=== PATIENT | male | born 1950 | race Caucasian/White ===

== ENCOUNTER → 2017-08-25 08:53 | Outpatient (CLI) | payer MEDICARE, SELFPAY | PROVIDERS: Visit Provider Internal Medicine Endocrinology, Diabetes & Metabolism | DX: E04.1 Nontoxic single thyroid nodule (principal) | CPT/HCPCS: 36415; 84439; 84443; 84480 ==

== ENCOUNTER 2017-11-20 12:00 | Outpatient (RCR) | payer MEDICARE, SELFPAY ==
--- NOTE | 2017-10-23 11:15 | PT.OIE ---
Current Diagnoses Weakness (10/23/17) Past Medical History (Last Reviewed 10/05/17 @ 16:15 by Sumanth Hernandez MD) Weakness (Chronic) Skin tag (Chronic) Chronic renal insufficiency, stage IV (severe) (Chronic 02/24/15) Abdominal aortic aneurysm (Chronic 2011) Allergic rhinitis (Chronic 1979) Anemia (Chronic 2009) Blindness (Chronic 1970) CKD (chronic kidney disease) (Chronic Unknown) Cataracts, bilateral (Chronic 2011) Colitis (Chronic 1984) Gout (Chronic ~1994) Hyperlipemia (Chronic Unknown) Hypertension (Chronic 1979) Kidney disease (Chronic ~2009) Restless leg syndrome (Chronic 1989) Retinal detachment (Chronic 1970) Sleep apnea (Chronic ~2004) Acne (Resolved ~1961) Actinic keratosis (Resolved ~1994) Chickenpox (Resolved ~1959) Colon polyps (Resolved 2009) History of diverticulitis (Resolved Unknown) History of recurrent ear infection (Resolved 1959) Measles (Resolved ~1959) Mumps (Resolved ~1959) Plantar warts (Resolved ~1994) Recurrent sinusitis (Resolved 1959) Skin cancer (Resolved ~1987) Past Surgical History (Last Reviewed 10/05/17 @ 16:15 by Sumanth Hernandez MD) History of skin surgery (Resolved) Hx of removal of testicle (Resolved 1963) Hx of surgical procedure (Resolved 1951) Provider Visit Care Team Role Provider Type Sumanth Hernandez MD Attending Provider Physician Specialty: Family Practice Address: [address] [place] [address] Email: [email or web address] Physical Therapy Initial Evaluation PT-OP-A Visit Information Start: 10/23/17 16:15 Freq: Status: Active Protocol: Document 10/23/17 11:15 MDD (Rec: 10/23/17 16:30 MDD [email or web address]) Out-Patient Physical Therapy Visit Information Visit Information Visit Type Initial Evaluation Visit Start Time 10:32 Visit Stop Time 11:15 Total Visit Minutes 43 Visit Number 1 Number of SERVICE UNIT OPERATOR OIL WELL Visits 0 Evaluation Information Evaluation Date 10/23/17 PT-OP-B Current Condition Start: 10/23/17 16:15 Freq: Status: Active Protocol: Document 10/23/17 11:15 MDD (Rec: 10/23/17 16:30 MDD [email or web address]) Current Condition History of Current Condition Onset Date incidious over time Current Complaints Pt reports he is very deconditioned and weak. History of Current Condition Pt has stage IV kidney failure and is currently on a waiting list for a transplant surgery at [facility]. His doctor would like him to work on improving his endurance and stamina prior to a surgery. Pt reports walking daily, but short slow walks so as not to fatigue himself (goal of 15, 000 to 20,000 steps daily). He also becomes very fatigued when climbing stairs. Prior Treatments and Tests NA Treatment Goals Patient/Caregiver Goals Improve stamina and lose some weight Prior Functional Status Baseline Function- ADL's Independent Baseline Function- Mobility Independent Baseline Function- Gait Able to walk long distances at a fast speed, no trouble with stairs Current Functional Impairments (Reported) Functional Limitations- Mobility/Gait limited stamina with stairclimbing, fatigues quickly when walking. PT-OP-E Functional Tests Start: 10/23/17 16:15 Freq: Status: Active Protocol: Document 10/23/17 11:15 MDD (Rec: 10/23/17 16:30 MDD [email or web address]) Functional Tests 6 Minute Walk Test Distance 97059 feet Device Used NA Comments after 4 minutes, pt began to limp favoring the L LE ( trendelenburg gait). Five Times Sit to Stand Test Score 21 Comments reports muscle soreness and SOB PT-OP-G Mobility & Gait Start: 10/23/17 16:15 Freq: Status: Active Protocol: Document 10/23/17 11:15 MDD (Rec: 10/23/17 16:30 MDD [email or web address]) OP Mobility Evaluation Bed Mobility Rolling independent Supine to and from Sit independent OP Gait Assessment Gait Gait Assistance Required: Independent Distance (Feet) (feet) 30 Gait Deviations General Gait Pattern Antalgic Lateral Trunk Lean Factors Limiting Gait Function Factors Limiting Gait Function Decreased Strength Pain PT-OP-M Strength Start: 10/23/17 16:15 Freq: Status: Active Protocol: Document 10/23/17 11:15 MDD (Rec: 10/23/17 16:30 MDD [email or web address]) Hip Strength Hip Manual Muscle Testing Right Flexion (L2) 5 Normal Extension (S1) 5 Normal Abduction 4+ Good+ External Rotation 5 Normal Internal Rotation 5 Normal Left Flexion (L2) 5 Normal Extension (S1) 4 Good Abduction 4 Good External Rotation 5 Normal Internal Rotation 5 Normal Knee Strength Knee Manual Muscle Testing Right Flexion (S2) 5 Normal Extension (L3) 5 Normal Left Flexion (S2) 4+ Good+ Extension (L3) 5 Normal PT-OP-Q Treatments Start: 10/23/17 16:15 Freq: Status: Active Protocol: Document 10/23/17 11:15 MDD (Rec: 10/23/17 16:30 MDD [email or web address]) Therapeutic Exercises Supine Exercises 1 Supine Exercise Name Bridges Side bilateral Reps/Minutes 15 with 5 second holds Standing Exercises 2 Standing Exercise Name standing hip abduction with L1 t-band Side bilateral Reps/Minutes 2 x 15 1 Standing Exercise Name sit to stand Side bilateral Reps/Minutes 2 x 20 PT-OP-T Assessment and Plan Start: 10/23/17 16:15 Freq: Status: Active Protocol: Document 10/23/17 11:15 MDD (Rec: 10/23/17 16:30 MDD [email or web address]) Physical Therapy Plan Frequency and Duration Frequency of Treatment 1x/Week Duration of Treatment 6 weeks Plan of Care Start Date 10/23/17 Plan of Care End Date 12/04/17 Therapeutic Interventions Therapeutic Interventions Gait Training Home Exercise Program Neuromuscular Re-education Therapeutic Activities Therapeutic Exercises Next Visit Focus/Plan Next Note Type Treatment Note Next Visit Plan review HEP, discuss gym/ intervals for increasing walking speed
--- NOTE | 2017-10-23 16:31 | PT.OPPOC ---
Current Diagnoses Weakness (10/23/17) Provider Visit Care Team Role Provider Type Sumanth Hernandez MD Attending Provider Physician Specialty: Family Practice Address: [address] [place], [place] [address], [address] Email: [email or web address] Plan Of Care PT-OP-T Assessment and Plan Start: 10/23/17 16:15 Freq: Status: Active Protocol: Document 10/23/17 11:15 MDD (Rec: 10/23/17 16:30 MDD [email or web address]) Physical Therapy Plan Frequency and Duration Frequency of Treatment 1x/Week Duration of Treatment 6 weeks Plan of Care Start Date 10/23/17 Plan of Care End Date 12/04/17 Therapeutic Interventions Therapeutic Interventions Gait Training Home Exercise Program Neuromuscular Re-education Therapeutic Activities Therapeutic Exercises Next Visit Focus/Plan Next Note Type Treatment Note Next Visit Plan review HEP, discuss gym/ intervals for increasing walking speed Plan of Care Dates Plan of Care Start Date 10/23/17 Plan of Care End Date 12/04/17 Please Sign and Return: I have reviewed this Plan of Care and certify that the skilled therapy services above are required to meet the patient?s needs. Physician Signature Date Printed Name and Credentials Clinical Instructor Signature Printed Name and Credentials
--- NOTE | 2017-11-06 12:00 | PT.OTN ---
Current Diagnoses Weakness (11/06/17) Physical Therapy Treatment Note PT-OP-A Visit Information Start: 10/23/17 16:15 Freq: Status: Active Protocol: Document 11/06/17 12:00 MDD (Rec: 11/07/17 08:52 MDD [email or web address]) Out-Patient Physical Therapy Visit Information Visit Information Visit Type Treatment Note Visit Start Time 11:20 Visit Stop Time 12:00 Total Visit Minutes 40 Visit Number 2 Number of ART EDUCATION PROFESSOR Visits 0 Evaluation Information Evaluation Date 10/23/17 PT-OP-B Current Condition Start: 10/23/17 16:15 Freq: Status: Active Protocol: Document 10/23/17 11:15 MDD (Rec: 10/23/17 16:30 MDD [email or web address]) Current Condition History of Current Condition Onset Date incidious over time Current Complaints Pt reports he is very deconditioned and weak. History of Current Condition Pt has stage IV kidney failure and is currently on a waiting list for a transplant surgery at [facility]. His doctor would like him to work on improving his endurance and stamina prior to a surgery. Pt reports walking daily, but short slow walks so as not to fatigue himself (goal of 15, 000 to 20,000 steps daily). He also becomes very fatigued when climbing stairs. Prior Treatments and Tests NA Treatment Goals Patient/Caregiver Goals Improve stamina and lose some weight Prior Functional Status Baseline Function- ADL's Independent Baseline Function- Mobility Independent Baseline Function- Gait Able to walk long distances at a fast speed, no trouble with stairs Current Functional Impairments (Reported) Functional Limitations- Mobility/Gait limited stamina with stairclimbing, fatigues quickly when walking. PT-OP-C Subjective Start: 10/23/17 16:15 Freq: Status: Active Protocol: Document 11/06/17 12:00 MDD (Rec: 11/07/17 08:52 MDD [email or web address]) OP-PT Subjective Patient Comments Patient Comments Pt reports he has been doing his exercises every other day. States that he feels tired afterwards and his muscles have been sore. Continues to walk daily. PT-OP-E Functional Tests Start: 10/23/17 16:15 Freq: Status: Active Protocol: Document 10/23/17 11:15 MDD (Rec: 10/23/17 16:30 MDD [email or web address]) Functional Tests 6 Minute Walk Test Distance 31466 feet Device Used NA Comments after 4 minutes, pt began to limp favoring the L LE ( trendelenburg gait). Five Times Sit to Stand Test Score 21 Comments reports muscle soreness and SOB PT-OP-G Mobility & Gait Start: 10/23/17 16:15 Freq: Status: Active Protocol: Document 10/23/17 11:15 MDD (Rec: 10/23/17 16:30 MDD [email or web address]) OP Mobility Evaluation Bed Mobility Rolling independent Supine to and from Sit independent OP Gait Assessment Gait Gait Assistance Required: Independent Distance (Feet) (feet) 30 Gait Deviations General Gait Pattern Antalgic Lateral Trunk Lean Factors Limiting Gait Function Factors Limiting Gait Function Decreased Strength Pain PT-OP-M Strength Start: 10/23/17 16:15 Freq: Status: Active Protocol: Document 10/23/17 11:15 MDD (Rec: 10/23/17 16:30 MDD [email or web address]) Hip Strength Hip Manual Muscle Testing Right Flexion (L2) 5 Normal Extension (S1) 5 Normal Abduction 4+ Good+ External Rotation 5 Normal Internal Rotation 5 Normal Left Flexion (L2) 5 Normal Extension (S1) 4 Good Abduction 4 Good External Rotation 5 Normal Internal Rotation 5 Normal Knee Strength Knee Manual Muscle Testing Right Flexion (S2) 5 Normal Extension (L3) 5 Normal Left Flexion (S2) 4+ Good+ Extension (L3) 5 Normal PT-OP-Q Treatments Start: 10/23/17 16:15 Freq: Status: Active Protocol: Document 11/06/17 12:00 MDD (Rec: 11/07/17 08:52 MDD [email or web address]) Cardio Equipment Recumbent Bicycle Duration (Minutes) 8 Resistance L4 Therapeutic Exercises Supine Exercises 1 Supine Exercise Name Bridges Side bilateral Reps/Minutes 15 with 5 second holds Standing Exercises 4 Standing Exercise Name standing hamstring curls Side bilateral Resistance L-1 t-band Reps/Minutes 2 x 15 3 Standing Exercise Name heel raises Side bilateral Reps/Minutes 2 x 15 2 Standing Exercise Name standing hip abduction with L1 t-band Side bilateral Reps/Minutes 2 x 15 1 Standing Exercise Name sit to stand Side bilateral Reps/Minutes 2 x 20 Other Exercises 1 Other Exercise Name stair stepping intervals Side bilateral Equipment Used 6 inch step Reps/Minutes 3 x 1 minute intervals, 2 minutes seated rest in between PT-OP-T Assessment and Plan Start: 10/23/17 16:15 Freq: Status: Active Protocol: Document 11/06/17 12:00 MDD (Rec: 11/07/17 08:52 MDD [email or web address]) Physical Therapy Assessment Rehab Potential Rehabilitation Potential Excellent Assessment Summary Assessment Pt demonstrates good participation this day. Has been compliant with HEP. Plans on going to the gym to vary his aerobic exercise with recumbant bike. Physical Therapy Plan Frequency and Duration Frequency of Treatment 1x/Week Duration of Treatment 6 weeks Plan of Care Start Date 10/23/17 Plan of Care End Date 12/04/17 Next Visit Focus/Plan Next Note Type Treatment Note Next Visit Plan Vitals prior to activity. Trial rowing machine intervals as pt reports his daughter has one she wants to give him. Review HEP.
--- NOTE | 2017-11-20 12:46 | PT.OTN ---
Current Diagnoses Weakness (11/20/17) Physical Therapy Treatment Note PT-OP-A Visit Information Start: 10/23/17 16:15 Freq: Status: Active Protocol: Document 11/20/17 12:46 MDD (Rec: 11/20/17 17:13 MDD [id number]) Out-Patient Physical Therapy Visit Information Visit Information Visit Type Treatment Note Visit Start Time 12:01 Visit Stop Time 12:46 Total Visit Minutes 45 Visit Number 3 Number of ASSISTANT SHIFT SUPERVISOR Visits 0 Evaluation Information Evaluation Date 10/23/17 PT-OP-B Current Condition Start: 10/23/17 16:15 Freq: Status: Active Protocol: Document 10/23/17 11:15 MDD (Rec: 10/23/17 16:30 MDD [email or web address]) Current Condition History of Current Condition Onset Date incidious over time Current Complaints Pt reports he is very deconditioned and weak. History of Current Condition Pt has stage IV kidney failure and is currently on a waiting list for a transplant surgery at [facility]. His doctor would like him to work on improving his endurance and stamina prior to a surgery. Pt reports walking daily, but short slow walks so as not to fatigue himself (goal of 15, 000 to 20,000 steps daily). He also becomes very fatigued when climbing stairs. Prior Treatments and Tests NA Treatment Goals Patient/Caregiver Goals Improve stamina and lose some weight Prior Functional Status Baseline Function- ADL's Independent Baseline Function- Mobility Independent Baseline Function- Gait Able to walk long distances at a fast speed, no trouble with stairs Current Functional Impairments (Reported) Functional Limitations- Mobility/Gait limited stamina with stairclimbing, fatigues quickly when walking. PT-OP-C Subjective Start: 10/23/17 16:15 Freq: Status: Active Protocol: Document 11/20/17 12:46 MDD (Rec: 11/20/17 17:13 MDD [id number]) OP-PT Subjective Patient Comments Patient Comments Pt reports he has been consistent with his exercises. Feels they are getting a little easier. He is starting to feel he is developing a routine. PT-OP-Q Treatments Start: 10/23/17 16:15 Freq: Status: Active Protocol: Document 11/20/17 12:46 MDD (Rec: 11/20/17 17:13 MDD [id number]) Cardio Equipment Recumbent Bicycle Duration (Minutes) 8 Resistance L4 Therapeutic Exercises Supine Exercises 1 Supine Exercise Name Bridges - progressed to single leg Side bilateral Reps/Minutes 2 x 15 Standing Exercises 4 Standing Exercise Name standing hamstring curls Side bilateral Resistance L2 t-band Reps/Minutes 2 x 15 3 Standing Exercise Name heel raises - progressed to tandem stance Side bilateral Reps/Minutes 2 x 15 2 Standing Exercise Name standing hip abduction Side bilateral Resistance L2 t- band Reps/Minutes 2 x 15 1 Standing Exercise Name Progressed to wall squats Side bilateral Reps/Minutes 2 x 12 Other Exercises 1 Other Exercise Name stair stepping intervals Side bilateral Equipment Used 6 inch step Reps/Minutes 3 x 1 minute intervals, 2 minutes seated rest in between PT-OP-T Assessment and Plan Start: 10/23/17 16:15 Freq: Status: Active Protocol: Document 11/20/17 12:46 MDD (Rec: 11/20/17 17:13 MDD [id number]) Physical Therapy Assessment Progress Towards Goals Progress Towards Goals Progressing Toward Goals Progress Comments Pt reports feeling a bit stronger and is feeling more comfortable with his routine. Assessment Summary Assessment Pt tolerated progression of HEP today well. Demonstrates good compliance with HEP overall. Physical Therapy Plan Frequency and Duration Frequency of Treatment Every Other Week Plan of Care Start Date 10/23/17 Plan of Care End Date 12/04/17 Therapeutic Interventions Therapeutic Interventions Gait Training Home Exercise Program Neuromuscular Re-education Therapeutic Activities Therapeutic Exercises Next Visit Focus/Plan Next Note Type Treatment Note Next Visit Plan Decrease frequency for additional follow up in 3-4 weeks to allow patient to see how he does independently. May d/c at next visit if he feels comfortable with self progression. Re-test strength and 6 minute walk test.
--- NOTE | 2018-01-01 15:00 | PT.OPDS ---
Current Diagnoses Weakness (11/20/17) Provider Visit Care Team Role Provider Type Sumanth Hernandez MD Attending Provider Physician Specialty: [facility] Address: [address] [place] [address], [address] Email: [email or web address] Visit Number Visit Number 3 Discharge Summary Document 01/01/18 14:54 IJS (Rec: 01/01/18 14:58 IJS [email or web address]) Physical Therapy Assessment Rehab Potential Rehabilitation Potential Excellent Progress Towards Goals Progress Towards Goals Goals Met Assessment Summary Assessment Patient phoned in to cancel all further appointments as he is feeling much better. Total visits = 3. Physical Therapy Plan Frequency and Duration Frequency of Treatment 0 Discharge Physical Therapy Discharge Reasons Patient Request Discharge Comments Patient independent with his HEP. Next Visit Focus/Plan Next Note Type Discharge Summary
--- NOTE | 2018-01-01 15:07 | PT.OPDS ---
Current Diagnoses Weakness (11/20/17) Provider Visit Care Team Role Provider Type Sumanth Hernandez MD Attending Provider Physician Specialty: [facility] Address: [address] [place] [address], [facility] Email: [email or web address] Visit Number Visit Number 3 Discharge Summary PT-OP-B Current Condition Start: 10/23/17 16:15 Freq: Status: Active Protocol: Document 10/23/17 11:15 MDD (Rec: 10/23/17 16:30 MDD [email or web address]) Current Condition History of Current Condition Onset Date incidious over time Current Complaints Pt reports he is very deconditioned and weak. History of Current Condition Pt has stage IV kidney failure and is currently on a waiting list for a transplant surgery at [facility]. His doctor would like him to work on improving his endurance and stamina prior to a surgery. Pt reports walking daily, but short slow walks so as not to fatigue himself (goal of 15, 000 to 20,000 steps daily). He also becomes very fatigued when climbing stairs. Prior Treatments and Tests NA Treatment Goals Patient/Caregiver Goals Improve stamina and lose some weight Prior Functional Status Baseline Function- ADL's Independent Baseline Function- Mobility Independent Baseline Function- Gait Able to walk long distances at a fast speed, no trouble with stairs Current Functional Impairments (Reported) Functional Limitations- Mobility/Gait limited stamina with stairclimbing, fatigues quickly when walking. PT-OP-C Subjective Start: 10/23/17 16:15 Freq: Status: Active Protocol: Document 11/20/17 12:46 MDD (Rec: 11/20/17 17:13 MDD [id number]) OP-PT Subjective Patient Comments Patient Comments Pt reports he has been consistent with his exercises. Feels they are getting a little easier. He is starting to feel he is developing a routine. PT-OP-E Functional Tests Start: 10/23/17 16:15 Freq: Status: Active Protocol: Document 10/23/17 11:15 MDD (Rec: 10/23/17 16:30 MDD [email or web address]) Functional Tests 6 Minute Walk Test Distance 63090 feet Device Used NA Comments after 4 minutes, pt began to limp favoring the L LE ( trendelenburg gait). Five Times Sit to Stand Test Score 21 Comments reports muscle soreness and SOB PT-OP-G Mobility & Gait Start: 10/23/17 16:15 Freq: Status: Active Protocol: Document 10/23/17 11:15 MDD (Rec: 10/23/17 16:30 MDD [email or web address]) OP Mobility Evaluation Bed Mobility Rolling independent Supine to and from Sit independent OP Gait Assessment Gait Gait Assistance Required: Independent Distance (Feet) 30 Gait Deviations General Gait Pattern Antalgic Lateral Trunk Lean Factors Limiting Gait Function Factors Limiting Gait Function Decreased Strength Pain PT-OP-M Strength Start: 10/23/17 16:15 Freq: Status: Active Protocol: Document 10/23/17 11:15 MDD (Rec: 10/23/17 16:30 MDD [email or web address]) Hip Strength Hip Manual Muscle Testing Right Flexion (L2) 5 Normal Extension (S1) 5 Normal Abduction 4+ Good+ External Rotation 5 Normal Internal Rotation 5 Normal Left Flexion (L2) 5 Normal Extension (S1) 4 Good Abduction 4 Good External Rotation 5 Normal Internal Rotation 5 Normal Knee Strength Knee Manual Muscle Testing Right Flexion (S2) 5 Normal Extension (L3) 5 Normal Left Flexion (S2) 4+ Good+ Extension (L3) 5 Normal PT-OP-T Assessment and Plan Start: 10/23/17 16:15 Freq: Status: Active Protocol: Document 01/01/18 14:54 IJS (Rec: 01/01/18 14:58 IJS [email or web address]) Physical Therapy Assessment Rehab Potential Rehabilitation Potential Excellent Progress Towards Goals Progress Towards Goals Goals Met Assessment Summary Assessment Patient phoned in to cancel all further appointments as he is feeling much better. Total visits = 3. Physical Therapy Plan Frequency and Duration Frequency of Treatment 0 Discharge Physical Therapy Discharge Reasons Patient Request Discharge Comments Patient independent with his HEP. Next Visit Focus/Plan Next Note Type Discharge Summary
== END 2018-03-19 15:03 ==
LOC: PHYS 12:00
PROVIDERS: Visit Provider Family Medicine
DX: R53.1 Weakness (principal)
CPT/HCPCS: 97110; 97161

== ENCOUNTER → 2019-06-19 13:05 | Outpatient (CLI) | payer MEDICARE, SELFPAY ==
[2019-06-19 13:36] LABS: Specimen Label IMMUNOGENTICS
[2019-06-19 13:42] LABS: Add Manual Diff / Slide Review NO; Basophils Absolute Auto 100 /uL (0-100); Basophils Percent Auto 0.8 % (0-2); Eosinophils Absolute Auto 300 /uL (0-450); Eosinophils Percent Auto 3.8 % (2-4); Hematocrit 34.6 % (41-53); Hemoglobin 11.6 g/dL (13.5-17.5); Lymphocytes Absolute Auto 1900 /uL (1100-4500); Lymphocytes Percent Auto 24.8 % (25-40); Mean Corpuscular HGB Conc 33.4 % (30-36); Mean Corpuscular Hemoglobin 32.3 PG (26-34); Mean Corpuscular Volume 96.7 fL (80-100); Monocytes Absolute Auto 700 /uL (0-900); Monocytes Percent Auto 9.7 % (3-14); Neutrophils Absolute Auto 4700 /uL (1500-7000); Neutrophils Percent Auto 60.9 % (50-75); Platelet Count 242 X10^3/uL (150-400); Red Blood Cell Count 3.57 X10^6/uL (4.5-5.9); Red Cell Distribution Width 15.3 % (11.6-14.8); White Blood Cell Count 7.7 X10^3/uL (4.5-11.0)
[2019-06-19 14:27] LABS: Alanine Aminotransferase 67 IU/L (<50); Albumin 4.1 g/dL (3.5-5.0); Albumin Globulin Ratio 1.2 (1.0-2.8); Alkaline Phosphatase 261 U/L (38-126); Aspartate Aminotransferase 63 IU/L (17-59); BUN Creatinine Ratio 10.5 (6-22); Bilirubin Total 0.5 mg/dL (0.2-1.3); Blood Urea Nitrogen 59 mg/dL (9-20); Calcium 8.7 mg/dL (8.4-10.2); Carbon Dioxide 23 mmol/L (22-32); Chloride 99 mmol/L (98-107); Estimated Glomerular Filt Rate 10.1 mL/min (>60); Globulin 3.4 g/dL (1.7-4.1); Glucose 85 mg/dL (80-110); HEMOLYSIS < 15 (0-50); Phosphorous 5.3 mg/dL (2.3-3.7); Potassium 3.9 mmol/L (3.4-5.1); Sodium 135 mmol/L (137-145); Total Protein 7.5 g/dL (6.3-8.2)
== END ==
PROVIDERS: PCP Internal Medicine Nephrology; Referring Provider Internal Medicine Nephrology; Visit Provider Internal Medicine Nephrology
DX: N18.6 End stage renal disease (principal)
CPT/HCPCS: 36415; 80053; 84100; 85025

== ENCOUNTER → 2019-07-10 11:34 | Outpatient (CLI) | payer MEDICARE, SELFPAY ==
[2019-07-10 12:43] LABS: Add Manual Diff / Slide Review NO; Basophils Absolute Auto 100 /uL (0-100); Basophils Percent Auto 0.7 % (0-2); Eosinophils Absolute Auto 300 /uL (0-450); Eosinophils Percent Auto 3.2 % (2-4); Hematocrit 32.5 % (41-53); Hemoglobin 11.2 g/dL (13.5-17.5); Lymphocytes Absolute Auto 1800 /uL (1100-4500); Lymphocytes Percent Auto 19.6 % (25-40); Mean Corpuscular HGB Conc 34.5 % (30-36); Mean Corpuscular Hemoglobin 32.9 PG (26-34); Mean Corpuscular Volume 95.4 fL (80-100); Monocytes Absolute Auto 800 /uL (0-900); Monocytes Percent Auto 8.5 % (3-14); Neutrophils Absolute Auto 6200 /uL (1500-7000); Platelet Count 230 X10^3/uL (150-400); Red Cell Distribution Width 14.8 % (11.6-14.8); White Blood Cell Count 9.2 X10^3/uL (4.5-11.0)
[2019-07-10 12:48] LABS: HEMOLYSIS < 15 (0-50); Iron 66 ug/dL (49-181)
[2019-07-10 12:49] LABS: Alanine Aminotransferase 43 IU/L (<50); Albumin 4.2 g/dL (3.5-5.0); Albumin Globulin Ratio 1.2 (1.0-2.8); Alkaline Phosphatase 230 U/L (38-126); Aspartate Aminotransferase 51 IU/L (17-59); BUN Creatinine Ratio 10.8 (6-22); Bilirubin Total 0.5 mg/dL (0.2-1.3); Blood Urea Nitrogen 75 mg/dL (9-20); Calcium 9.3 mg/dL (8.4-10.2); Carbon Dioxide 25 mmol/L (22-32); Chloride 97 mmol/L (98-107); Estimated Glomerular Filt Rate 7.9 mL/min (>60); Globulin 3.5 g/dL (1.7-4.1); Glucose 147 mg/dL (80-110); HEMOLYSIS < 15 (0-50); Phosphorous 5.6 mg/dL (2.3-3.7); Potassium 3.7 mmol/L (3.4-5.1); Sodium 137 mmol/L (137-145); Total Protein 7.7 g/dL (6.3-8.2)
[2019-07-10 12:58] LABS: Percent Iron Saturation 27 % (20-50); Total Iron Binding Capacity 243 ug/dL (261-462); Transferrin 196 mg/dL (206-381)
[2019-07-10 13:23] LABS: Ferritin 391 ng/mL (18-464)
[2019-07-11 07:17] LABS: Parathyroid Hormone Int 187 pg/mL (15-65)
== END ==
PROVIDERS: Referring Provider Internal Medicine Nephrology; Visit Provider Internal Medicine Nephrology
DX: N18.6 End stage renal disease (principal); E83.00 Disorder of copper metabolism, unspecified; N25.81 Secondary hyperparathyroidism of renal origin
CPT/HCPCS: 36415; 80053; 82728; 83540; 83550; 83970; 84100; 85025

== ENCOUNTER → 2019-10-10 11:11 | Outpatient (CLI) | payer MEDICARE, SELFPAY ==
[2019-10-10 12:00] LABS: Add Manual Diff / Slide Review NO; Basophils Absolute Auto 0 /uL (0-100); Basophils Percent Auto 0.6 % (0-2); Eosinophils Absolute Auto 200 /uL (0-450); Eosinophils Percent Auto 2.8 % (2-4); Hematocrit 30.2 % (41-53); Hemoglobin 10.2 g/dL (13.5-17.5); Lymphocytes Absolute Auto 2400 /uL (1100-4500); Lymphocytes Percent Auto 28.4 % (25-40); Mean Corpuscular HGB Conc 33.8 % (30-36); Mean Corpuscular Volume 94.8 fL (80-100); Monocytes Absolute Auto 700 /uL (0-900); Neutrophils Absolute Auto 4900 /uL (1500-7000); Neutrophils Percent Auto 59.2 % (50-75); Platelet Count 219 X10^3/uL (150-400); Red Blood Cell Count 3.18 X10^6/uL (4.5-5.9); Red Cell Distribution Width 13.7 % (11.6-14.8); White Blood Cell Count 8.3 X10^3/uL (4.5-11.0)
[2019-10-10 12:36] LABS: HEMOLYSIS < 15 (0-50); Iron 94 ug/dL (49-181)
[2019-10-10 12:39] LABS: Alanine Aminotransferase 49 IU/L (<50); Albumin 3.9 g/dL (3.5-5.0); Albumin Globulin Ratio 1.3 (1.0-2.8); Alkaline Phosphatase 222 U/L (38-126); Aspartate Aminotransferase 44 IU/L (17-59); BUN Creatinine Ratio 13.4 (6-22); Bilirubin Total 0.5 mg/dL (0.2-1.3); Blood Urea Nitrogen 77 mg/dL (9-20); Calcium 9.8 mg/dL (8.4-10.2); Carbon Dioxide 26 mmol/L (22-32); Chloride 98 mmol/L (98-107); Estimated Glomerular Filt Rate 9.9 mL/min (>60); Glucose 123 mg/dL (80-110); HEMOLYSIS < 15 (0-50); Phosphorous 5.9 mg/dL (2.3-3.7); Potassium 3.4 mmol/L (3.4-5.1); Sodium 137 mmol/L (137-145); Total Protein 6.9 g/dL (6.3-8.2)
[2019-10-10 12:47] LABS: Percent Iron Saturation 39 % (20-50); Total Iron Binding Capacity 240 ug/dL (261-462); Transferrin 181 mg/dL (206-381)
[2019-10-10 13:12] LABS: Ferritin 368 ng/mL (18-464)
[2019-10-11 09:10] LABS: Parathyroid Hormone Int 381 pg/mL (15-65)
== END ==
PROVIDERS: PCP Student in an Organized Health Care Education/Training Program; Referring Provider Internal Medicine Nephrology; Visit Provider Internal Medicine Nephrology
DX: N18.6 End stage renal disease (principal); E83.00 Disorder of copper metabolism, unspecified; N25.81 Secondary hyperparathyroidism of renal origin
CPT/HCPCS: 36415; 80053; 82728; 83540; 83550; 83970; 84100; 85025

== ENCOUNTER → 2019-12-25 10:38 | Outpatient (CLI) | payer MEDICARE, SELFPAY ==
[2019-12-25 11:36] LABS: Add Manual Diff / Slide Review NO; Basophils Absolute Auto 100 /uL (0-100); Basophils Percent Auto 0.7 % (0-2); Eosinophils Absolute Auto 300 /uL (0-450); Eosinophils Percent Auto 3.9 % (2-4); Hematocrit 30.2 % (41-53); Hemoglobin 10.4 g/dL (13.5-17.5); Lymphocytes Absolute Auto 1800 /uL (1100-4500); Lymphocytes Percent Auto 20.8 % (25-40); Mean Corpuscular HGB Conc 34.3 % (30-36); Mean Corpuscular Hemoglobin 32.5 PG (26-34); Mean Corpuscular Volume 94.5 fL (80-100); Monocytes Absolute Auto 1100 /uL (0-900); Monocytes Percent Auto 12.9 % (3-14); Neutrophils Absolute Auto 5400 /uL (1500-7000); Neutrophils Percent Auto 61.7 % (50-75); Platelet Count 242 X10^3/uL (150-400); Red Cell Distribution Width 14.1 % (11.6-14.8); White Blood Cell Count 8.8 X10^3/uL (4.5-11.0)
[2019-12-25 11:56] LABS: Albumin 3.8 g/dL (3.5-5.0); BUN Creatinine Ratio 13.6 (6-22); Blood Urea Nitrogen 92 mg/dL (9-20); Calcium 9.5 mg/dL (8.4-10.2); Carbon Dioxide 30 mmol/L (22-32); Chloride 93 mmol/L (98-107); Estimated Glomerular Filt Rate 8.2 mL/min (>60); Glucose 91 mg/dL (80-110); HEMOLYSIS < 15 (0-50); Potassium 3.6 mmol/L (3.4-5.1); Sodium 135 mmol/L (137-145)
== END ==
PROVIDERS: PCP Student in an Organized Health Care Education/Training Program; Referring Provider Internal Medicine Nephrology; Visit Provider Internal Medicine Nephrology
DX: Z90.09 Acquired absence of other part of head and neck (principal)
CPT/HCPCS: 36415; 80069; 85025

== ENCOUNTER → 2020-01-07 09:07 | Outpatient (CLI) | payer MEDICARE, SELFPAY ==
[2020-01-07 09:47] LABS: Calcium 9.3 mg/dL (8.4-10.2); Phosphorous 4.3 mg/dL (2.3-3.7)
[2020-01-08 06:36] LABS: Parathyroid Hormone Int 43 pg/mL (15-65)
== END ==
PROVIDERS: PCP Student in an Organized Health Care Education/Training Program; Referring Provider Internal Medicine Nephrology; Visit Provider Internal Medicine Nephrology
DX: N18.6 End stage renal disease (principal)
CPT/HCPCS: 36415; 82310; 83970; 84100

== ENCOUNTER → 2020-01-16 09:46 | Outpatient (CLI) | payer MEDICARE, SELFPAY ==
[2020-01-16 10:28] LABS: Calcium 9.1 mg/dL (8.4-10.2); Phosphorous 5.2 mg/dL (2.3-3.7)
== END ==
PROVIDERS: PCP Student in an Organized Health Care Education/Training Program; Referring Provider Internal Medicine Nephrology; Visit Provider Internal Medicine Nephrology
DX: N18.6 End stage renal disease (principal)
CPT/HCPCS: 36415; 82310; 84100

== ENCOUNTER 2020-02-07 15:13 | Emergency (ER) | payer MEDICARE, SELFPAY ==
[2020-02-07] VITALS (11 sets, daily range): BP systolic 140–170; BP diastolic 63–75; PULSE 80–89; RESP 16–29; TEMP 36.9; O2SAT 97–99
--- NOTE | 2020-02-07 16:10 | DI.RAD.S_ITS ---
PROCEDURE: XR CHEST 1V INDICATIONS: suspected sepsis TECHNIQUE: One view of the chest was acquired. COMPARISON: [facility], , CHEST 1 VIEW, 06/12/2009, 17:36. FINDINGS: Surgical changes and devices: None. Lungs and pleura: Lungs are clear. No pleural effusions or pneumothorax. Mediastinum: Mediastinal contours appear normal. Heart size is normal. Bones and chest wall: No suspicious bony lesions. Overlying soft tissues appear unremarkable. IMPRESSION: No acute process. Dictated by: Ted Mccullough M.D. on 02/07/2020 at 17:06 Approved by: Ted Mccullough M.D. on 02/07/2020 at 17:06
--- NOTE | 2020-02-07 17:07 | ED_ITS ---
HPI - Recheck/Abnormal Lab/Rx <Arin Simon, DO - Last Filed: 02/12/20 07:18> General Chief Complaint: Recheck/Abnormal Lab/Rx Stated Complaint: BLOOD CULTURE SHOWED POSITIVE WEAKNESS OF LEGS Time Seen by Provider: 02/07/20 17:03 Source: patient and family () Mode of arrival: Ambulatory Limitations: no limitations History of Present Illness HPI narrative: This is a pleasant 69-year-old male comes to the emergency department with complaint of positive blood culture. Patient was at [facility] for his monthly follow-up he follows with their Nephrology group for peritoneal dialysis. He had a drop in his potassium and was hypertensive and ended up going to the emergency department. He was noted have a temperature of a 100.1? F, his hypertension improved during his stay and he had blood cultures drawn. He elected to return home in orders do his peritoneal dialysis and was contacted today as 1 of his for blood cultures was positive. Patient has not had fevers, he has had a little bit of a headache yesterday but not today. Patient states his blood pressures been much better. He denies any chest pain, no shortness of breath, no cough cold or congestion although he has had some recent sinus issues. He was vomiting in the morning after his dialysis but they altered his medications and this seemed to have resolved. Chronically has constipation and has to take a laxative in order to have bowel movements. He was having some abdominal pain about a month ago but is resolved currently. In December he had parathyroid surgery and had issues reestablishing his urine output, he does normally urinating daily. He does daily peritoneal his hemodialysis and is believed to have gone into renal failure secondary to hypertension, he does not have any diabetes, no prior [place] or CVAs. He also had a cholecystectomy in April. No tobacco, no alcohol or illicit. He lives locally with his . Related Data Home Medications Medication Instructions Recorded Confirmed ASPIRIN (Aspir-Low) 81 mg PO QDAY #0 04/05/11 02/13/19 hydralazine 25 mg PO TID #0 03/15/16 02/13/19 darbepoetin bob in polysorbat #0 07/14/16 02/13/19 [Aranesp (in polysorbate)] sodium bicarbonate #0 06/01/17 02/13/19 torsemide BID #0 06/01/17 02/13/19 allopurinol 100 mg tablet 100 mg PO DAILY 09/14/17 02/13/19 chlorthalidone 25 mg tablet 12.5 mg PO DAILY tab 09/14/17 02/13/19 eplerenone 50 mg tablet 100 mg PO DAILY tab 09/14/17 02/13/19 lisinopril 40 mg tablet 40 mg PO DAILY 09/14/17 02/13/19 simvastatin 20 mg tablet 20 mg PO QPM 09/14/17 02/13/19 carvedilol 12.5 mg tablet 12.5 mg PO BID 07/12/18 02/13/19 Resmed AirCurve 10 BIPAP #1 ea 08/16/18 02/13/19 Previous Rx's Medication Instructions Recorded amlodipine [Norvasc] 10 mg PO QDAY #45 tabs 07/14/16 Allergies Allergy/AdvReac Type Severity Reaction Status Date / Time Sulfa (Sulfonamide Allergy Mild TURNS RED Verified 02/13/19 16:00 Antibiotics) [SULFA (SULFONAMIDE ANTIBIOTICS)] spironolactone AdvReac Intermediate REDUCES Verified 02/13/19 16:00 [SPIRONOLACTONE] KIDNEY FUNCTION Review of Systems <Arin Simon DO - Last Filed: 02/12/20 07:18> Review of Systems ROS Unobtainable: All systems reviewed & are unremarkable except as noted in HPI and below Patient History <Arin Simon DO - Last Filed: 02/12/20 07:18> Medical History Abdominal aortic aneurysm (Chronic 2011) Acne (Resolved ~1961) Actinic keratosis (Resolved ~1994) Allergic rhinitis (Chronic 1979) Anemia (Chronic 2009) Blindness (Chronic 1970) Cataracts, bilateral (Chronic 2011) Chickenpox (Resolved ~1959) Chronic renal insufficiency, stage IV (severe) (Chronic 02/24/15) CKD (chronic kidney disease) (Chronic Unknown) Colitis (Chronic 1984) Colon polyps (Resolved 2009) Gout (Chronic ~1994) History of diverticulitis (Resolved Unknown) History of recurrent ear infection (Resolved 1959) Hyperlipemia (Chronic Unknown) Hypertension (Chronic 1979) Kidney disease (Chronic ~2009) Measles (Resolved ~1959) Mumps (Resolved ~1960) Plantar warts (Resolved ~1994) Recurrent sinusitis (Resolved 1959) Restless leg syndrome (Chronic 1989) Retinal detachment (Chronic 1970) Skin cancer (Resolved ~1987) Skin tag (Chronic) Sleep apnea (Chronic ~2004) Weakness (Chronic) Surgical History History of skin surgery (Resolved) Hx of removal of testicle (Resolved 1963) Hx of surgical procedure (Resolved 1951) Family History Brother Age: 69 Skin cancer Hypertension Kidney disease Brother Age: 59 Hypertension Mother Hypertension Father No problems noted. Social History marital status: details: latia Morgan, lives in [place] household members: spouse lives independently: Yes caregiver/support person: No housing: house Smoking Status: Never smoker Smoking Status: Never smoker Exam <Arin Simon DO - Last Filed: 02/12/20 07:18> Narrative Exam Narrative: GENERAL: Alert and oriented x three, obese, well-appearing male in mild distress. HEENT: Head normocephalic, atraumatic, EOMI, pupils reactive, face symmetric, moist mucous membranes NECK: Supple, full range of motion CARDIOVASCULAR: Regular rate and rhythm without murmurs, rubs or gallops. RESPIRATORY: Breath sounds equal bilaterally, no wheezes rales or rhonchi. ABDOMEN: Soft, nontender. Normoactive bowel sounds all 4 quadrants. No guarding or rebound, rigidity, no mass : No CVA tenderness EXTREMITIES: Normal range of motion, no clubbing or edema appreciated. Neurovascularly intact NEUROLOGICAL: Cranial nerves II through XII grossly intact. Moving all extr emities SKIN: Warm, dry, no petechiae, no rashes or lesions. Initial Vital Signs Initial Vital Signs: Vital Signs Temperature 98.4 F 02/07/20 15:20 Pulse Rate 80 02/07/20 15:20 Respiratory Rate 18 02/07/20 15:20 Blood Pressure 150/67 H 02/07/20 15:20 Pulse Oximetry 99 02/07/20 15:20 <Jonathon Cr DO - Last Filed: 02/07/20 22:55> Initial Vital Signs Initial Vital Signs: Vital Signs Temperature 98.4 F 02/07/20 15:20 Pulse Rate 80 02/07/20 15:20 Respiratory Rate 18 02/07/20 15:20 Blood Pressure 150/67 H 02/07/20 15:20 Pulse Oximetry 99 02/07/20 15:20 Scores <Arin Parish Simon DO - Last Filed: 02/12/20 07:18> GCS [place] coma scale eye opening: Spontaneous [place] coma scale verbal response: Orientated [place] coma scale motor response: Obey commands Blair coma scale total score: 15 Course <Arin Parish Simon DO - Last Filed: 02/12/20 07:18> Orders Ordered: Discontinued Medications Cefepime HCl 1 gm/ Sodium (Chloride) 100 mls @ 200 mls/hr IV NOW ONE Stop: 02/07/20 19:02 Last Infusion: 02/07/20 21:10 Dose: 200 mls/hr Documented by: Admin: 02/07/20 20:04 Dose: 200 mls/hr Documented by: LARS Meropenem 500 mg/ Sodium (Chloride) 100 mls @ 200 mls/hr IV NOW ONE Stop: 02/07/20 19:02 Last Infusion: 02/07/20 20:34 Dose: 200 mls/hr Documented by: Admin: 02/07/20 19:24 Dose: 200 mls/hr Documented by: BATSHEVA Vital Signs Vital signs: Vital Signs - 8 hr 02/07/20 15:20 02/07/20 16:07 02/07/20 16:30 Temperature 98.4 F Pulse Rate 80 80 80 Respiratory Rate 18 24 24 Blood Pressure 150/67 H 170/75 H Pulse Oximetry 99 97 98 02/07/20 17:00 02/07/20 17:26 02/07/20 17:30 Temperature Pulse Rate 83 82 81 Respiratory Rate 27 H 26 H 22 Blood Pressure 151/67 H 149/67 H Pulse Oximetry 99 98 97 02/07/20 18:00 02/07/20 18:30 02/07/20 19:00 Temperature Pulse Rate 83 83 89 Respiratory Rate 22 16 29 H Blood Pressure 143/66 H 140/63 Pulse Oximetry 97 98 98 02/07/20 19:30 02/07/20 20:00 Temperature Pulse Rate 81 86 Respiratory Rate 20 20 Blood Pressure Pulse Oximetry 98 99 <Jonathon Cr DO - Last Filed: 02/07/20 22:55> Course Course Narrative: Patient received in sign-out from Dr. Simon. I have performed an independent history and physical. No significant additions. I have spoken with Dr. Justin Contreras at [facility] who is happy to accept on his service. Patient is aware of and in complete agreement with the plan. Orders Ordered: Discontinued Medications Cefepime HCl 1 gm/ Sodium (Chloride) 100 mls @ 200 mls/hr IV NOW ONE Stop: 02/07/20 19:02 Last Infusion: 02/07/20 21:10 Dose: 200 mls/hr Documented by: Admin: 02/07/20 20:04 Dose: 200 mls/hr Documented by: LARS Meropenem 500 mg/ Sodium (Chloride) 100 mls @ 200 mls/hr IV NOW ONE Stop: 02/07/20 19:02 Last Infusion: 02/07/20 20:34 Dose: 200 mls/hr Documented by: Admin: 02/07/20 19:24 Dose: 200 mls/hr Documented by: BATSHEVA Vital Signs Vital signs: Vital Signs - 8 hr 02/07/20 15:20 02/07/20 16:07 02/07/20 16:30 Temperature 98.4 F Pulse Rate 80 80 80 Respiratory Rate 18 24 24 Blood Pressure 150/67 H 170/75 H Pulse Oximetry 99 97 98 02/07/20 17:00 02/07/20 17:26 02/07/20 17:30 Temperature Pulse Rate 83 82 81 Respiratory Rate 27 H 26 H 22 Blood Pressure 151/67 H 149/67 H Pulse Oximetry 99 98 97 02/07/20 18:00 02/07/20 18:30 02/07/20 19:00 Temperature Pulse Rate 83 83 89 Respiratory Rate 22 16 29 H Blood Pressure 143/66 H 140/63 Pulse Oximetry 97 98 98 02/07/20 19:30 02/07/20 20:00 Temperature Pulse Rate 81 86 Respiratory Rate 20 20 Blood Pressure Pulse Oximetry 98 99 MDM - Recheck/Abnormal Lab/Rx <Arin Simon, - Last Filed: 02/12/20 07:18> Lab Data Attestation: I reviewed the patient's lab results. Result diagrams: 02/07/20 17:17 02/07/20 17:16 Labs: Lab Results 02/07/20 02/07/20 02/07/20 Range/Units 17:16 17:16 17:16 WBC (4.5-11.0) X10^3/uL RBC (4.5-5.9) X10^6/uL Hgb (13.5-17.5) g/dL Hct (41-53) % MCV (80-100) fL MCH (26-34) PG MCHC (30-36) % RDW (11.6-14.8) % Plt Count (150-400) X10^3/uL Neut % (Auto) (50-75) % Lymph % (Auto) (25-40) % [place] % (Auto) (3-14) % Eos % (Auto) (2-4) % Baso % (Auto) (0-2) % Neut # (Auto) (3970-5725) /uL Lymph # (Auto) (0329-3036) /uL [place] # (Auto) (0-900) /uL Eos # (Auto) (0-450) /uL Baso # (Auto) (0-100) /uL PT 12.4 (10.1-12.7) SECONDS INR 1.1 (0.9-1.3) APTT 18 L (26.4-36.2) SECONDS Sodium 127 L (137-145) mmol/L Potassium 4.1 (3.4-5.1) mmol/L Chloride 89 L (98-107) mmol/L Carbon Dioxide 32 (22-32) mmol/L BUN 85 H (9-20) mg/dL Creatinine 8.66 H* (0.66-1.25) mg/dL Estimated GFR 6.2 L (>60) mL/min BUN/Creatinine Ratio 9.8 (6-22) Glucose 98 (80-110) mg/dL Lactate (0.7-2.1) mmol/L Calcium 10.5 H (8.4-10.2) mg/dL Total Bilirubin 0.7 (0.2-1.3) mg/dL AST 44 (17-59) IU/L ALT 46 (<50) IU/L Alkaline Phosphatase 130 H (38-126) U/L Total Protein 7.1 (6.3-8.2) g/dL Albumin 3.8 (3.5-5.0) g/dL Globulin 3.3 (1.7-4.1) g/dL Albumin/Globulin Ratio 1.2 (1.0-2.8) Lipase 90 (23-300) U/L Procalcitonin 270.63 H (<0.5) ng/mL Urine Color Urine Appearance Urine pH (4.5-8.0) Ur Specific [place] (1.000-1.035) Urine Protein (Negative) Urine Glucose (UA) (Negative) g/dL Urine Ketones (NEGATIVE) Urine Occult Blood (Negative) Urine Nitrate (Negative) Urine Bilirubin (NEGATIVE) Urine Urobilinogen (0.2) E.U./dL Ur Leukocyte Esterase (NEGATIVE) Urine RBC (0-5/HPF) Urine WBC (0-5/HPF) Ur Squamous Epith Cells (0-5/HPF) Urine Bacteria (None) Ur Culture Indicated? COVID-19 PCR (Negative) 02/07/20 02/07/20 02/07/20 Range/Units 17:16 17:17 17:20 WBC 20.7 H (4.5-11.0) X10^3/uL RBC 3.51 L (4.5-5.9) X10^6/uL Hgb 11.1 L (13.5-17.5) g/dL Hct 33.4 L (41-53) % MCV 94.9 (80-100) fL MCH 31.6 (26-34) PG MCHC 33.3 (30-36) % RDW 14.8 (11.6-14.8) % Plt Count 218 (150-400) X10^3/uL Neut % (Auto) 88.4 H (50-75) % Lymph % (Auto) 5.2 L (25-40) % [place] % (Auto) 5.7 (3-14) % Eos % (Auto) 0.3 L (2-4) % Baso % (Auto) 0.4 (0-2) % Neut # (Auto) 28956 H (7034-4048) /uL Lymph # (Auto) 1100 (0653[address]2300) /uL [place] # (Auto) 1200 H (0-900) /uL Eos # (Auto) 100 (0-450) /uL Baso # (Auto) 100 (0-100) /uL PT (10.1-12.7) SECONDS INR (0.9-1.3) APTT (26.4-36.2) SECONDS Sodium (137-145) mmol/L Potassium (3.4-5.1) mmol/L Chloride (98-107) mmol/L Carbon Dioxide (22-32) mmol/L BUN (9-20) mg/dL Creatinine (0.66-1.25) mg/dL Estimated GFR (>60) mL/min BUN/Creatinine Ratio (6-22) Glucose (80-110) mg/dL Lactate 0.8 (0.7-2.1) mmol/L Calcium (8.4-10.2) mg/dL Total Bilirubin (0.2-1.3) mg/dL AST (17-59) IU/L ALT (<50) IU/L Alkaline Phosphatase (38-126) U/L Total Protein (6.3-8.2) g/dL Albumin (3.5-5.0) g/dL Globulin (1.7-4.1) g/dL Albumin/Globulin Ratio (1.0-2.8) Lipase (23-300) U/L Procalcitonin (<0.5) ng/mL Urine Color Yellow Urine Appearance Clear Urine pH 7.0 (4.5-8.0) Ur Specific [place] <=1.005 (1.000-1.035) Urine Protein Trace H (Negative) Urine Glucose (UA) Negative (Negative) g/dL Urine Ketones Negative (NEGATIVE) Urine Occult Blood 1+ H (Negative) Urine Nitrate Negative (Negative) Urine Bilirubin Negative (NEGATIVE) Urine Urobilinogen 0.2 (0.2) E.U./dL Ur Leukocyte Esterase Negative (NEGATIVE) Urine RBC 0-1/hpf (0-5/HPF) Urine WBC 0-1/hpf (0-5/HPF) Ur Squamous Epith Cells 0-1 /hpf (0-5/HPF) Urine Bacteria Occasional (0-1) (None) Ur Culture Indicated? Culture not indicate COVID-19 PCR (Negative) 02/07/20 Range/Units 19:10 WBC (4.5-11.0) X10^3/uL RBC (4.5-5.9) X10^6/uL Hgb (13.5-17.5) g/dL Hct (41-53) % MCV (80-100) fL MCH (26-34) PG MCHC (30-36) % RDW (11.6-14.8) % Plt Count (150-400) X10^3/uL Neut % (Auto) (50-75) % Lymph % (Auto) (25-40) % [place] % (Auto) (3-14) % Eos % (Auto) (2-4) % Baso % (Auto) (0-2) % Neut # (Auto) (5621-4147) /uL Lymph # (Auto) (3138-7112) /uL [place] # (Auto) (0-900) /uL Eos # (Auto) (0-450) /uL Baso # (Auto) (0-100) /uL PT (10.1-12.7) SECONDS INR (0.9-1.3) APTT (26.4-36.2) SECONDS Sodium (137-145) mmol/L Potassium (3.4-5.1) mmol/L Chloride (98-107) mmol/L Carbon Dioxide (22-32) mmol/L BUN (9-20) mg/dL Creatinine (0.66-1.25) mg/dL Estimated GFR (>60) mL/min BUN/Creatinine Ratio (6-22) Glucose (80-110) mg/dL Lactate (0.7-2.1) mmol/L Calcium (8.4-10.2) mg/dL Total Bilirubin (0.2-1.3) mg/dL AST (17-59) IU/L ALT (<50) IU/L Alkaline Phosphatase (38-126) U/L Total Protein (6.3-8.2) g/dL Albumin (3.5-5.0) g/dL Globulin (1.7-4.1) g/dL Albumin/Globulin Ratio (1.0-2.8) Lipase (23-300) U/L Procalcitonin (<0.5) ng/mL Urine Color Urine Appearance Urine pH (4.5-8.0) Ur Specific [place] (1.000-1.035) Urine Protein (Negative) Urine Glucose (UA) (Negative) g/dL Urine Ketones (NEGATIVE) Urine Occult Blood (Negative) Urine Nitrate (Negative) Urine Bilirubin (NEGATIVE) Urine Urobilinogen (0.2) E.U./dL Ur Leukocyte Esterase (NEGATIVE) Urine RBC (0-5/HPF) Urine WBC (0-5/HPF) Ur Squamous Epith Cells (0-5/HPF) Urine Bacteria (None) Ur Culture Indicated? COVID-19 PCR Negative (Negative) Imaging Data Chest x-ray: Radiologist's Impression: [address] [address] XRay Report Signed Patient: Judd Garcia JMR#: [id number] : 2Acct:[id number] Age/Sex: 69 / MDate of Service: 02/07/20 Loc: ED Accession Number: [id number] Procedure: XR chest 1V Ordering Provider: Arin Simon D.O. PROCEDURE: XR CHEST 1V INDICATIONS: suspected sepsis TECHNIQUE: One view of the chest was acquired. COMPARISON: [facility], , CHEST 1 VIEW, 06/12/2009, 17:36. FINDINGS: Surgical changes and devices: None. Lungs and pleura: Lungs are clear. No pleural effusions or pneumothorax. Mediastinum: Mediastinal contours appear normal. Heart size is normal. Bones and chest wall: No suspicious bony lesions. Overlying soft tissues appear unremarkable. IMPRESSION: No acute process. Dictated by: Ted Mccullough M.D. on 02/07/2020 at 17:06 Approved by: Ted Mccullough M.D. on 02/07/2020 at 17:06 ECG Data Attestation: I personally reviewed and interpreted this ECG as follows: Interpretation: Sinus rhythm, rate 85, [place] 172, QRS of 112 and QTC of 454. No ST changes appreciated. MDM Narrative Medical decision making narrative: Patient comes in sent for positive blood cultur from the emergency department [facility] last night. Yesterday he had monthly nephrology visit and then had issues with his potassium and was seen there. There was concern about infection the patient elected to return home. He was contacted today asked to come to our local ER because of his positive blood culture. Patient's labs show a leukocytosis of 20 with an elevated pr ocalcitonin of 270. He does have a creatinine of 8 although patient indicates this is not excessive for him. He does have a sodium 127, potassium is 4.1 with a chloride of 89 and a CO2 of 32. Appears stable and a leftward shift on his CBC. Blood cultures were repeated. Chest x-ray does not show any acute findings. Urinalysis shows trace protein with 1+ blood, no leukocyte esterase or nitrates. Urine culture was ordered. I did speak with Dr. Dumont the patient's personal melangeur operator, he does recommend double coverage for Pseudomonas, nystatin swish and swallow t.i.d.. We discussed that we do not have dialysis capabilities here so he does feel patient needs to be transferred. He is not currently on-call and we are waiting call back from the transfer center. If there is any issues he did ask that we give him a call and he will help facilitate transfer. Patient signed out to Dr. Cr while awaiting transfer center. Patient started on psuedomonal coverage, unknown exact source. <Jonathon Cr, - Last Filed: 02/07/20 22:55> Lab Data Labs: Lab Results 02/07/20 02/07/20 02/07/20 Range/Units 17:16 17:16 17:16 WBC (4.5-11.0) X10^3/uL RBC (4.5-5.9) X10^6/uL Hgb (13.5-17.5) g/dL Hct (41-53) % MCV (80-100) fL MCH (26-34) PG MCHC (30-36) % RDW (11.6-14.8) % Plt Count (150-400) X10^3/uL Neut % (Auto) (50-75) % Lymph % (Auto) (25-40) % [place] % (Auto) (3-14) % Eos % (Auto) (2-4) % Baso % (Auto) (0-2) % Neut # (Auto) (9350-9396) /uL Lymph # (Auto) (9871-7310) /uL [place] # (Auto) (0-900) /uL Eos # (Auto) (0-450) /uL Baso # (Auto) (0-100) /uL PT 12.4 (10.1-12.7) SECONDS INR 1.1 (0.9-1.3) APTT 18 L (26.4-36.2) SECONDS Sodium 127 L (137-145) mmol/L Potassium 4.1 (3.4-5.1) mmol/L Chloride 89 L (98-107) mmol/L Carbon Dioxide 32 (22-32) mmol/L BUN 85 H (9-20) mg/dL Creatinine 8.66 H* (0.66-1.25) mg/dL Estimated GFR 6.2 L (>60) mL/min BUN/Creatinine Ratio 9.8 (6-22) Glucose 98 (80-110) mg/dL Lactate (0.7-2.1) mmol/L Calcium 10.5 H (8.4-10.2) mg/dL Total Bilirubin 0.7 (0.2-1.3) mg/dL AST 44 (17-59) IU/L ALT 46 (<50) IU/L Alkaline Phosphatase 130 H (38-126) U/L Total Protein 7.1 (6.3-8.2) g/dL Albumin 3.8 (3.5-5.0) g/dL Globulin 3.3 (1.7-4.1) g/dL Albumin/Globulin Ratio 1.2 (1.0-2.8) Lipase 90 (23-300) U/L Procalcitonin 270.63 H (<0.5) ng/mL Urine Color Urine Appearance Urine pH (4.5-8.0) Ur Specific [place] (1.000-1.035) Urine Protein (Negative) Urine Glucose (UA) (Negative) g/dL Urine Ketones (NEGATIVE) Urine Occult Blood (Negative) Urine Nitrate (Negative) Urine Bilirubin (NEGATIVE) Urine Urobilinogen (0.2) E.U./dL Ur Leukocyte Esterase (NEGATIVE) Urine RBC (0-5/HPF) Urine WBC (0-5/HPF) Ur Squamous Epith Cells (0-5/HPF) Urine Bacteria (None) Ur Culture Indicated? COVID-19 PCR (Negative) 02/07/20 02/07/20 02/07/20 Range/Units 17:16 17:17 17:20 WBC 20.7 H (4.5-11.0) X10^3/uL RBC 3.51 L (4.5-5.9) X10^6/uL Hgb 11.1 L (13.5-17.5) g/dL Hct 33.4 L (41-53) % MCV 94.9 (80-100) fL MCH 31.6 (26-34) PG MCHC 33.3 (30-36) % RDW 14.8 (11.6-14.8) % Plt Count 218 (150-400) X10^3/uL Neut % (Auto) 88.4 H (50-75) % Lymph % (Auto) 5.2 L (25-40) % [place] % (Auto) 5.7 (3-14) % Eos % (Auto) 0.3 L (2-4) % Baso % (Auto) 0.4 (0-2) % Neut # (Auto) 21839 H (4009-1663) /uL Lymph # (Auto) 1100 (7664-8023) /uL [place] # (Auto) 1200 H (0-900) /uL Eos # (Auto) 100 (0-450) /uL Baso # (Auto) 100 (0-100) /uL PT (10.1-12.7) SECONDS INR (0.9-1.3) APTT (26.4-36.2) SECONDS Sodium (137-145) mmol/L Potassium (3.4-5.1) mmol/L Chloride (98-107) mmol/L Carbon Dioxide (22-32) mmol/L BUN (9-20) mg/dL Creatinine (0.66-1.25) mg/dL Estimated GFR (>60) mL/min BUN/Creatinine Ratio (6-22) Glucose (80-110) mg/dL Lactate 0.8 (0.7-2.1) mmol/L Calcium (8.4-10.2) mg/dL Total Bilirubin (0.2-1.3) mg/dL AST (17-59) IU/L ALT (<50) IU/L Alkaline Phosphatase (38-126) U/L Total Protein (6.3-8.2) g/dL Albumin (3.5-5.0) g/dL Globulin (1.7-4.1) g/dL Albumin/Globulin Ratio (1.0-2.8) Lipase (23-300) U/L Procalcitonin (<0.5) ng/mL Urine Color Yellow Urine Appearance Clear Urine pH 7.0 (4.5-8.0) Ur Specific [place] <=1.005 (1.000-1.035) Urine Protein Trace H (Negative) Urine Glucose (UA) Negative (Negative) g/dL Urine Ketones Negative (NEGATIVE) Urine Occult Blood 1+ H (Negative) Urine Nitrate Negative (Negative) Urine Bilirubin Negative (NEGATIVE) Urine Urobilinogen 0.2 (0.2) E.U./dL Ur Leukocyte Esterase Negative (NEGATIVE) Urine RBC 0-1/hpf (0-5/HPF) Urine WBC 0-1/hpf (0-5/HPF) Ur Squamous Epith Cells 0-1 /hpf (0-5/HPF) Urine Bacteria Occasional (0-1) (None) Ur Culture Indicated? Culture not indicate COVID-19 PCR (Negative) 02/07/20 Range/Units 19:10 WBC (4.5-11.0) X10^3/uL RBC (4.5-5.9) X10^6/uL Hgb (13.5-17.5) g/dL Hct (41-53) % MCV (80-100) fL MCH (26-34) PG MCHC (30-36) % RDW (11.6-14.8) % Plt Count (150-400) X10^3/uL Neut % (Auto) (50-75) % Lymph % (Auto) (25-40) % [place] % (Auto) (3-14) % Eos % (Auto) (2-4) % Baso % (Auto) (0-2) % Neut # (Auto) (8106-8848) /uL Lymph # (Auto) (5907-3878) /uL [place] # (Auto) (0-900) /uL Eos # (Auto) (0-450) /uL Baso # (Auto) (0-100) /uL PT (10.1-12.7) SECONDS INR (0.9-1.3) APTT (26.4-36.2) SECONDS Sodium (137-145) mmol/L Potassium (3.4-5.1) mmol/L Chloride (98-107) mmol/L Carbon Dioxide (22-32) mmol/L BUN (9-20) mg/dL Creatinine (0.66-1.25) mg/dL Estimated GFR (>60) mL/min BUN/Creatinine Ratio (6-22) Glucose (80-110) mg/dL Lactate (0.7-2.1) mmol/L Calcium (8.4-10.2) mg/dL Total Bilirubin (0.2-1.3) mg/dL AST (17-59) IU/L ALT (<50) IU/L Alkaline Phosphatase (38-126) U/L Total Protein (6.3-8.2) g/dL Albumin (3.5-5.0) g/dL Globulin (1.7-4.1) g/dL Albumin/Globulin Ratio (1.0-2.8) Lipase (23-300) U/L Procalcitonin (<0.5) ng/mL Urine Color Urine Appearance Urine pH (4.5-8.0) Ur Specific [place] (1.000-1.035) Urine Protein (Negative) Urine Glucose (UA) (Negative) g/dL Urine Ketones (NEGATIVE) Urine Occult Blood (Negative) Urine Nitrate (Negative) Urine Bilirubin (NEGATIVE) Urine Urobilinogen (0.2) E.U./dL Ur Leukocyte Esterase (NEGATIVE) Urine RBC (0-5/HPF) Urine WBC (0-5/HPF) Ur Squamous Epith Cells (0-5/HPF) Urine Bacteria (None) Ur Culture Indicated? COVID-19 PCR Negative (Negative) <Jonathon Cr, DO - Last Filed: 02/07/20 22:55> Critical Care Time Critical Care Time: Yes Total Critical Care Time: 30 Attestation: The high probability of a clinically significant, sudden or life threatening deterioration of the [CV/Renal] system(s) required my full and direct attention, intervention and personal management. The aggregate critical care time was [30] minutes. This time is in addition to time spent performing reported procedures but includes the following: [x] Data Review and interpretation [x] Patient assessment and monitoring of vital signs [x] Documentation [x] Medication orders and management Discharge Plan Departure Patient Disposition: [facility] Clinical Impression: Leukocytosis, Elevated procalcitonin, Positive blood culture Prescriptions: No Action carvedilol 12.5 mg tablet 12.5 mg PO BID RF: 0 allopurinol 100 mg tablet 100 mg PO DAILY RF: 0 simvastatin 20 mg tablet 20 mg PO QPM RF: 0 lisinopril 40 mg tablet 40 mg PO DAILY RF: 0 eplerenone 50 mg tablet 100 mg PO DAILY RF: 0 chlorthalidone 25 mg tablet 12.5 mg PO DAILY RF: 0 ASPIRIN (Aspir-Low) 81 mg PO QDAY Qty: 0 RF: 0 hydralazine 25 MG tablet 25 mg PO TID Qty: 0 RF: 0 amlodipine [Norvasc] 10 MG tablet 10 mg PO QDAY Qty: 45 RF: 0 darbepoetin bob in polysorbat [Aranesp (in polysorbate)] 10 mcg/0.4 mL Syringe Qty: 0 RF: 0 torsemide 20 MG tablet BID Qty: 0 RF: 0 sodium bicarbonate 650 MG tablet Qty: 0 RF: 0 (DME) Resmed AirCurve 10 BIPAP Qty: 1 RF: 0 Referrals: Crow Nunn MD [Primary Care Provider] -
[2020-02-07 17:16] LABS: Add Manual Diff / Slide Review NO; Basophils Absolute Auto 100 /uL (0-100); Basophils Percent Auto 0.4 % (0-2); Eosinophils Absolute Auto 100 /uL (0-450); Eosinophils Percent Auto 0.3 % (2-4); Hematocrit 33.4 % (41-53); Hemoglobin 11.1 g/dL (13.5-17.5); Lymphocytes Absolute Auto 1100 /uL (1100-4500); Lymphocytes Percent Auto 5.2 % (25-40); Mean Corpuscular HGB Conc 33.3 % (30-36); Mean Corpuscular Hemoglobin 31.6 PG (26-34); Mean Corpuscular Volume 94.9 fL (80-100); Monocytes Absolute Auto 1200 /uL (0-900); Monocytes Percent Auto 5.7 % (3-14); Neutrophils Absolute Auto 18300 /uL (1500-7000); Neutrophils Percent Auto 88.4 % (50-75); Platelet Count 218 X10^3/uL (150-400); Red Blood Cell Count 3.51 X10^6/uL (4.5-5.9); Red Cell Distribution Width 14.8 % (11.6-14.8); White Blood Cell Count 20.7 X10^3/uL (4.5-11.0)
[2020-02-07 17:23] LABS: INR 1.1 (0.9-1.3); Prothrombin Time 12.4 SECONDS (10.1-12.7)
[2020-02-07 17:25] LABS: PTT Partial Thromboplastin Tim 18 SECONDS (26.4-36.2)
[2020-02-07 17:27] LABS: Lactate (Lactic Acid) 0.8 mmol/L (0.7-2.1)
[2020-02-07 17:28] LABS: Alanine Aminotransferase 46 IU/L (<50); Albumin 3.8 g/dL (3.5-5.0); Albumin Globulin Ratio 1.2 (1.0-2.8); Alkaline Phosphatase 130 U/L (38-126); Aspartate Aminotransferase 44 IU/L (17-59); BUN Creatinine Ratio 9.8 (6-22); Bilirubin Total 0.7 mg/dL (0.2-1.3); Blood Urea Nitrogen 85 mg/dL (9-20); Calcium 10.5 mg/dL (8.4-10.2); Carbon Dioxide 32 mmol/L (22-32); Chloride 89 mmol/L (98-107); Estimated Glomerular Filt Rate 6.2 mL/min (>60); Globulin 3.3 g/dL (1.7-4.1); Glucose 98 mg/dL (80-110); HEMOLYSIS < 15 (0-50); Lipase 90 U/L (23-300); Potassium 4.1 mmol/L (3.4-5.1); Sodium 127 mmol/L (137-145); Total Protein 7.1 g/dL (6.3-8.2)
[2020-02-07 17:44] LABS: Appearance Urine UA CLEAR; Bilirubin Urine UA NEGATIVE (NEGATIVE); Color Urine UA YELLOW; Glucose Urine UA NEGATIVE (Negative); Ketones Urine UA NEGATIVE (NEGATIVE); Leukocyte Esterase Urine UA NEGATIVE (NEGATIVE); Nitrite Urine UA NEGATIVE (Negative); Occult Blood Urine UA 1+ (Negative); Protein Urine UA TRACE (Negative); Specific Gravity Urine UA <=1.005 (1.000-1.035); Urobilinogen Urine UA 0.2 E.U./dL (0.2)
[2020-02-07 18:01] LABS: Bacteria Urine Occasional (0-1); RBC Urine 0-1/HPF (0-5/HPF); Squamous Epithelial Cell Urine 0-1 /HPF (0-5/HPF); WBC Urine 0-1/HPF (0-5/HPF)
[2020-02-07 18:13] LABS: Procalcitonin 270.63 ng/mL (<0.5)
[2020-02-07] MEDS: MEROPENEM 500 MG in SODIUM CHLORIDE 0.9% 100 ML 200 ML IV (19:24)
[2020-02-07 19:43] LABS: COVID19 -Nasal RAPID Negative (Negative)
--- NOTE | 2020-02-07 20:03 | PC.NURSE ---
contact/ [phone]
[2020-02-07] MEDS: CEFEPIME 1 GM in SODIUM CHLORIDE 0.9% 100 ML 200 ML IV (20:04)
== END 2020-02-08 00:01 | disposition short-term general hospital (02) ==
PROVIDERS: Emergency Medicine; Emergency Provider Emergency Medicine; PCP Family Medicine
DX: D72.829 Elevated white blood cell count, unspecified (principal); R79.89 Other specified abnormal findings of blood chemistry; R78.81 Bacteremia; I10 Essential (primary) hypertension; R50.9 Fever, unspecified; E66.9 Obesity, unspecified
CPT/HCPCS: 36415; 71045; 80053; 81001; 83605; 83690; 84145; 85025; 85610; 85730; 87040; 87086; 87635; 93005; 96365; 96367; 99284; 99291; J0692; J2185

== ENCOUNTER 2020-02-19 16:19 | Emergency (ER) | payer MEDICARE, SELFPAY ==
[2020-02-19] VITALS (10 sets, daily range): BP systolic 140–167; BP diastolic 65–77; PULSE 74–81; RESP 14–20; TEMP 36.5; O2SAT 97–100; BMI 16.9
[2020-02-19 16:54] LABS: Add Manual Diff / Slide Review NO; Basophils Absolute Auto 100 /uL (0-100); Basophils Percent Auto 1.1 % (0-2); Eosinophils Absolute Auto 200 /uL (0-450); Eosinophils Percent Auto 2.4 % (2-4); Hematocrit 31.7 % (41-53); Hemoglobin 10.6 g/dL (13.5-17.5); Lymphocytes Absolute Auto 2000 /uL (1100-4500); Lymphocytes Percent Auto 20.9 % (25-40); Mean Corpuscular HGB Conc 33.3 % (30-36); Mean Corpuscular Hemoglobin 31.3 PG (26-34); Mean Corpuscular Volume 93.9 fL (80-100); Monocytes Absolute Auto 1000 /uL (0-900); Monocytes Percent Auto 10.2 % (3-14); Neutrophils Absolute Auto 6200 /uL (1500-7000); Neutrophils Percent Auto 65.4 % (50-75); Platelet Count 240 X10^3/uL (150-400); Red Blood Cell Count 3.38 X10^6/uL (4.5-5.9); Red Cell Distribution Width 15.3 % (11.6-14.8); White Blood Cell Count 9.5 X10^3/uL (4.5-11.0)
[2020-02-19 17:10] LABS: Alanine Aminotransferase 39 IU/L (<50); Albumin 3.8 g/dL (3.5-5.0); Albumin Globulin Ratio 1.2 (1.0-2.8); Alkaline Phosphatase 126 U/L (38-126); Aspartate Aminotransferase 47 IU/L (17-59); BUN Creatinine Ratio 11.2 (6-22); Bilirubin Total 0.5 mg/dL (0.2-1.3); Blood Urea Nitrogen 105 mg/dL (9-20); Carbon Dioxide 27 mmol/L (22-32); Chloride 91 mmol/L (98-107); Estimated Glomerular Filt Rate 5.6 mL/min (>60); Globulin 3.3 g/dL (1.7-4.1); Glucose 98 mg/dL (80-110); HEMOLYSIS < 15 (0-50); Lactate (Lactic Acid) 0.7 mmol/L (0.7-2.1); Magnesium 2.3 mg/dL (1.6-2.3); Phosphorous 8.1 mg/dL (2.3-3.7); Sodium 128 mmol/L (137-145); Total Protein 7.1 g/dL (6.3-8.2)
--- NOTE | 2020-02-19 17:15 | ED_ITS ---
HPI - Recheck/Abnormal Lab/Rx <Rebecca Sherif, DO - Last Filed: 02/20/20 07:28> General Chief Complaint: Recheck/Abnormal Lab/Rx Stated Complaint: BLOOD INFECTION Time Seen by Provider: 02/19/20 16:25 Source: patient Mode of arrival: Ambulatory Limitations: no limitations History of Present Illness HPI narrative: Patient is a 69-year-old male with history of peritoneal dialysis currently on transplant list and a recent bacteremia presenting today with confusion. He was actually seen evaluated here on February 06 found to have leukocytosis of 20,000 sent to [facility] the use placed on antibiotics. He has 1 more day of Cipro which will be a full 2 week course. states that dialysis did not go well last night over the last few days he has been on add different fluid regimen due to stalking issues and she said last night there were issues with the fluid and they had to switch over to a manual mode. This morning he woke up and was confused. With his previous infections he has had confusion. He has not had any fever or chills. He denies any abdominal pain chest pain cough or fever Related Data Home Medications Medication Instructions Recorded Confirmed ASPIRIN (Aspir-Low) 81 mg PO QDAY #0 04/05/11 02/13/19 hydralazine 25 mg PO TID #0 03/15/16 02/13/19 darbepoetin bob in polysorbat #0 07/14/16 02/13/19 [Aranesp (in polysorbate)] sodium bicarbonate #0 06/01/17 02/13/19 torsemide BID #0 06/01/17 02/13/19 allopurinol 100 mg tablet 100 mg PO DAILY 09/14/17 02/13/19 chlorthalidone 25 mg tablet 12.5 mg PO DAILY tab 09/14/17 02/13/19 eplerenone 50 mg tablet 100 mg PO DAILY tab 09/14/17 02/13/19 lisinopril 40 mg tablet 40 mg PO DAILY 09/14/17 02/13/19 simvastatin 20 mg tablet 20 mg PO QPM 09/14/17 02/13/19 carvedilol 12.5 mg tablet 12.5 mg PO BID 07/12/18 02/13/19 Resmed AirCurve 10 BIPAP #1 ea 08/16/18 02/13/19 Previous Rx's Medication Instructions Recorded amlodipine [Norvasc] 10 mg PO QDAY #45 tabs 07/14/16 Allergies Allergy/AdvReac Type Severity Reaction Status Date / Time Sulfa (Sulfonamide Allergy Mild TURNS RED Verified 02/19/20 16:33 Antibiotics) [SULFA (SULFONAMIDE ANTIBIOTICS)] spironolactone AdvReac Intermediate REDUCES Verified 02/19/20 16:33 [SPIRONOLACTONE] KIDNEY FUNCTION Review of Systems <Rebecca Gorman DO - Last Filed: 02/20/20 07:28> Review of Systems ROS Unobtainable: All systems reviewed & are unremarkable except as noted in HPI and below Constitutional Constitutional: Denies chills, Denies fever(s), Denies lethargy and Denies weakness Eyes Eyes: Denies change in vision, Denies eye discharge, Denies irritation and Denies loss of vision ENT Ears, Nose, Mouth, and Throat: Denies vertigo and Denies dizziness Cardiovascular Cardiovascular: Denies chest pain, Denies syncope, Denies irregular heart rhyt hm, Denies lightheadedness, Denies palpitations, Denies dyspnea, Denies dyspnea on exertion and Denies orthopnea Respiratory Respiratory: Denies cough, Denies dyspnea, Denies dyspnea on exertion and Denies wheezing Gastrointestinal Gastrointestinal: Denies abdominal pain, Denies change in bowel habits, Denies diarrhea, Denies nausea and Denies vomiting Genitourinary Genitourinary: Denies dysuria Genitourinary: Denies dysuria Musculoskeletal Musculoskeletal: Denies back pain and Denies myalgias Integumentary/Breasts Skin/Breast: Denies pruritus, Denies erythema, Denies rash and Denies wounds Neurologic Neurologic: Reports as per HPI, Reports confusion, Denies vertigo, Denies dizziness, Denies syncope, Denies loss of vision and Denies weakness Psychiatric Psychiatric: Reports confusion Endocrine Endocrine: Denies palpitations Allergic/Immunologic Allergic/Immunologic: Denies wheezing Patient History <Rebecca Gorman DO - Last Filed: 02/20/20 07:28> Medical History (Updated 02/19/20 @ 18:49 by Jonathon Cr DO) Abdominal aortic aneurysm (2011) Acne (~196) Actinic keratosis (~1994) Allergic rhinitis (1979) Anemia (2009) Blindness (1970) Cataracts, bilateral (2011) Chickenpox (~1959) Chronic renal insufficiency, stage IV (severe) (02/24/15) CKD (chronic kidney disease) (Unknown) Colitis (1984) Colon polyps (2009) Gout (~1994) History of diverticulitis (Unknown) History of recurrent ear infection (1959) Hyperlipemia (Unknown) Hypertension (1979) Kidney disease (~2009) Measles (~1959) Mumps (~1959) Plantar warts (~1994) Recurrent sinusitis (1959) Restless leg syndrome (1989) Retinal detachment (1970) Skin cancer (~1987) Skin tag Sleep apnea (~2004) Weakness Surgical History History of skin surgery Hx of removal of testicle (1963) Hx of surgical procedure (1951) Family History Brother Age: 70 Skin cancer Hypertension Kidney disease Brother Age: 60 Hypertension Mother Hypertension Father No problems noted. Social History marital status: details: latia Morgan, lives in [place] household members: spouse lives independently: Yes caregiver/support person: No housing: house Smoking Status: Never smoker Smoking Status: Never smoker alcohol intake frequency: holidays/special occasions only Substance Use Type: does not use Exam <Rebecca Gorman DO - Last Filed: 02/20/20 07:28> Initial Vital Signs Initial Vital Signs: Vital Signs Temperature 97.7 F 02/19/20 16:28 Pulse Rate 75 02/19/20 16:28 Respiratory Rate 15 02/19/20 16:28 Blood Pressure 162/74 H 02/19/20 16:28 Pulse Oximetry 100 02/19/20 16:28 GENERAL: Alert will and in no acute distress. HEENT: Head atraumatic,EOMI, pupils reactive, face symmetric, moist mucous membranes CARDIOVASCULAR: Regular rate and rhythm without murmurs, rubs or gallops. RESPIRATORY: Breath sounds equal bilaterally, no wheezes rales or rhonchi. ABDOMEN: Soft, nontender. Normoactive bowel sounds all 4 quadrants. No guarding or rebound. Peritoneal dialysis catheter seen no surrounding erythema or sign of infection EXTREMITIES: Normal range of motion, no clubbing or edema. Neurovascularly intact NEUROLOGICAL: Alert and oriented x4.Normal gait and speech. Moving all extremities no cranial nerve deficit SKIN: Contusions on abdomen noted from heparin Warm, dry, no laceration, no petechiae, no rashes or lesions. <Jonathon Cr, DO - Last Filed: 02/19/20 21:15> Initial Vital Signs Initial Vital Signs: Vital Signs Temperature 97.7 F 02/19/20 16:28 Pulse Rate 75 02/19/20 16:28 Respiratory Rate 15 02/19/20 16:28 Blood Pressure 162/74 H 02/19/20 16:28 Pulse Oximetry 100 02/19/20 16:28 Course <Rebecca Gorman, DO - Last Filed: 02/20/20 07:28> Orders Ordered: ED Orders 02/19/20 16:50 Complete Blood Count AUTO DIFF Stat Comprehensive Metabolic Panel Stat Lactate (Lactic Acid) Stat Magnesium Stat Phosphorous Stat Procalcitonin Stat 02/19/20 16:58 EKG-12 Lead Stat 02/19/20 17:10 Urinalysis and Microscopic Stat 02/19/20 17:24 Blood Culture Stat Vital Signs Vital signs: Vital Signs - 8 hr 02/19/20 16:28 02/19/20 16:30 02/19/20 17:01 Temperature 97.7 F Pulse Rate 74 75 77 Respiratory Rate 15 Blood Pressure 162/74 H 140/65 Pulse Oximetry 99 100 98 02/19/20 17:04 02/19/20 17:30 02/19/20 17:32 Temperature Pulse Rate 76 81 76 Respiratory Rate 15 17 Blood Pressure 148/75 H 165/75 H Pulse Oximetry 99 97 99 02/19/20 18:00 02/19/20 18:06 02/19/20 18:30 Temperature Pulse Rate 76 77 74 Respiratory Rate 20 16 Blood Pressure 160/76 H 142/65 H Pulse Oximetry 99 100 99 02/19/20 18:56 Temperature Pulse Rate 75 Respiratory Rate 14 Blood Pressure 167/77 H Pulse Oximetry 99 <Jonathon Cr DO - Last Filed: 02/19/20 21:15> Course Course Narrative: patient received in signout from Dr. Gorman. I have performed an independent history and physical and am awaiting call back from Dr. Rainey Orders Ordered: ED Orders 02/19/20 16:50 Complete Blood Count AUTO DIFF Stat Comprehensive Metabolic Panel Stat Lactate (Lactic Acid) Stat Magnesium Stat Phosphorous Stat Procalcitonin Stat 02/19/20 16:58 EKG-12 Lead Stat 02/19/20 17:10 Urinalysis and Microscopic Stat 02/19/20 17:24 Blood Culture Stat Consultations Consultation #1: Dr. Rainey (Nephrology at ) has spoken with patient own underground drill operator (Tim) and he recommends patient use his one remaining dialys ate with increased calcium concentration as well as return to prior dosing of Calcitriol 0.5mcg daily and Calcium [place] 1g TID. The currently has no beds and the nephrology team is working on arranging a call back in the morning to the patient and has plan to arrange for direct admission tomorrow. Patient and understand the diagnosis and plan and verbalized their agreement. Vital Signs Vital signs: Vital Signs - 8 hr 02/19/20 16:28 02/19/20 16:30 02/19/20 17:01 Temperature 97.7 F Pulse Rate 74 75 77 Respiratory Rate 15 Blood Pressure 162/74 H 140/65 Pulse Oximetry 99 100 98 02/19/20 17:04 02/19/20 17:30 02/19/20 17:32 Temperature Pulse Rate 76 81 76 Respiratory Rate 15 17 Blood Pressure 148/75 H 165/75 H Pulse Oximetry 99 97 99 02/19/20 18:00 02/19/20 18:06 02/19/20 18:30 Temperature Pulse Rate 76 77 74 Respiratory Rate 20 16 Blood Pressure 160/76 H 142/65 H Pulse Oximetry 99 100 99 02/19/20 18:56 Temperature Pulse Rate 75 Respiratory Rate 14 Blood Pressure 167/77 H Pulse Oximetry [address] [facility] - Recheck/Abnormal Lab/Rx <Rebecca Gorman, - Last Filed: 02/20/20 07:28> Lab Data Attestation: I reviewed the patient's lab results. Result diagrams: 02/19/20 16:50 02/19/20 16:50 Labs: Lab Results 02/19/20 02/19/20 02/19/20 Range/Units 16:50 16:50 16:50 WBC 9.5 (4.5-11.0) X10^3/uL RBC 3.38 L (4.5-5.9) X10^6/uL Hgb 10.6 L (13.5-17.5) g/dL Hct 31.7 L (41-53) % MCV 93.9 (80-100) fL MCH 31.3 (26-34) PG MCHC 33.3 (30-36) % RDW 15.3 H (11.6-14.8) % Plt Count 240 (150-400) X10^3/uL Neut % (Auto) 65.4 (50-75) % Lymph % (Auto) 20.9 L (25-40) % [place] % (Auto) 10.2 (3-14) % Eos % (Auto) 2.4 (2-4) % Baso % (Auto) 1.1 (0-2) % Neut # (Auto) 6200 (2146-2883) /uL Lymph # (Auto) 2000 (2478-4188) /uL [place] # (Auto) 1000 H (0-900) /uL Eos # (Auto) 200 (0-450) /uL Baso # (Auto) 100 (0-100) /uL Sodium 128 L (137-145) mmol/L Potassium 5.0 (3.4-5.1) mmol/L Chloride 91 L (98-107) mmol/L Carbon Dioxide 27 (22-32) mmol/L BUN 105 H (9-20) mg/dL Creatinine 9.34 H* (0.66-1.25) mg/dL Estimated GFR 5.6 L (>60) mL/min BUN/Creatinine Ratio 11.2 (6-22) Glucose 98 (80-110) mg/dL Lactate (0.7-2.1) mmol/L Calcium 6.2 L* (8.4-10.2) mg/dL Phosphorus 8.1 H (2.3-3.7) mg/dL Magnesium 2.3 (1.6-2.3) mg/dL Total Bilirubin 0.5 (0.2-1.3) mg/dL AST 47 (17-59) IU/L ALT 39 (<50) IU/L Alkaline Phosphatase 126 (38-126) U/L Total Protein 7.1 (6.3-8.2) g/dL Albumin 3.8 (3.5-5.0) g/dL Globulin 3.3 (1.7-4.1) g/dL Albumin/Globulin Ratio 1.2 (1.0-2.8) Procalcitonin 0.60 H (<0.5) ng/mL Urine Color Urine Appearance Urine pH (4.5-8.0) Ur Specific [place] (1.000-1.035) Urine Protein (Negative) Urine Glucose (UA) (Negative) g/dL Urine Ketones (NEGATIVE) Urine Occult Blood (Negative) Urine Nitrate (Negative) Urine Bilirubin (NEGATIVE) Urine Urobilinogen (0.2) E.U./dL Ur Leukocyte Esterase (NEGATIVE) Urine RBC (0-5/HPF) Urine WBC (0-5/HPF) Urine Bacteria (None) Ur Culture Indicated? 02/19/20 02/19/20 Range/Units 16:50 17:10 WBC (4.5-11.0) X10^3/uL RBC (4.5-5.9) X10^6/uL Hgb (13.5-17.5) g/dL Hct (41-53) % MCV (80-100) fL MCH (26-34) PG MCHC (30-36) % RDW (11.6-14.8) % Plt Count (150-400) X10^3/uL Neut % (Auto) (50-75) % Lymph % (Auto) (25-40) % [place] % (Auto) (3-14) % Eos % (Auto) (2-4) % Baso % (Auto) (0-2) % Neut # (Auto) (4452-3117) /uL Lymph # (Auto) (3040-8601) /uL [place] # (Auto) (0-900) /uL Eos # (Auto) (0-450) /uL Baso # (Auto) (0-100) /uL Sodium (137-145) mmol/L Potassium (3.4-5.1) mmol/L Chloride (98-107) mmol/L Carbon Dioxide (22-32) mmol/L BUN (9-20) mg/dL Creatinine (0.66-1.25) mg/dL Estimated GFR (>60) mL/min BUN/Creatinine Ratio (6-22) Glucose (80-110) mg/dL Lactate 0.7 (0.7-2.1) mmol/L Calcium (8.4-10.2) mg/dL Phosphorus (2.3-3.7) mg/dL Magnesium (1.6-2.3) mg/dL Total Bilirubin (0.2-1.3) mg/dL AST (17-59) IU/L ALT (<50) IU/L Alkaline Phosphatase (38-126) U/L Total Protein (6.3-8.2) g/dL Albumin (3.5-5.0) g/dL Globulin (1.7-4.1) g/dL Albumin/Globulin Ratio (1.0-2.8) Procalcitonin (<0.5) ng/mL Urine Color Yellow Urine Appearance Clear Urine pH 6.5 (4.5-8.0) Ur Specific [place] <=1.005 (1.000-1.035) Urine Protein Trace H (Negative) Urine Glucose (UA) Negative (Negative) g/dL Urine Ketones Negative (NEGATIVE) Urine Occult Blood 1+ H (Negative) Urine Nitrate Negative (Negative) Urine Bilirubin Negative (NEGATIVE) Urine Urobilinogen 0.2 (0.2) E.U./dL Ur Leukocyte Esterase Negative (NEGATIVE) Urine RBC 1-5/hpf (0-5/HPF) Urine WBC None seen (0-5/HPF) Urine Bacteria None seen (None) Ur Culture Indicated? Cult not indicated Urine Dip Bedside Urine Glucose Negative Bedside Urine Bilirubin - Negative Bedside Urine Ketone - Negative Urine Specific [place] 1.010 Bedside Urine Occult Blood +/- Bedside Urine pH 6.5 Bedside Urine Protein +/- 15 Bedside Urine Urobilinogen - Negative Bedside Urine Nitrite - Negative Bedside Urine Leukocytes - Negative Esterase MDM Narrative Medical decision making narrative: Patient at this time does not appear septic afebrile, no leukocytosis. Procalcitonin is still mildly elevated but significantly improved from previous. He has no focal deficits to suggest stroke. Electrolytes show some hypocalcemia, and chronic ongoing hyponatremia. 1815 Dr[address] Rainey, underground drill operator [facility] has been updated patient's symptoms and test results, he will talk with the patient's own underground drill operator and call back. Patient signed out to Dr. Cr for further evaluation and management <Jonathon Cr, DO - Last Filed: 02/19/20 21:15> Lab Data Labs: Lab Results 02/19/20 02/19/20 02/19/20 Range/Units 16:50 16:50 16:50 WBC 9.5 (4.5-11.0) X10^3/uL RBC 3.38 L (4.5-5.9) X10^6/uL Hgb 10.6 L (13.5-17.5) g/dL Hct 31.7 L (41-53) % MCV 93.9 (80-100) fL MCH 31.3 (26-34) PG MCHC 33.3 (30-36) % RDW 15.3 H (11.6-14.8) % Plt Count 240 (150-400) X10^3/uL Neut % (Auto) 65.4 (50-75) % Lymph % (Auto) 20.9 L (25-40) % [place] % (Auto) 10.2 (3-14) % Eos % (Auto) 2.4 (2-4) % Baso % (Auto) 1.1 (0-2) % Neut # (Auto) 6200 (2876-5360) /uL Lymph # (Auto) 2000 (3100-0034) /uL [place] # (Auto) 1000 H (0-900) /uL Eos # (Auto) 200 (0-450) /uL Baso # (Auto) 100 (0-100) /uL Sodium 128 L (137-145) mmol/L Potassium 5.0 (3.4-5.1) mmol/L Chloride 91 L (98-107) mmol/L Carbon Dioxide 27 (22-32) mmol/L BUN 105 H (9-20) mg/dL Creatinine 9.34 H* (0.66-1.25) mg/dL Estimated GFR 5.6 L (>60) mL/min BUN/Creatinine Ratio 11.2 (6-22) Glucose 98 (80-110) mg/dL Lactate (0.7-2.1) mmol/L Calcium 6.2 L* (8.4-10.2) mg/dL Phosphorus 8.1 H (2.3-3.7) mg/dL Magnesium 2.3 (1.6-2.3) mg/dL Total Bilirubin 0.5 (0.2-1.3) mg/dL AST 47 (17-59) IU/L ALT 39 (<50) IU/L Alkaline Phosphatase 126 (38-126) U/L Total Protein 7.1 (6.3-8.2) g/dL Albumin 3.8 (3.5-5.0) g/dL Globulin 3.3 (1.7-4.1) g/dL Albumin/Globulin Ratio 1.2 (1.0-2.8) Procalcitonin 0.60 H (<0.5) ng/mL Urine Color Urine Appearance Urine pH (4.5-8.0) Ur Specific [place] (1.000-1.035) Urine Protein (Negative) Urine Glucose (UA) (Negative) g/dL Urine Ketones (NEGATIVE) Urine Occult Blood (Negative) Urine Nitrate (Negative) Urine Bilirubin (NEGATIVE) Urine Urobilinogen (0.2) E.U./dL Ur Leukocyte Esterase (NEGATIVE) Urine RBC (0-5/HPF) Urine WBC (0-5/HPF) Urine Bacteria (None) Ur Culture Indicated? 02/19/20 02/19/20 Range/Units 16:50 17:10 WBC (4.5-11.0) X10^3/uL RBC (4.5-5.9) X10^6/uL Hgb (13.5-17.5) g/dL Hct (41-53) % MCV (80-100) fL MCH (26-34) PG MCHC (30-36) % RDW (11.6-14.8) % Plt Count (150-400) X10^3/uL Neut % (Auto) (50-75) % Lymph % (Auto) (25-40) % [place] % (Auto) (3-14) % Eos % (Auto) (2-4) % Baso % (Auto) (0-2) % Neut # (Auto) (7848-4294) /uL Lymph # (Auto) (8108-3137) /uL [place] # (Auto) (0-900) /uL Eos # (Auto) (0-450) /uL Baso # (Auto) (0-100) /uL Sodium (137-145) mmol/L Potassium (3.4-5.1) mmol/L Chloride (98-107) mmol/L Carbon Dioxide (22-32) mmol/L BUN (9-20) mg/dL Creatinine (0.66-1.25) mg/dL Estimated GFR (>60) mL/min BUN/Creatinine Ratio (6-22) Glucose (80-110) mg/dL Lactate 0.7 (0.7-2.1) mmol/L Calcium (8.4-10.2) mg/dL Phosphorus (2.3-3.7) mg/dL Magnesium (1.6-2.3) mg/dL Total Bilirubin (0.2-1.3) mg/dL AST (17-59) IU/L ALT (<50) IU/L Alkaline Phosphatase (38-126) U/L Total Protein (6.3-8.2) g/dL Albumin (3.5-5.0) g/dL Globulin (1.7-4.1) g/dL Albumin/Globulin Ratio (1.0-2.8) Procalcitonin (<0.5) ng/mL Urine Color Yellow Urine Appearance Clear Urine pH 6.5 (4.5-8.0) Ur Specific [place] <=1.005 (1.000-1.035) Urine Protein Trace H (Negative) Urine Glucose (UA) Negative (Negative) g/dL Urine Ketones Negative (NEGATIVE) Urine Occult Blood 1+ H (Negative) Urine Nitrate Negative (Negative) Urine Bilirubin Negative (NEGATIVE) Urine Urobilinogen 0.2 (0.2) E.U./dL Ur Leukocyte Esterase Negative (NEGATIVE) Urine RBC 1-5/hpf (0-5/HPF) Urine WBC None seen (0-5/HPF) Urine Bacteria None seen (None) Ur Culture Indicated? Cult not indicated Urine Dip Bedside Urine Glucose Negative Bedside Urine Bilirubin - Negative Bedside Urine Ketone - Negative Urine Specific [place] 1.010 Bedside Urine Occult Blood +/- Bedside Urine pH 6.5 Bedside Urine Protein +/- 15 Bedside Urine Urobilinogen - Negative Bedside Urine Nitrite - Negative Bedside Urine Leukocytes - Negative Esterase MDM Narrative Medical decision making narrative: Symptoms likely due to low calcium, this is likely a consequence of recent change in his dialysate to a lower calcium concentration. We have had multiple conversations with the patient as well as the Nephrology team at the [facility]. They do not request transfer this evening, stating that they would prefer to alter some of his medications at home and try to arrange for him to come down tomorrow. The patient and family been given return precautions, understand and are in agreement with the plan Discharge Plan Departure Patient Disposition: Home Clinical Impression: Chronic renal insufficiency, stage IV (severe), Hypocalcemia Instructions: DI for Hypocalcemia Activity Restrictions/Additional Instructions: *You have been diagnosed with [confusion and twitching which is most likely a consequence of your low calcium.] *What to do: *Take medications as directed: After discussing with the on-call underground drill operator whom had spoken with Dr. Dumont... 1. Resume your Calcitriol 0.5mcg once daily 2. Resume your Calcium Carbonate 1g three times daily *Dr. Dumont and the nephrology team will reach out to you tomorrow and are working on securing you a bed for admission at *Return to ER if you should have any new, worsening or concerning symptoms, such as [increasing confusion, weakness, fever >101F, shaking chills or other bothersome symptoms ] Prescriptions: No Action carvedilol 12.5 mg tablet 12.5 mg PO BID RF: 0 allopurinol 100 mg tablet 100 mg PO DAILY RF: 0 simvastatin 20 mg tablet 20 mg PO QPM RF: 0 lisinopril 40 mg tablet 40 mg PO DAILY RF: 0 eplerenone 50 mg tablet 100 mg PO DAILY RF: 0 chlorthalidone 25 mg tablet 12.5 mg PO DAILY RF: 0 ASPIRIN (Aspir-Low) 81 mg PO QDAY Qty: 0 RF: 0 hydralazine 25 MG tablet 25 mg PO TID Qty: 0 RF: 0 amlodipine [Norvasc] 10 MG tablet 10 mg PO QDAY Qty: 45 RF: 0 darbepoetin bob in polysorbat [Aranesp (in polysorbate)] 10 mcg/0.4 mL Syringe Qty: 0 RF: 0 torsemide 20 MG tablet BID Qty: 0 RF: 0 sodium bicarbonate 650 MG tablet Qty: 0 RF: 0 (DME) Resmed AirCurve 10 BIPAP Qty: 1 RF: 0 Referrals: Miscellaneous,Doctor, MD [Primary Care Provider] -
[2020-02-19 17:16] LABS: Calcium 6.2 mg/dL (8.4-10.2)
[2020-02-19 17:46] LABS: Bacteria Urine None Seen; WBC Urine None Seen (0-5/HPF)
[2020-02-19 17:48] LABS: Appearance Urine UA CLEAR; Bilirubin Urine UA NEGATIVE (NEGATIVE); Color Urine UA YELLOW; Glucose Urine UA NEGATIVE (Negative); Ketones Urine UA NEGATIVE (NEGATIVE); Leukocyte Esterase Urine UA NEGATIVE (NEGATIVE); Nitrite Urine UA NEGATIVE (Negative); Occult Blood Urine UA 1+ (Negative); Protein Urine UA TRACE (Negative); Specific Gravity Urine UA <=1.005 (1.000-1.035); Urobilinogen Urine UA 0.2 E.U./dL (0.2); pH Urine UA 6.5 (4.5-8.0)
[2020-02-19 17:51] LABS: Culture Indicated Urine Cult Not Indicated; RBC Urine 1-5/HPF (0-5/HPF)
--- NOTE | 2020-02-19 18:48 | PC.NURSE ---
Pt has history of sepsis, currently on antibiotics day 13 of 14. Woke up at 0330 with confusion, per report. They spoke with kidney docs and were instructed to come to ER for repeat blood cultures and lab work.
== END 2020-02-19 19:00 | disposition home or self-care (01) ==
PROVIDERS: Emergency Medicine; Emergency Provider Emergency Medicine
DX: N18.5 Chronic kidney disease, stage 5 (principal); Z99.2 Dependence on renal dialysis; E83.51 Hypocalcemia; R07.9 Chest pain, unspecified
CPT/HCPCS: 36415; 80053; 81001; 81003; 83605; 83735; 84100; 84145; 85025; 87040; 93005; 99282; 99284

== ENCOUNTER → 2020-02-25 11:01 | Outpatient (CLI) | payer MEDICARE, SELFPAY ==
[2020-02-25 12:03] LABS: HEMOLYSIS < 15 (0-50); Potassium 3.8 mmol/L (3.4-5.1)
== END ==
PROVIDERS: PCP Family Medicine; Referring Provider Internal Medicine Nephrology; Visit Provider Internal Medicine Nephrology
DX: N18.6 End stage renal disease (principal)
CPT/HCPCS: 36415; 82310; 84100; 84132

== ENCOUNTER → 2020-02-28 07:45 | Outpatient (CLI) | payer MEDICARE, SELFPAY ==
[2020-02-28 09:21] LABS: Calcium 9.1 mg/dL (8.4-10.2); HEMOLYSIS < 15 (0-50); Phosphorous 4.4 mg/dL (2.3-3.7); Potassium 3.8 mmol/L (3.4-5.1)
== END ==
PROVIDERS: PCP Family Medicine; Referring Provider Internal Medicine Nephrology; Visit Provider Internal Medicine Nephrology
DX: N18.6 End stage renal disease (principal)
CPT/HCPCS: 36415; 82310; 84100; 84132

== ENCOUNTER → 2020-03-03 10:06 | Outpatient (CLI) | payer MEDICARE, SELFPAY ==
[2020-03-03 11:25] LABS: Calcium 8.5 mg/dL (8.4-10.2); HEMOLYSIS < 15 (0-50); Phosphorous 4.8 mg/dL (2.3-3.7); Potassium 3.5 mmol/L (3.4-5.1)
== END ==
PROVIDERS: PCP Family Medicine; Referring Provider Internal Medicine Nephrology; Visit Provider Internal Medicine Nephrology
DX: N18.6 End stage renal disease (principal)
CPT/HCPCS: 36415; 82310; 84100; 84132

== ENCOUNTER → 2020-03-06 07:40 | Outpatient (CLI) | payer MEDICARE, SELFPAY ==
[2020-03-06 09:00] LABS: Calcium 9.5 mg/dL (8.4-10.2); HEMOLYSIS < 15 (0-50); Phosphorous 4.8 mg/dL (2.3-3.7); Potassium 3.9 mmol/L (3.4-5.1)
== END ==
PROVIDERS: PCP Family Medicine; Referring Provider Internal Medicine Nephrology; Visit Provider Internal Medicine Nephrology
DX: N18.6 End stage renal disease (principal)
CPT/HCPCS: 36415; 82310; 84100; 84132

== ENCOUNTER → 2020-03-10 09:08 | Outpatient (CLI) | payer MEDICARE, SELFPAY ==
[2020-03-10 12:46] LABS: Calcium 8.9 mg/dL (8.4-10.2); HEMOLYSIS < 15 (0-50); Phosphorous 4.6 mg/dL (2.3-3.7); Potassium 3.9 mmol/L (3.4-5.1)
== END ==
PROVIDERS: PCP Family Medicine; Referring Provider Internal Medicine Nephrology; Visit Provider Internal Medicine Nephrology
DX: N18.6 End stage renal disease (principal)
CPT/HCPCS: 36415; 82310; 84100; 84132

== ENCOUNTER → 2020-03-13 08:35 | Outpatient (CLI) | payer MEDICARE, SELFPAY ==
[2020-03-13 09:57] LABS: Calcium 9.4 mg/dL (8.4-10.2); HEMOLYSIS 31 (0-50); Phosphorous 6.1 mg/dL (2.3-3.7); Potassium 3.9 mmol/L (3.4-5.1)
== END ==
PROVIDERS: PCP Family Medicine; Referring Provider Internal Medicine Nephrology; Visit Provider Internal Medicine Nephrology
DX: N18.6 End stage renal disease (principal)
CPT/HCPCS: 36415; 82310; 84100; 84132

== ENCOUNTER → 2020-03-17 09:33 | Outpatient (CLI) | payer MEDICARE, SELFPAY ==
[2020-03-17 10:27] LABS: Calcium 9.5 mg/dL (8.4-10.2); HEMOLYSIS < 15 (0-50); Phosphorous 5.9 mg/dL (2.3-3.7); Potassium 3.6 mmol/L (3.4-5.1)
== END ==
PROVIDERS: PCP Family Medicine; Referring Provider Internal Medicine Nephrology; Visit Provider Internal Medicine Nephrology
DX: N18.6 End stage renal disease (principal)
CPT/HCPCS: 36415; 82310; 84100; 84132

== ENCOUNTER → 2020-03-24 08:23 | Outpatient (CLI) | payer MEDICARE, SELFPAY ==
[2020-03-24 10:01] LABS: Add Manual Diff / Slide Review NO; Basophils Absolute Auto 0 /uL (0-100); Basophils Percent Auto 0.6 % (0-2); Eosinophils Absolute Auto 300 /uL (0-450); Eosinophils Percent Auto 4.2 % (2-4); Hematocrit 32.3 % (41-53); Lymphocytes Absolute Auto 2100 /uL (1100-4500); Lymphocytes Percent Auto 26.2 % (25-40); Mean Corpuscular HGB Conc 34.1 % (30-36); Mean Corpuscular Hemoglobin 32.1 PG (26-34); Mean Corpuscular Volume 94.3 fL (80-100); Monocytes Absolute Auto 1000 /uL (0-900); Monocytes Percent Auto 12.1 % (3-14); Neutrophils Absolute Auto 4600 /uL (1500-7000); Neutrophils Percent Auto 56.9 % (50-75); Platelet Count 220 X10^3/uL (150-400); Red Blood Cell Count 3.43 X10^6/uL (4.5-5.9); Red Cell Distribution Width 15.3 % (11.6-14.8); White Blood Cell Count 8.2 X10^3/uL (4.5-11.0)
[2020-03-24 10:27] LABS: Albumin 3.6 g/dL (3.5-5.0); Alkaline Phosphatase 188 U/L (38-126); Calcium 9.3 mg/dL (8.4-10.2); Carbon Dioxide 29 mmol/L (22-32); Chloride 94 mmol/L (98-107); Estimated Glomerular Filt Rate 7.5 mL/min (>60); HEMOLYSIS < 15 (0-50); Phosphorous 5.4 mg/dL (2.3-3.7); Potassium 3.7 mmol/L (3.4-5.1); Sodium 130 mmol/L (137-145)
== END ==
PROVIDERS: PCP Family Medicine; Referring Provider Internal Medicine Nephrology; Visit Provider Internal Medicine Nephrology
DX: N18.6 End stage renal disease (principal)
CPT/HCPCS: 36415; 80051; 82040; 82310; 82565; 84075; 84100; 85025

== ENCOUNTER → 2020-03-31 08:09 | Outpatient (CLI) | payer MEDICARE, SELFPAY ==
[2020-03-31 09:54] LABS: Calcium 9.9 mg/dL (8.4-10.2); HEMOLYSIS < 15 (0-50); Phosphorous 6.5 mg/dL (2.3-3.7); Potassium 3.5 mmol/L (3.4-5.1)
== END ==
PROVIDERS: PCP Family Medicine; Referring Provider Internal Medicine Nephrology; Visit Provider Internal Medicine Nephrology
DX: N18.6 End stage renal disease (principal)
CPT/HCPCS: 36415; 82310; 84100; 84132

== ENCOUNTER → 2020-04-17 09:27 | Outpatient (CLI) | payer MEDICARE, SELFPAY ==
[2020-04-17 10:09] LABS: HEMOLYSIS 39 (0-50); Phosphorous 5.2 mg/dL (2.3-3.7); Potassium 4.6 mmol/L (3.4-5.1)
== END ==
PROVIDERS: PCP Family Medicine; Referring Provider Internal Medicine Nephrology; Visit Provider Internal Medicine Nephrology
DX: N18.6 End stage renal disease (principal)
CPT/HCPCS: 36415; 82310; 84100; 84132

== ENCOUNTER → 2020-04-24 07:14 | Outpatient (CLI) | payer MEDICARE, SELFPAY ==
[2020-04-24 08:35] LABS: Calcium 9.1 mg/dL (8.4-10.2); HEMOLYSIS < 15 (0-50); Potassium 3.8 mmol/L (3.4-5.1)
== END ==
PROVIDERS: PCP Family Medicine; Referring Provider Internal Medicine Nephrology; Visit Provider Internal Medicine Nephrology
DX: N18.6 End stage renal disease (principal)
CPT/HCPCS: 36415; 82310; 84100; 84132

== ENCOUNTER → 2020-05-01 07:32 | Outpatient (CLI) | payer MEDICARE, SELFPAY ==
[2020-05-01] MEDS: COVID-19 VACC #1, MRNA(MOD) 100 MCG/0.5 ML VIAL IM (07:38)
== END ==
PROVIDERS: PCP Family Medicine; Visit Provider Internal Medicine
DX: Z23 Encounter for immunization (principal)
CPT/HCPCS: 0011A; 91301

== ENCOUNTER 2020-05-11 19:19 | Emergency (ER) | payer MEDICARE, SELFPAY ==
[2020-05-11 19:37] VITALS: BP 207/91; PULSE 88; RESP 18; TEMP 37; O2SAT 99
[2020-05-11 21:25] VITALS: BP 189/91; PULSE 78; RESP 20; O2SAT 96
--- NOTE | 2020-05-11 21:36 | DI.RAD.S_ITS ---
PROCEDURE: XR HIP W PEL IF DONE LT 2V INDICATIONS: Recent fall; sharp hip pain, is ambulating TECHNIQUE: AP pelvis with lateral view(s) of the left hip(s). COMPARISON: None. FINDINGS: Bones: No fractures or dislocations. Pelvic ring appears intact. No suspicious bony lesions. Both hips have moderate degenerative changes. Soft tissues: The visualized bowel gas pattern is normal. No suspicious soft tissue calcifications. IMPRESSION: No acute abnormality of the left hip. Both hips have moderate degenerative changes. Dictated by: Monico Bliss M.D. on 05/11/2020 at 22:30 Approved by: Monico Bliss M.D. on 05/11/2020 at 22:31
--- NOTE | 2020-05-11 23:23 | ED_ITS ---
HPI - Extremity Problem General Chief complaint: Extremity Problem,Nontraumatic Stated complaint: LEFT HIP WEAKNESS MUSCLE SPASMS Time Seen by Provider: 05/11/20 23:16 Source: patient and family Mode of arrival: Ambulatory History of Present Illness HPI Narrative: 69-year-old gentleman currently on hemodialysis, had a renal cancer removed on April 08 and is currently on the renal transplant list presents complaining of left the weakness due to severe hip pain. He has been able to sleep for an extended period of time because of increasing twitching and cramping in his legs that require him to stand up almost constantly. He is becoming significantly more sleep deprived and having more and more difficulties in being able to deal with his increasing pain. He reports no fevers, cough, chills, chest pain, dyspnea, abdominal pain, dysuria or specific back pain. Related Data Home Medications Medication Instructions Recorded Confirmed ASPIRIN (Aspir-Low) 81 mg PO QDAY #0 04/05/11 02/13/19 hydralazine 25 mg PO TID #0 03/15/16 02/13/19 darbepoetin bob in polysorbat #0 07/14/16 02/13/19 [Aranesp (in polysorbate)] sodium bicarbonate #0 06/01/17 02/13/19 torsemide BID #0 06/01/17 02/13/19 allopurinol 100 mg tablet 100 mg PO DAILY 09/14/17 02/13/19 chlorthalidone 25 mg tablet 12.5 mg PO DAILY tab 09/14/17 02/13/19 eplerenone 50 mg tablet 100 mg PO DAILY tab 09/14/17 02/13/19 lisinopril 40 mg tablet 40 mg PO DAILY 09/14/17 02/13/19 simvastatin 20 mg tablet 20 mg PO QPM 09/14/17 02/13/19 carvedilol 12.5 mg tablet 12.5 mg PO BID 07/12/18 02/13/19 Resmed AirCurve 10 BIPAP #1 ea 08/16/18 02/13/19 Previous Rx's Medication Instructions Recorded amlodipine [Norvasc] 10 mg PO QDAY #45 tabs 07/14/16 gabapentin 100 mg PO BEDTIME #30 cap 05/11/20 gabapentin 100 mg PO BEDTIME #30 cap 05/11/20 oxycodone-acetaminophen 1 tab PO Q6H PRN #14 tab 05/11/20 Allergies Allergy/AdvReac Type Severity Reaction Status Date / Time Sulfa (Sulfonamide Allergy Mild TURNS RED Verified 02/19/20 16:33 Antibiotics) [SULFA (SULFONAMIDE ANTIBIOTICS)] spironolactone AdvReac Intermediate REDUCES Verified 02/19/20 16:33 [SPIRONOLACTONE] KIDNEY FUNCTION Review of Systems Review of Systems Narrative: Remainder of review of systems including constitutional, ENT, cardiovascular, respiratory, GI, , musculoskeletal, skin, neurologic and psychiatric systems reviewed and are unremarkable except as noted in HPI. Patient History Medical History Abdominal aortic aneurysm (2011) Acne (~1961) Actinic keratosis (~1994) Allergic rhinitis (1979) Anemia (2009) Blindness (1970) Cataracts, bilateral (2011) Chickenpox (~1959) Chronic renal insufficiency, stage IV (severe) (02/24/15) CKD (chronic kidney disease) (Unknown) Colitis (1984) Colon polyps (2009) Gout (~1994) History of diverticulitis (Unknown) History of recurrent ear infection (1959) Hyperlipemia (Unknown) Hypertension (1979) Kidney disease (~2009) Measles (~1959) Mumps (~1959) Plantar warts (~1994) Recurrent sinusitis (1959) Restless leg syndrome (1989) Retinal detachment (1970) Skin cancer (~1987) Skin tag Sleep apnea (~2004) Weakness Surgical History History of skin surgery Hx of removal of testicle (1963) Hx of surgical procedure (1951) Family History Brother Age: 70 Skin cancer Hypertension Kidney disease Brother Age: 60 Hypertension Mother Hypertension Father No problems noted. Social History marital status: details: latia Morgan, lives in [place] household members: spouse lives independently: Yes caregiver/support person: No housing: house Smoking Status: Never smoker Smoking Status: Never smoker alcohol intake frequency: holidays/special occasions only Substance Use Type: does not use Exam Narrative Exam Narrative: General: Alert appropriate, pacing and transferring weight from foot to foot in the room due to overall discomfort Respiratory: Able to speak in full sentences, no obvious respiratory distress Skin: No obvious rashes, warm and dry Neurologic: Grossly intact no obvious asymmetries or abnormalities Psych, appropriate insight and affect, cooperative Initial Vital Signs Initial Vital Signs: Vital Signs Temperature 98.6 F 05/11/20 19:37 Pulse Rate 88 05/11/20 19:37 Respiratory Rate 18 05/11/20 19:37 Blood Pressure 207/91 H 05/11/20 19:37 Pulse Oximetry 99 05/11/20 19:37 Course Orders Ordered: Discontinued Medications Gabapentin (Gabapentin 100 Mg Capsule) 100 mg PO NOW ONE Stop: 05/11/20 23:34 Last Admin: 05/11/20 23:45 Dose: 100 mg Documented by: ANYI Vital Signs Vital signs: Vital Signs - 8 hr 05/11/20 19:37 05/11/20 21:25 Temperature 98.6 F Pulse Rate 88 78 Respiratory Rate 18 20 Blood Pressure 207/91 H 189/91 H Pulse Oximetry 99 96 MDM - Extremity (Nontraumatic) Imaging Data XR hip: Radiologist's Impression: FINDINGS: Bones: No fractures or dislocations. Pelvic ring appears intact. No suspicious bony lesions. Both hips have moderate degenerative changes. Soft tissues: The visualized bowel gas pattern is normal. No suspicious soft tissue calcifications. IMPRESSION: No acute abnormality of the left hip. Both hips have moderate degenerative changes. Dictated by: Monico Bliss M.D. on 05/11/2020 at 22:30 MDM Narrative Medical decision making narrative: 69-year-old gentleman with severe restless leg syndrome causing significant sleep disturbance and increasing difficulties in being able to function due to his severe sleep deprivation. He notes that in the hospital a single dose of Neurontin was incredibly helpful in allowing him to sleep all night long due to the relief from the restless leg muscle spasm. His police chief deputy does not want him to be on gabapentin long-term because of the possibility of nephrotoxicity. We went over pros and cons of additional medications and side effects. At this point the severity of the restless leg syndrome and the severe sleep deprivation is causing more symptoms than the possibility of renal injury years down the road. We shared decision-making, we opted to place him on 100 mg of Neurontin to alleviate his restless leg symptoms and help him get some sleep over the next few nights. He will be following up with his police chief deputy in the near future. He is safe for home discharge Discharge Plan Departure Patient Disposition: Home Clinical Impression: Restless leg syndrome, Sleep deprivation, Gait instability, H/O renal cell cancer, Dialysis patient Instructions: DI for Restless Legs Syndrome Activity Restrictions/Additional Instructions: Thank you for coming in this evening What you are describing is restless leg syndrome and severe sleep deprivation. The x-ray of your hip did not show any acute or pathologic findings You noted that Neurontin in the hospital was very helpful in controlling your restless legs symptoms and in helping you get some sleep. We discussed options for treating restless leg syndrome and all certainly have side effects and consequences. At this point I believe Neurontin, particularly because we know it works well for you, is going to be the best option. Because of your reduced kidney function and dialysis, I am going to recommend the smallest dose at night. I would recommend using it at night to help you sleep for at least 3-5 days to make sure that you are catching up on some of your severe sleep deprivation. After that you will need to decide how frequently you need it. Please review this new medication addition with your police chief deputy the next time you have an appointment. If you continue to have weakness and difficulties in lifting the left leg, it could be very appropriate to talk to your primary care doctor and consider an abnormality with your lower back or the nerves coming from your lumbar spine causing this problem. I hope this helps and you are able to sleep. Prescriptions: New gabapentin 100 mg capsule 100 mg PO BEDTIME Qty: 30 RF: 0 oxycodone-acetaminophen 5-325 mg tablet 1 tab PO Q6H PRN (Reason: pain) Qty: 14 RF: 0 gabapentin 100 mg capsule 100 mg PO BEDTIME Qty: 30 RF: 0 No Action carvedilol 12.5 mg tablet 12.5 mg PO BID RF: 0 allopurinol 100 mg tablet 100 mg PO DAILY RF: 0 simvastatin 20 mg tablet 20 mg PO QPM RF: 0 lisinopril 40 mg tablet 40 mg PO DAILY RF: 0 eplerenone 50 mg tablet 100 mg PO DAILY RF: 0 chlorthalidone 25 mg tablet 12.5 mg PO DAILY RF: 0 ASPIRIN (Aspir-Low) 81 mg PO QDAY Qty: 0 RF: 0 hydralazine 25 MG tablet 25 mg PO TID Qty: 0 RF: 0 amlodipine [Norvasc] 10 MG tablet 10 mg PO QDAY Qty: 45 RF: 0 darbepoetin bob in polysorbat [Aranesp (in polysorbate)] 10 mcg/0.4 mL Syringe Qty: 0 RF: 0 torsemide 20 MG tablet BID Qty: 0 RF: 0 sodium bicarbonate 650 MG tablet Qty: 0 RF: 0 (DME) Resmed AirCurve 10 BIPAP Qty: 1 RF: 0 Referrals: Sumanth Hernandez MD [Primary Care Provider] -
[2020-05-11] MEDS: GABAPENTIN 100 MG CAPSULE PO (23:45)
== END 2020-05-12 | disposition home or self-care (01) ==
PROVIDERS: Emergency Provider Emergency Medicine; PCP Family Medicine
DX: G25.81 Restless legs syndrome (principal); Z72.820 Sleep deprivation; R26.89 Other abnormalities of gait and mobility; Z85.528 Personal history of other malignant neoplasm of kidney; Z99.2 Dependence on renal dialysis; R53.1 Weakness; E78.5 Hyperlipidemia, unspecified; I10 Essential (primary) hypertension
CPT/HCPCS: 73502; 99283

== ENCOUNTER → 2020-05-19 09:07 | Outpatient (CLI) | payer MEDICARE, SELFPAY ==
--- NOTE | 2020-05-19 09:15 | DI.CT.S_ITS ---
PROCEDURE: CT KIDNEY URETER BLADDER (KUB) INDICATIONS: Breakdown (mechanical) of intraperitoneal dialysis TECHNIQUE: Noncontrast 5 mm thick sections acquired from the diaphragms to the symphysis. 5 mm thick coronal and sagittal reformats were then performed. For radiation dose reduction, the following was used: automated exposure control, adjustment of mA and/or kV according to patient size. COMPARISON: None. FINDINGS: Image quality: Excellent. Lung bases: Lung bases are clear. Heart size is normal. Moderate coronary artery calcification. Urinary system: The left kidney is surgically absent. The unenhanced appearance of the right kidney demonstrates a partially exophytic 10 mm hyperdense mass arising from the midportion. No hydronephrosis or intrarenal calculi. No stones in the right ureter. The urinary bladder is partially decompressed and the wall is of appropriate thickness. The prostate gland is mildly enlarged. There is a peritoneal dialysis catheter curled in the anterior right lower quadrant with a small amount of adjacent fluid.. Other solid organs: Liver is normal in size. Gallbladder is absent . Pancreas is normal in contours. Spleen is normal in size. No adrenal nodules. Peritoneum and bowel: Unenhanced bowel loops demonstrate normal wall thickness and caliber. Moderately increased quantity of solid stool throughout the colon. Occasional diffuse diverticulosis there are mild pericolonic inflammatory changes including the slight left pericolic gutter fascial thickening. Nodes and vessels: No retroperitoneal or mesenteric adenopathy by size criteria. Aorta and inferior vena cava are normal in caliber. Moderate abdominal aortic atherosclerotic calcification. Abdominal wall: There is a fluid containing umbilical hernia and fluid and bowel containing supraumbilical hernia with minor adjacent subcutaneous inflammatory change. Oblique longitudinal band of subcutaneous edema is present over the lateral left abdominal wall, probably healing surgical change. No subcutaneous abscess. Centrally within the left psoas muscle, there is a longitudinal ovoid focus of increased density within an area of vague intramuscular low-density. Overall the left psoas muscle appears mildly thickened and enlarged compared to the contralateral side. Pelvis: No free pelvic fluid. No inguinal hernias or adenopathy. Bones: No suspicious bony lesions. No vertebral body compression fractures. IMPRESSION: 1. Slightly heterogeneous intramuscular signal within the slightly enlarged left psoas muscle. In this may indicate a spontaneous intramuscular hematoma, injury, or an iatrogenic event. Correlate with history. 2. Umbilical and supraumbilical ventral hernias containing fluid, nonobstructing bowel, and demonstrating surrounding inflammation. Correlate clinically and consider surgical consult. 3. Colonic diverticulosis with subtle, long segment fascial thickening of the left pericolic gutter. While these are likely surgical changes, mild colitis or diverticulitis is not excluded. Correlate with symptoms. 4. Intact peritoneal dialysis catheter with small amount of adjacent fluid in the right lower quadrant. 5. Post left nephrectomy with appropriate healing changes of subcutaneous tissue. Dictated by: Griselda Lorenzo M.D. on 05/19/2020 at 8:58 Approved by: Griselda Lorenzo M.D. on 05/19/2020 at 9:15
== END ==
PROVIDERS: PCP Family Medicine; Referring Provider Family Medicine; Visit Provider Family Medicine
DX: T85.611D Breakdown (mechanical) of intraperitoneal dialysis catheter, subsequent encounter (principal); R10.32 Left lower quadrant pain; R10.9 Unspecified abdominal pain; K43.9 Ventral hernia without obstruction or gangrene; K57.90 Diverticulosis of intestine, part unspecified, without perforation or abscess without bleeding; Z90.5 Acquired absence of kidney
CPT/HCPCS: 74176

== ENCOUNTER → 2020-05-29 09:35 | Outpatient (CLI) | payer MEDICARE, SELFPAY ==
[2020-05-29] MEDS: COVID-19 VACC #2, MRNA(MOD) 100 MCG/0.5 ML VIAL IM (09:38)
== END ==
PROVIDERS: PCP Family Medicine; Visit Provider Internal Medicine
DX: Z23 Encounter for immunization (principal)
CPT/HCPCS: 0012A; 91301

== ENCOUNTER 2021-03-07 20:56 | Emergency (ER) | payer MEDICARE, SELFPAY ==
[2021-03-07] VITALS (8 sets, daily range): BP systolic 176–192; BP diastolic 77–88; PULSE 79–93; RESP 15–20; TEMP 37; O2SAT 93–98; BMI 35.8
--- NOTE | 2021-03-07 21:08 | ED.ABDPAIN ---
HPI - Abdominal Pain General Chief Complaint: Abdominal Pain Stated Complaint: Belly button hernia/vomiting x3 days Time Seen by Provider: 03/07/21 21:02 History of Present Illness HPI narrative: 70-year-old male nonsmoker with history of renal cell carcinoma, nephrectomy, end-stage renal disease on hemodialysis Tuesdays, , Saturdays, gout, AAA, hypertension, hyperlipidemia presents with his in the chief complaint of increasing abdominal pain over the past day or 2. He has had a known umbilical hernia for quite some time and can usually push it back in without difficulty. He has been having issues for the past few days but certainly over the last 24 hours his pain is significantly worsened, he has not been able to keep down any food or water. He is becoming fatigued and weak and has increasing pain. His last bowel movement was yesterday and was very narrow in caliber. He is having trouble passing gas. Though he does get dialysis (usually locally, his loan documents closer is Dr. Frank) he does still make some urine. He denies fever or chills. His pain is constant and gradually worsening, it is made worse by moving and improves slightly with rest Patient had worsening CKD and was on peritoneal dialysis for 3 years early 2020, but when he was diagnosed with renal cell carcinoma and had a nephrectomy at the he was unable to continue with peritoneal and has required hemodialysis since June. Related Data Home Medications Medication Instructions Recorded Confirmed ASPIRIN (Aspir-Low) 81 mg PO QDAY #0 04/05/11 11/05/20 darbepoetin bob in polysorbat 10 #0 07/14/16 11/05/20 mcg/0.4 mL in polysorbate injection syringe (Aranesp) torsemide 20 mg tablet BID #0 06/01/17 11/05/20 allopurinol 100 mg tablet 100 mg PO DAILY 09/14/17 11/05/20 lisinopril 40 mg tablet 40 mg PO DAILY 09/14/17 11/05/20 simvastatin 20 mg tablet 20 mg PO QPM 09/14/17 11/05/20 carvedilol 12.5 mg tablet 12.5 mg PO BID 07/12/18 11/05/20 Resmed AirCurve 10 BIPAP #1 ea 08/16/18 11/05/20 hydralazine 25 mg tablet 25 mg PO TID PRN #0 11/05/20 11/05/20 Previous Rx's Medication Instructions Recorded amlodipine 10 mg tablet (Norvasc) 10 mg PO QDAY #45 tabs 07/14/16 gabapentin 100 mg capsule 100 mg PO BEDTIME #30 cap 05/11/20 Allergies Allergy/AdvReac Type Severity Reaction Status Date / Time Sulfa (Sulfonamide Allergy Mild TURNS RED Verified 11/05/20 13:31 Antibiotics) [SULFA (SULFONAMIDE ANTIBIOTICS)] spironolactone AdvReac Intermediate REDUCES Verified 11/05/20 13:31 [SPIRONOLACTONE] KIDNEY FUNCTION Review of Systems Review of Systems Narrative: GENERAL: See HPI HEENT: Denies sinus pain, ear pain, sore throat, difficulty swallowing, dizziness. RESPIRATORY: Denies dyspnea, cough, wheezing, hemoptysis, sputum. CARDIOVASCULAR: Denies chest pain, palpitations, orthopnea, edema, GASTROINTESTINAL: See HPI : Denies dysuria, frequency, incontinence, hematuria, urinary retention. MUSCULOSKELETAL: denies weakness, joint pain, or bony pain SKIN: Denies rash, skin lesions, or other NEUROLOGIC: Denies weakness, headache, numbness, change in speech, confusion, seizures, incoordination. PSYCHIATRIC: No concerning psychosocial issues. 12 point review of systems is negative except for those stated above Patient History Medical History Abdominal aortic aneurysm (2011) Acne (~1961) Actinic keratosis (~1994) Allergic rhinitis (1979) Anemia (2009) Anemia of chronic illness Blindness (1970) Cataracts, bilateral (2011) Chickenpox (~1959) Chronic renal insufficiency, stage IV (severe) (02/24/15) CKD (chronic kidney disease) (Unknown) Colitis (1984) Colon polyps (2009) End-stage renal disease (ESRD) (~02/24/15) Gout (~1994) History of diverticulitis (Unknown) History of recurrent ear infection (1959) Hyperlipemia (Unknown) Hypersomnia Hypertension (1979) Kidney disease (~2009) Measles (~1959) Mumps (~1959) Obstructive sleep apnea syndrome (2004) Peritoneal dialysis catheter in place Plantar warts (~1994) Recurrent sinusitis (1959) Restless leg syndrome (1989) Retinal detachment (1970) Skin cancer (~1987) Skin tag Weakness Surgical History History of nephrectomy, left (~04/2020) History of skin surgery Hx of removal of testicle (1963) Hx of surgical procedure (1951) Family History Brother Age: 71 Skin cancer Hypertension Kidney disease Brother Age: 61 Hypertension Mother Hypertension Father No problems noted. Social History marital status: details: latia Morgan, lives in [place] household members: spouse lives independently: Yes caregiver/support person: No housing: house Smoking Status: Never smoker Smoking Status: Never smoker alcohol intake frequency: holidays/special occasions only Substance Use Type: does not use Exam Narrative Exam Narrative: GENERAL: [70 year old patient appears stated age. Well-developed patient, in mild distress. HEAD: Atraumatic. Normocephalic. EYES: Pupils equal round and reactive. Extraocular motions intact. No scleral icterus. No injection or drainage. ENT: Dry mucous membranes Nose without bleeding, purulent drainage. Throat without erythema, tonsillar hypertrophy or exudate. Airway patent. NECK: Trachea midline. Non tender CARDIOVASCULAR: Regular rate and rhythm without murmurs, gallops, or rubs. RESPIRATORY: Clear to auscultation. Breath sounds equal bilaterally. No wheezes, rales, or rhonchi. GASTROINTESTINAL: Abdomen soft, slightly distended, decreased bowel sounds but present throughout. Umbilical hernia with subtle darkening of the skin unable to be reduced, after extensive palpation and placement in Trendelenburg. EXTREMITIES: No edema or joint tenderness. BACK: Nontender without deformity or crepitance. No flank tenderness. NEURO: AOx3. SKIN: No rash or erythema of visible areas Initial Vital Signs Initial Vital Signs: Vital Signs Temperature 98.6 F 03/07/21 21:00 Pulse Rate 85 03/07/21 21:00 Respiratory Rate 17 03/07/21 21:00 Blood Pressure 176/86 H 03/07/21 21:00 Pulse Oximetry 96 03/07/21 21:00 Course Orders Ordered: ED Orders 03/07/21 21:19 EKG-12 Lead Stat 03/07/21 21:29 XR abdomen min 2V Stat 03/07/21 21:33 US abdomen limited Stat 03/07/21 21:45 Complete Blood Count AUTO DIFF Stat Comprehensive Metabolic Panel Stat Lactate (Lactic Acid) Stat Lipase Stat Magnesium Stat 03/07/21 22:33 COVID19 -Nasal swab/Pre-Proc Stat 03/07/21 23:54 EKG-12 Lead Stat 03/08/21 00:30 BMP [Basic Metabolic Panel] Stat 03/08/21 00:53 Chest [XR chest 1V] Stat 03/08/21 04:05 CBC Auto Diff [Complete Blood Count AUTO DIFF] Stat CMP [Comprehensive Metabolic Panel] Stat Lactate (Lactic Acid) Stat Discontinued Medications Albuterol (Albuterol 2.5 Mg/3 Ml Neb (Adult)) 20 mg INH NOW ONE Stop: 03/07/21 22:19 Last Admin: 03/07/21 22:58 Dose: 20 mg Documented by: GABRIEL Dextrose (Dextrose 50 % In Water 25 Gm/50 Ml Syringe) 25 gm IV NOW ONE Stop: 03/07/21 22:19 Last Admin: 03/07/21 22:39 Dose: 25 gm Documented by: IMTIAZ Furosemide (Furosemide 100 Mg/10 Ml Vial) 80 mg IV NOW ONE Stop: 03/07/21 22:19 Last Admin: 03/07/21 22:58 Dose: Not Given Documented by: IMTIAZ Calcium Gluconate 9.3 meq/ (Sodium Chloride) 70 mls @ 140 mls/hr IV NOW ONE Stop: 03/07/21 22:47 Last Infusion: 03/07/21 23:14 Dose: 0 mls/hr Documented by: Admin: 03/07/21 22:40 Dose: 140 mls/hr Documented by: IMTIAZ Furosemide 200 mg/ Sodium (Chloride) 70 mls @ 140 mls/hr IV NOW ONE Stop: 03/07/21 22:42 Last Infusion: 03/07/21 23:26 Dose: 0 mls/hr Documented by: Admin: 03/07/21 22:48 Dose: 140 mls/hr Documented by: IMTIAZ Sodium Chloride (Normal Saline 0.9%) 500 mls @ 1,000 mls/hr IV BOLUS ONE Stop: 03/07/21 23:32 Last Infusion: 03/08/21 00:19 Dose: 0 mls/hr Documented by: Admin: 03/07/21 23:14 Dose: 1,000 mls/hr Documented by: IMTIAZ Insulin Human Regular (Insulin Regular 100 Unit/Ml 3 Ml Vial) 5 unit IV NOW ONE Stop: 03/07/21 22:19 Last Admin: 03/07/21 22:39 Dose: 5 unit Documented by: IMTIAZ Cosigned by: PENELOPE Lidocaine HCl (Lidocaine 2% (Glydo) 6 Ml Gel) 6 ml TOP NOW ONE Stop: 03/08/21 00:34 Last Admin: 03/08/21 01:14 Dose: 6 ml Documented by: IMTIAZ Midazolam HCl (Midazolam 2 Mg/2 Ml Vial) 2 mg IV NOW ONE Stop: 03/08/21 02:58 Last Admin: 03/08/21 03:08 Dose: 2 mg Documented by: ANYI Consultations Consultation #1: early call to wire preparation machine tender surgeon (Dr. Mireles) regarding incarcerated hernia. She requests ultrasound to confirm bowel within the hernia. upon receipt of EKG call to [facility]. No beds call to [facility]. Some beds, but no available emergent HD call to Dr. Love (Nephro). Agrees with aggressive treatment of hyperkalemia and with the therapies provided already which include calcium, insulin, dextrose, Lasix and albuterol, he does recommend increasing the Lasix dose to 200 mg. He states that if aggressive treatment results in a reduction of potassium, and more importantly improvement in EKG that he would not need emergent dialysis tonight. call to [facility] in [place]. No beds until at least tomorrow call to . On wait list call to [facility]. On wait list. call to [facility]. No return call to /[facility]. Awaiting call back from surgery. Consultation #2: call back to Dr. Love ([facility] Nephro). He is pleased with improved K to 5.5, no longer in need of emergent HD. OK to come over to [facility] with his blessing. Animal Maintenance Supervisor currently searching for beds. Time: 01:00 Consultation #3: [phone] - call to [facility]. Discussion with Dr. Sam (hospitalist) and patient will need a level of care not currently available [phone] - call to [facility]. Will page surgery first. Dr. Ag and I have discussed the case, he is comfortable with the surgical aspect, but wishes for me to speak with hospitalist as well 0515 - Dr. Flores (hospitalist at [facility]) happy to accept Vital Signs Vital signs: Vital Signs - 8 hr 03/07/21 21:30 03/07/21 22:00 03/07/21 22:01 Pulse Rate 83 83 Respiratory Rate Blood Pressure 192/88 H 187/83 H Pulse Oximetry 98 93 97 03/07/21 22:30 03/07/21 23:00 03/07/21 23:30 Pulse Rate 79 88 93 H Respiratory Rate 18 15 Blood Pressure 186/86 H 183/79 H 178/77 H Pulse Oximetry 97 98 96 03/08/21 00:00 03/08/21 00:30 03/08/21 01:00 Pulse Rate 93 H 99 H 102 H Respiratory Rate 24 19 18 Blood Pressure 162/70 H 145/70 H 146/67 H Pulse Oximetry 97 97 95 03/08/21 01:30 03/08/21 02:00 03/08/21 02:30 Pulse Rate 106 H 105 H 105 H Respiratory Rate 22 15 13 Blood Pressure 150/71 H 141/64 H 145/67 H Pulse Oximetry 97 96 93 03/08/21 03:00 03/08/21 03:10 03/08/21 03:15 Pulse Rate 104 H 103 H 108 H Respiratory Rate 20 16 22 Blood Pressure 160/74 H 157/74 H 152/76 H Pulse Oximetry 95 96 94 03/08/21 03:20 03/08/21 03:30 Pulse Rate 108 H 105 H Respiratory Rate 26 H 23 Blood Pressure 152/74 H 151/72 H Pulse Oximetry 94 95 MDM - Abdominal Pain Lab Data Result diagrams: 03/08/21 04:05 03/08/21 04:30 Labs: Lab Results 03/07/21 03/07/21 03/07/21 Range/Units 21:45 21:45 21:45 WBC 10.8 (4.5-11.0) X10^3/uL RBC 4.22 L (4.5-5.9) X10^6/uL Hgb 14.3 (13.5-17.5) g/dL Hct 42.1 (41-53) % MCV 99.7 (80-100) fL MCH 33.8 (26-34) PG MCHC 33.9 (30-36) % RDW 16.5 H (11.6-14.8) % Plt Count 209 (150-400) X10^3/uL Neut % (Auto) 72.8 (50-75) % Lymph % (Auto) 14.7 L (25-40) % [place] % (Auto) 11.6 (3-14) % Eos % (Auto) 0.6 L (2-4) % Baso % (Auto) 0.3 (0-2) % Neut # (Auto) 7800 H (7337-9670) /uL Lymph # (Auto) 1600 (9475-9674) /uL [place] # (Auto) 1300 H (0-900) /uL Eos # (Auto) 100 (0-450) /uL Baso # (Auto) 0 (0-100) /uL Sodium 129 L (137-145) mmol/L Potassium 6.6 H* (3.4-5.1) mmol/L Chloride 84 L (98-107) mmol/L Carbon Dioxide 31 (22-32) mmol/L BUN 58 H (9-20) mg/dL Creatinine 12.0 H* (0.66-1.25) mg/dL Estimated GFR 4.2 L (>60) mL/min BUN/Creatinine Ratio 4.8 L (6-22) Glucose 129 H (80-110) mg/dL Lactate 1.6 (0.7-2.1) mmol/L Calcium 10.8 H (8.4-10.2) mg/dL Magnesium 2.3 (1.6-2.3) mg/dL Total Bilirubin 1.1 (0.2-1.3) mg/dL AST 32 (17-59) IU/L ALT 37 (<50) IU/L Alkaline Phosphatase 109 (38-126) U/L Total Protein 9.0 H (6.3-8.2) g/dL Albumin 5.0 (3.5-5.0) g/dL Globulin 4.0 (1.7-4.1) g/dL Albumin/Globulin Ratio 1.3 (1.0-2.8) Lipase 79 (23-300) U/L SARS-CoV-2 (PCR) (Negative) 03/07/21 03/08/21 03/08/21 Range/Units 22:33 00:30 04:05 WBC 10.5 (4.5-11.0) X10^3/uL RBC 4.09 L (4.5-5.9) X10^6/uL Hgb 13.8 (13.5-17.5) g/dL Hct 40.6 L (41-53) % MCV 99.2 (80-100) fL MCH 33.7 (26-34) PG MCHC 33.9 (30-36) % RDW 16.4 H (11.6-14.8) % Plt Count 193 (150-400) X10^3/uL Neut % (Auto) 70.0 (50-75) % Lymph % (Auto) 18.0 L (25-40) % [place] % (Auto) 11.3 (3-14) % Eos % (Auto) 0.3 L (2-4) % Baso % (Auto) 0.4 (0-2) % Neut # (Auto) 7400 H (3004-2723) /uL Lymph # (Auto) 1900 (0537-8784) /uL [place] # (Auto) 1200 H (0-900) /uL Eos # (Auto) 0 (0-450) /uL Baso # (Auto) 0 (0-100) /uL Sodium 131 L (137-145) mmol/L Potassium 5.5 H (3.4-5.1) mmol/L Chloride 85 L (98-107) mmol/L Carbon Dioxide 32 (22-32) mmol/L BUN 59 H (9-20) mg/dL Creatinine 11.8 H* (0.66-1.25) mg/dL Estimated GFR 4.3 L (>60) mL/min BUN/Creatinine Ratio 5.0 L (6-22) Glucose 101 (80-110) mg/dL Lactate (0.7-2.1) mmol/L Calcium 11.0 H (8.4-10.2) mg/dL Magnesium (1.6-2.3) mg/dL Total Bilirubin (0.2-1.3) mg/dL AST (17-59) IU/L ALT (<50) IU/L Alkaline Phosphatase (38-126) U/L Total Protein (6.3-8.2) g/dL Albumin (3.5-5.0) g/dL Globulin (1.7-4.1) g/dL Albumin/Globulin Ratio (1.0-2.8) Lipase (23-300) U/L SARS-CoV-2 (PCR) Negative (Negative) 03/08/21 03/08/21 Range/Units 04:05 04:30 WBC (4.5-11.0) X10^3/uL RBC (4.5-5.9) X10^6/uL Hgb (13.5-17.5) g/dL Hct (41-53) % MCV (80-100) fL MCH (26-34) PG MCHC (30-36) % RDW (11.6-14.8) % Plt Count (150-400) X10^3/uL Neut % (Auto) (50-75) % Lymph % (Auto) (25-40) % [place] % (Auto) (3-14) % Eos % (Auto) (2-4) % Baso % (Auto) (0-2) % Neut # (Auto) (7868-4726) /uL Lymph # (Auto) (1813-8895) /uL [place] # (Auto) (0-900) /uL Eos # (Auto) (0-450) /uL Baso # (Auto) (0-100) /uL Sodium 131 L (137-145) mmol/L Potassium 5.3 H (3.4-5.1) mmol/L Chloride 86 L (98-107) mmol/L Carbon Dioxide 28 (22-32) mmol/L BUN 62 H (9-20) mg/dL Creatinine 12.5 H* (0.66-1.25) mg/dL Estimated GFR 4.0 L (>60) mL/min BUN/Creatinine Ratio 5.0 L (6-22) Glucose 106 (80-110) mg/dL Lactate 1.2 (0.7-2.1) mmol/L Calcium 10.8 H (8.4-10.2) mg/dL Magnesium (1.6-2.3) mg/dL Total Bilirubin 1.1 (0.2-1.3) mg/dL AST 29 (17-59) IU/L ALT 33 (<50) IU/L Alkaline Phosphatase 99 (38-126) U/L Total Protein 8.2 (6.3-8.2) g/dL Albumin 4.6 (3.5-5.0) g/dL Globulin 3.6 (1.7-4.1) g/dL Albumin/Globulin Ratio 1.3 (1.0-2.8) Lipase (23-300) U/L SARS-CoV-2 (PCR) (Negative) Imaging Data Abdominal x-ray: Radiologist's Impression: Chart Viewer Diagnostics Subcategory All Activity ??:?? All Time ??:?? All Subcategories Filter Laboratory Imaging Microbiology Pathology Blood Bank Tests Cardiovascular Other Specialty DATE TYPE STATUS REF RANGE/AUTHOR Hx Today 21:33 Abdomen Ultrasound Signed Edgardo Black Today 21:29 Abdomen X-Ray Signed Edgardo Black 05/19/20 09:15 Abdomen/Pelvis CT Signed Griselda Lorenzo 05/11/20 21:36 Hip X-Ray Signed Monico Bliss 02/07/20 16:10 Chest X-Ray Signed Ted Mccullough David J ED 70, M?1950 MRN#? [id number] REG ER,?Main ED??R02?? 177.8cm 113.3kg BMI: 35.8kg/m? Abdominal Pain Acc#? [id number] Resus Status Not Ordered No Hx Avail Special Indicators No Data to Display Home Meds Not Confirmed Prescription Monitoring Program MEDICATIONS (INSTRUCTIONS) LAST TAKEN Active ??allopurinol 100 mg tablet ??100 mgPODAILY ??amlodipine [Norvasc] ??10 mgPOQDAY#45 tabs ??ASPIRIN (Aspir-Low) ??81 mgPOQDAY#0 ??carvedilol 12.5 mg tablet ??12.5 mgPOBID ??darbepoetin bob in polysorbat [Aranesp (in polysorbate)] ??#0 ??gabapentin ??100 mgPOBEDTIME#30 cap ??hydralazine 25 mg tablet ??25 mgPOTIDPRN#0 ??lisinopril 40 mg tablet ??40 mgPODAILY ??simvastatin 20 mg tablet ??20 mgPOQPM ??torsemide ??BID#0 DME/Medical Supplies ??Resmed AirCurve 10 BIPAP ?Not Included in Conflicts Allergies Sulfa (Sulfonamide Antibiotics) (SULFA (SULFONAMIDE ANTIBIOTICS)) TURNS RED spironolactone (SPIRONOLACTONE) REDUCES KIDNEY FUNCTION Problems ? ONSET Obstructive sleep apnea syndrome 2004 End-stage renal disease (ESRD) ~02/24/15 Anemia of chronic illness Peritoneal dialysis catheter in place Restless leg syndrome 1989 Weakness Skin tag Medicare annual wellness visit, subsequent Chronic renal insufficiency, stage IV (severe) 02/24/15 Gout due to renal impairment 02/24/15 Hypertension secondary to other renal disorders 02/24/15 Mixed hyperlipidemia 02/24/15 Abdominal aortic aneurysm (AAA) without rupture 02/24/15 Vital Signs Today 23:00 BP 183/79?H Pulse 88? Resp 18? O2 Sat 98? Delivery Room Air? Diagnostics Reports RadhaJudd Chance??70??M??1950 ? Allergy/Adv: Sulfa (Sulfonamide Antibiotics), spironolactone (More??) Close Abdomen Ultrasound (Signed) Call,Edgardo - 03/07/21 Abdomen X-Ray (Signed) Call,Edgardo - 03/07/21 Abdomen/Pelvis CT (Signed) Griselda Lorenzo - 05/19/20 Hip X-Ray (Signed) Monico Bliss - 05/11/20 Chest X-Ray (Signed) Ted Mccullough - 02/07/20 Launch?[place] [address] XRay Report Signed Patient: Judd Garcia MR#: [id number] : 1950 Acct:[id number] Age/Sex: 70 / M Date of Service: 03/07/21 Loc: ED Accession Number: [id number] ?? Procedure: XR abdomen min 2V Ordering Provider: Jonathon Cr D.O. PROCEDURE:? XR ABDOMEN MIN 2V ? INDICATIONS:? abdomen pain, incarcerated hernia, obstructed? ? TECHNIQUE:? 2 views of the abdomen were acquired.? ? COMPARISON:? [facility], US, US ABDOMEN LIMITED, 03/07/2021, 22:09.? [facility], CT, CT KIDNEY URETER BLADDER (KUB), 05/19/2020, 9:18. ? FINDINGS:? Surgical changes and devices:? Cholecystectomy clips.? ? Bowel:? No pneumoperitoneum.? Dilated loops of small bowel and air-fluid levels. ? Soft tissues:? No masses; visualized solid organ contours appear normal in size.? No suspicious abdominal calcifications.? ? Bones:? No suspicious bony abnormalities.? ? IMPRESSION:? Findings consistent with small bowel obstruction. ? Comment: Findings were discussed with Jonathon Cr at the time of dictation. ? ? Dictated by: Edgardo Black M.D. on 03/07/2021 at 23:12 ? ? Approved by: Edgardo Black M.D. on 03/07/2021 at 23:14 ? US - abdomen: Radiologist's Impression: [address] [address] Ultrasound Report Signed Patient: Judd Garica MR#: [id number] : 1950 Acct:[id number] Age/Sex: 70 / M Date of Service: 03/07/21 Loc: ED Accession Number: [id number] ?? Procedure: US abdomen limited Ordering Provider: Jonathon Cr D.O. PROCEDURE: US ABDOMEN LIMITED ? INDICATIONS:? UMBILICAL HERNIA; ? INCARCERATED BOWEL ? TECHNIQUE:? Real-time focused scanning was performed of the abdominal wall, with image documentation. ? ? COMPARISON:? None. ? FINDINGS:? Umbilical hernia containing bowel.? No changes seen with Valsalva.? The bowel is non reducible.? The hernia neck measures 3.3 cm.? The loop of bowel is dilated and thickened. ? ? IMPRESSION:? Findings in keeping with incarcerated umbilical hernia. ? ? Dictated by: Edgardo Black M.D. on 03/07/2021 at 23:19 ? ? MDM Narrative Medical decision making narrative: End-stage renal failure patient requiring hemodialysis presents with increasing pain and trouble reducing his known umbilical hernia over the past 2 days or so. Initial potassium was critically elevated at associated with peak T-waves on EKG. Aggressive therapy and consultation with nephrology resulted in significant improvement in potassium and normalization of EKG. Patient has been hemodynamically stable over the course of the visit. Pain and nausea significantly improved after placement of NG tube which has drained approximately 300 cc of gastric contents. Multiple attempts at reduction of hernia have been unsuccessful, most recently with sedation with midazolam, placement in Trendelenburg with use of ice pack for 20-30 minutes. Consideration of air medical transport, however all services have ground their crews due to inclement weather. Patient has been successfully resuscitated and stabilized is appropriate for ground transfer. Patient is aware of and agreement with the plan. A 3rd set of labs just prior to transport are very reassuring and demonstrate potassium down to 5.3. Repeat lactate remains stable, no white count, stable H&H. Patient being transported by [facility] ground crew to [facility] to be accepted by hospitalist, surgery has been consulted and expecting the patient. Critical Care Time Critical Care Time Critical Care Time: Yes Total Critical Care Time: 120 Attestation: The high probability of a clinically significant, sudden or life threatening deterioration of the [CV/GI/Nephrology] system(s) required my full and direct attention, intervention and personal management. The aggregate critical care time was [120] minutes. This time is in addition to time spent performing reported procedures but includes the following: [x] Data Review and interpretation [x] Patient assessment and monitoring of vital signs [x] Documentation [x] Medication orders and management Discharge Plan Departure Patient Disposition: [facility] Clinical Impression: Umbilical hernia, incarcerated, Partial small bowel obstruction, Acute hyperkalemia Prescriptions: No Action carvedilol 12.5 mg tablet 12.5 mg PO BID 0RF allopurinol 100 mg tablet 100 mg PO DAILY 0RF simvastatin 20 mg tablet 20 mg PO QPM 0RF lisinopril 40 mg tablet 40 mg PO DAILY 0RF ASPIRIN (Aspir-Low) 81 mg PO QDAY Qty: 0 0RF amlodipine [Norvasc] 10 MG tablet 10 mg PO QDAY Qty: 45 0RF darbepoetin bob in polysorbat [Aranesp (in polysorbate)] 10 mcg/0.4 mL Syringe Qty: 0 0RF torsemide 20 MG tablet BID Qty: 0 0RF hydralazine 25 mg tablet 25 mg PO TID PRNQty: 0 0RF gabapentin 100 mg capsule 100 mg PO BEDTIME Qty: 30 0RF (DME) Resmed AirCurve 10 BIPAP Qty: 1 0RF Dose Instruction: As directed Label Comments: Pressure: IPAP 20 EPAP 12 DME: [facility] Rx Instructions: As directed Referrals: Sumanth Hernandez MD [Primary Care Provider] -
--- NOTE | 2021-03-07 21:29 | DI.RAD.S_ITS ---
PROCEDURE: XR ABDOMEN MIN 2V INDICATIONS: abdomen pain, incarcerated hernia, obstructed? TECHNIQUE: 2 views of the abdomen were acquired. COMPARISON: [facility], US, US ABDOMEN LIMITED, 03/07/2021, 22:09. [facility], CT, CT KIDNEY URETER BLADDER (KUB), 05/19/2020, 9:18. FINDINGS: Surgical changes and devices: Cholecystectomy clips. Bowel: No pneumoperitoneum. Dilated loops of small bowel and air-fluid levels. Soft tissues: No masses; visualized solid organ contours appear normal in size. No suspicious abdominal calcifications. Bones: No suspicious bony abnormalities. IMPRESSION: Findings consistent with small bowel obstruction. Comment: Findings were discussed with Jonathon Cr at the time of dictation. Dictated by: Edgardo Black M.D. on 03/07/2021 at 23:12 Approved by: Edgardo Black M.D. on 03/07/2021 at 23:14
--- NOTE | 2021-03-07 21:33 | DI.US.S_ITS ---
PROCEDURE: US ABDOMEN LIMITED INDICATIONS: UMBILICAL HERNIA; ? INCARCERATED BOWEL TECHNIQUE: Real-time focused scanning was performed of the abdominal wall, with image documentation. COMPARISON: None. FINDINGS: Umbilical hernia containing bowel. No changes seen with Valsalva. The bowel is non reducible. The hernia neck measures 3.3 cm. The loop of bowel is dilated and thickened. IMPRESSION: Findings in keeping with incarcerated umbilical hernia. Dictated by: Edgardo Black M.D. on 03/07/2021 at 23:19 Approved by: Edgardo Black M.D. on 03/07/2021 at 23:20
[2021-03-07 21:58] LABS: Add Manual Diff / Slide Review NO; Basophils Absolute Auto 0 /uL (0-100); Basophils Percent Auto 0.3 % (0-2); Eosinophils Absolute Auto 100 /uL (0-450); Eosinophils Percent Auto 0.6 % (2-4); Hematocrit 42.1 % (41-53); Hemoglobin 14.3 g/dL (13.5-17.5); Lymphocytes Absolute Auto 1600 /uL (1100-4500); Lymphocytes Percent Auto 14.7 % (25-40); Mean Corpuscular HGB Conc 33.9 % (30-36); Mean Corpuscular Hemoglobin 33.8 PG (26-34); Mean Corpuscular Volume 99.7 fL (80-100); Monocytes Absolute Auto 1300 /uL (0-900); Monocytes Percent Auto 11.6 % (3-14); Neutrophils Absolute Auto 7800 /uL (1500-7000); Neutrophils Percent Auto 72.8 % (50-75); Platelet Count 209 X10^3/uL (150-400); Red Blood Cell Count 4.22 X10^6/uL (4.5-5.9); Red Cell Distribution Width 16.5 % (11.6-14.8); White Blood Cell Count 10.8 X10^3/uL (4.5-11.0)
[2021-03-07 22:05] LABS: Lactate (Lactic Acid) 1.6 mmol/L (0.7-2.1)
[2021-03-07 22:06] LABS: Alanine Aminotransferase 37 IU/L (<50); Albumin Globulin Ratio 1.3 (1.0-2.8); Alkaline Phosphatase 109 U/L (38-126); Aspartate Aminotransferase 32 IU/L (17-59); BUN Creatinine Ratio 4.8 (6-22); Bilirubin Total 1.1 mg/dL (0.2-1.3); Blood Urea Nitrogen 58 mg/dL (9-20); Calcium 10.8 mg/dL (8.4-10.2); Carbon Dioxide 31 mmol/L (22-32); Chloride 84 mmol/L (98-107); Estimated Glomerular Filt Rate 4.2 mL/min (>60); Glucose 129 mg/dL (80-110); HEMOLYSIS 20 (0-50); Lipase 79 U/L (23-300); Magnesium 2.3 mg/dL (1.6-2.3); Sodium 129 mmol/L (137-145)
[2021-03-07 22:09] LABS: Potassium 6.6 mmol/L (3.4-5.1)
[2021-03-07] MEDS: DEXTROSE 50 % IN WATER 25 GM/50 ML SYRINGE IV (22:39)
[2021-03-07] MEDS: INSULIN REGULAR 100 UNIT/ML 3 ML VIAL IV (22:39)
[2021-03-07] MEDS: CALCIUM GLUCONATE 9.3 MEQ in SODIUM CHLORIDE 0.9% 50 ML 140 ML IV (22:40)
[2021-03-07] MEDS: FUROSEMIDE 200 MG in SODIUM CHLORIDE 0.9% 50 ML 140 ML IV (22:48)
[2021-03-07 22:53] LABS: COVID19 -Nasal RAPID Negative (Negative)
[2021-03-07] MEDS: ALBUTEROL 2.5 MG/3 ML NEB (ADULT) 20 MG INH (22:58)
[2021-03-07] MEDS: SODIUM CHLORIDE 0.9% 500 ML 1000 ML IV (23:14)
[2021-03-08] VITALS (16 sets, daily range): BP systolic 130–162; BP diastolic 64–76; PULSE 93–108; RESP 13–26; O2SAT 93–97
[2021-03-08 00:46] LABS: Blood Urea Nitrogen 59 mg/dL (9-20); Carbon Dioxide 32 mmol/L (22-32); Chloride 85 mmol/L (98-107); Estimated Glomerular Filt Rate 4.3 mL/min (>60); Glucose 101 mg/dL (80-110); HEMOLYSIS 39 (0-50); Sodium 131 mmol/L (137-145)
[2021-03-08 00:48] LABS: Potassium 5.5 mmol/L (3.4-5.1)
--- NOTE | 2021-03-08 00:53 | DI.RAD.S_ITS ---
PROCEDURE: XR CHEST 1V INDICATIONS: check tube placement TECHNIQUE: One view of the chest was acquired. COMPARISON: [facility], CR, XR ABDOMEN MIN 2V, 03/07/2021, 21:48. [facility], CR, XR CHEST 1V, 02/07/2020, 16:25. [facility], CR, CHEST 1 VIEW, 06/12/2009, 17:36. FINDINGS: Surgical changes and devices: Dual lumen central venous catheter on the left with the tip the lower 3rd of the SVC. Enteric tube coursing down the esophagus. The distal aspect projecting in the upper abdomen towards the right. Cholecystectomy clips. Lungs and pleura: Lungs appear clear. Low lung volumes. No pleural effusions or pneumothorax. Mediastinum: Mediastinal contours appear unchanged. Heart size is normal. Bones and chest wall: No suspicious bony lesions. Multiple dilated loops of small bowel. IMPRESSION: Enteric tube in the upper abdomen. Left-sided central venous line with the catheter tip projecting at the lower 3rd of the SVC. Dilated loops of small bowel consistent with small bowel obstruction. Dictated by: Edgardo Black M.D. on 03/08/2021 at 1:20 Approved by: Edgardo Black M.D. on 03/08/2021 at 1:23
[2021-03-08] MEDS: LIDOCAINE 2% (GLYDO) 6 ML GEL TOP (01:14)
[2021-03-08] MEDS: MIDAZOLAM 2 MG/2 ML VIAL IV (03:08)
[2021-03-08 04:13] LABS: Add Manual Diff / Slide Review NO; Basophils Absolute Auto 0 /uL (0-100); Basophils Percent Auto 0.4 % (0-2); Eosinophils Absolute Auto 0 /uL (0-450); Eosinophils Percent Auto 0.3 % (2-4); Hematocrit 40.6 % (41-53); Hemoglobin 13.8 g/dL (13.5-17.5); Lymphocytes Absolute Auto 1900 /uL (1100-4500); Mean Corpuscular HGB Conc 33.9 % (30-36); Mean Corpuscular Hemoglobin 33.7 PG (26-34); Mean Corpuscular Volume 99.2 fL (80-100); Monocytes Absolute Auto 1200 /uL (0-900); Monocytes Percent Auto 11.3 % (3-14); Neutrophils Absolute Auto 7400 /uL (1500-7000); Platelet Count 193 X10^3/uL (150-400); Red Blood Cell Count 4.09 X10^6/uL (4.5-5.9); Red Cell Distribution Width 16.4 % (11.6-14.8); White Blood Cell Count 10.5 X10^3/uL (4.5-11.0)
[2021-03-08 04:24] LABS: Lactate (Lactic Acid) 1.2 mmol/L (0.7-2.1)
[2021-03-08 04:49] LABS: Alanine Aminotransferase 33 IU/L (<50); Albumin 4.6 g/dL (3.5-5.0); Albumin Globulin Ratio 1.3 (1.0-2.8); Alkaline Phosphatase 99 U/L (38-126); Aspartate Aminotransferase 29 IU/L (17-59); Bilirubin Total 1.1 mg/dL (0.2-1.3); Blood Urea Nitrogen 62 mg/dL (9-20); Calcium 10.8 mg/dL (8.4-10.2); Carbon Dioxide 28 mmol/L (22-32); Chloride 86 mmol/L (98-107); Globulin 3.6 g/dL (1.7-4.1); Glucose 106 mg/dL (80-110); HEMOLYSIS 22 (0-50); Potassium 5.3 mmol/L (3.4-5.1); Sodium 131 mmol/L (137-145); Total Protein 8.2 g/dL (6.3-8.2)
== END 2021-03-08 05:40 | disposition short-term general hospital (02) ==
PROVIDERS: Emergency Provider Emergency Medicine; PCP Family Medicine
DX: K42.0 Umbilical hernia with obstruction, without gangrene (principal); K56.600 Partial intestinal obstruction, unspecified as to cause; E87.5 Hyperkalemia; I10 Essential (primary) hypertension; Z20.822 Contact with and (suspected) exposure to COVID-19
CPT/HCPCS: 36415; 71045; 74019; 76705; 80048; 80053; 83605; 83690; 83735; 85025; 87635; 93005; 93010; 96361; 96365; 96368; 96375; 99285; 99291; 99292; C9803; J0610; J1940; J2250; J7613

== ENCOUNTER 2021-06-12 10:26 | Emergency (ER) | payer MEDICARE, SELFPAY ==
[2021-06-12] VITALS (17 sets, daily range): BP systolic 146–179; BP diastolic 67–93; PULSE 81–95; RESP 13–21; TEMP 36.6; O2SAT 98–100
--- NOTE | 2021-06-12 10:31 | DI.RAD.S_ITS ---
PROCEDURE: XR CHEST 1V INDICATIONS: chest pain TECHNIQUE: One view of the chest was acquired. COMPARISON: [facility], CR, XR CHEST 1V, 03/08/2021, 0:54. [facility], CR, XR CHEST 1V, 02/07/2020, 16:25. FINDINGS: Surgical changes and devices: None. Lungs and pleura: Lungs are clear. No pleural effusions or pneumothorax. Mediastinum: Mediastinal contours appear normal. Aortic arch atherosclerotic calcifications. Heart size is normal. Bones and chest wall: No suspicious bony lesions. Overlying soft tissues appear unremarkable. IMPRESSION: No acute cardiopulmonary abnormality. Dictated by: Edgardo Black M.D. on 06/12/2021 at 10:05 Approved by: Edgardo Black M.D. on 06/12/2021 at 10:06
--- NOTE | 2021-06-12 11:44 | ED_ITS ---
HPI - Dizziness General Chief Complaint: Dizziness Stated Complaint: Afib Time Seen by Provider: 06/12/21 11:33 Source: patient and EMS Mode of arrival: EMS Limitations: no limitations History of Present Illness HPI Narrative: The patient has renal failure, he undergoes hemodialysis to see, and Saturdays. At the end of dialysis this morning, he developed dizziness as he stood. He was likely hypotensive. His heart rate was apparently 160s, he was not being monitored. He was feeling cramping. He has a history of hyperkalemia. He has associated history of AFib. He does not have chronic AFib. He is not anticoagulated. He is not diabetic. He is on multiple medications for hypertension and diabetes. He feels well now. He denies recent illness. He has no headache, visual changes or confusion. He has no weakness or numbness. He did not develop chest pain with the initial symptoms. He has no abdominal pain, no nausea vomiting. His appetite is normal. He is currently asking for something to drink. Related Data Home Medications Medication Instructions Recorded Confirmed ASPIRIN (Aspir-Low) 81 mg PO QDAY #0 04/05/11 11/05/20 darbepoetin bob in polysorbat 10 #0 07/14/16 11/05/20 mcg/0.4 mL in polysorbate injection syringe (Aranesp) torsemide 20 mg tablet BID #0 06/01/17 11/05/20 allopurinol 100 mg tablet 100 mg PO DAILY 09/14/17 11/05/20 lisinopril 40 mg tablet 40 mg PO DAILY 09/14/17 11/05/20 simvastatin 20 mg tablet 20 mg PO QPM 09/14/17 11/05/20 carvedilol 12.5 mg tablet 12.5 mg PO BID 07/12/18 11/05/20 Resmed AirCurve 10 BIPAP #1 ea 08/16/18 11/05/20 hydralazine 25 mg tablet 25 mg PO TID PRN #0 11/05/20 11/05/20 Previous Rx's Medication Instructions Recorded amlodipine 10 mg tablet (Norvasc) 10 mg PO QDAY #45 tabs 07/14/16 gabapentin 100 mg capsule 100 mg PO BEDTIME #30 cap 05/11/20 Allergies Allergy/AdvReac Type Severity Reaction Status Date / Time Sulfa (Sulfonamide Allergy Mild TURNS RED Verified 06/12/21 10:31 Antibiotics) [SULFA (SULFONAMIDE ANTIBIOTICS)] spironolactone AdvReac Intermediate REDUCES Verified 06/12/21 10:31 [SPIRONOLACTONE] KIDNEY FUNCTION Review of Systems Review of Systems ROS Unobtainable: All systems reviewed & are unremarkable except as noted in HPI and below Constitutional Constitutional: Denies body ache(s), Denies chills, Denies fatigue and Denies fever(s) Eyes Eyes: Denies change in vision ENT Ears, Nose, Mouth, and Throat: Reports dizziness, Denies otalgia and Denies sore throat Cardiovascular Cardiovascular: Denies chest pain, Reports rapid heart rate, Denies pedal edema, Denies edema and Denies dyspnea Respiratory Respiratory: Denies cough and Denies dyspnea Gastrointestinal Gastrointestinal: Denies abdominal pain, Denies bloating and Denies nausea Genitourinary Comments: Renal failure. No urinary symptoms. Musculoskeletal Musculoskeletal: Denies back pain Comments: No lower extremity edema. Integumentary/Breasts Skin/Breast: Denies furuncle, Denies lesions and Denies rash Neurologic Neurologic: Reports system reviewed and no additional complaints, except as documented and Reports dizziness Psychiatric Psychiatric: Denies anxiety Endocrine Endocrine: Denies fatigue and Denies flushing Hematologic/Lymphatic On Anticoagulants: No Patient History Medical History Abdominal aortic aneurysm (2011) Acne (~1961) Actinic keratosis (~1994) Allergic rhinitis (1979) Anemia (2009) Anemia of chronic illness Blindness (1970) Cataracts, bilateral (2011) Chickenpox (~1959) Chronic renal insufficiency, stage IV (severe) (02/24/15) CKD (chronic kidney disease) (Unknown) Colitis (1984) Colon polyps (2009) End-stage renal disease (ESRD) (~02/24/15) Gout (~1994) History of diverticulitis (Unknown) History of recurrent ear infection (1959) Hyperlipemia (Unknown) Hypersomnia Hypertension (1979) Kidney disease (~2009) Measles (~1959) Mumps (~1959) Obstructive sleep apnea syndrome (2004) Peritoneal dialysis catheter in place Plantar warts (~1994) Recurrent sinusitis (1959) Restless leg syndrome (1989) Retinal detachment (1970) Skin cancer (~1987) Skin tag Weakness Surgical History History of nephrectomy, left (~04/2020) History of skin surgery Hx of removal of testicle (1963) Hx of surgical procedure (1951) Family History Brother Age: 71 Skin cancer Hypertension Kidney disease Brother Age: 61 Hypertension Mother Hypertension Father No problems noted. Social History marital status: details: latia Morgan, lives in [place] household members: spouse lives independently: Yes caregiver/support person: No housing: house Smoking Status: Never smoker Smoking Status: Never smoker alcohol intake frequency: holidays/special occasions only Substance Use Type: does not use Exam Initial Vital Signs Initial Vital Signs: Vital Signs Pulse Rate 92 H 06/12/21 10:25 Pulse Oximetry 100 06/12/21 10:25 Const General: cooperative, healthy appearing and comfortable [facility] Head: normocephalic and atraumatic Eyes General: appearance normal, both eyes and all related structures Neck Neck: No JVD Resp Auscultation: clear to auscultation bilaterally Cardio Rate: regular rate Rhythm: regular rhythm Heart Sounds: S1 normal, S2 normal, no click, no murmurs and no rubs GI Inspection: normal to inspection Palpation: soft Auscultation: normal bowel sounds Back/Spine/Pelvis Back: normal to inspection and No back tenderness Skin General: no rashes or lesions noted Neuro General: patient alert, patient awake, patient oriented x3 and no focal motor deficits Extrem General: normal to inspection, full ROM, no pedal edema and no calf tenderness Psych Mental Status: mental status grossly normal Course Course Course Narrative: The patient dizziness weakness following dialysis. Has no chest pain or palpitations this time. He is normotensive. His evaluation is benign. It is assumed you may been over dialyzed, with a bit of dehydration. He has no cardiopulmonary issues. He has no electrolyte issues. He has been well since arrival. He is advised to resume his normal dialysis, return here if necessary Orders Ordered: ED Orders 06/12/21 10:31 XR chest 1V Stat EKG-12 Lead Stat 06/12/21 12:20 Complete Blood Count AUTO DIFF Stat Comprehensive Metabolic Panel Stat Lipase Stat Magnesium Stat Partial Thromboplastin Time Stat Phosphorous Stat Prothrombin Time INR Stat Troponin & CK Cardiac Panel Stat Vital Signs Vital signs: Vital Signs - 8 hr 06/12/21 10:25 06/12/21 10:27 06/12/21 10:30 Temperature 97.8 F Pulse Rate 92 H 91 H 90 Respiratory Rate 19 15 Blood Pressure 158/71 H 157/74 H Pulse Oximetry 100 100 100 06/12/21 10:45 06/12/21 11:00 06/12/21 11:15 Temperature Pulse Rate 95 H 92 H 91 H Respiratory Rate 19 17 Blood Pressure 174/80 H 168/80 H 163/84 H Pulse Oximetry 100 99 98 06/12/21 11:30 06/12/21 11:45 06/12/21 12:00 Temperature Pulse Rate 91 H 89 90 Respiratory Rate 18 16 13 Blood Pressure 150/70 H 152/72 H Pulse Oximetry 100 100 100 06/12/21 12:30 06/12/21 12:36 06/12/21 12:46 Temperature Pulse Rate 87 88 85 Respiratory Rate 16 19 21 Blood Pressure 152/67 H 179/75 H Pulse Oximetry 99 06/12/21 13:00 06/12/21 13:15 06/12/21 13:30 Temperature Pulse Rate 84 85 82 Respiratory Rate 18 16 17 Blood Pressure 166/73 H 146/86 H 169/93 H Pulse Oximetry 100 MDM - Dizziness Lab Data Result diagrams: 06/12/21 12:20 06/12/21 12:20 Labs: Lab Results 06/12/21 06/12/21 06/12/21 Range/Units 12:20 12:20 12:20 WBC 5.9 (4.5-11.0) X10^3/uL RBC 3.57 L (4.5-5.9) X10^6/uL Hgb 12.3 L (13.5-17.5) g/dL Hct 36.3 L (41-53) % MCV 101.6 H (80-100) fL MCH 34.3 H (26-34) PG MCHC 33.8 (30-36) % RDW 16.3 H (11.6-14.8) % Plt Count 200 (150-400) X10^3/uL Neut % (Auto) 56.4 (50-75) % Lymph % (Auto) 28.4 (25-40) % [place] % (Auto) 12.1 (3-14) % Eos % (Auto) 2.4 (2-4) % Baso % (Auto) 0.7 (0-2) % Neut # (Auto) 3300 (2328-1229) /uL Lymph # (Auto) 1700 (9460-3551) /uL [place] # (Auto) 700 (0-900) /uL Eos # (Auto) 100 (0-450) /uL Baso # (Auto) 0 (0-100) /uL PT 10.9 (10.1-12.7) SECONDS INR 1.0 (0.9-1.3) APTT 30 D (26.4-36.2) SECONDS Sodium 133 L (137-145) mmol/L Potassium 4.6 (3.4-5.1) mmol/L Chloride 93 L (98-107) mmol/L Carbon Dioxide 32 (22-32) mmol/L BUN 30 H (9-20) mg/dL Creatinine 5.89 H (0.66-1.25) mg/dL Estimated GFR 9.5 L (>60) mL/min BUN/Creatinine Ratio 5.1 L (6-22) Glucose 81 (80-110) mg/dL Calcium 9.5 (8.4-10.2) mg/dL Phosphorus (2.3-3.7) mg/dL Magnesium 1.9 (1.6-2.3) mg/dL Total Bilirubin 0.6 (0.2-1.3) mg/dL AST 27 (17-59) IU/L ALT 35 (<50) IU/L Alkaline Phosphatase 127 H (38-126) U/L Total Creatine Kinase 113 (55-170) U/L Troponin I 0.023 (0.01-0.034) ng/mL Total Protein 8.0 (6.3-8.2) g/dL Albumin 4.5 (3.5-5.0) g/dL Globulin 3.5 (1.7-4.1) g/dL Albumin/Globulin Ratio 1.3 (1.0-2.8) Lipase 133 (23-300) U/L 03/12/22 Range/Units 12:20 WBC (4.5-11.0) X10^3/uL RBC (4.5-5.9) X10^6/uL Hgb (13.5-17.5) g/dL Hct (41-53) % MCV (80-100) fL MCH (26-34) PG MCHC (30-36) % RDW (11.6-14.8) % Plt Count (150-400) X10^3/uL Neut % (Auto) (50-75) % Lymph % (Auto) (25-40) % [place] % (Auto) (3-14) % Eos % (Auto) (2-4) % Baso % (Auto) (0-2) % Neut # (Auto) (6748-2843) /uL Lymph # (Auto) (3006-6090) /uL [place] # (Auto) (0-900) /uL Eos # (Auto) (0-450) /uL Baso # (Auto) (0-100) /uL PT (10.1-12.7) SECONDS INR (0.9-1.3) APTT (26.4-36.2) SECONDS Sodium (137-145) mmol/L Potassium (3.4-5.1) mmol/L Chloride (98-107) mmol/L Carbon Dioxide (22-32) mmol/L BUN (9-20) mg/dL Creatinine (0.66-1.25) mg/dL Estimated GFR (>60) mL/min BUN/Creatinine Ratio (6-22) Glucose (80-110) mg/dL Calcium (8.4-10.2) mg/dL Phosphorus 4.6 H (2.3-3.7) mg/dL Magnesium (1.6-2.3) mg/dL Total Bilirubin (0.2-1.3) mg/dL AST (17-59) IU/L ALT (<50) IU/L Alkaline Phosphatase (38-126) U/L Total Creatine Kinase (55-170) U/L Troponin I (0.01-0.034) ng/mL Total Protein (6.3-8.2) g/dL Albumin (3.5-5.0) g/dL Globulin (1.7-4.1) g/dL Albumin/Globulin Ratio (1.0-2.8) Lipase (23-300) U/L Imaging Data Chest x-ray: Radiologist's Impression: No acute cardiopulmonary process. ECG Data Attestation: I personally reviewed and interpreted this ECG as follows: (Normal sinus rhythm rate 90 beats per minute. Normal intervals. Occasional PVC. No acute ST T wave changes. No acute findings.) Discharge Plan Departure Patient Disposition: Home Clinical Impression: Near syncope Instructions: DI for Syncope in Adults (Fainting) Activity Restrictions/Additional Instructions: Your episode of dizziness may be related to the fluid taken off during dialysis. There is no evidence of infection, cardiac event, or significant electrolyte imbalance. Your vitals are normal. There is no arrhythmia detected here in the ER. I suggest you resume your normal dialysis schedule. If you have future, similar events, you should discuss this with your revenue accountant. Return to the ER as necessary. Prescriptions: No Action carvedilol 12.5 mg tablet 12.5 mg PO BID 0RF allopurinol 100 mg tablet 100 mg PO DAILY 0RF simvastatin 20 mg tablet 20 mg PO QPM 0RF lisinopril 40 mg tablet 40 mg PO DAILY 0RF ASPIRIN (Aspir-Low) 81 mg PO QDAY Qty: 0 0RF amlodipine [Norvasc] 10 MG tablet 10 mg PO QDAY Qty: 45 0RF darbepoetin bob in polysorbat [Aranesp (in polysorbate)] 10 mcg/0.4 mL Syringe Qty: 0 0RF torsemide 20 MG tablet BID Qty: 0 0RF hydralazine 25 mg tablet 25 mg PO TID PRNQty: 0 0RF gabapentin 100 mg capsule 100 mg PO BEDTIME Qty: 30 0RF (DME) Resmed AirCurve 10 BIPAP Qty: 1 0RF Dose Instruction: As directed Label Comments: Pressure: IPAP 20 EPAP 12 DME: [facility] Rx Instructions: As directed Referrals: Sumanth Hernandez MD [Primary Care Provider] -
[2021-06-12 12:33] LABS: Add Manual Diff / Slide Review NO; Basophils Absolute Auto 0 /uL (0-100); Basophils Percent Auto 0.7 % (0-2); Eosinophils Absolute Auto 100 /uL (0-450); Eosinophils Percent Auto 2.4 % (2-4); Hematocrit 36.3 % (41-53); Hemoglobin 12.3 g/dL (13.5-17.5); Lymphocytes Absolute Auto 1700 /uL (1100-4500); Lymphocytes Percent Auto 28.4 % (25-40); Mean Corpuscular HGB Conc 33.8 % (30-36); Mean Corpuscular Hemoglobin 34.3 PG (26-34); Mean Corpuscular Volume 101.6 fL (80-100); Monocytes Absolute Auto 700 /uL (0-900); Monocytes Percent Auto 12.1 % (3-14); Neutrophils Absolute Auto 3300 /uL (1500-7000); Neutrophils Percent Auto 56.4 % (50-75); Platelet Count 200 X10^3/uL (150-400); Red Blood Cell Count 3.57 X10^6/uL (4.5-5.9); Red Cell Distribution Width 16.3 % (11.6-14.8); White Blood Cell Count 5.9 X10^3/uL (4.5-11.0)
[2021-06-12 12:41] LABS: Prothrombin Time 10.9 SECONDS (10.1-12.7)
[2021-06-12 12:44] LABS: PTT Partial Thromboplastin Tim 30 SECONDS (26.4-36.2)
[2021-06-12 12:48] LABS: Phosphorous 4.6 mg/dL (2.3-3.7)
[2021-06-12 13:30] LABS: Alanine Aminotransferase 35 IU/L (<50); Albumin 4.5 g/dL (3.5-5.0); Albumin Globulin Ratio 1.3 (1.0-2.8); Alkaline Phosphatase 127 U/L (38-126); Aspartate Aminotransferase 27 IU/L (17-59); BUN Creatinine Ratio 5.1 (6-22); Bilirubin Total 0.6 mg/dL (0.2-1.3); Blood Urea Nitrogen 30 mg/dL (9-20); Calcium 9.5 mg/dL (8.4-10.2); Carbon Dioxide 32 mmol/L (22-32); Chloride 93 mmol/L (98-107); Creatine Kinase 113 U/L (55-170); Estimated Glomerular Filt Rate 9.5 mL/min (>60); Globulin 3.5 g/dL (1.7-4.1); Glucose 81 mg/dL (80-110); HEMOLYSIS < 15 (0-50); Lipase 133 U/L (23-300); Magnesium 1.9 mg/dL (1.6-2.3); Potassium 4.6 mmol/L (3.4-5.1); Sodium 133 mmol/L (137-145)
[2021-06-12 13:41] LABS: Troponin I 0.023 ng/mL (0.01-0.034)
[2021-06-12 15:20] LABS: CKMB % Relative Index 6.1 % (1.5-5.0); Creatine Kinase MB 6.89 ng/mL (<2.37)
== END 2021-06-12 14:16 | disposition home or self-care (01) ==
PROVIDERS: Emergency Provider Emergency Medicine; PCP Family Medicine
DX: R55 Syncope and collapse (principal); Z79.899 Other long term (current) drug therapy
CPT/HCPCS: 36415; 71045; 80053; 82550; 82553; 83690; 83735; 84100; 84484; 85025; 85610; 85730; 93005; 93010; 99283; 99284

== ENCOUNTER → 2021-09-20 07:16 | Outpatient (CLI) | payer MEDICARE, SELFPAY ==
[2021-09-20 08:03] LABS: Add Manual Diff / Slide Review NO; Basophils Absolute Auto 0 /uL (0-100); Basophils Percent Auto 0.6 % (0-2); Eosinophils Absolute Auto 100 /uL (0-450); Eosinophils Percent Auto 1.6 % (2-4); Hemoglobin 8.8 g/dL (13.5-17.5); Lymphocytes Absolute Auto 500 /uL (1100-4500); Lymphocytes Percent Auto 8.6 % (25-40); Mean Corpuscular HGB Conc 33.9 % (30-36); Mean Corpuscular Hemoglobin 33.9 PG (26-34); Mean Corpuscular Volume 99.8 fL (80-100); Monocytes Absolute Auto 700 /uL (0-900); Monocytes Percent Auto 10.5 % (3-14); Neutrophils Absolute Auto 5000 /uL (1500-7000); Neutrophils Percent Auto 78.7 % (50-75); Platelet Count 242 X10^3/uL (150-400); White Blood Cell Count 6.4 X10^3/uL (4.5-11.0)
[2021-09-20 08:23] LABS: Alanine Aminotransferase 45 IU/L (<50); Albumin Globulin Ratio 1.3 (1.0-2.8); Alkaline Phosphatase 183 U/L (38-126); Aspartate Aminotransferase 28 IU/L (17-59); BUN Creatinine Ratio 15.6 (6-22); Bilirubin Total 0.4 mg/dL (0.2-1.3); Blood Urea Nitrogen 28 mg/dL (9-20); Calcium 10.2 mg/dL (8.4-10.2); Carbon Dioxide 20 mmol/L (22-32); Chloride 109 mmol/L (98-107); Estimated Glomerular Filt Rate 40 mL/min (>60); Glucose 88 mg/dL (80-110); HEMOLYSIS < 15 (0-50); Magnesium 1.5 mg/dL (1.6-2.3); Phosphorous 2.4 mg/dL (2.3-3.7); Sodium 135 mmol/L (137-145)
[2021-09-20 08:28] LABS: Potassium 5.5 mmol/L (3.4-5.1)
[2021-09-20 08:56] LABS: Creatinine Urine Random 101.2 mg/dL; Protein (Total) Urine Random 19 mg/dL (0-12); Protein Creatinine Ratio Urine 0.18 GRAM/24H
[2021-09-20 10:44] LABS: Appearance Urine UA CLEAR; Bilirubin Urine UA NEGATIVE (NEGATIVE); Color Urine UA YELLOW; Glucose Urine UA NEGATIVE (Negative); Ketones Urine UA NEGATIVE (NEGATIVE); Leukocyte Esterase Urine UA NEGATIVE (NEGATIVE); Nitrite Urine UA NEGATIVE (Negative); Occult Blood Urine UA TRACE-INTACT (Negative); Protein Urine UA TRACE (Negative); Specific Gravity Urine UA 1.015 (1.000-1.035); Urobilinogen Urine UA 0.2 E.U./dL (0.2)
[2021-09-20 10:59] LABS: Bacteria Urine None Seen; Culture Indicated Urine Cult Not Indicated; RBC Urine 0-1/HPF (0-5/HPF); Squamous Epithelial Cell Urine 0-1 /HPF (0-5/HPF); WBC Urine 0-1/HPF (0-5/HPF)
[2021-09-21 09:39] LABS: Tacrolimus 9.2 ng/mL (2.0-20.0)
== END ==
PROVIDERS: PCP Family Medicine; Referring Provider Internal Medicine Nephrology; Visit Provider Internal Medicine Nephrology
DX: Z94.0 Kidney transplant status (principal); Z48.298 Encounter for aftercare following other organ transplant; T86.90 Unspecified complication of unspecified transplanted organ and tissue; E83.40 Disorders of magnesium metabolism, unspecified
CPT/HCPCS: 36415; 80053; 80197; 81001; 82570; 83735; 84100; 84156; 85025

== ENCOUNTER → 2021-09-27 06:46 | Outpatient (CLI) | payer MEDICARE, SELFPAY ==
[2021-09-27 08:10] LABS: Add Manual Diff / Slide Review NO; Basophils Absolute Auto 0 /uL (0-100); Basophils Percent Auto 0.4 % (0-2); Eosinophils Absolute Auto 100 /uL (0-450); Eosinophils Percent Auto 1.4 % (2-4); Hematocrit 26.5 % (41-53); Lymphocytes Absolute Auto 600 /uL (1100-4500); Lymphocytes Percent Auto 9.4 % (25-40); Mean Corpuscular HGB Conc 33.8 % (30-36); Mean Corpuscular Hemoglobin 33.7 PG (26-34); Mean Corpuscular Volume 99.8 fL (80-100); Monocytes Absolute Auto 600 /uL (0-900); Monocytes Percent Auto 10.3 % (3-14); Neutrophils Absolute Auto 4800 /uL (1500-7000); Neutrophils Percent Auto 78.5 % (50-75); Platelet Count 183 X10^3/uL (150-400); Red Blood Cell Count 2.66 X10^6/uL (4.5-5.9); Red Cell Distribution Width 15.6 % (11.6-14.8); White Blood Cell Count 6.2 X10^3/uL (4.5-11.0)
[2021-09-27 08:20] LABS: Alanine Aminotransferase 53 IU/L (<50); Albumin 4.1 g/dL (3.5-5.0); Albumin Globulin Ratio 1.3 (1.0-2.8); Alkaline Phosphatase 199 U/L (38-126); Aspartate Aminotransferase 30 IU/L (17-59); BUN Creatinine Ratio 20.1 (6-22); Bilirubin Total 0.4 mg/dL (0.2-1.3); Blood Urea Nitrogen 37 mg/dL (9-20); Calcium 10.2 mg/dL (8.4-10.2); Carbon Dioxide 21 mmol/L (22-32); Chloride 108 mmol/L (98-107); Estimated Glomerular Filt Rate 39 mL/min (>60); Globulin 3.1 g/dL (1.7-4.1); Glucose 92 mg/dL (80-110); HEMOLYSIS < 15 (0-50); Magnesium 1.8 mg/dL (1.6-2.3); Phosphorous 2.7 mg/dL (2.3-3.7); Potassium 5.3 mmol/L (3.4-5.1); Sodium 135 mmol/L (137-145); Total Protein 7.2 g/dL (6.3-8.2)
[2021-09-27 08:28] LABS: Appearance Urine UA CLEAR; Bilirubin Urine UA NEGATIVE (NEGATIVE); Color Urine UA YELLOW; Glucose Urine UA NEGATIVE (Negative); Ketones Urine UA NEGATIVE (NEGATIVE); Leukocyte Esterase Urine UA NEGATIVE (NEGATIVE); Nitrite Urine UA NEGATIVE (Negative); Occult Blood Urine UA TRACE-INTACT (Negative); Protein Urine UA NEGATIVE (Negative); Urobilinogen Urine UA 0.2 E.U./dL (0.2); pH Urine UA 6.5 (4.5-8.0)
[2021-09-27 08:35] LABS: Creatinine Urine Random 65.9 mg/dL; Protein (Total) Urine Random 15 mg/dL (0-12); Protein Creatinine Ratio Urine 0.22 GRAM/24H
[2021-09-27 08:38] LABS: Bacteria Urine None Seen; Culture Indicated Urine Cult Not Indicated; RBC Urine None Seen (0-5/HPF); Urine Comments Microscopic Normal; WBC Urine None Seen (0-5/HPF)
[2021-09-28 09:05] LABS: Tacrolimus 10.6 ng/mL (2.0-20.0)
== END ==
PROVIDERS: PCP Family Medicine; Referring Provider Internal Medicine Nephrology; Visit Provider Internal Medicine Nephrology
DX: Z94.0 Kidney transplant status (principal); Z48.298 Encounter for aftercare following other organ transplant; T86.90 Unspecified complication of unspecified transplanted organ and tissue; E83.40 Disorders of magnesium metabolism, unspecified; M83.8 Other adult osteomalacia
CPT/HCPCS: 36415; 80053; 80197; 81001; 82570; 83735; 84100; 84156; 85025

== ENCOUNTER → 2021-10-05 06:44 | Outpatient (CLI) | payer MEDICARE, SELFPAY ==
[2021-10-05 08:25] LABS: Appearance Urine UA CLEAR; Bilirubin Urine UA NEGATIVE (NEGATIVE); Color Urine UA YELLOW; Glucose Urine UA NEGATIVE (Negative); Ketones Urine UA NEGATIVE (NEGATIVE); Leukocyte Esterase Urine UA NEGATIVE (NEGATIVE); Nitrite Urine UA NEGATIVE (Negative); Occult Blood Urine UA TRACE-INTACT (Negative); Protein Urine UA TRACE (Negative); Urobilinogen Urine UA 0.2 E.U./dL (0.2)
[2021-10-05 08:33] LABS: Add Manual Diff / Slide Review NO; Basophils Absolute Auto 0 /uL (0-100); Basophils Percent Auto 0.5 % (0-2); Eosinophils Absolute Auto 100 /uL (0-450); Eosinophils Percent Auto 1.3 % (2-4); Hematocrit 27.4 % (41-53); Hemoglobin 9.4 g/dL (13.5-17.5); Lymphocytes Absolute Auto 700 /uL (1100-4500); Lymphocytes Percent Auto 10.4 % (25-40); Mean Corpuscular HGB Conc 34.4 % (30-36); Mean Corpuscular Hemoglobin 34.2 PG (26-34); Mean Corpuscular Volume 99.4 fL (80-100); Monocytes Absolute Auto 600 /uL (0-900); Monocytes Percent Auto 8.5 % (3-14); Neutrophils Absolute Auto 5600 /uL (1500-7000); Neutrophils Percent Auto 79.3 % (50-75); Platelet Count 204 X10^3/uL (150-400); Red Blood Cell Count 2.76 X10^6/uL (4.5-5.9); Red Cell Distribution Width 15.4 % (11.6-14.8)
[2021-10-05 08:34] LABS: Bacteria Urine None Seen; Culture Indicated Urine Cult Not Indicated; RBC Urine None Seen (0-5/HPF); Squamous Epithelial Cell Urine None Seen (0-5/HPF); WBC Urine None Seen (0-5/HPF)
[2021-10-05 08:52] LABS: Creatinine Urine Random 78.5 mg/dL; Protein (Total) Urine Random 22 mg/dL (0-12); Protein Creatinine Ratio Urine 0.28 GRAM/24H
[2021-10-05 09:09] LABS: Alanine Aminotransferase 31 IU/L (<50); Albumin 3.9 g/dL (3.5-5.0); Albumin Globulin Ratio 1.5 (1.0-2.8); Alkaline Phosphatase 186 U/L (38-126); Aspartate Aminotransferase 24 IU/L (17-59); BUN Creatinine Ratio 17.3 (6-22); Bilirubin Total 0.4 mg/dL (0.2-1.3); Blood Urea Nitrogen 29 mg/dL (9-20); Calcium 10.4 mg/dL (8.4-10.2); Carbon Dioxide 22 mmol/L (22-32); Chloride 106 mmol/L (98-107); Estimated Glomerular Filt Rate 43 mL/min (>60); Globulin 2.6 g/dL (1.7-4.1); Glucose 83 mg/dL (80-110); HEMOLYSIS < 15 (0-50); Magnesium 1.8 mg/dL (1.6-2.3); Phosphorous 2.5 mg/dL (2.3-3.7); Potassium 5.2 mmol/L (3.4-5.1); Sodium 135 mmol/L (137-145); Total Protein 6.5 g/dL (6.3-8.2)
[2021-10-06 09:19] LABS: Tacrolimus 11.7 ng/mL (2.0-20.0)
== END ==
PROVIDERS: PCP Family Medicine; Referring Provider Internal Medicine Nephrology; Visit Provider Internal Medicine Nephrology
DX: Z48.298 Encounter for aftercare following other organ transplant (principal); Z94.0 Kidney transplant status; T86.90 Unspecified complication of unspecified transplanted organ and tissue; E83.40 Disorders of magnesium metabolism, unspecified; N39.0 Urinary tract infection, site not specified
CPT/HCPCS: 36415; 80053; 80197; 81001; 82570; 83735; 84100; 84156; 85025

== ENCOUNTER → 2021-10-18 06:45 | Outpatient (CLI) | payer MEDICARE, SELFPAY ==
[2021-10-18 08:01] LABS: Appearance Urine UA CLEAR; Bilirubin Urine UA NEGATIVE (NEGATIVE); Color Urine UA YELLOW; Glucose Urine UA NEGATIVE (Negative); Ketones Urine UA NEGATIVE (NEGATIVE); Leukocyte Esterase Urine UA NEGATIVE (NEGATIVE); Nitrite Urine UA NEGATIVE (Negative); Occult Blood Urine UA 2+ (Negative); Protein Urine UA TRACE (Negative); Urobilinogen Urine UA 0.2 E.U./dL (0.2); pH Urine UA 6.5 (4.5-8.0)
[2021-10-18 08:08] LABS: RBC Urine 1-5/HPF (0-5/HPF); WBC Urine 0-1/HPF (0-5/HPF)
[2021-10-18 08:09] LABS: Bacteria Urine None Seen; Culture Indicated Urine Cult Not Indicated; Squamous Epithelial Cell Urine None Seen (0-5/HPF)
[2021-10-18 08:20] LABS: Creatinine Urine Random 101.3 mg/dL; Protein (Total) Urine Random 18 mg/dL (0-12); Protein Creatinine Ratio Urine 0.17 GRAM/24H
[2021-10-18 08:29] LABS: Hematocrit 29.8 % (41-53); Hemoglobin 10.1 g/dL (13.5-17.5); Mean Corpuscular HGB Conc 33.9 % (30-36); Mean Corpuscular Hemoglobin 34.2 PG (26-34); Mean Corpuscular Volume 100.9 fL (80-100); Platelet Count 212 X10^3/uL (150-400); Red Blood Cell Count 2.96 X10^6/uL (4.5-5.9); Red Cell Distribution Width 15.5 % (11.6-14.8); White Blood Cell Count 8.9 X10^3/uL (4.5-11.0)
[2021-10-18 08:33] LABS: Add Manual Diff / Slide Review YES
[2021-10-18 08:55] LABS: Neutrophils Absolute Manual 7120 /uL (3000-5900); Total Cells Counted 100
[2021-10-18 08:56] LABS: Anisocytosis 1+; Macrocytosis 1+
[2021-10-18 10:11] LABS: Alanine Aminotransferase 28 IU/L (<50); Albumin Globulin Ratio 1.6 (1.0-2.8); Alkaline Phosphatase 163 U/L (38-126); Aspartate Aminotransferase 27 IU/L (17-59); BUN Creatinine Ratio 17.7 (6-22); Bilirubin Total 0.6 mg/dL (0.2-1.3); Blood Urea Nitrogen 28 mg/dL (9-20); Calcium 9.8 mg/dL (8.4-10.2); Carbon Dioxide 20 mmol/L (22-32); Chloride 106 mmol/L (98-107); Estimated Glomerular Filt Rate 47 mL/min (>60); Globulin 2.5 g/dL (1.7-4.1); Glucose 87 mg/dL (80-110); HEMOLYSIS < 15 (0-50); Magnesium 1.6 mg/dL (1.6-2.3); Phosphorous 2.6 mg/dL (2.3-3.7); Potassium 4.8 mmol/L (3.4-5.1); Sodium 137 mmol/L (137-145); Total Protein 6.5 g/dL (6.3-8.2)
[2021-10-19 08:09] LABS: Tacrolimus 7.4 ng/mL (2.0-20.0)
== END ==
PROVIDERS: PCP Family Medicine; Referring Provider Internal Medicine Nephrology; Visit Provider Internal Medicine Nephrology
DX: Z94.0 Kidney transplant status (principal); Z48.298 Encounter for aftercare following other organ transplant; T86.90 Unspecified complication of unspecified transplanted organ and tissue; E83.40 Disorders of magnesium metabolism, unspecified
CPT/HCPCS: 36415; 80053; 80197; 81001; 82570; 83735; 84100; 84156; 85007; 85025

== ENCOUNTER → 2021-10-25 07:02 | Outpatient (CLI) | payer MEDICARE, SELFPAY ==
[2021-10-25 07:51] LABS: Appearance Urine UA CLEAR; Bilirubin Urine UA NEGATIVE (NEGATIVE); Color Urine UA YELLOW; Glucose Urine UA NEGATIVE (Negative); Ketones Urine UA NEGATIVE (NEGATIVE); Leukocyte Esterase Urine UA NEGATIVE (NEGATIVE); Nitrite Urine UA NEGATIVE (Negative); Occult Blood Urine UA 3+ (Negative); Protein Urine UA TRACE (Negative); Specific Gravity Urine UA 1.015 (1.000-1.035); Urobilinogen Urine UA 0.2 E.U./dL (0.2)
[2021-10-25 07:59] LABS: Add Manual Diff / Slide Review YES; Hematocrit 29.9 % (41-53); Hemoglobin 10.4 g/dL (13.5-17.5); Mean Corpuscular HGB Conc 34.9 % (30-36); Mean Corpuscular Hemoglobin 34.1 PG (26-34); Mean Corpuscular Volume 97.7 fL (80-100); Platelet Count 218 X10^3/uL (150-400); Red Blood Cell Count 3.06 X10^6/uL (4.5-5.9); Red Cell Distribution Width 15.1 % (11.6-14.8); White Blood Cell Count 10.6 X10^3/uL (4.5-11.0)
[2021-10-25 08:06] LABS: Hemoglobin A1C% w Est Avg Glu 5.3 % (4.0-6.0)
[2021-10-25 08:10] LABS: Creatinine Urine Random 117.4 mg/dL; Protein (Total) Urine Random 18 mg/dL (0-12); Protein Creatinine Ratio Urine 0.15 GRAM/24H
[2021-10-25 08:14] LABS: Bacteria Urine Few (2-10); Culture Indicated Urine Cult Not Indicated; RBC Urine 30-100/HPF (0-5/HPF); Squamous Epithelial Cell Urine None Seen (0-5/HPF); WBC Urine 0-1/HPF (0-5/HPF)
[2021-10-25 08:19] LABS: Alanine Aminotransferase 29 IU/L (<50); Albumin 4.3 g/dL (3.5-5.0); Albumin Globulin Ratio 1.5 (1.0-2.8); Alkaline Phosphatase 159 U/L (38-126); Aspartate Aminotransferase 29 IU/L (17-59); BUN Creatinine Ratio 22.9 (6-22); Bilirubin Total 0.6 mg/dL (0.2-1.3); Blood Urea Nitrogen 40 mg/dL (9-20); Calcium 10.1 mg/dL (8.4-10.2); Carbon Dioxide 23 mmol/L (22-32); Chloride 102 mmol/L (98-107); Estimated Glomerular Filt Rate 41 mL/min (>60); Globulin 2.9 g/dL (1.7-4.1); Glucose 104 mg/dL (80-110); HEMOLYSIS < 15 (0-50); Magnesium 1.6 mg/dL (1.6-2.3); Neutrophils Absolute Manual 9434 /uL (3000-5900); Phosphorous 2.4 mg/dL (2.3-3.7); Potassium 4.2 mmol/L (3.4-5.1); Sodium 135 mmol/L (137-145); Total Cells Counted 100; Total Protein 7.2 g/dL (6.3-8.2)
[2021-10-25 08:20] LABS: RBC Morphology Normal Morphology
[2021-10-26 08:02] LABS: Tacrolimus 7.1 ng/mL (2.0-20.0)
[2021-10-27 14:47] LABS: Mycophenolic Acid 1.9 ug/mL (1.0-3.5); Mycophenolic Acid Glucuronide 16 ug/mL (15-125)
== END ==
PROVIDERS: PCP Family Medicine; Referring Provider Internal Medicine Nephrology; Visit Provider Internal Medicine Nephrology
DX: Z94.0 Kidney transplant status (principal); E83.40 Disorders of magnesium metabolism, unspecified; Z48.298 Encounter for aftercare following other organ transplant; T86.90 Unspecified complication of unspecified transplanted organ and tissue; N39.0 Urinary tract infection, site not specified
CPT/HCPCS: 36415; 80053; 80180; 80197; 81001; 82570; 83036; 83735; 84100; 84156; 85007; 85025

== ENCOUNTER → 2021-11-02 06:54 | Outpatient (CLI) | payer MEDICARE, SELFPAY ==
[2021-11-02 09:03] LABS: Appearance Urine UA CLEAR; Bilirubin Urine UA NEGATIVE (NEGATIVE); Color Urine UA YELLOW; Glucose Urine UA NEGATIVE (Negative); Ketones Urine UA NEGATIVE (NEGATIVE); Leukocyte Esterase Urine UA NEGATIVE (NEGATIVE); Nitrite Urine UA NEGATIVE (Negative); Occult Blood Urine UA NEGATIVE (Negative); Protein Urine UA NEGATIVE (Negative); Specific Gravity Urine UA 1.015 (1.000-1.035); Urobilinogen Urine UA 0.2 E.U./dL (0.2); pH Urine UA 6.5 (4.5-8.0)
[2021-11-02 09:14] LABS: Hemoglobin 10.1 g/dL (13.5-17.5); Mean Corpuscular Hemoglobin 34.7 PG (26-34); Mean Corpuscular Volume 99.1 fL (80-100); Platelet Count 211 X10^3/uL (150-400); Red Blood Cell Count 2.92 X10^6/uL (4.5-5.9); White Blood Cell Count 9.1 X10^3/uL (4.5-11.0)
[2021-11-02 09:17] LABS: Add Manual Diff / Slide Review YES
[2021-11-02 09:31] LABS: Alanine Aminotransferase 30 IU/L (<50); Albumin 3.9 g/dL (3.5-5.0); Albumin Globulin Ratio 1.6 (1.0-2.8); Alkaline Phosphatase 153 U/L (38-126); Aspartate Aminotransferase 30 IU/L (17-59); BUN Creatinine Ratio 19.3 (6-22); Bacteria Urine None Seen; Bilirubin Total 0.5 mg/dL (0.2-1.3); Blood Urea Nitrogen 26 mg/dL (9-20); Carbon Dioxide 21 mmol/L (22-32); Chloride 107 mmol/L (98-107); Culture Indicated Urine Cult Not Indicated; Estimated Glomerular Filt Rate 56 mL/min (>60); Globulin 2.5 g/dL (1.7-4.1); Glucose 93 mg/dL (80-110); HEMOLYSIS < 15 (0-50); Magnesium 1.7 mg/dL (1.6-2.3); Phosphorous 2.4 mg/dL (2.3-3.7); Potassium 4.6 mmol/L (3.4-5.1); RBC Urine 0-1/HPF (0-5/HPF); Sodium 136 mmol/L (137-145); Squamous Epithelial Cell Urine 0-1 /HPF (0-5/HPF); Total Protein 6.4 g/dL (6.3-8.2); WBC Urine 0-1/HPF (0-5/HPF)
[2021-11-02 09:33] LABS: Protein (Total) Urine Random 15 mg/dL (0-12); Protein Creatinine Ratio Urine 0.14 GRAM/24H
[2021-11-02 10:21] LABS: Neutrophils Absolute Manual 7917 /uL (3000-5900); Total Cells Counted 100
[2021-11-02 10:22] LABS: RBC Morphology Normal Morphology
[2021-11-03 09:08] LABS: Tacrolimus 6.9 ng/mL (2.0-20.0)
== END ==
PROVIDERS: PCP Family Medicine; Referring Provider Internal Medicine Nephrology; Visit Provider Internal Medicine Nephrology
DX: Z94.0 Kidney transplant status (principal); Z48.298 Encounter for aftercare following other organ transplant; T86.90 Unspecified complication of unspecified transplanted organ and tissue; E83.40 Disorders of magnesium metabolism, unspecified; N39.0 Urinary tract infection, site not specified
CPT/HCPCS: 36415; 80053; 80197; 81001; 82570; 83735; 84100; 84156; 85007; 85025

== ENCOUNTER → 2021-11-09 06:38 | Outpatient (CLI) | payer MEDICARE, SELFPAY ==
[2021-11-09 08:22] LABS: Add Manual Diff / Slide Review NO; Basophils Absolute Auto 0 /uL (0-100); Basophils Percent Auto 0.4 % (0-2); Eosinophils Absolute Auto 100 /uL (0-450); Eosinophils Percent Auto 0.7 % (2-4); Hematocrit 30.3 % (41-53); Hemoglobin 10.5 g/dL (13.5-17.5); Lymphocytes Absolute Auto 400 /uL (1100-4500); Lymphocytes Percent Auto 3.9 % (25-40); Mean Corpuscular HGB Conc 34.6 % (30-36); Mean Corpuscular Hemoglobin 34.3 PG (26-34); Mean Corpuscular Volume 99.4 fL (80-100); Monocytes Absolute Auto 800 /uL (0-900); Neutrophils Absolute Auto 8400 /uL (1500-7000); Platelet Count 204 X10^3/uL (150-400); Red Blood Cell Count 3.05 X10^6/uL (4.5-5.9); Red Cell Distribution Width 15.2 % (11.6-14.8); White Blood Cell Count 9.7 X10^3/uL (4.5-11.0)
[2021-11-09 09:01] LABS: Alanine Aminotransferase 31 IU/L (<50); Albumin 3.9 g/dL (3.5-5.0); Albumin Globulin Ratio 1.5 (1.0-2.8); Alkaline Phosphatase 164 U/L (38-126); Aspartate Aminotransferase 29 IU/L (17-59); BUN Creatinine Ratio 22.4 (6-22); Bilirubin Total 0.6 mg/dL (0.2-1.3); Blood Urea Nitrogen 32 mg/dL (9-20); Calcium 9.8 mg/dL (8.4-10.2); Carbon Dioxide 21 mmol/L (22-32); Chloride 105 mmol/L (98-107); Estimated Glomerular Filt Rate 53 mL/min (>60); Globulin 2.6 g/dL (1.7-4.1); Glucose 97 mg/dL (80-110); HEMOLYSIS < 15 (0-50); Magnesium 1.5 mg/dL (1.6-2.3); Phosphorous 2.4 mg/dL (2.3-3.7); Potassium 4.4 mmol/L (3.4-5.1); Sodium 134 mmol/L (137-145); Total Protein 6.5 g/dL (6.3-8.2)
[2021-11-09 09:04] LABS: Appearance Urine UA CLEAR; Bilirubin Urine UA NEGATIVE (NEGATIVE); Color Urine UA YELLOW; Glucose Urine UA NEGATIVE (Negative); Ketones Urine UA NEGATIVE (NEGATIVE); Leukocyte Esterase Urine UA TRACE (NEGATIVE); Nitrite Urine UA NEGATIVE (Negative); Occult Blood Urine UA TRACE-INTACT (Negative); Protein Urine UA NEGATIVE (Negative); Specific Gravity Urine UA 1.015 (1.000-1.035); Urobilinogen Urine UA 0.2 E.U./dL (0.2); pH Urine UA 5.5 (4.5-8.0)
[2021-11-09 09:13] LABS: Bacteria Urine None Seen; Culture Indicated Urine Specimen Cultured; RBC Urine None Seen (0-5/HPF); Squamous Epithelial Cell Urine 1-5 /HPF (0-5/HPF); WBC Urine 5-10/HPF (0-5/HPF)
[2021-11-09 09:33] LABS: Creatinine Urine Random 110.1 mg/dL; Protein (Total) Urine Random 14 mg/dL (0-12); Protein Creatinine Ratio Urine 0.12 GRAM/24H
[2021-11-10 10:04] LABS: Tacrolimus 8.4 ng/mL (2.0-20.0)
== END ==
PROVIDERS: PCP Family Medicine; Referring Provider Internal Medicine Nephrology; Visit Provider Internal Medicine Nephrology
DX: Z94.0 Kidney transplant status (principal); Z48.298 Encounter for aftercare following other organ transplant; T86.90 Unspecified complication of unspecified transplanted organ and tissue; E83.40 Disorders of magnesium metabolism, unspecified; N39.0 Urinary tract infection, site not specified
CPT/HCPCS: 36415; 80053; 80197; 81001; 82570; 83735; 84100; 84156; 85025; 87077; 87086; 87147; 87186

== ENCOUNTER 2021-11-11 10:35 | Emergency (ER) | payer MEDICARE, SELFPAY ==
[2021-11-11 10:40] VITALS: BP 153/68; PULSE 85; RESP 15; TEMP 37.4; O2SAT 100; BMI 34.4
--- NOTE | 2021-11-11 12:08 | ED_ITS ---
HPI - Extremity Problem <Maury Fernandez PA-C - Last Filed: 11/11/21 13:29> General Chief complaint: Extremity Problem,Nontraumatic Stated complaint: States bad circulation in arm under fisstula Time Seen by Provider: 11/11/21 11:54 Source: patient Mode of arrival: Ambulatory History of Present Illness HPI Narrative: This is a 71-year-old male presents to the emergency department due to right upper extremity ?weakness? with some and ?shakiness for the last couple of days. Patient states that he got the fistula approximately a year ago due to ?kidney issues?. Kidney transplant recipient 2 months ago. States he called his transplant doctors and you double who advised him to go to the ER for ultrasound to evaluate blood flow. Denies any numbness, tingling, chest pain, shortness of breath, headaches, slurred speech, or any other neuro deficits. Related Data Home Medications Medication Instructions Recorded Confirmed ASPIRIN (Aspir-Low) 81 mg PO QDAY ##0 04/05/11 11/05/20 darbepoetin bob in polysorbat 10 ##0 07/14/16 11/05/20 mcg/0.4 mL in polysorbate injection syringe (Aranesp) torsemide 20 mg tablet BID ##0 06/01/17 11/05/20 allopurinol 100 mg tablet 100 mg PO DAILY 09/14/17 11/05/20 lisinopril 40 mg tablet 40 mg PO DAILY 09/14/17 11/05/20 simvastatin 20 mg tablet 20 mg PO QPM 09/14/17 11/05/20 carvedilol 12.5 mg tablet 12.5 mg PO BID 07/12/18 11/05/20 Resmed AirCurve 10 BIPAP #1 ea 08/16/18 11/05/20 hydralazine 25 mg tablet 25 mg PO TID PRN ##0 11/05/20 11/05/20 Previous Rx's Medication Instructions Recorded amlodipine 10 mg tablet (Norvasc) 10 mg PO QDAY ##45 07/14/16 gabapentin 100 mg capsule 100 mg PO BEDTIME #30 caps 05/11/20 Allergies Allergy/AdvReac Type Severity Reaction Status Date / Time Sulfa (Sulfonamide Allergy Mild TURNS RED Verified 11/11/21 10:40 Antibiotics) [SULFA (SULFONAMIDE ANTIBIOTICS)] spironolactone AdvReac Intermediate REDUCES Verified 11/11/21 10:40 [SPIRONOLACTONE] KIDNEY FUNCTION Review of Systems <Maury Fernandez PA-C - Last Filed: 11/11/21 13:29> Review of Systems Narrative: GENERAL: Denies chills, fatigue, malaise, fever, sweats. HEENT: Denies sinus pain, ear pain, sore throat, difficulty swallowing, dizziness. RESPIRATORY: Denies dyspnea, cough, wheezing, hemoptysis, sputum. CARDIOVASCULAR: Denies chest pain, palpitations, orthopnea, edema, GASTROINTESTINAL: Denies nausea, vomiting, abdominal pain, diarrhea, constipation, melena. : Denies dysuria, frequency, incontinence, hematuria, urinary retention. MUSCULOSKELETAL: Reports right upper extremity weakness denies joint pain, or bony pain SKIN: Denies rash, skin lesions, or other NEUROLOGIC: Denies headache, numbness, change in speech, confusion, seizures, incoordination. PSYCHIATRIC: No concerning psychosocial issues. 12 point review of systems is negative except for those stated above Patient History <Maury Fernandez PA-C - Last Filed: 11/11/21 13:29> Medical History Abdominal aortic aneurysm (2011) Acne (~1961) Actinic keratosis (~1994) Allergic rhinitis (1979) Anemia (2009) Anemia of chronic illness Blindness (1970) Cataracts, bilateral (2011) Chickenpox (~1959) Chronic renal insufficiency, stage IV (severe) (02/24/15) CKD (chronic kidney disease) (Unknown) Colitis (1984) Colon polyps (2009) End-stage renal disease (ESRD) (~02/24/15) Gout (~1994) History of diverticulitis (Unknown) History of recurrent ear infection (1959) Hyperlipemia (Unknown) Hypersomnia Hypertension (1979) Kidney disease (~2009) Measles (~1959) Mumps (~1959) Obstructive sleep apnea syndrome (2004) Peritoneal dialysis catheter in place Plantar warts (~1994) Recurrent sinusitis (1959) Restless leg syndrome (1989) Retinal detachment (1970) Skin cancer (~1987) Skin tag Weakness Surgical History History of nephrectomy, left (~04/2020) History of skin surgery Hx of removal of testicle (1963) Hx of surgical procedure (1951) Family History Brother Age: 71 Skin cancer Hypertension Kidney disease Brother Age: 61 Hypertension Mother Hypertension Father No problems noted. Social History marital status: details: latia Morgan, lives in [place] household members: spouse lives independently: Yes caregiver/support person: No housing: house Smoking Status: Never smoker Smoking Status: Never smoker alcohol intake frequency: holidays/special occasions only Substance Use Type: does not use Exam <Maury Fernandez PA-C - Last Filed: 11/11/21 13:29> Narrative Exam Narrative: GENERAL: Well-developed patient, in mild distress. HEAD: Atraumatic. Normocephalic. EYES: Pupils equal round and reactive. Extraocular motions intact. No scleral icterus. No injection or drainage. ENT: Nose without bleeding, purulent drainage. Throat without erythema, tonsillar hypertrophy or exudate. Airway patent. NECK: Trachea midline. Non tender CARDIOVASCULAR: Regular rate and rhythm without murmurs, gallops, or rubs. 3+ left radial pulse, 2+ right radial pulse. Neurovascularly intact bilaterally. RESPIRATORY: Clear to auscultation. Breath sounds equal bilaterally. No wheezes, rales, or rhonchi. GASTROINTESTINAL: Abdomen soft, non-tender, nondistended. EXTREMITIES: No edema or joint tenderness. No weakness noted in sales ambassador strength bilaterally. BACK: Nontender without deformity or crepitance. No flank tenderness. NEURO: AOx3. Cranial nerves 2-12 intact, no focal neuro deficits SKIN: No rash or erythema of visible areas Initial Vital Signs Initial Vital Signs: Vital Signs Temperature 99.3 F 11/11/21 10:40 Pulse Rate 85 11/11/21 10:40 Respiratory Rate 15 11/11/21 10:40 Blood Pressure 153/68 H 11/11/21 10:40 Pulse Oximetry 100 11/11/21 10:40 Oxygen Delivery Method 11/11/21 10:40 <Arin Simon DO - Last Filed: 11/15/21 03:14> Initial Vital Signs Initial Vital Signs: Vital Signs Temperature 99.3 F 11/11/21 10:40 Pulse Rate 85 11/11/21 10:40 Respiratory Rate 15 11/11/21 10:40 Blood Pressure 153/68 H 11/11/21 10:40 Pulse Oximetry 100 11/11/21 10:40 Oxygen Delivery Method 11/11/21 10:40 Course <Maury Fernandez PA-C - Last Filed: 11/11/21 13:29> Orders Ordered: ED Orders 11/11/21 12:15 US periph venous up extrem rt Stat Vital Signs Vital signs: Vital Signs - 8 hr 11/11/21 10:40 Temperature 99.3 F Pulse Rate 85 Respiratory Rate 15 Blood Pressure 153/68 H Pulse Oximetry 100 Oxygen Delivery Method Room Air <Arin Simon DO - Last Filed: 11/15/21 03:14> Orders Ordered: ED Orders 11/11/21 12:15 US periph venous up extrem rt Stat Vital Signs Vital signs: Vital Signs - 8 hr 11/11/21 10:40 Temperature 99.3 F Pulse Rate 85 Respiratory Rate 15 Blood Pressure 153/68 H Pulse Oximetry 100 Oxygen Delivery Method Room Air MDM - Extremity (Nontraumatic) <Maury Fernandez PA-C - Last Filed: 11/11/21 13:29> Imaging Data US - DVT: Radiologist's Impression: [place] [address] Ultrasound Report Signed Patient: Judd Garcia MR#: [id number] : 1950 Acct:[id number] Age/Sex: 71 / M Date of Service: 11/11/21 Loc: ED Accession Number: [id number] ?? Procedure: US periph venous up extrem rt Ordering Provider: Maury Fernandez P.A-C PROCEDURE:? US PERIPH VENOUS UP EXTREM RT ? INDICATIONS:? r/o DVT, evaluate blood flow ? TECHNIQUE:? Real-time imaging, as well as color and pulse Doppler interrogation, was performed of the right upper extremity deep veins from the inferior neck to the antecubital fossa.? ? COMPARISON:? None. ? FINDINGS:? The internal jugular vein, visualized portions of the subclavian vein, axillary, and brachial veins are free of intraluminal thrombus.? Where physically possible, the veins are normally compressible.? Color and pulse Doppler demonstrate normal intraluminal flow, with expected phasicity and pulsatility.? Additional scanning of the cephalic and basilic veins of the superficial system demonstrate normal compressibility, without thrombus.? ? Right brachial artery to cephalic vein fistula is noted and appears to be patent. ? IMPRESSION:? No evidence of DVT in visualized right upper extremity veins. ? ? Dictated by: James Saucedo M.D. on 11/11/2021 at 13:02 ? ? Approved by: James Saucedo M.D. on 11/11/2021 at 13:02 ? MDM Narrative Medical decision making narrative: This is a 71-year-old male presents emergency department due to right and ?shakiness and reported mild weakness. Patient had a and normal neuro exam and no weakness was noted in the right upper extremity sales ambassador strength. Low concern for CVA at this time. Vascular electrician technician was called in to help evaluate the fistula although they stated that they would be unable to perform a formal exam of the arterial blood flow. Stated they were able to evaluate for DVT which was negative. No obvious abnormalities of the fistula. Patient was neurovascularly intact throughout ends low concern for decreased arterial blood flow based on physical exam. This shakiness that the patient has may be due to a side effect of Tacrolimus the pt due to his kidney transplant. Recommended he follow-up with his transplant physicians as well as physician who he saw for the fistula for further evaluation and follow-up. Discharge Plan Departure Patient Disposition: Home Clinical Impression: Shakiness Instructions: DI for Arteriovenous Fistula for Dialysis Activity Restrictions/Additional Instructions: Thank you for coming to the [facility] Emergency Department today. Based on the ultrasound that was performed today you do not have any blood clot called a deep vein thrombosis. the electrician technician also did not find any signs of any obvious fistula abnormalities. I was still able feel a good pulse in the radial artery which is good. The shakiness you are experiencing may be due to the tacrolimus. I suggest you talk to the physician who did the fistula to discuss any troubleshooting of the fistula. I also recommend he talk to your transplant physicians to discuss of possible change away from the tacrolimus as this may be causing the shakiness. Baseline neuro exam I do not suspect any concerns for a stroke at this time but please return directly to the emergency department if you develop any slurred speech, facial drooping, upper extremity drifting of the arms, or any other concerning signs or symptoms. I hope you feel better soon. Prescriptions: No Action carvedilol 12.5 mg tablet 12.5 mg PO BID allopurinol 100 mg tablet 100 mg PO DAILY simvastatin 20 mg tablet 20 mg PO QPM lisinopril 40 mg tablet 40 mg PO DAILY ASPIRIN (Aspir-Low) 81 mg PO QDAY Qty: 0 amlodipine [Norvasc] 10 MG tablet 10 mg PO QDAY Qty: 45 0RF darbepoetin bob in polysorbat [Aranesp (in polysorbate)] 10 mcg/0.4 mL Syringe Qty: 0 torsemide 20 MG tablet BID Qty: 0 hydralazine 25 mg tablet 25 mg PO TID PRNQty: 0 gabapentin 100 mg capsule 100 mg PO BEDTIME Qty: 30 0RF (DME) Resmed AirCurve 10 BIPAP Qty: 1 Dose Instruction: As directed Label Comments: Pressure: IPAP 20 EPAP 12 DME: [facility] Rx Instructions: As directed Referrals: Sumanth Hernandez MD [Primary Care Provider] - Visit Report Forms: Patient Portal/API <Arin Simon DO - Last Filed: 11/15/21 03:14> Cosign ED Attending Jonoature Attestation: I was immediately available in the department for consultation. Documentation has been reviewed. Case was discussed.
--- NOTE | 2021-11-11 12:15 | DI.US.S_ITS ---
PROCEDURE: US PERIPH VENOUS UP EXTREM RT INDICATIONS: r/o DVT, evaluate blood flow TECHNIQUE: Real-time imaging, as well as color and pulse Doppler interrogation, was performed of the right upper extremity deep veins from the inferior neck to the antecubital fossa. COMPARISON: None. FINDINGS: The internal jugular vein, visualized portions of the subclavian vein, axillary, and brachial veins are free of intraluminal thrombus. Where physically possible, the veins are normally compressible. Color and pulse Doppler demonstrate normal intraluminal flow, with expected phasicity and pulsatility. Additional scanning of the cephalic and basilic veins of the superficial system demonstrate normal compressibility, without thrombus. Right brachial artery to cephalic vein fistula is noted and appears to be patent. IMPRESSION: No evidence of DVT in visualized right upper extremity veins. Dictated by: James Saucedo M.D. on 11/11/2021 at 13:02 Approved by: James Saucedo M.D. on 11/11/2021 at 13:02
[2021-11-11 13:38] VITALS: BP 148/65; PULSE 74; RESP 18; O2SAT 99
== END 2021-11-11 13:39 | disposition home or self-care (01) ==
PROVIDERS: Emergency Provider Physician Assistant Medical; PCP Family Medicine
DX: R53.1 Weakness (principal); N18.6 End stage renal disease
CPT/HCPCS: 93971; 99281; 99283

== ENCOUNTER → 2021-11-23 06:45 | Outpatient (CLI) | payer MEDICARE, SELFPAY ==
[2021-11-23 08:29] LABS: Add Manual Diff / Slide Review NO; Basophils Absolute Auto 100 /uL (0-100); Basophils Percent Auto 1.2 % (0-2); Eosinophils Absolute Auto 100 /uL (0-450); Eosinophils Percent Auto 1.6 % (2-4); Hematocrit 30.3 % (41-53); Hemoglobin 10.5 g/dL (13.5-17.5); Lymphocytes Absolute Auto 1000 /uL (1100-4500); Mean Corpuscular HGB Conc 34.6 % (30-36); Mean Corpuscular Hemoglobin 34.2 PG (26-34); Mean Corpuscular Volume 98.7 fL (80-100); Monocytes Absolute Auto 700 /uL (0-900); Monocytes Percent Auto 12.9 % (3-14); Neutrophils Absolute Auto 3700 /uL (1500-7000); Neutrophils Percent Auto 66.3 % (50-75); Platelet Count 291 X10^3/uL (150-400); Red Blood Cell Count 3.07 X10^6/uL (4.5-5.9); White Blood Cell Count 5.5 X10^3/uL (4.5-11.0)
[2021-11-23 08:54] LABS: Appearance Urine UA CLEAR; Bilirubin Urine UA NEGATIVE (NEGATIVE); Color Urine UA YELLOW; Glucose Urine UA NEGATIVE (Negative); Ketones Urine UA NEGATIVE (NEGATIVE); Leukocyte Esterase Urine UA TRACE (NEGATIVE); Nitrite Urine UA NEGATIVE (Negative); Occult Blood Urine UA NEGATIVE (Negative); Protein Urine UA NEGATIVE (Negative); Urobilinogen Urine UA 0.2 E.U./dL (0.2)
[2021-11-23 08:55] LABS: Bacteria Urine None Seen; Culture Indicated Urine Specimen Cultured; RBC Urine None Seen (0-5/HPF); WBC Urine None Seen (0-5/HPF)
[2021-11-23 09:19] LABS: Alanine Aminotransferase 36 IU/L (<50); Albumin 3.9 g/dL (3.5-5.0); Albumin Globulin Ratio 1.4 (1.0-2.8); Alkaline Phosphatase 188 U/L (38-126); Aspartate Aminotransferase 29 IU/L (17-59); Bilirubin Total 0.5 mg/dL (0.2-1.3); Blood Urea Nitrogen 32 mg/dL (9-20); Calcium 9.8 mg/dL (8.4-10.2); Carbon Dioxide 23 mmol/L (22-32); Chloride 101 mmol/L (98-107); Estimated Glomerular Filt Rate 43 mL/min (>60); Globulin 2.7 g/dL (1.7-4.1); Glucose 94 mg/dL (80-110); HEMOLYSIS < 15 (0-50); Magnesium 1.6 mg/dL (1.6-2.3); Phosphorous 2.9 mg/dL (2.3-3.7); Potassium 4.6 mmol/L (3.4-5.1); Sodium 134 mmol/L (137-145); Total Protein 6.6 g/dL (6.3-8.2)
[2021-11-23 09:23] LABS: Creatinine Urine Random 82.1 mg/dL
[2021-11-23 09:27] LABS: Microalbumi Creatinin Ratio Ur 15.8 ug/mg CR (<30); Microalbumin Urine Random 1.3 mg/dL (0-1.6)
[2021-11-24 10:04] LABS: Tacrolimus 7.5 ng/mL (2.0-20.0)
== END ==
PROVIDERS: PCP Family Medicine; Referring Provider Internal Medicine Nephrology; Visit Provider Internal Medicine Nephrology
DX: Z94.0 Kidney transplant status (principal); T86.90 Unspecified complication of unspecified transplanted organ and tissue; Z48.298 Encounter for aftercare following other organ transplant; E83.40 Disorders of magnesium metabolism, unspecified
CPT/HCPCS: 36415; 80053; 80197; 81001; 82043; 82570; 83735; 84100; 85025; 87086

== ENCOUNTER → 2021-12-13 06:45 | Outpatient (CLI) | payer MEDICARE, SELFPAY ==
[2021-12-13 11:11] LABS: Appearance Urine UA CLEAR; Bilirubin Urine UA NEGATIVE (NEGATIVE); Color Urine UA YELLOW; Glucose Urine UA NEGATIVE (Negative); Ketones Urine UA NEGATIVE (NEGATIVE); Leukocyte Esterase Urine UA TRACE (NEGATIVE); Nitrite Urine UA NEGATIVE (Negative); Occult Blood Urine UA TRACE-LYSED (Negative); Protein Urine UA NEGATIVE (Negative); Specific Gravity Urine UA 1.015 (1.000-1.035); Urobilinogen Urine UA 0.2 E.U./dL (0.2)
[2021-12-13 11:19] LABS: Add Manual Diff / Slide Review NO; Basophils Absolute Auto 100 /uL (0-100); Basophils Percent Auto 1.1 % (0-2); Eosinophils Absolute Auto 100 /uL (0-450); Hematocrit 34.2 % (41-53); Hemoglobin 11.8 g/dL (13.5-17.5); Lymphocytes Absolute Auto 800 /uL (1100-4500); Mean Corpuscular HGB Conc 34.6 % (30-36); Mean Corpuscular Hemoglobin 34.4 PG (26-34); Mean Corpuscular Volume 99.6 fL (80-100); Monocytes Absolute Auto 600 /uL (0-900); Neutrophils Absolute Auto 5100 /uL (1500-7000); Neutrophils Percent Auto 75.9 % (50-75); Platelet Count 207 X10^3/uL (150-400); Red Blood Cell Count 3.44 X10^6/uL (4.5-5.9); Red Cell Distribution Width 14.6 % (11.6-14.8); White Blood Cell Count 6.8 X10^3/uL (4.5-11.0)
[2021-12-13 11:40] LABS: Bacteria Urine None Seen; RBC Urine None Seen (0-5/HPF); Squamous Epithelial Cell Urine 1-5 /HPF (0-5/HPF); WBC Urine 1-5/HPF (0-5/HPF)
[2021-12-13 11:41] LABS: Culture Indicated Urine Cult Not Indicated
[2021-12-13 11:42] LABS: Protein (Total) Urine Random 11 mg/dL (0-12); Protein Creatinine Ratio Urine 0.07 GRAM/24H
[2021-12-13 11:57] LABS: Alanine Aminotransferase 33 IU/L (<50); Albumin 4.2 g/dL (3.5-5.0); Albumin Globulin Ratio 1.4 (1.0-2.8); Alkaline Phosphatase 173 U/L (38-126); Aspartate Aminotransferase 27 IU/L (17-59); BUN Creatinine Ratio 18.3 (6-22); Bilirubin Total 0.6 mg/dL (0.2-1.3); Blood Urea Nitrogen 24 mg/dL (9-20); Calcium 10.4 mg/dL (8.4-10.2); Carbon Dioxide 23 mmol/L (22-32); Chloride 103 mmol/L (98-107); Estimated Glomerular Filt Rate 59 mL/min (>60); Glucose 85 mg/dL (80-110); HEMOLYSIS < 15 (0-50); Magnesium 1.7 mg/dL (1.6-2.3); Phosphorous 2.4 mg/dL (2.3-3.7); Potassium 4.7 mmol/L (3.4-5.1); Sodium 137 mmol/L (137-145); Total Protein 7.2 g/dL (6.3-8.2)
[2021-12-14 09:09] LABS: Tacrolimus 7.1 ng/mL (2.0-20.0)
== END ==
PROVIDERS: PCP Family Medicine; Referring Provider Internal Medicine Nephrology; Visit Provider Internal Medicine Nephrology
DX: N39.0 Urinary tract infection, site not specified (principal); Z94.0 Kidney transplant status; Z48.298 Encounter for aftercare following other organ transplant; T86.90 Unspecified complication of unspecified transplanted organ and tissue; E83.40 Disorders of magnesium metabolism, unspecified
CPT/HCPCS: 36415; 80053; 80197; 81001; 82570; 83735; 84100; 84156; 85025

== ENCOUNTER → 2021-12-23 06:48 | Outpatient (CLI) | payer MEDICARE, SELFPAY ==
[2021-12-23 08:35] LABS: Add Manual Diff / Slide Review NO; Basophils Absolute Auto 100 /uL (0-100); Basophils Percent Auto 1.1 % (0-2); Eosinophils Absolute Auto 100 /uL (0-450); Hematocrit 37.5 % (41-53); Hemoglobin 12.5 g/dL (13.5-17.5); Lymphocytes Absolute Auto 1000 /uL (1100-4500); Lymphocytes Percent Auto 14.6 % (25-40); Mean Corpuscular HGB Conc 33.3 % (30-36); Mean Corpuscular Hemoglobin 33.3 PG (26-34); Mean Corpuscular Volume 100.1 fL (80-100); Monocytes Absolute Auto 800 /uL (0-900); Monocytes Percent Auto 10.8 % (3-14); Neutrophils Absolute Auto 5000 /uL (1500-7000); Neutrophils Percent Auto 71.5 % (50-75); Platelet Count 228 X10^3/uL (150-400); Red Blood Cell Count 3.75 X10^6/uL (4.5-5.9); Red Cell Distribution Width 14.1 % (11.6-14.8)
[2021-12-23 08:41] LABS: Appearance Urine UA CLEAR; Bilirubin Urine UA NEGATIVE (NEGATIVE); Color Urine UA YELLOW; Glucose Urine UA NEGATIVE (Negative); Ketones Urine UA NEGATIVE (NEGATIVE); Leukocyte Esterase Urine UA TRACE (NEGATIVE); Nitrite Urine UA NEGATIVE (Negative); Occult Blood Urine UA NEGATIVE (Negative); Protein Urine UA TRACE (Negative); Specific Gravity Urine UA 1.015 (1.000-1.035); Urobilinogen Urine UA 0.2 E.U./dL (0.2); pH Urine UA 5.5 (4.5-8.0)
[2021-12-23 08:47] LABS: Alanine Aminotransferase 42 IU/L (<50); Albumin Globulin Ratio 1.4 (1.0-2.8); Alkaline Phosphatase 176 U/L (38-126); Aspartate Aminotransferase 33 IU/L (17-59); BUN Creatinine Ratio 21.6 (6-22); Bacteria Urine None Seen; Bilirubin Total 0.6 mg/dL (0.2-1.3); Blood Urea Nitrogen 30 mg/dL (9-20); Calcium 10.1 mg/dL (8.4-10.2); Carbon Dioxide 21 mmol/L (22-32); Chloride 104 mmol/L (98-107); Culture Indicated Urine Specimen Cultured; Estimated Glomerular Filt Rate 55 mL/min (>60); Globulin 2.9 g/dL (1.7-4.1); Glucose 99 mg/dL (80-110); HEMOLYSIS 15 (0-50); Magnesium 1.7 mg/dL (1.6-2.3); Phosphorous 2.5 mg/dL (2.3-3.7); Potassium 4.3 mmol/L (3.4-5.1); RBC Urine None Seen (0-5/HPF); Sodium 135 mmol/L (137-145); Squamous Epithelial Cell Urine 0-1 /HPF (0-5/HPF); Total Protein 6.9 g/dL (6.3-8.2); WBC Urine 5-10/HPF (0-5/HPF)
[2021-12-23 09:03] LABS: Creatinine Urine Random 207.5 mg/dL; Protein (Total) Urine Random 10 mg/dL (0-12); Protein Creatinine Ratio Urine 0.04 GRAM/24H
== END ==
PROVIDERS: PCP Family Medicine; Referring Provider Internal Medicine Nephrology; Visit Provider Internal Medicine Nephrology
DX: T86.90 Unspecified complication of unspecified transplanted organ and tissue (principal); Z94.0 Kidney transplant status; Z48.298 Encounter for aftercare following other organ transplant; E83.40 Disorders of magnesium metabolism, unspecified; N39.0 Urinary tract infection, site not specified
CPT/HCPCS: 36415; 80053; 80197; 81001; 82570; 83735; 84100; 84156; 85025; 87077; 87086; 87186

== ENCOUNTER → 2022-01-04 06:44 | Outpatient (CLI) | payer MEDICARE, SELFPAY ==
[2022-01-04 08:12] LABS: Appearance Urine UA CLEAR; Bilirubin Urine UA NEGATIVE (NEGATIVE); Color Urine UA YELLOW; Glucose Urine UA NEGATIVE (Negative); Ketones Urine UA NEGATIVE (NEGATIVE); Leukocyte Esterase Urine UA TRACE (NEGATIVE); Nitrite Urine UA NEGATIVE (Negative); Occult Blood Urine UA NEGATIVE (Negative); Protein Urine UA NEGATIVE (Negative); Urobilinogen Urine UA 0.2 E.U./dL (0.2); pH Urine UA 5.5 (4.5-8.0)
[2022-01-04 08:18] LABS: Alanine Aminotransferase 30 IU/L (<50); Albumin 4.3 g/dL (3.5-5.0); Albumin Globulin Ratio 1.3 (1.0-2.8); Alkaline Phosphatase 184 U/L (38-126); Aspartate Aminotransferase 25 IU/L (17-59); BUN Creatinine Ratio 20.8 (6-22); Bilirubin Total 0.6 mg/dL (0.2-1.3); Blood Urea Nitrogen 25 mg/dL (9-20); Carbon Dioxide 20 mmol/L (22-32); Chloride 105 mmol/L (98-107); Cholesterol 170 mg/dL (140-199); Estimated Glomerular Filt Rate > 60 mL/min (>60); Globulin 3.3 g/dL (1.7-4.1); Glucose 99 mg/dL (80-110); HDL Cholesterol 42 mg/dL (40-60); HEMOLYSIS < 15 (0-50); LDL Cholesterol Calculated 87 mg/dL (<100); Magnesium 1.7 mg/dL (1.6-2.3); Phosphorous 2.3 mg/dL (2.3-3.7); Potassium 4.1 mmol/L (3.4-5.1); Sodium 137 mmol/L (137-145); Total Protein 7.6 g/dL (6.3-8.2); Triglycerides 205 mg/dL (35-150)
[2022-01-04 08:19] LABS: Add Manual Diff / Slide Review NO; Basophils Absolute Auto 100 /uL (0-100); Basophils Percent Auto 0.8 % (0-2); Eosinophils Absolute Auto 100 /uL (0-450); Eosinophils Percent Auto 1.6 % (2-4); Hematocrit 36.6 % (41-53); Hemoglobin 12.4 g/dL (13.5-17.5); Lymphocytes Absolute Auto 900 /uL (1100-4500); Lymphocytes Percent Auto 13.5 % (25-40); Mean Corpuscular HGB Conc 33.9 % (30-36); Mean Corpuscular Volume 97.4 fL (80-100); Monocytes Absolute Auto 600 /uL (0-900); Monocytes Percent Auto 9.9 % (3-14); Neutrophils Absolute Auto 4800 /uL (1500-7000); Neutrophils Percent Auto 74.2 % (50-75); Platelet Count 212 X10^3/uL (150-400); Red Blood Cell Count 3.75 X10^6/uL (4.5-5.9); Red Cell Distribution Width 13.6 % (11.6-14.8); White Blood Cell Count 6.5 X10^3/uL (4.5-11.0)
[2022-01-04 08:39] LABS: Bacteria Urine Occasional (0-1); Culture Indicated Urine Specimen Cultured; RBC Urine None Seen (0-5/HPF); Squamous Epithelial Cell Urine 0-1 /HPF (0-5/HPF); WBC Urine 1-5/HPF (0-5/HPF)
[2022-01-04 09:10] LABS: Protein (Total) Urine Random 10 mg/dL (0-12); Protein Creatinine Ratio Urine 0.12 GRAM/24H
== END ==
PROVIDERS: PCP Family Medicine; Referring Provider Specialist; Visit Provider Specialist
DX: Z94.0 Kidney transplant status (principal); D84.9 Immunodeficiency, unspecified; E78.00 Pure hypercholesterolemia, unspecified
CPT/HCPCS: 36415; 80053; 80061; 80197; 81001; 82570; 83735; 84100; 84156; 85025; 87086; 87799

== ENCOUNTER → 2022-01-18 06:45 | Outpatient (CLI) | payer MEDICARE, SELFPAY ==
[2022-01-18 08:21] LABS: Add Manual Diff / Slide Review NO; Basophils Absolute Auto 0 /uL (0-100); Basophils Percent Auto 0.4 % (0-2); Eosinophils Absolute Auto 100 /uL (0-450); Eosinophils Percent Auto 1.4 % (2-4); Hemoglobin 11.9 g/dL (13.5-17.5); Lymphocytes Absolute Auto 500 /uL (1100-4500); Lymphocytes Percent Auto 5.3 % (25-40); Mean Corpuscular Hemoglobin 32.9 PG (26-34); Mean Corpuscular Volume 96.7 fL (80-100); Monocytes Absolute Auto 700 /uL (0-900); Monocytes Percent Auto 7.8 % (3-14); Neutrophils Absolute Auto 7300 /uL (1500-7000); Neutrophils Percent Auto 85.1 % (50-75); Platelet Count 197 X10^3/uL (150-400); Red Blood Cell Count 3.62 X10^6/uL (4.5-5.9); Red Cell Distribution Width 13.5 % (11.6-14.8); White Blood Cell Count 8.6 X10^3/uL (4.5-11.0)
[2022-01-18 08:49] LABS: Alanine Aminotransferase 41 IU/L (<50); Albumin 3.9 g/dL (3.5-5.0); Albumin Globulin Ratio 1.4 (1.0-2.8); Alkaline Phosphatase 206 U/L (38-126); Aspartate Aminotransferase 29 IU/L (17-59); BUN Creatinine Ratio 17.1 (6-22); Bilirubin Total 0.6 mg/dL (0.2-1.3); Blood Urea Nitrogen 20 mg/dL (9-20); Carbon Dioxide 21 mmol/L (22-32); Chloride 104 mmol/L (98-107); Estimated Glomerular Filt Rate > 60 mL/min (>60); Globulin 2.7 g/dL (1.7-4.1); Glucose 94 mg/dL (80-110); HEMOLYSIS < 15 (0-50); Magnesium 1.6 mg/dL (1.6-2.3); Phosphorous 2.3 mg/dL (2.3-3.7); Potassium 4.4 mmol/L (3.4-5.1); Sodium 135 mmol/L (137-145); Total Protein 6.6 g/dL (6.3-8.2)
[2022-01-18 09:13] LABS: Appearance Urine UA CLEAR; Bilirubin Urine UA NEGATIVE (NEGATIVE); Color Urine UA YELLOW; Glucose Urine UA NEGATIVE (Negative); Ketones Urine UA NEGATIVE (NEGATIVE); Leukocyte Esterase Urine UA TRACE (NEGATIVE); Nitrite Urine UA NEGATIVE (Negative); Occult Blood Urine UA NEGATIVE (Negative); Protein Urine UA NEGATIVE (Negative); Specific Gravity Urine UA <=1.005 (1.000-1.035); Urobilinogen Urine UA 0.2 E.U./dL (0.2); pH Urine UA 6.5 (4.5-8.0)
[2022-01-18 09:17] LABS: Creatinine Urine Random 56.7 mg/dL; Protein (Total) Urine Random 12 mg/dL (0-12); Protein Creatinine Ratio Urine 0.21 GRAM/24H
[2022-01-18 10:12] LABS: Bacteria Urine None Seen; Culture Indicated Urine Specimen Cultured; RBC Urine None Seen (0-5/HPF); Squamous Epithelial Cell Urine None Seen (0-5/HPF); WBC Urine None Seen (0-5/HPF)
[2022-01-19 07:47] LABS: Tacrolimus 7.3 ng/mL (2.0-20.0)
== END ==
PROVIDERS: PCP Family Medicine; Referring Provider Specialist; Visit Provider Specialist
DX: Z94.0 Kidney transplant status (principal); D84.9 Immunodeficiency, unspecified
CPT/HCPCS: 36415; 80053; 80197; 81001; 82570; 83735; 84100; 84156; 85025; 87086; 87799

== ENCOUNTER → 2022-02-11 06:33 | Outpatient (CLI) | payer MEDICARE, SELFPAY ==
[2022-02-11 09:05] LABS: Add Manual Diff / Slide Review NO; Basophils Absolute Auto 0 /uL (0-100); Basophils Percent Auto 0.6 % (0-2); Eosinophils Absolute Auto 100 /uL (0-450); Eosinophils Percent Auto 1.4 % (2-4); Hematocrit 35.6 % (41-53); Lymphocytes Absolute Auto 900 /uL (1100-4500); Lymphocytes Percent Auto 14.8 % (25-40); Mean Corpuscular HGB Conc 33.8 % (30-36); Mean Corpuscular Hemoglobin 31.8 PG (26-34); Mean Corpuscular Volume 94.1 fL (80-100); Monocytes Absolute Auto 700 /uL (0-900); Monocytes Percent Auto 10.6 % (3-14); Neutrophils Absolute Auto 4600 /uL (1500-7000); Neutrophils Percent Auto 72.6 % (50-75); Platelet Count 190 X10^3/uL (150-400); Red Blood Cell Count 3.78 X10^6/uL (4.5-5.9); Red Cell Distribution Width 13.7 % (11.6-14.8); White Blood Cell Count 6.4 X10^3/uL (4.5-11.0)
[2022-02-11 09:59] LABS: Alanine Aminotransferase 52 IU/L (<50); Albumin Globulin Ratio 1.4 (1.0-2.8); Alkaline Phosphatase 221 U/L (38-126); Aspartate Aminotransferase 43 IU/L (17-59); BUN Creatinine Ratio 23.4 (6-22); Bilirubin Total 0.6 mg/dL (0.2-1.3); Blood Urea Nitrogen 29 mg/dL (9-20); Calcium 9.7 mg/dL (8.4-10.2); Carbon Dioxide 21 mmol/L (22-32); Chloride 103 mmol/L (98-107); Estimated Glomerular Filt Rate > 60 mL/min (>60); Globulin 2.8 g/dL (1.7-4.1); Glucose 98 mg/dL (80-110); HEMOLYSIS < 15 (0-50); Magnesium 1.7 mg/dL (1.6-2.3); Potassium 4.3 mmol/L (3.4-5.1); Sodium 134 mmol/L (137-145); Total Protein 6.8 g/dL (6.3-8.2)
[2022-02-11 10:21] LABS: Appearance Urine UA CLEAR; Bilirubin Urine UA NEGATIVE (NEGATIVE); Color Urine UA YELLOW; Glucose Urine UA NEGATIVE (Negative); Ketones Urine UA NEGATIVE (NEGATIVE); Leukocyte Esterase Urine UA NEGATIVE (NEGATIVE); Nitrite Urine UA NEGATIVE (Negative); Occult Blood Urine UA TRACE-LYSED (Negative); Protein Urine UA NEGATIVE (Negative); Urobilinogen Urine UA 0.2 E.U./dL (0.2)
[2022-02-11 10:49] LABS: Bacteria Urine Occasional (0-1); Culture Indicated Urine Cult Not Indicated; RBC Urine 0-1/HPF (0-5/HPF); WBC Urine 1-5/HPF (0-5/HPF)
[2022-02-11 11:07] LABS: Creatinine Urine Random 89.1 mg/dL; Protein (Total) Urine Random 12 mg/dL (0-12); Protein Creatinine Ratio Urine 0.13 GRAM/24H
[2022-02-12 09:08] LABS: Tacrolimus 6.8 ng/mL (2.0-20.0)
== END ==
PROVIDERS: PCP Family Medicine; Referring Provider Specialist; Visit Provider Specialist
DX: D84.9 Immunodeficiency, unspecified (principal); Z94.0 Kidney transplant status
CPT/HCPCS: 36415; 80053; 80197; 81001; 82570; 83735; 84100; 84156; 85025; 87799

== ENCOUNTER → 2022-03-29 06:32 | Outpatient (CLI) | payer MEDICARE, SELFPAY ==
[2022-03-29 07:33] LABS: Add Manual Diff / Slide Review NO; Basophils Absolute Auto 0 /uL (0-100); Basophils Percent Auto 0.5 % (0-2); Eosinophils Absolute Auto 200 /uL (0-450); Eosinophils Percent Auto 1.9 % (2-4); Hematocrit 35.4 % (41-53); Hemoglobin 12.2 g/dL (13.5-17.5); Lymphocytes Absolute Auto 900 /uL (1100-4500); Lymphocytes Percent Auto 11.4 % (25-40); Mean Corpuscular HGB Conc 34.4 % (30-36); Mean Corpuscular Hemoglobin 31.2 PG (26-34); Mean Corpuscular Volume 90.7 fL (80-100); Monocytes Absolute Auto 700 /uL (0-900); Monocytes Percent Auto 8.1 % (3-14); Neutrophils Absolute Auto 6400 /uL (1500-7000); Neutrophils Percent Auto 78.1 % (50-75); Platelet Count 254 X10^3/uL (150-400); Red Blood Cell Count 3.91 X10^6/uL (4.5-5.9); Red Cell Distribution Width 13.6 % (11.6-14.8); White Blood Cell Count 8.2 X10^3/uL (4.5-11.0)
[2022-03-29 07:57] LABS: Alanine Aminotransferase 37 IU/L (<50); Albumin 3.9 g/dL (3.5-5.0); Albumin Globulin Ratio 1.3 (1.0-2.8); Alkaline Phosphatase 226 U/L (38-126); Aspartate Aminotransferase 22 IU/L (17-59); BUN Creatinine Ratio 18.4 (6-22); Bilirubin Total 0.5 mg/dL (0.2-1.3); Blood Urea Nitrogen 21 mg/dL (9-20); Calcium 10.3 mg/dL (8.4-10.2); Carbon Dioxide 21 mmol/L (22-32); Chloride 103 mmol/L (98-107); Estimated Glomerular Filt Rate > 60 mL/min (>60); Glucose 99 mg/dL (80-110); HEMOLYSIS < 15 (0-50); Magnesium 1.6 mg/dL (1.6-2.3); Phosphorous 2.8 mg/dL (2.3-3.7); Potassium 4.1 mmol/L (3.4-5.1); Sodium 136 mmol/L (137-145); Total Protein 6.9 g/dL (6.3-8.2)
[2022-03-29 07:58] LABS: Appearance Urine UA CLEAR; Bilirubin Urine UA NEGATIVE (NEGATIVE); Color Urine UA YELLOW; Glucose Urine UA NEGATIVE (Negative); Ketones Urine UA NEGATIVE (NEGATIVE); Leukocyte Esterase Urine UA 1+ (NEGATIVE); Nitrite Urine UA NEGATIVE (Negative); Occult Blood Urine UA TRACE-LYSED (Negative); Protein Urine UA NEGATIVE (Negative); Specific Gravity Urine UA <=1.005 (1.000-1.035); Urobilinogen Urine UA 0.2 E.U./dL (0.2)
[2022-03-29 08:02] LABS: Culture Indicated Urine Specimen Cultured
[2022-03-29 08:05] LABS: Bacteria Urine Occasional (0-1); RBC Urine 0-1/HPF (0-5/HPF); Squamous Epithelial Cell Urine 0-1 /HPF (0-5/HPF); WBC Urine 5-10/HPF (0-5/HPF)
[2022-03-29 08:29] LABS: Creatinine Urine Random 37.6 mg/dL; Protein (Total) Urine Random 16 mg/dL (0-12)
== END ==
PROVIDERS: PCP Family Medicine; Referring Provider Specialist; Visit Provider Specialist
DX: Z94.0 Kidney transplant status (principal); D84.9 Immunodeficiency, unspecified
CPT/HCPCS: 36415; 80053; 80197; 81003; 81015; 82570; 83735; 84100; 84156; 85025; 87086; 87799

== ENCOUNTER → 2022-04-25 06:36 | Outpatient (CLI) | payer MEDICARE, SELFPAY ==
[2022-04-25 08:26] LABS: Add Manual Diff / Slide Review NO; Basophils Absolute Auto 0 /uL (0-100); Basophils Percent Auto 0.6 % (0-2); Eosinophils Absolute Auto 200 /uL (0-450); Hematocrit 38.3 % (41-53); Hemoglobin 12.9 g/dL (13.5-17.5); Lymphocytes Absolute Auto 1300 /uL (1100-4500); Lymphocytes Percent Auto 16.5 % (25-40); Mean Corpuscular HGB Conc 33.6 % (30-36); Mean Corpuscular Hemoglobin 30.8 PG (26-34); Mean Corpuscular Volume 91.8 fL (80-100); Monocytes Absolute Auto 800 /uL (0-900); Neutrophils Absolute Auto 5400 /uL (1500-7000); Neutrophils Percent Auto 70.9 % (50-75); Platelet Count 209 X10^3/uL (150-400); Red Blood Cell Count 4.17 X10^6/uL (4.5-5.9); Red Cell Distribution Width 14.1 % (11.6-14.8); White Blood Cell Count 7.6 X10^3/uL (4.5-11.0)
[2022-04-25 08:35] LABS: Appearance Urine UA CLEAR; Bilirubin Urine UA NEGATIVE (NEGATIVE); Color Urine UA LT. YELLOW; Glucose Urine UA NEGATIVE (Negative); Ketones Urine UA NEGATIVE (NEGATIVE); Leukocyte Esterase Urine UA NEGATIVE (NEGATIVE); Nitrite Urine UA NEGATIVE (Negative); Occult Blood Urine UA NEGATIVE (Negative); Protein Urine UA NEGATIVE (Negative); Urobilinogen Urine UA 0.2 E.U./dL (0.2)
[2022-04-25 08:48] LABS: Amorphous Sediment Urine 1+; Bacteria Urine Occasional (0-1); RBC Urine None Seen (0-5/HPF); WBC Urine 5-10/HPF (0-5/HPF)
[2022-04-25 08:49] LABS: Culture Indicated Urine Specimen Cultured
[2022-04-25 09:05] LABS: Alanine Aminotransferase 39 IU/L (<50); Albumin 4.3 g/dL (3.5-5.0); Albumin Globulin Ratio 1.4 (1.0-2.8); Alkaline Phosphatase 214 U/L (38-126); Aspartate Aminotransferase 32 IU/L (17-59); BUN Creatinine Ratio 28.6 (6-22); Bilirubin Total 0.6 mg/dL (0.2-1.3); Blood Urea Nitrogen 36 mg/dL (9-20); Calcium 9.9 mg/dL (8.4-10.2); Carbon Dioxide 25 mmol/L (22-32); Chloride 99 mmol/L (98-107); Estimated Glomerular Filt Rate > 60 mL/min (>60); Glucose 95 mg/dL (80-110); HEMOLYSIS < 15 (0-50); Magnesium 1.7 mg/dL (1.6-2.3); Phosphorous 3.2 mg/dL (2.3-3.7); Potassium 4.3 mmol/L (3.4-5.1); Sodium 136 mmol/L (137-145); Total Protein 7.3 g/dL (6.3-8.2)
[2022-04-25 09:07] LABS: Creatinine Urine Random 78.5 mg/dL; Protein (Total) Urine Random 10 mg/dL (0-12); Protein Creatinine Ratio Urine 0.12 GRAM/24H
[2022-04-26 15:07] LABS: Tacrolimus 6.3 ng/mL (2.0-20.0)
== END ==
PROVIDERS: PCP Family Medicine; Referring Provider Specialist; Visit Provider Specialist
DX: D84.9 Immunodeficiency, unspecified (principal); Z94.0 Kidney transplant status
CPT/HCPCS: 36415; 80053; 80197; 81001; 82570; 83735; 84100; 84156; 85025; 87086; 87799

== ENCOUNTER → 2022-06-17 06:42 | Outpatient (CLI) | payer MEDICARE, SELFPAY ==
[2022-06-17 07:42] LABS: Appearance Urine UA CLEAR; Bilirubin Urine UA NEGATIVE (NEGATIVE); Color Urine UA YELLOW; Glucose Urine UA NEGATIVE (Negative); Ketones Urine UA NEGATIVE (NEGATIVE); Leukocyte Esterase Urine UA NEGATIVE (NEGATIVE); Nitrite Urine UA NEGATIVE (Negative); Occult Blood Urine UA TRACE-INTACT (Negative); Protein Urine UA NEGATIVE (Negative); Urobilinogen Urine UA 0.2 E.U./dL (0.2); pH Urine UA 5.5 (4.5-8.0)
[2022-06-17 07:46] LABS: Add Manual Diff / Slide Review NO; Bacteria Urine None Seen; Basophils Absolute Auto 0 /uL (0-100); Basophils Percent Auto 0.4 % (0-2); Culture Indicated Urine Cult Not Indicated; Eosinophils Absolute Auto 100 /uL (0-450); Eosinophils Percent Auto 1.8 % (2-4); Hematocrit 39.8 % (41-53); Hemoglobin 13.7 g/dL (13.5-17.5); Lymphocytes Absolute Auto 1000 /uL (1100-4500); Lymphocytes Percent Auto 15.9 % (25-40); Mean Corpuscular HGB Conc 34.4 % (30-36); Mean Corpuscular Hemoglobin 31.4 PG (26-34); Mean Corpuscular Volume 91.2 fL (80-100); Monocytes Absolute Auto 600 /uL (0-900); Monocytes Percent Auto 9.8 % (3-14); Neutrophils Absolute Auto 4600 /uL (1500-7000); Neutrophils Percent Auto 72.1 % (50-75); Platelet Count 186 X10^3/uL (150-400); RBC Urine 1-5/HPF (0-5/HPF); Red Blood Cell Count 4.36 X10^6/uL (4.5-5.9); Red Cell Distribution Width 13.9 % (11.6-14.8); WBC Urine None Seen (0-5/HPF); White Blood Cell Count 6.4 X10^3/uL (4.5-11.0)
[2022-06-17 07:59] LABS: Creatinine Urine Random 126.5 mg/dL; Protein (Total) Urine Random 11 mg/dL (0-12); Protein Creatinine Ratio Urine 0.08 GRAM/24H
[2022-06-17 08:58] LABS: Alanine Aminotransferase 49 IU/L (<50); Albumin 4.3 g/dL (3.5-5.0); Albumin Globulin Ratio 1.4 (1.0-2.8); Alkaline Phosphatase 220 U/L (38-126); Aspartate Aminotransferase 41 IU/L (17-59); BUN Creatinine Ratio 27.7 (6-22); Bilirubin Total 1.1 mg/dL (0.2-1.3); Blood Urea Nitrogen 31 mg/dL (9-20); Calcium 10.1 mg/dL (8.4-10.2); Carbon Dioxide 23 mmol/L (22-32); Chloride 105 mmol/L (98-107); Estimated Glomerular Filt Rate > 60 mL/min (>60); Glucose 98 mg/dL (80-110); HEMOLYSIS < 15 (0-50); Magnesium 1.8 mg/dL (1.6-2.3); Potassium 4.4 mmol/L (3.4-5.1); Sodium 135 mmol/L (137-145); Total Protein 7.3 g/dL (6.3-8.2)
[2022-06-18 12:18] LABS: Tacrolimus 6.3 ng/mL (2.0-20.0)
== END ==
PROVIDERS: Family Provider Family Medicine; PCP Family Medicine; Referring Provider Specialist; Visit Provider Specialist
DX: D84.9 Immunodeficiency, unspecified (principal); Z94.0 Kidney transplant status
CPT/HCPCS: 36415; 80053; 80197; 81001; 82570; 83735; 84100; 84156; 85025; 87799

== ENCOUNTER → 2022-07-19 06:44 | Outpatient (CLI) | payer MEDICARE, SELFPAY ==
[2022-07-19 08:07] LABS: Add Manual Diff / Slide Review NO; Basophils Absolute Auto 0 /uL (0-100); Basophils Percent Auto 0.5 % (0-2); Eosinophils Absolute Auto 200 /uL (0-450); Eosinophils Percent Auto 2.3 % (2-4); Hematocrit 37.7 % (41-53); Hemoglobin 12.9 g/dL (13.5-17.5); Lymphocytes Absolute Auto 1100 /uL (1100-4500); Lymphocytes Percent Auto 16.9 % (25-40); Mean Corpuscular HGB Conc 34.3 % (30-36); Mean Corpuscular Hemoglobin 31.7 PG (26-34); Mean Corpuscular Volume 92.6 fL (80-100); Monocytes Absolute Auto 700 /uL (0-900); Monocytes Percent Auto 10.3 % (3-14); Neutrophils Absolute Auto 4700 /uL (1500-7000); Platelet Count 188 X10^3/uL (150-400); Red Blood Cell Count 4.07 X10^6/uL (4.5-5.9); White Blood Cell Count 6.8 X10^3/uL (4.5-11.0)
[2022-07-19 08:40] LABS: Appearance Urine UA CLEAR; Bilirubin Urine UA NEGATIVE (NEGATIVE); Color Urine UA YELLOW; Glucose Urine UA NEGATIVE (Negative); Ketones Urine UA NEGATIVE (NEGATIVE); Leukocyte Esterase Urine UA NEGATIVE (NEGATIVE); Nitrite Urine UA NEGATIVE (Negative); Occult Blood Urine UA NEGATIVE (Negative); Protein Urine UA NEGATIVE (Negative); Urobilinogen Urine UA 0.2 E.U./dL (0.2)
[2022-07-19 08:48] LABS: Alanine Aminotransferase 69 IU/L (<50); Albumin 3.6 g/dL (3.5-5.0); Albumin Globulin Ratio 1.2 (1.0-2.8); Alkaline Phosphatase 227 U/L (38-126); Aspartate Aminotransferase 52 IU/L (17-59); BUN Creatinine Ratio 20.2 (6-22); Bilirubin Total 0.8 mg/dL (0.2-1.3); Blood Urea Nitrogen 22 mg/dL (9-20); Calcium 9.9 mg/dL (8.4-10.2); Carbon Dioxide 22 mmol/L (22-32); Chloride 104 mmol/L (98-107); Estimated Glomerular Filt Rate > 60 mL/min (>60); Globulin 2.9 g/dL (1.7-4.1); Glucose 104 mg/dL (80-110); HEMOLYSIS < 15 (0-50); Magnesium 1.8 mg/dL (1.6-2.3); Phosphorous 2.9 mg/dL (2.3-3.7); Potassium 4.4 mmol/L (3.4-5.1); Sodium 133 mmol/L (137-145); Total Protein 6.5 g/dL (6.3-8.2)
[2022-07-19 09:11] LABS: Bacteria Urine None Seen; Culture Indicated Urine Cult Not Indicated; RBC Urine None Seen (0-5/HPF); Squamous Epithelial Cell Urine None Seen (0-5/HPF); WBC Urine None Seen (0-5/HPF)
[2022-07-19 09:16] LABS: Creatinine Urine Random 65.8 mg/dL; Protein (Total) Urine Random 13 mg/dL (0-12); Protein Creatinine Ratio Urine 0.19 GRAM/24H
[2022-07-22 08:58] LABS: Tacrolimus 6.7
== END ==
PROVIDERS: Family Provider Family Medicine; PCP Family Medicine; Referring Provider Specialist; Visit Provider Specialist
DX: Z94.0 Kidney transplant status (principal); D84.9 Immunodeficiency, unspecified
CPT/HCPCS: 36415; 80053; 80197; 81001; 82570; 83735; 84100; 84156; 85025; 87799

== ENCOUNTER → 2022-08-23 06:34 | Outpatient (CLI) | payer MEDICARE, SELFPAY ==
[2022-08-23 08:21] LABS: Add Manual Diff / Slide Review NO; Basophils Absolute Auto 0 /uL (0-100); Basophils Percent Auto 0.4 % (0-2); Eosinophils Absolute Auto 400 /uL (0-450); Eosinophils Percent Auto 4.7 % (2-4); Hematocrit 37.6 % (41-53); Lymphocytes Absolute Auto 800 /uL (1100-4500); Lymphocytes Percent Auto 8.9 % (25-40); Mean Corpuscular HGB Conc 34.7 % (30-36); Mean Corpuscular Hemoglobin 31.7 PG (26-34); Mean Corpuscular Volume 91.3 fL (80-100); Monocytes Absolute Auto 800 /uL (0-900); Monocytes Percent Auto 9.4 % (3-14); Neutrophils Absolute Auto 6500 /uL (1500-7000); Neutrophils Percent Auto 76.6 % (50-75); Platelet Count 211 X10^3/uL (150-400); Red Blood Cell Count 4.11 X10^6/uL (4.5-5.9); Red Cell Distribution Width 14.1 % (11.6-14.8); White Blood Cell Count 8.5 X10^3/uL (4.5-11.0)
[2022-08-23 08:28] LABS: Appearance Urine UA SL CLOUDY; Bilirubin Urine UA NEGATIVE (NEGATIVE); Color Urine UA YELLOW; Glucose Urine UA NEGATIVE (Negative); Ketones Urine UA NEGATIVE (NEGATIVE); Leukocyte Esterase Urine UA 1+ (NEGATIVE); Nitrite Urine UA NEGATIVE (Negative); Occult Blood Urine UA TRACE-INTACT (Negative); Protein Urine UA TRACE (Negative); Urobilinogen Urine UA 0.2 E.U./dL (0.2); pH Urine UA 5.5 (4.5-8.0)
[2022-08-23 08:33] LABS: HEMOLYSIS < 15 (0-50); Iron 84 ug/dL (49-181)
[2022-08-23 08:44] LABS: Alanine Aminotransferase 29 IU/L (<50); Albumin 4.1 g/dL (3.5-5.0); Albumin Globulin Ratio 1.4 (1.0-2.8); Alkaline Phosphatase 185 U/L (38-126); Aspartate Aminotransferase 24 IU/L (17-59); BUN Creatinine Ratio 22.4 (6-22); Bacteria Urine None Seen; Bilirubin Total 0.8 mg/dL (0.2-1.3); Blood Urea Nitrogen 28 mg/dL (9-20); Calcium 10.2 mg/dL (8.4-10.2); Carbon Dioxide 22 mmol/L (22-32); Chloride 104 mmol/L (98-107); Culture Indicated Urine Specimen Cultured; Estimated Glomerular Filt Rate > 60 mL/min (>60); Glucose 105 mg/dL (80-110); HEMOLYSIS < 15 (0-50); Magnesium 1.8 mg/dL (1.6-2.3); Phosphorous 2.8 mg/dL (2.3-3.7); Potassium 4.3 mmol/L (3.4-5.1); RBC Urine None Seen (0-5/HPF); Sodium 136 mmol/L (137-145); Squamous Epithelial Cell Urine 1-5 /HPF (0-5/HPF); Total Protein 7.1 g/dL (6.3-8.2); Uric Acid 8.3 mg/dL (3.5-8.5); WBC Urine 10-30/HPF (0-5/HPF)
[2022-08-23 08:44] LABS: Percent Iron Saturation 38 % (20-50); Total Iron Binding Capacity 223 ug/dL (261-462); Transferrin 164 mg/dL (206-381)
[2022-08-23 08:51] LABS: Vitamin D 25 Hydroxy (D3) 42.2 ng/mL (30.0-100.0)
[2022-08-23 08:54] LABS: Creatinine Urine Random 143.7 mg/dL; Protein (Total) Urine Random 19 mg/dL (0-12)
[2022-08-23 09:08] LABS: Ferritin 513 ng/mL (18-464)
[2022-08-26 07:42] LABS: Calcium 10.3 mg/dL (8.6-10.2); Parathyroid Hormone, Intact 88 pg/mL (15-65)
[2022-08-29 18:16] LABS: Tacrolimus 6.6
== END ==
PROVIDERS: Family Provider Family Medicine; PCP Family Medicine; Referring Provider Specialist; Visit Provider Specialist
DX: Z94.0 Kidney transplant status (principal); D63.1 Anemia in chronic kidney disease; E21.1 Secondary hyperparathyroidism, not elsewhere classified; D84.9 Immunodeficiency, unspecified; N18.9 Chronic kidney disease, unspecified; E55.9 Vitamin D deficiency, unspecified; M10.9 Gout, unspecified
CPT/HCPCS: 80053; 80197; 81001; 82306; 82310; 82570; 82728; 83540; 83550; 83735; 83970; 84100; 84156; 84550; 85025; 87077; 87086; 87147; 87186; 87799

== ENCOUNTER 2022-09-05 09:30 | Outpatient (RCR) | payer MEDICARE, SELFPAY ==
--- NOTE | 2022-06-16 09:57 | PT.OIE ---
Current Diagnoses Polyneuropathy, unspecified (06/16/22) Abnormal posture (06/16/22) Weakness (06/16/22) Edema, unspecified (06/16/22) Past Medical History (Last Reviewed 07/21/21 @ 11:34 by Armond Marquez MD) Abdominal aortic aneurysm (2011) Acne (~1961) Actinic keratosis (~1994) Allergic rhinitis (1979) Anemia (2009) Anemia of chronic illness Blindness (1970) Cataracts, bilateral (2011) Chickenpox (~1959) Chronic renal insufficiency, stage IV (severe) (02/24/15) CKD (chronic kidney disease) (Unknown) Colitis (1984) Colon polyps (2009) End-stage renal disease (ESRD) (~02/24/15) Gout (~1994) History of diverticulitis (Unknown) History of recurrent ear infection (1959) Hyperlipemia (Unknown) Hypersomnia Hypertension (1979) Kidney disease (~2009) Measles (~1959) Mumps (~1959) Obstructive sleep apnea syndrome (2004) Peritoneal dialysis catheter in place Plantar warts (~1994) Recurrent sinusitis (1959) Restless leg syndrome (1989) Retinal detachment (1970) Skin cancer (~1987) Skin tag Weakness Past Surgical History (Last Reviewed 07/21/21 @ 11:34 by Armond Marquez MD) History of nephrectomy, left (~04/2020) History of skin surgery Hx of removal of testicle (1963) Hx of surgical procedure (1951) Visit Care Team Role Provider Type Sumanth Hernandez MD Family Provider Non-Staff Primary Care Provider Specialty: Family Practice Address: [address] [place] [address], [address], [place], [address] Email: Ministerio Colón MD Attending Provider Non-Staff Referring Provider Specialty: Psychiatry Address: [address] [place] [address], [address], [place], [address] Email: Physical Therapy Initial Evaluation PT-OP-A Visit Information Start: 06/16/22 08:15 Freq: Status: Active Protocol: Document 06/16/22 08:16 GREY (Rec: 06/16/22 09:05 GREY [id number]) Out-Patient Physical Therapy Visit Information Visit Information Visit Type Initial Evaluation Visit Start Time 08:16 Visit Stop Time 09:05 Total Visit Minutes 49 Visit Number 1 Evaluation Information Evaluation Date 06/16/22 Precautions Precautions s/p kidney transplant PT-OP-B Current Condition Start: 06/16/22 08:15 Freq: Status: Active Protocol: Document 06/16/22 08:16 GREY (Rec: 06/16/22 09:05 [facility] [id number]) Current Condition History of Current Condition Onset Date 06/21 History of Current Condition Had fistula put in right upper arm for dialysis 06/21/20, and had kidney transplant 07/23 . Had numbness in hand and wrist immediately after fistula put in, and patient decreased use of right UE due to the fistula so didn't really notice weakening of his right UE. Medications s/p kidney transplant caused shaking of body, worse in right UE so that also contributed to lack of use. Last November really started to notice how weak right arm was, when started trying to use arm more then started to experience pain in top of shoulder. Fistula removed 4 weeks ago, noticing warming of left hand and improved sensation, has been doing squeezing exercises with hand and wall slide ex in shower. When gets to arm into certain positions noting upper arm region arm starts shaking. Can 't use arm for eating, reaching behind back or across her body. Still some tingling in hand. 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 Fistula was removed per recommendation Future Testing and Treatments Planned EMG in 3 months after PT complete Developmental History Developmental History patient left handed Treatment Goals Patient/Caregiver Goals improve right UE funciton Prior Functional Status Baseline Function- ADL's Independent Baseline Function- Mobility Independent Baseline Function- Work/School retired Baseline Function- Recreation/Hobbies wood turning and gardening without difficulty Current Functional Impairments (Reported) Functional Limitations- ADL's minimal ability to use right UE Functional Limitations- Recreation/ unable to use right UE for Hobbies gardening, wood turning due to weakness and paoin PT-OP-C Subjective Start: 06/16/22 08:15 Freq: Status: Active Protocol: Document 06/16/22 09:28 [facility] (Rec: 06/16/22 09:56 [facility] [id number]) Patient Questionnaires Quick Dash- Upper Extremity Quick Dash UE Score 50 OP-PT Pain Assessment Pain Assessment Grid Paper Pain Assessment Grid Completed Yes Location Right Shoulder Intensity 8 Scale Used Numeric (0 - 10) Description Aching,Sharp,Shooting,Spasm, Tender Frequency Frequent Pain Aggravating Factors ADL's,Activity Comments Pain Comments pain 2-8/10, worst reaching overhead, out to side, across his body, behind back PT-OP-H Neuro Start: 06/16/22 08:15 Freq: Status: Active Protocol: Document 06/16/22 09:28 [facility] (Rec: 06/16/22 09:56 [facility] [id number]) Sensation Evaluation Gross Sensation Gross Sensation Right UE Impaired Sensation Description Numbness,Tingling Deep Tendon Reflex & Clonus Assessment Deep Tendon Reflex Right Tricep Deep Tendon Reflex 0 Absent PT-OP-J Posture/Palpation/Skin Start: 06/16/22 08:15 Freq: Status: Active Protocol: Document 06/16/22 09:28 [facility] (Rec: 06/16/22 09:56 [facility] [id number]) Posture Evaluation Position Sitting Head/C-Spine Posture Forward Head T-Spine Posture Increased Kyphosis Shoulder Posture (L) Rounded,(R) Rounded Scapula Posture (L) Protracted,(R) Protracted Arm Posture (L) Internally Rotated,(R) Internally Rotated PT-OP-K Range of Motion Start: 06/16/22 08:15 Freq: Status: Active Protocol: Document 06/16/22 09:28 [facility] (Rec: 06/16/22 09:56 [facility] [id number]) Shoulder Goniometric Range of Motion Shoulder Right Active Shoulder ROM WFL No Testing Position Sitting Flexion 80 Extension 25 Abduction 95 Horizontal Abduction 60 Horizontal Adduction 20 External Rotation at 45 degrees 50 Abduction External Rotation at 0 degrees Abduction 45 Internal Rotation Behind Back (text) lateral hip Left Active Shoulder ROM WFL Yes Shoulder ROM Limitations Shoulder ROM Limitations Soft Tissue Tightness,Muscle Weakness,Pain Elbow/Forearm Range of Motion Elbow/Forearm Right Active Supination (degrees) 65 Left Active Elbow/Forearm ROM WFL Yes Wrist Goniometric Range of Motion Wrist Right Flexion Active (degrees) 20 Flexion Passive (degrees) 60 Extension Active (degrees) 25 Extension Passive (degrees) 40 Ulnar Deviation Active (degrees) 35 Radial Deviation Active (degrees) 5 Left Wrist ROM WFL Yes ROM Limitations Wrist Limitations of Range of Motion Muscle Weakness PT-OP-M Strength Start: 06/16/22 08:15 Freq: Status: Active Protocol: Document 06/16/22 08:16 [facility] (Rec: 06/16/22 09:05 [facility] [id number]) Shoulder Strength Shoulder Manual Muscle Testing Right Flexion 2+ Poor+ Extension 4- Good- Abduction (C5) 2+ Poor+ External Rotation 4 Good Internal Rotation 4- Good- Elbow/Forearm Strength Elbow and Forearm Manual Muscle Testing Right Flexion (C6) 2+ Poor+ Extension (C7) 4 Good Pronation 4 Good Supination 3- Fair- Wrist Strength Wrist Manual Muscle Testing Right Flexion (C7) 3- Fair- Extension (C6) 4- Good- Ulnar Deviation 4 Good Radial Deviation 3- Fair- Left Flexion (C7) 5 Normal Extension (C6) 5 Normal Ulnar Deviation 5 Normal Radial Deviation 5 Normal Finger/Thumb Strength Finger Manual Muscle Testing Right Flexion (fingers C8) 3- Fair- Extension (thumb C8) 4- Good- Adduction 3+ Fair+ Abduction (fingers T1) 4- Good- Left Flexion (fingers C8) 5 Normal Extension (thumb C8) 5 Normal Adduction 5 Normal Abduction (fingers T1) 5 Normal Hand Folder Inspector/Pinch Strength Hand Dominance Hand Dominance Left Hand Strength Left Folder Inspector (lbs) 81 Tip Pinch (lbs) 26 Right Folder Inspector (lbs) 19 Tip Pinch (lbs) 17 PT-OP-Q Treatments Start: 06/16/22 08:15 Freq: Status: Active Protocol: Document 06/16/22 09:28 [facility] (Rec: 06/16/22 09:56 [facility] [id number]) Self-Care/Home Management Treatment Education Patient Education Home Exercise Program,Posture PT-OP-T Assessment and Plan Start: 06/16/22 08:15 Freq: Status: Active Protocol: Document 06/16/22 09:28 [facility] (Rec: 06/16/22 09:56 [facility] [id number]) Physical Therapy Assessment Rehab Potential Rehabilitation Potential Good Evaluation Complexity Number of Personal Factors/Comorbidities 3 or More Number of Body Systems Impaired 3 Clinical Presentation at Evaluation Evolving Impairments Impairments Functional Activities,Pain,ROM ,Strength Goals Four Impairment swelling right UE Short Term Goal (STG) Instruct patient in all aspects of edema management to include self-massage, exercise, use of compression STG Duration 08/01/22 Batch Unloader Goal (LTG) Decrease edema right UE to within 1 cm of left UE measurements for improved function right UE LTG Duration 09/16/22 Three Impairment pain right shoulder Impairment signs and symptoms of impingement with pain as high as 8/10 with elevation of arm Batch Unloader Goal (LTG) Decrease pain and impingment symptoms right shoulder to allow him to return to full active use of right UE with pain no greater than 3/10 LTG Duration 09/16/22 Two Impairment weakness throughout right UE, decreased shoulder flexibility Short Term Goal (STG) instruct in HEP for purposes of right UE strengthening and flexibility STG Duration 08/01/22 Snf Goal (LTG) Patient to be independent and compliant with HEP and demonstrate ROM WFL, and improve strength to within 1/2 grade of left and mechanical systems designer and pinch strength within 10# of left LTG Duration 09/16/22 One Impairment impaired function right UE Impairment Quickdash disability index score 50% Short Term Goal (STG) Improve score to at least 70% STG Duration 08/01/22 Batch Unloader Goal (LTG) Improve score to at least 85% as measure of improved functional use right UE with patient reporting ability to return to reaching all directions with his arm especially overhead and behind his back and return to gardening and wood turning. LTG Duration 09/16/22 Assessment Summary Assessment Patient presents to PT with function-limiting weakness, pain, swelling, dec flexibility, and postural impairment all contributing to impaired functional use right UE. 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 Feel disuse and weakness and swelling right UE contributed to his right shoulder pain with signs and symptoms of impingement. Feel he would benefit from PT to help him addres the above goals and return to full active use of his right UE for all ADL's and usual activities to include gardening and turning wood to make bowls. Physical Therapy Plan Frequency and Duration Frequency of Treatment 2x/Week Duration of treatment (weeks) 12 Plan of Care Start Date 06/16/22 Plan of Care End Date 09/16/22 Therapeutic Interventions Therapeutic Interventions Home Exercise Program,Manual Therapy,Patient/Caregiver Education,Self-Care/Home Management,Soft Tissue Mobilization,Taping, Therapeutic Activities, Therapeutic Exercises Modalities Cold Pack/Ice Massage,Electric Stimulation,Hot Packs, Infrared Therapy,Iontophoresis ,Ultrasound Next Visit Focus/Plan Next Note Type Treatment Note Next Visit Plan Review HEP, progress ther ex for postural correction/scap stab, right UE strengthening utilizing gravity assisted, gravity eliminated, anti- gravity AROM, and resisted ex as indicated. Issue updated HO including adding supine shoulder AROM and flexibility discussed today but not added to HEP. Consider MLD, further discussion of compression, consider use of kinesiotape for edema management and improved biceps and brachioradialis function.
--- NOTE | 2022-06-16 09:58 | PT.OPPOC ---
Physical, Occupational & Speech Therapy At [facility] Current Diagnoses Polyneuropathy, unspecified (06/16/22) Abnormal posture (06/16/22) Weakness (06/16/22) Edema, unspecified (06/16/22) Visit Care Team Role Provider Type Sumanth Hernandez MD Family Provider Non-Staff Primary Care Provider Specialty: Family Practice Address: [address] [place] [address], [address], [place], [address] Email: Ministerio Colón MD Attending Provider Non-Staff Referring Provider Specialty: Psychiatry Address: [address] [place] [address], [address], [place], [address] Email: Plan Of Care PT-OP-T Assessment and Plan Start: 06/16/22 08:15 Freq: Status: Active Protocol: Document 06/16/22 09:28 [facility] (Rec: 06/16/22 09:56 [facility] [id number]) Physical Therapy Assessment Rehab Potential Rehabilitation Potential Good Evaluation Complexity Number of Personal Factors/Comorbidities 3 or More Number of Body Systems Impaired 3 Clinical Presentation at Evaluation Evolving Impairments Impairments Functional Activities,Pain,ROM ,Strength Goals Four Impairment swelling right UE Short Term Goal (STG) Instruct patient in all aspects of edema management to include self-massage, exercise, use of compression STG Duration 08/01/22 Bull Chain Operator Goal (LTG) Decrease edema right UE to within 1 cm of left UE measurements for improved function right UE LTG Duration 09/16/22 Three Impairment pain right shoulder Impairment signs and symptoms of impingement with pain as high as 8/10 with elevation of arm Bull Chain Operator Goal (LTG) Decrease pain and impingment symptoms right shoulder to allow him to return to full active use of right UE with pain no greater than 3/10 LTG Duration 09/16/22 Two Impairment weakness throughout right UE, decreased shoulder flexibility Short Term Goal (STG) instruct in HEP for purposes of right UE strengthening and flexibility STG Duration 08/01/22 Intermediate Goal (LTG) Patient to be independent and compliant with HEP and demonstrate ROM WFL, and improve strength to within 1/2 grade of left and communications officer and pinch strength within 10# of left LTG Duration 09/16/22 One Impairment impaired function right UE Impairment Quickdash disability index score 50% Short Term Goal (STG) Improve score to at least 70% STG Duration 08/01/22 Intermediate Goal (LTG) Improve score to at least 85% as measure of improved functional use right UE with patient reporting ability to return to reaching all directions with his arm especially overhead and behind his back and return to gardening and wood turning. LTG Duration 09/16/22 Assessment Summary Assessment Patient presents to PT with function-limiting weakness, pain, swelling, dec flexibility, and postural impairment all contributing to impaired functional use right UE. 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 Feel disuse and weakness and swelling right UE contributed to his right shoulder pain with signs and symptoms of impingement. Feel he would benefit from PT to help him addres the above goals and return to full active use of his right UE for all ADL's and usual activities to include gardening and turning wood to make bowls. Physical Therapy Plan Frequency and Duration Frequency of Treatment 2x/Week Duration of treatment (weeks) 12 Plan of Care Start Date 06/16/22 Plan of Care End Date 09/16/22 Therapeutic Interventions Therapeutic Interventions Home Exercise Program,Manual Therapy,Patient/Caregiver Education,Self-Care/Home Management,Soft Tissue Mobilization,Taping, Therapeutic Activities, Therapeutic Exercises Modalities Cold Pack/Ice Massage,Electric Stimulation,Hot Packs, Infrared Therapy,Iontophoresis ,Ultrasound Next Visit Focus/Plan Next Note Type Treatment Note Next Visit Plan Review HEP, progress ther ex for postural correction/scap stab, right UE strengthening utilizing gravity assisted, gravity eliminated, anti- gravity AROM, and resisted ex as indicated. Issue updated HO including adding supine shoulder AROM and flexibility discussed today but not added to HEP. Consider MLD, further discussion of compression, consider use of kinesiotape for edema management and improved biceps and brachioradialis function. Plan of Care Dates Plan of Care Start Date 06/16/22 Plan of Care End Date 09/16/22 Electronically Signed by: Meagan Peacock, PT 06/16/22 0958 If you are in agreement with this Plan of Care, please return a signed and dated copy. I have reviewed this Plan of Care and certify that the skilled therapy services above are required to meet the patient?s needs. Physician Signature Date Printed Name and Credentials Clinical Instructor Signature Printed Name and Credentials
--- NOTE | 2022-06-20 10:29 | PT.OTN ---
Current Diagnoses Polyneuropathy, unspecified (06/20/22) Abnormal posture (06/20/22) Weakness (06/20/22) Edema, unspecified (06/20/22) Physical Therapy Treatment Note PT-OP-A Visit Information Start: 06/16/22 08:15 Freq: Status: Active Protocol: Document 06/20/22 09:45 DCW (Rec: 06/20/22 10:29 DCW [id number]) Out-Patient Physical Therapy Visit Information Visit Information Visit Type Treatment Note Visit Start Time 09:45 Visit Stop Time 10:30 Total Visit Minutes 45 Visit Number 2 Number of DEPLOYMENT SPECIALIST Visits 0 Evaluation Information Evaluation Date 06/16/22 Precautions Precautions s/p kidney transplant PT-OP-B Current Condition Start: 06/16/22 08:15 Freq: Status: Active Protocol: Document 06/16/22 08:16 SAK (Rec: 06/16/22 09:05 SAK [id number]) Current Condition History of Current Condition Onset Date 06/21 History of Current Condition Had fistula put in right upper arm for dialysis 06/21/20, and had kidney transplant 07/23 . Had numbness in hand and wrist immediately after fistula put in, and patient decreased use of right UE due to the fistula so didn't really notice weakening of his right UE. Medications s/p kidney transplant caused shaking of body, worse in right UE so that also contributed to lack of use. Last November really started to notice how weak right arm was, when started trying to use arm more then started to experience pain in top of shoulder. Fistula removed 4 weeks ago, noticing warming of left hand and improved sensation, has been doing squeezing exercises with hand and wall slide ex in shower. When gets to arm into certain positions noting upper arm region arm starts shaking. Can 't use arm for eating, reaching behind back or across her body. Still some tingling in hand. 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 Fistula was removed per recommendation Future Testing and Treatments Planned EMG in 3 months after PT complete Developmental History Developmental History patient left handed Treatment Goals Patient/Caregiver Goals improve right UE funciton Prior Functional Status Baseline Function- ADL's Independent Baseline Function- Mobility Independent Baseline Function- Work/School retired Baseline Function- Recreation/Hobbies wood turning and gardening without difficulty Current Functional Impairments (Reported) Functional Limitations- ADL's minimal ability to use right UE Functional Limitations- Recreation/ unable to use right UE for Hobbies gardening, wood turning due to weakness and paoin PT-OP-C Subjective Start: 06/16/22 08:15 Freq: Status: Active Protocol: Document 06/20/22 09:45 DCW (Rec: 06/20/22 10:29 DCW [id number]) OP-PT Subjective Patient Comments Patient Comments Pt comes in wearing a compression sleeve today. PT-OP-H Neuro Start: 06/16/22 08:15 Freq: Status: Active Protocol: Document 06/16/22 09:28 SAK (Rec: 06/16/22 09:56 SAK [id number]) Sensation Evaluation Gross Sensation Gross Sensation Right UE Impaired Sensation Description Numbness,Tingling Deep Tendon Reflex & Clonus Assessment Deep Tendon Reflex Right Tricep Deep Tendon Reflex 0 Absent PT-OP-J Posture/Palpation/Skin Start: 06/16/22 08:15 Freq: Status: Active Protocol: Document 06/16/22 09:28 SAK (Rec: 06/16/22 09:56 SAK [id number]) Posture Evaluation Position Sitting Head/C-Spine Posture Forward Head T-Spine Posture Increased Kyphosis Shoulder Posture (L) Rounded,(R) Rounded Scapula Posture (L) Protracted,(R) Protracted Arm Posture (L) Internally Rotated,(R) Internally Rotated PT-OP-K Range of Motion Start: 06/16/22 08:15 Freq: Status: Active Protocol: Document 06/16/22 09:28 SAK (Rec: 06/16/22 09:56 SAK [id number]) Shoulder Goniometric Range of Motion Shoulder Right Active Shoulder ROM WFL No Testing Position Sitting Flexion 80 Extension 25 Abduction 95 Horizontal Abduction 60 Horizontal Adduction 20 External Rotation at 45 degrees 50 Abduction External Rotation at 0 degrees Abduction 45 Internal Rotation Behind Back (text) lateral hip Left Active Shoulder ROM WFL Yes Shoulder ROM Limitations Shoulder ROM Limitations Soft Tissue Tightness,Muscle Weakness,Pain Elbow/Forearm Range of Motion Elbow/Forearm Right Active Supination (degrees) 65 Left Active Elbow/Forearm ROM WFL Yes Wrist Goniometric Range of Motion Wrist Right Flexion Active (degrees) 20 Flexion Passive (degrees) 60 Extension Active (degrees) 25 Extension Passive (degrees) 40 Ulnar Deviation Active (degrees) 35 Radial Deviation Active (degrees) 5 Left Wrist ROM WFL Yes ROM Limitations Wrist Limitations of Range of Motion Muscle Weakness PT-OP-M Strength Start: 06/16/22 08:15 Freq: Status: Active Protocol: Document 06/16/22 08:16 SAK (Rec: 06/16/22 09:05 SAK [id number]) Shoulder Strength Shoulder Manual Muscle Testing Right Flexion 2+ Poor+ Extension 4- Good- Abduction (C5) 2+ Poor+ External Rotation 4 Good Internal Rotation 4- Good- Elbow/Forearm Strength Elbow and Forearm Manual Muscle Testing Right Flexion (C6) 2+ Poor+ Extension (C7) 4 Good Pronation 4 Good Supination 3- Fair- Wrist Strength Wrist Manual Muscle Testing Right Flexion (C7) 3- Fair- Extension (C6) 4- Good- Ulnar Deviation 4 Good Radial Deviation 3- Fair- Left Flexion (C7) 5 Normal Extension (C6) 5 Normal Ulnar Deviation 5 Normal Radial Deviation 5 Normal Finger/Thumb Strength Finger Manual Muscle Testing Right Flexion (fingers C8) 3- Fair- Extension (thumb C8) 4- Good- Adduction 3+ Fair+ Abduction (fingers T1) 4- Good- Left Flexion (fingers C8) 5 Normal Extension (thumb C8) 5 Normal Adduction 5 Normal Abduction (fingers T1) 5 Normal Hand Underground Bolting Machine Operator/Pinch Strength Hand Dominance Hand Dominance Left Hand Strength Left Underground Bolting Machine Operator (lbs) 81 Tip Pinch (lbs) 26 Right Underground Bolting Machine Operator (lbs) 19 Tip Pinch (lbs) 17 PT-OP-Q Treatments Start: 06/16/22 08:15 Freq: Status: Active Protocol: Document 06/20/22 09:45 DCW (Rec: 06/20/22 10:29 DCW [id number]) Cardio Equipment Upper Body Ergometer (UBE) Duration (Minutes) 5 RPM 60 Seat Position 13 Height 3 Other 2.5' fwd, 2.5' bkwd Therapeutic Exercises Sidelying Exercises External Rotation Sidelying Exercise Name ER Side right Resistance 3# Comments Stopped d/t shoulder pain Sitting Exercises PROM Sitting Exercise Name Pulleys - Flexion, Abduction Standing Exercises Wall Slides Standing Exercise Name Flexion, Circles Side right External Rotation Standing Exercise Name ER Side right Resistance Lv 3 Rows Standing Exercise Name Rows Side bilateral Resistance Lv 3 Adduction Standing Exercise Name Shoulder Adduction Side bilateral Resistance Lv 3 Extension Standing Exercise Name Shoulder Extension Side bilateral Resistance Lv 3 Flexion Standing Exercise Name Shoulder Flexion Side bilateral Resistance 3# Comments Mirror to limit compensation Abduction Standing Exercise Name Shoulder Abduction Side bilateral Resistance 3# Comments Mirror to limit compensation PROM Standing Exercise Name Pulleys - IR Other Exercises Resisted Ambulation Other Exercise Name Resisted UE side-stepping Resistance Yellow PT-OP-T Assessment and Plan Start: 06/16/22 08:15 Freq: Status: Active Protocol: Document 06/20/22 09:45 DCW (Rec: 06/20/22 10:29 DCW [id number]) Physical Therapy Assessment Impairments Impairments Functional Activities,Pain,ROM ,Strength Goals Four Impairment swelling right UE Short Term Goal (STG) Instruct patient in all aspects of edema management to include self-massage, exercise, use of compression STG Duration 08/01/22 Usp Goal (LTG) Decrease edema right UE to within 1 cm of left UE measurements for improved function right UE LTG Duration 09/16/22 Three Impairment pain right shoulder Impairment signs and symptoms of impingement with pain as high as 8/10 with elevation of arm Interventional Radiology Technologist Goal (LTG) Decrease pain and impingment symptoms right shoulder to allow him to return to full active use of right UE with pain no greater than 3/10 LTG Duration 09/16/22 Two Impairment weakness throughout right UE, decreased shoulder flexibility Short Term Goal (STG) instruct in HEP for purposes of right UE strengthening and flexibility STG Duration 08/01/22 Usp Goal (LTG) Patient to be independent and compliant with HEP and demonstrate ROM WFL, and improve strength to within 1/2 grade of left and grinder set up operator universal and pinch strength within 10# of left LTG Duration 09/16/22 One Impairment impaired function right UE Impairment Quickdash disability index score 50% Short Term Goal (STG) Improve score to at least 70% STG Duration 08/01/22 Interventional Radiology Technologist Goal (LTG) Improve score to at least 85% as measure of improved functional use right UE with patient reporting ability to return to reaching all directions with his arm especially overhead and behind his back and return to gardening and wood turning. LTG Duration 09/16/22 Assessment Summary Assessment Pt tolerated treatment very well, but as the session went on, was clearly fatiguing and much more sore with all movements. Instructed in additional HEP, provided handout. Physical Therapy Plan Frequency and Duration Frequency of Treatment 2x/Week Duration of treatment (weeks) 12 Plan of Care Start Date 06/16/22 Plan of Care End Date 09/16/22 Therapeutic Interventions Therapeutic Interventions Home Exercise Program,Manual Therapy,Patient/Caregiver Education,Self-Care/Home Management,Soft Tissue Mobilization,Taping, Therapeutic Activities, Therapeutic Exercises Modalities Cold Pack/Ice Massage,Electric Stimulation,Hot Packs, Infrared Therapy,Iontophoresis ,Ultrasound Next Visit Focus/Plan Next Note Type Treatment Note Next Visit Plan Review HEP, progress ther ex for postural correction/scap stab, right UE strengthening utilizing gravity assisted, gravity eliminated, anti- gravity AROM, and resisted ex as indicated. Issue updated HO including adding supine shoulder AROM and flexibility discussed today but not added to HEP. Consider MLD, further discussion of compression, consider use of kinesiotape for edema management and improved biceps and brachioradialis function.
--- NOTE | 2022-06-23 10:28 | PT.OTN ---
Current Diagnoses Polyneuropathy, unspecified (06/23/22) Abnormal posture (06/23/22) Weakness (06/23/22) Edema, unspecified (06/23/22) Physical Therapy Treatment Note PT-OP-A Visit Information Start: 06/16/22 08:15 Freq: Status: Active Protocol: Document 06/23/22 09:45 DCW (Rec: 06/23/22 10:28 DCW [id number]) Out-Patient Physical Therapy Visit Information Visit Information Visit Type Treatment Note Visit Start Time 09:45 Visit Stop Time 10:30 Total Visit Minutes 45 Visit Number 3 Number of GLOBAL COMMODITY MANAGER Visits 0 Evaluation Information Evaluation Date 06/16/22 Precautions Precautions s/p kidney transplant PT-OP-B Current Condition Start: 06/16/22 08:15 Freq: Status: Active Protocol: Document 06/16/22 08:16 SAK (Rec: 06/16/22 09:05 SAK [id number]) Current Condition History of Current Condition Onset Date 06/21 History of Current Condition Had fistula put in right upper arm for dialysis 06/21/20, and had kidney transplant 07/23 . Had numbness in hand and wrist immediately after fistula put in, and patient decreased use of right UE due to the fistula so didn't really notice weakening of his right UE. Medications s/p kidney transplant caused shaking of body, worse in right UE so that also contributed to lack of use. Last November really started to notice how weak right arm was, when started trying to use arm more then started to experience pain in top of shoulder. Fistula removed 4 weeks ago, noticing warming of left hand and improved sensation, has been doing squeezing exercises with hand and wall slide ex in shower. When gets to arm into certain positions noting upper arm region arm starts shaking. Can 't use arm for eating, reaching behind back or across her body. Still some tingling in hand. 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 Fistula was removed per recommendation Future Testing and Treatments Planned EMG in 3 months after PT complete Developmental History Developmental History patient left handed Treatment Goals Patient/Caregiver Goals improve right UE funciton Prior Functional Status Baseline Function- ADL's Independent Baseline Function- Mobility Independent Baseline Function- Work/School retired Baseline Function- Recreation/Hobbies wood turning and gardening without difficulty Current Functional Impairments (Reported) Functional Limitations- ADL's minimal ability to use right UE Functional Limitations- Recreation/ unable to use right UE for Hobbies gardening, wood turning due to weakness and paoin PT-OP-C Subjective Start: 06/16/22 08:15 Freq: Status: Active Protocol: Document 06/23/22 09:45 DCW (Rec: 06/23/22 10:28 DCW [id number]) OP-PT Subjective Patient Comments Patient Comments Pt admits he was tired following his last visit, but it seems to be helping a little. PT-OP-H Neuro Start: 06/16/22 08:15 Freq: Status: Active Protocol: Document 06/16/22 09:28 SAK (Rec: 06/16/22 09:56 SAK [id number]) Sensation Evaluation Gross Sensation Gross Sensation Right UE Impaired Sensation Description Numbness,Tingling Deep Tendon Reflex & Clonus Assessment Deep Tendon Reflex Right Tricep Deep Tendon Reflex 0 Absent PT-OP-J Posture/Palpation/Skin Start: 06/16/22 08:15 Freq: Status: Active Protocol: Document 06/16/22 09:28 SAK (Rec: 06/16/22 09:56 SAK [id number]) Posture Evaluation Position Sitting Head/C-Spine Posture Forward Head T-Spine Posture Increased Kyphosis Shoulder Posture (L) Rounded,(R) Rounded Scapula Posture (L) Protracted,(R) Protracted Arm Posture (L) Internally Rotated,(R) Internally Rotated PT-OP-K Range of Motion Start: 06/16/22 08:15 Freq: Status: Active Protocol: Document 06/16/22 09:28 SAK (Rec: 06/16/22 09:56 SAK [id number]) Shoulder Goniometric Range of Motion Shoulder Right Active Shoulder ROM WFL No Testing Position Sitting Flexion 80 Extension 25 Abduction 95 Horizontal Abduction 60 Horizontal Adduction 20 External Rotation at 45 degrees 50 Abduction External Rotation at 0 degrees Abduction 45 Internal Rotation Behind Back (text) lateral hip Left Active Shoulder ROM WFL Yes Shoulder ROM Limitations Shoulder ROM Limitations Soft Tissue Tightness,Muscle Weakness,Pain Elbow/Forearm Range of Motion Elbow/Forearm Right Active Supination (degrees) 65 Left Active Elbow/Forearm ROM WFL Yes Wrist Goniometric Range of Motion Wrist Right Flexion Active (degrees) 20 Flexion Passive (degrees) 60 Extension Active (degrees) 25 Extension Passive (degrees) 40 Ulnar Deviation Active (degrees) 35 Radial Deviation Active (degrees) 5 Left Wrist ROM WFL Yes ROM Limitations Wrist Limitations of Range of Motion Muscle Weakness PT-OP-M Strength Start: 06/16/22 08:15 Freq: Status: Active Protocol: Document 06/16/22 08:16 SAK (Rec: 06/16/22 09:05 SAK [id number]) Shoulder Strength Shoulder Manual Muscle Testing Right Flexion 2+ Poor+ Extension 4- Good- Abduction (C5) 2+ Poor+ External Rotation 4 Good Internal Rotation 4- Good- Elbow/Forearm Strength Elbow and Forearm Manual Muscle Testing Right Flexion (C6) 2+ Poor+ Extension (C7) 4 Good Pronation 4 Good Supination 3- Fair- Wrist Strength Wrist Manual Muscle Testing Right Flexion (C7) 3- Fair- Extension (C6) 4- Good- Ulnar Deviation 4 Good Radial Deviation 3- Fair- Left Flexion (C7) 5 Normal Extension (C6) 5 Normal Ulnar Deviation 5 Normal Radial Deviation 5 Normal Finger/Thumb Strength Finger Manual Muscle Testing Right Flexion (fingers C8) 3- Fair- Extension (thumb C8) 4- Good- Adduction 3+ Fair+ Abduction (fingers T1) 4- Good- Left Flexion (fingers C8) 5 Normal Extension (thumb C8) 5 Normal Adduction 5 Normal Abduction (fingers T1) 5 Normal Hand Insurance Follow Up Rep/Pinch Strength Hand Dominance Hand Dominance Left Hand Strength Left Insurance Follow Up Rep (lbs) 81 Tip Pinch (lbs) 26 Right Insurance Follow Up Rep (lbs) 19 Tip Pinch (lbs) 17 PT-OP-Q Treatments Start: 06/16/22 08:15 Freq: Status: Active Protocol: Document 06/23/22 09:45 DCW (Rec: 06/23/22 10:28 DCW [id number]) Cardio Equipment Upper Body Ergometer (UBE) Duration (Minutes) 5 RPM 60 Seat Position 15 Height 4 Other 2.5' fwd, 2.5' bkwd Therapeutic Exercises Supine Exercises Biceps Curl Supine Exercise Name Supine biceps curl Side bilateral Equipment Used PVC /c Lv 1 T-band resistance Serratus Punch Supine Exercise Name Serratus Punch Side bilateral Equipment Used PVC Flexion Supine Exercise Name Shoulder flexion AAROM /c PVC Side bilateral Sidelying Exercises External Rotation Sidelying Exercise Name ER Side right Resistance 3# Sitting Exercises T-Bar Sitting Exercise Name Bending, Twisting, Circles Side bilateral Resistance Red T-bar Supination/Pronation Sitting Exercise Name Sup/Pronation Side right Resistance High-photonics engineer on hammer PROM Sitting Exercise Name Pulleys - Flexion, Abduction Standing Exercises Pec Stretch Standing Exercise Name Corner pec stretch Side bilateral Rows Standing Exercise Name Rows Side bilateral Resistance Lv 3 Adduction Standing Exercise Name Shoulder Adduction Side bilateral Resistance Lv 3 Extension Standing Exercise Name Shoulder Extension Side bilateral Resistance Lv 3 Flexion Standing Exercise Name Shoulder Flexion Side bilateral Resistance 3# Comments Mirror to limit compensation Abduction Standing Exercise Name Shoulder Abduction Side bilateral Resistance 3# Comments Mirror to limit compensation Other Exercises Resisted Ambulation Other Exercise Name Resisted UE side-stepping Resistance Red PT-OP-T Assessment and Plan Start: 06/16/22 08:15 Freq: Status: Active Protocol: Document 06/23/22 09:45 DCW (Rec: 06/23/22 10:28 DCW [id number]) Physical Therapy Assessment Impairments Impairments Functional Activities,Pain,ROM ,Strength Goals Four Impairment swelling right UE Short Term Goal (STG) Instruct patient in all aspects of edema management to include self-massage, exercise, use of compression STG Duration 08/01/22 Optometrist Assistant Goal (LTG) Decrease edema right UE to within 1 cm of left UE measurements for improved function right UE LTG Duration 09/16/22 Three Impairment pain right shoulder Impairment signs and symptoms of impingement with pain as high as 8/10 with elevation of arm Optometrist Assistant Goal (LTG) Decrease pain and impingment symptoms right shoulder to allow him to return to full active use of right UE with pain no greater than 3/10 LTG Duration 09/16/22 Two Impairment weakness throughout right UE, decreased shoulder flexibility Short Term Goal (STG) instruct in HEP for purposes of right UE strengthening and flexibility STG Duration 08/01/22 Optometrist Assistant Goal (LTG) Patient to be independent and compliant with HEP and demonstrate ROM WFL, and improve strength to within 1/2 grade of left and photonics engineer and pinch strength within 10# of left LTG Duration 09/16/22 One Impairment impaired function right UE Impairment Quickdash disability index score 50% Short Term Goal (STG) Improve score to at least 70% STG Duration 08/01/22 Optometrist Assistant Goal (LTG) Improve score to at least 85% as measure of improved functional use right UE with patient reporting ability to return to reaching all directions with his arm especially overhead and behind his back and return to gardening and wood turning. LTG Duration 09/16/22 Assessment Summary Assessment Pt most significantly limited with elbow flexion, worked more today on minimal or no resistance with biceps curls, which pt seemed to tolerate better. Pt showing some improvement in shoulder strength after good compliance with HEP Physical Therapy Plan Frequency and Duration Frequency of Treatment 2x/Week Duration of treatment (weeks) 12 Plan of Care Start Date 06/16/22 Plan of Care End Date 09/16/22 Therapeutic Interventions Therapeutic Interventions Home Exercise Program,Manual Therapy,Patient/Caregiver Education,Self-Care/Home Management,Soft Tissue Mobilization,Taping, Therapeutic Activities, Therapeutic Exercises Modalities Cold Pack/Ice Massage,Electric Stimulation,Hot Packs, Infrared Therapy,Iontophoresis ,Ultrasound Next Visit Focus/Plan Next Note Type Treatment Note Next Visit Plan Review HEP, progress ther ex for postural correction/scap stab, right UE strengthening utilizing gravity assisted, gravity eliminated, anti- gravity AROM, and resisted ex as indicated. Issue updated HO including adding supine shoulder AROM and flexibility discussed today but not added to HEP. Consider MLD, further discussion of compression, consider use of kinesiotape for edema management and improved biceps and brachioradialis function.
--- NOTE | 2022-06-27 12:18 | PT.OTN ---
Current Diagnoses Polyneuropathy, unspecified (06/27/22) Abnormal posture (06/27/22) Weakness (06/27/22) Edema, unspecified (06/27/22) Physical Therapy Treatment Note PT-OP-A Visit Information Start: 06/16/22 08:15 Freq: Status: Active Protocol: Document 06/27/22 10:32 SAK (Rec: 06/27/22 11:17 SAK [id number]) Out-Patient Physical Therapy Visit Information Visit Information Visit Type Treatment Note Visit Start Time 10:32 Visit Stop Time 11:15 Total Visit Minutes 43 Visit Number 4 Number of AQUATICS MANAGER Visits 0 Evaluation Information Evaluation Date 06/16/22 Precautions Precautions s/p kidney transplant PT-OP-B Current Condition Start: 06/16/22 08:15 Freq: Status: Active Protocol: Document 06/16/22 08:16 SAK (Rec: 06/16/22 09:05 SAK [id number]) Current Condition History of Current Condition Onset Date 06/21 History of Current Condition Had fistula put in right upper arm for dialysis 06/21/20, and had kidney transplant 07/23 . Had numbness in hand and wrist immediately after fistula put in, and patient decreased use of right UE due to the fistula so didn't really notice weakening of his right UE. Medications s/p kidney transplant caused shaking of body, worse in right UE so that also contributed to lack of use. Last November really started to notice how weak right arm was, when started trying to use arm more then started to experience pain in top of shoulder. Fistula removed 4 weeks ago, noticing warming of left hand and improved sensation, has been doing squeezing exercises with hand and wall slide ex in shower. When gets to arm into certain positions noting upper arm region arm starts shaking. Can 't use arm for eating, reaching behind back or across her body. Still some tingling in hand. 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 Fistula was removed per recommendation Future Testing and Treatments Planned EMG in 3 months after PT complete Developmental History Developmental History patient left handed Treatment Goals Patient/Caregiver Goals improve right UE funciton Prior Functional Status Baseline Function- ADL's Independent Baseline Function- Mobility Independent Baseline Function- Work/School retired Baseline Function- Recreation/Hobbies wood turning and gardening without difficulty Current Functional Impairments (Reported) Functional Limitations- ADL's minimal ability to use right UE Functional Limitations- Recreation/ unable to use right UE for Hobbies gardening, wood turning due to weakness and paoin PT-OP-C Subjective Start: 06/16/22 08:15 Freq: Status: Active Protocol: Document 06/27/22 10:32 SAK (Rec: 06/27/22 11:17 [facility] [id number]) OP-PT Subjective Patient Comments Patient Comments Able to work a little in his shop now. Wearing compression sleeve day and night, has rolled down on top due to silicon dots irritating his skin. PT-OP-H Neuro Start: 06/16/22 08:15 Freq: Status: Active Protocol: Document 06/16/22 09:28 SAK (Rec: 06/16/22 09:56 [facility] [id number]) Sensation Evaluation Gross Sensation Gross Sensation Right UE Impaired Sensation Description Numbness,Tingling Deep Tendon Reflex & Clonus Assessment Deep Tendon Reflex Right Tricep Deep Tendon Reflex 0 Absent PT-OP-J Posture/Palpation/Skin Start: 06/16/22 08:15 Freq: Status: Active Protocol: Document 06/16/22 09:28 SAK (Rec: 06/16/22 09:56 [facility] [id number]) Posture Evaluation Position Sitting Head/C-Spine Posture Forward Head T-Spine Posture Increased Kyphosis Shoulder Posture (L) Rounded,(R) Rounded Scapula Posture (L) Protracted,(R) Protracted Arm Posture (L) Internally Rotated,(R) Internally Rotated PT-OP-K Range of Motion Start: 06/16/22 08:15 Freq: Status: Active Protocol: Document 06/16/22 09:28 SAK (Rec: 06/16/22 09:56 [facility] [id number]) Shoulder Goniometric Range of Motion Shoulder Right Active Shoulder ROM WFL No Testing Position Sitting Flexion 80 Extension 25 Abduction 95 Horizontal Abduction 60 Horizontal Adduction 20 External Rotation at 45 degrees 50 Abduction External Rotation at 0 degrees Abduction 45 Internal Rotation Behind Back (text) lateral hip Left Active Shoulder ROM WFL Yes Shoulder ROM Limitations Shoulder ROM Limitations Soft Tissue Tightness,Muscle Weakness,Pain Elbow/Forearm Range of Motion Elbow/Forearm Right Active Supination (degrees) 65 Left Active Elbow/Forearm ROM WFL Yes Wrist Goniometric Range of Motion Wrist Right Flexion Active (degrees) 20 Flexion Passive (degrees) 60 Extension Active (degrees) 25 Extension Passive (degrees) 40 Ulnar Deviation Active (degrees) 35 Radial Deviation Active (degrees) 5 Left Wrist ROM WFL Yes ROM Limitations Wrist Limitations of Range of Motion Muscle Weakness PT-OP-M Strength Start: 06/16/22 08:15 Freq: Status: Active Protocol: Document 06/16/22 08:16 [facility] (Rec: 06/16/22 09:05 [facility] [id number]) Shoulder Strength Shoulder Manual Muscle Testing Right Flexion 2+ Poor+ Extension 4- Good- Abduction (C5) 2+ Poor+ External Rotation 4 Good Internal Rotation 4- Good- Elbow/Forearm Strength Elbow and Forearm Manual Muscle Testing Right Flexion (C6) 2+ Poor+ Extension (C7) 4 Good Pronation 4 Good Supination 3- Fair- Wrist Strength Wrist Manual Muscle Testing Right Flexion (C7) 3- Fair- Extension (C6) 4- Good- Ulnar Deviation 4 Good Radial Deviation 3- Fair- Left Flexion (C7) 5 Normal Extension (C6) 5 Normal Ulnar Deviation 5 Normal Radial Deviation 5 Normal Finger/Thumb Strength Finger Manual Muscle Testing Right Flexion (fingers C8) 3- Fair- Extension (thumb C8) 4- Good- Adduction 3+ Fair+ Abduction (fingers T1) 4- Good- Left Flexion (fingers C8) 5 Normal Extension (thumb C8) 5 Normal Adduction 5 Normal Abduction (fingers T1) 5 Normal Hand Spot Washer/Pinch Strength Hand Dominance Hand Dominance Left Hand Strength Left Spot Washer (lbs) 81 Tip Pinch (lbs) 26 Right Spot Washer (lbs) 19 Tip Pinch (lbs) 17 PT-OP-Q Treatments Start: 06/16/22 08:15 Freq: Status: Active Protocol: Document 06/27/22 10:32 [facility] (Rec: 06/27/22 11:17 [facility] [id number]) Cardio Equipment Upper Body Ergometer (UBE) Duration (Minutes) 5 RPM 60 Seat Position 15 Height 4 Other 2.5' fwd, 2.5' bkwd Therapeutic Exercises Supine Exercises pec stretch Reps/Minutes 30 sec x 2 Biceps Curl Supine Exercise Name Supine biceps curl Side bilateral Equipment Used PVC /c Lv 1 T-band resistance Serratus Punch Supine Exercise Name Serratus Punch Side bilateral Equipment Used PVC Flexion Supine Exercise Name Shoulder flexion AAROM /c PVC Side bilateral Sitting Exercises eccentric biceps Reps/Minutes 10x Comments using opp hand to assist PRN T-Bar Sitting Exercise Name Bending, Twisting, Circles Side bilateral Resistance Red T-bar PROM Sitting Exercise Name Pulleys - Flexion, Abduction Standing Exercises External Rotation Standing Exercise Name ER Side right Resistance Lv 3 Rows Standing Exercise Name Rows Side bilateral Resistance Lv 3 Adduction Standing Exercise Name Shoulder Adduction Side bilateral Resistance Lv 3 Extension Standing Exercise Name Shoulder Extension Side bilateral Resistance Lv 3 Flexion Standing Exercise Name Shoulder Flexion Side bilateral Resistance 3# Comments Mirror to limit compensation Abduction Standing Exercise Name Shoulder Abduction Side bilateral Resistance 3# Comments Mirror to limit compensation Other Exercises Resisted Ambulation Other Exercise Name Resisted UE side-stepping Resistance Red Manual Therapy Treatment Soft Tissue Mobilization incision Mobilization Type Myofascial Release,Strumming Intensity/Depth Moderate Body Position Sitting bicep, brachiorad Mobilization Type Myofascial Release,Strumming Intensity/Depth Moderate Body Position Sitting Self-Care/Home Management Treatment Education Other Education patient advised to take compression off at night, just wear during day, don't fold down at top PT-OP-T Assessment and Plan Start: 06/16/22 08:15 Freq: Status: Active Protocol: Document 06/27/22 10:32 [facility] (Rec: 06/27/22 11:17 [facility] [id number]) Physical Therapy Assessment Goals Four Impairment swelling right UE Short Term Goal (STG) Instruct patient in all aspects of edema management to include self-massage, exercise, use of compression STG Duration 08/01/22 Nursing Home Goal (LTG) Decrease edema right UE to within 1 cm of left UE measurements for improved function right UE LTG Duration 09/16/22 Three Impairment pain right shoulder Impairment signs and symptoms of impingement with pain as high as 8/10 with elevation of arm Nursing Home Goal (LTG) Decrease pain and impingment symptoms right shoulder to allow him to return to full active use of right UE with pain no greater than 3/10 LTG Duration 09/16/22 Two Impairment weakness throughout right UE, decreased shoulder flexibility Short Term Goal (STG) instruct in HEP for purposes of right UE strengthening and flexibility STG Duration 08/01/22 Nursing Home Goal (LTG) Patient to be independent and compliant with HEP and demonstrate ROM WFL, and improve strength to within 1/2 grade of left and backpackers manager and pinch strength within 10# of left LTG Duration 09/16/22 One Impairment impaired function right UE Impairment Quickdash disability index score 50% Short Term Goal (STG) Improve score to at least 70% STG Duration 08/01/22 Nursing Home Goal (LTG) Improve score to at least 85% as measure of improved functional use right UE with patient reporting ability to return to reaching all directions with his arm especially overhead and behind his back and return to gardening and wood turning. LTG Duration 09/16/22 Assessment Summary Assessment improving functional use right UE especially at shoulders, first few reps eccentric elbow flex felt contraction, quickly fatigued, instructed to add to HEP. May benefit from e-stim to elbow flexors. Physical Therapy Plan Frequency and Duration Frequency of Treatment 2x/Week Duration of treatment (weeks) 12 Plan of Care Start Date 06/16/22 Plan of Care End Date 09/16/22 Therapeutic Interventions Therapeutic Interventions Home Exercise Program,Manual Therapy,Patient/Caregiver Education,Self-Care/Home Management,Soft Tissue Mobilization,Taping, Therapeutic Activities, Therapeutic Exercises Modalities Cold Pack/Ice Massage,Electric Stimulation,Hot Packs, Infrared Therapy,Iontophoresis ,Ultrasound Next Visit Focus/Plan Next Note Type Treatment Note Next Visit Plan Continue ther ex for postural correction, scap stab, right UE strengthening. Consider muscle stim to biceps, brachioradialis, kinesiotape for biceps activation.
--- NOTE | 2022-06-30 15:16 | PT.OTN ---
Current Diagnoses Polyneuropathy, unspecified (06/30/22) Abnormal posture (06/30/22) Weakness (06/30/22) Edema, unspecified (06/30/22) Physical Therapy Treatment Note PT-OP-A Visit Information Start: 06/16/22 08:15 Freq: Status: Active Protocol: Document 06/30/22 14:30 DCW (Rec: 06/30/22 15:15 DCW [id number]) Out-Patient Physical Therapy Visit Information Visit Information Visit Type Treatment Note Visit Start Time 14:30 Visit Stop Time 15:15 Total Visit Minutes 45 Visit Number 5 Number of DOCUMENTATION LIAISON Visits 0 Evaluation Information Evaluation Date 06/16/22 Precautions Precautions s/p kidney transplant PT-OP-B Current Condition Start: 06/16/22 08:15 Freq: Status: Active Protocol: Document 06/16/22 08:16 SAK (Rec: 06/16/22 09:05 SAK [id number]) Current Condition History of Current Condition Onset Date 06/21 History of Current Condition Had fistula put in right upper arm for dialysis 06/21/20, and had kidney transplant 07/23 . Had numbness in hand and wrist immediately after fistula put in, and patient decreased use of right UE due to the fistula so didn't really notice weakening of his right UE. Medications s/p kidney transplant caused shaking of body, worse in right UE so that also contributed to lack of use. Last November really started to notice how weak right arm was, when started trying to use arm more then started to experience pain in top of shoulder. Fistula removed 4 weeks ago, noticing warming of left hand and improved sensation, has been doing squeezing exercises with hand and wall slide ex in shower. When gets to arm into certain positions noting upper arm region arm starts shaking. Can 't use arm for eating, reaching behind back or across her body. Still some tingling in hand. 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 Fistula was removed per recommendation Future Testing and Treatments Planned EMG in 3 months after PT complete Developmental History Developmental History patient left handed Treatment Goals Patient/Caregiver Goals improve right UE funciton Prior Functional Status Baseline Function- ADL's Independent Baseline Function- Mobility Independent Baseline Function- Work/School retired Baseline Function- Recreation/Hobbies wood turning and gardening without difficulty Current Functional Impairments (Reported) Functional Limitations- ADL's minimal ability to use right UE Functional Limitations- Recreation/ unable to use right UE for Hobbies gardening, wood turning due to weakness and paoin PT-OP-C Subjective Start: 06/16/22 08:15 Freq: Status: Active Protocol: Document 06/30/22 14:30 DCW (Rec: 06/30/22 15:15 DCW [id number]) OP-PT Subjective Patient Comments Patient Comments Pt reports he has been working more on elbow flexion, feels it is getting a little better, but is still quite limited. PT-OP-H Neuro Start: 06/16/22 08:15 Freq: Status: Active Protocol: Document 06/16/22 09:28 SAK (Rec: 06/16/22 09:56 SAK [id number]) Sensation Evaluation Gross Sensation Gross Sensation Right UE Impaired Sensation Description Numbness,Tingling Deep Tendon Reflex & Clonus Assessment Deep Tendon Reflex Right Tricep Deep Tendon Reflex 0 Absent PT-OP-J Posture/Palpation/Skin Start: 06/16/22 08:15 Freq: Status: Active Protocol: Document 06/16/22 09:28 SAK (Rec: 06/16/22 09:56 SAK [id number]) Posture Evaluation Position Sitting Head/C-Spine Posture Forward Head T-Spine Posture Increased Kyphosis Shoulder Posture (L) Rounded,(R) Rounded Scapula Posture (L) Protracted,(R) Protracted Arm Posture (L) Internally Rotated,(R) Internally Rotated PT-OP-K Range of Motion Start: 06/16/22 08:15 Freq: Status: Active Protocol: Document 06/16/22 09:28 SAK (Rec: 06/16/22 09:56 SAK [id number]) Shoulder Goniometric Range of Motion Shoulder Right Active Shoulder ROM WFL No Testing Position Sitting Flexion 80 Extension 25 Abduction 95 Horizontal Abduction 60 Horizontal Adduction 20 External Rotation at 45 degrees 50 Abduction External Rotation at 0 degrees Abduction 45 Internal Rotation Behind Back (text) lateral hip Left Active Shoulder ROM WFL Yes Shoulder ROM Limitations Shoulder ROM Limitations Soft Tissue Tightness,Muscle Weakness,Pain Elbow/Forearm Range of Motion Elbow/Forearm Right Active Supination (degrees) 65 Left Active Elbow/Forearm ROM WFL Yes Wrist Goniometric Range of Motion Wrist Right Flexion Active (degrees) 20 Flexion Passive (degrees) 60 Extension Active (degrees) 25 Extension Passive (degrees) 40 Ulnar Deviation Active (degrees) 35 Radial Deviation Active (degrees) 5 Left Wrist ROM WFL Yes ROM Limitations Wrist Limitations of Range of Motion Muscle Weakness PT-OP-M Strength Start: 06/16/22 08:15 Freq: Status: Active Protocol: Document 06/16/22 08:16 SAK (Rec: 06/16/22 09:05 SAK [id number]) Shoulder Strength Shoulder Manual Muscle Testing Right Flexion 2+ Poor+ Extension 4- Good- Abduction (C5) 2+ Poor+ External Rotation 4 Good Internal Rotation 4- Good- Elbow/Forearm Strength Elbow and Forearm Manual Muscle Testing Right Flexion (C6) 2+ Poor+ Extension (C7) 4 Good Pronation 4 Good Supination 3- Fair- Wrist Strength Wrist Manual Muscle Testing Right Flexion (C7) 3- Fair- Extension (C6) 4- Good- Ulnar Deviation 4 Good Radial Deviation 3- Fair- Left Flexion (C7) 5 Normal Extension (C6) 5 Normal Ulnar Deviation 5 Normal Radial Deviation 5 Normal Finger/Thumb Strength Finger Manual Muscle Testing Right Flexion (fingers C8) 3- Fair- Extension (thumb C8) 4- Good- Adduction 3+ Fair+ Abduction (fingers T1) 4- Good- Left Flexion (fingers C8) 5 Normal Extension (thumb C8) 5 Normal Adduction 5 Normal Abduction (fingers T1) 5 Normal Hand Nuclear Fuels Reclamation Engineer/Pinch Strength Hand Dominance Hand Dominance Left Hand Strength Left Nuclear Fuels Reclamation Engineer (lbs) 81 Tip Pinch (lbs) 26 Right Nuclear Fuels Reclamation Engineer (lbs) 19 Tip Pinch (lbs) 17 PT-OP-Q Treatments Start: 06/16/22 08:15 Freq: Status: Active Protocol: Document 06/30/22 14:30 DCW (Rec: 06/30/22 15:15 DCW [id number]) Cardio Equipment Upper Body Ergometer (UBE) Duration (Minutes) 5 RPM 60 Seat Position 15 Height 4 Other 2.5' fwd, 2.5' bkwd Therapeutic Exercises Supine Exercises PROM Supine Exercise Name Therapist-driven PROM - Elbow flexion, forearm pronation/ supination Side right pec stretch Reps/Minutes 30 sec x 2 Serratus Punch Supine Exercise Name Serratus Punch Side bilateral Equipment Used PVC Flexion Supine Exercise Name Shoulder flexion AAROM /c PVC Side bilateral Sitting Exercises Biceps curl Sitting Exercise Name Biceps curl Side right Resistance 1# T-Bar Sitting Exercise Name Bending, Twisting, Circles Side bilateral Resistance Red T-bar Supination/Pronation Sitting Exercise Name Sup/Pronation Side right Resistance Hammer PROM Sitting Exercise Name Pulleys - Flexion, Abduction Standing Exercises External Rotation Standing Exercise Name ER Side right Resistance Green Rows Standing Exercise Name Rows Side bilateral Resistance Green Adduction Standing Exercise Name Shoulder Adduction Side bilateral Resistance Green Extension Standing Exercise Name Shoulder Extension Side bilateral Resistance Green Flexion Standing Exercise Name Shoulder Flexion Side bilateral Resistance 3# Comments Mirror to limit compensation Abduction Standing Exercise Name Shoulder Abduction Side bilateral Resistance 3# Comments Mirror to limit compensation Other Exercises Resisted Ambulation Other Exercise Name Resisted UE side-stepping Resistance Red PT-OP-T Assessment and Plan Start: 06/16/22 08:15 Freq: Status: Active Protocol: Document 06/30/22 14:30 DCW (Rec: 06/30/22 15:15 DCW [id number]) Physical Therapy Assessment Impairments Impairments Functional Activities,Pain,ROM ,Strength Goals Four Impairment swelling right UE Short Term Goal (STG) Instruct patient in all aspects of edema management to include self-massage, exercise, use of compression STG Duration 08/01/22 Care Home Goal (LTG) Decrease edema right UE to within 1 cm of left UE measurements for improved function right UE LTG Duration 09/16/22 Three Impairment pain right shoulder Impairment signs and symptoms of impingement with pain as high as 8/10 with elevation of arm Behavior Therapist Goal (LTG) Decrease pain and impingment symptoms right shoulder to allow him to return to full active use of right UE with pain no greater than 3/10 LTG Duration 09/16/22 Two Impairment weakness throughout right UE, decreased shoulder flexibility Short Term Goal (STG) instruct in HEP for purposes of right UE strengthening and flexibility STG Duration 08/01/22 Behavior Therapist Goal (LTG) Patient to be independent and compliant with HEP and demonstrate ROM WFL, and improve strength to within 1/2 grade of left and manufacturing laborer and pinch strength within 10# of left LTG Duration 09/16/22 One Impairment impaired function right UE Impairment Quickdash disability index score 50% Short Term Goal (STG) Improve score to at least 70% STG Duration 08/01/22 Behavior Therapist Goal (LTG) Improve score to at least 85% as measure of improved functional use right UE with patient reporting ability to return to reaching all directions with his arm especially overhead and behind his back and return to gardening and wood turning. LTG Duration 09/16/22 Assessment Summary Assessment Pt showing some very good improvement, able to perform biceps curl against gravity, even with a 1# weight, which is significant progress compared to just last week. Additionally, pt able to do sup/pro using a hammer without choking up on the handle. Continue to work on passive and active shoulder/elbow ROM. Physical Therapy Plan Frequency and Duration Frequency of Treatment 2x/Week Duration of treatment (weeks) 12 Plan of Care Start Date 06/16/22 Plan of Care End Date 09/16/22 Therapeutic Interventions Therapeutic Interventions Home Exercise Program,Manual Therapy,Patient/Caregiver Education,Self-Care/Home Management,Soft Tissue Mobilization,Taping, Therapeutic Activities, Therapeutic Exercises Modalities Cold Pack/Ice Massage,Electric Stimulation,Hot Packs, Infrared Therapy,Iontophoresis ,Ultrasound Next Visit Focus/Plan Next Note Type Treatment Note Next Visit Plan Continue ther ex for postural correction, scap stab, right UE strengthening. Consider muscle stim to biceps, brachioradialis, kinesiotape for biceps activation.
--- NOTE | 2022-07-05 15:12 | PT.OTN ---
Current Diagnoses Polyneuropathy, unspecified (07/05/22) Abnormal posture (07/05/22) Weakness (07/05/22) Edema, unspecified (07/05/22) Physical Therapy Treatment Note PT-OP-A Visit Information Start: 06/16/22 08:15 Freq: Status: Active Protocol: Document 07/05/22 14:30 DCW (Rec: 07/05/22 15:12 DCW [id number]) Out-Patient Physical Therapy Visit Information Visit Information Visit Type Treatment Note Visit Start Time 14:30 Visit Stop Time 15:15 Total Visit Minutes 45 Visit Number 6 Number of BOTTOM LOADER Visits 0 Evaluation Information Evaluation Date 06/16/22 Precautions Precautions s/p kidney transplant PT-OP-B Current Condition Start: 06/16/22 08:15 Freq: Status: Active Protocol: Document 06/16/22 08:16 SAK (Rec: 06/16/22 09:05 SAK [id number]) Current Condition History of Current Condition Onset Date 06/21 History of Current Condition Had fistula put in right upper arm for dialysis 06/21/20, and had kidney transplant 07/23 . Had numbness in hand and wrist immediately after fistula put in, and patient decreased use of right UE due to the fistula so didn't really notice weakening of his right UE. Medications s/p kidney transplant caused shaking of body, worse in right UE so that also contributed to lack of use. Last November really started to notice how weak right arm was, when started trying to use arm more then started to experience pain in top of shoulder. Fistula removed 4 weeks ago, noticing warming of left hand and improved sensation, has been doing squeezing exercises with hand and wall slide ex in shower. When gets to arm into certain positions noting upper arm region arm starts shaking. Can 't use arm for eating, reaching behind back or across her body. Still some tingling in hand. 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 Fistula was removed per recommendation Future Testing and Treatments Planned EMG in 3 months after PT complete Developmental History Developmental History patient left handed Treatment Goals Patient/Caregiver Goals improve right UE funciton Prior Functional Status Baseline Function- ADL's Independent Baseline Function- Mobility Independent Baseline Function- Work/School retired Baseline Function- Recreation/Hobbies wood turning and gardening without difficulty Current Functional Impairments (Reported) Functional Limitations- ADL's minimal ability to use right UE Functional Limitations- Recreation/ unable to use right UE for Hobbies gardening, wood turning due to weakness and paoin PT-OP-C Subjective Start: 06/16/22 08:15 Freq: Status: Active Protocol: Document 07/05/22 14:30 DCW (Rec: 07/05/22 15:12 DCW [id number]) OP-PT Subjective Patient Comments Patient Comments Pt reports that despite the slow process, he continues to note improved elbow flexion. PT-OP-H Neuro Start: 06/16/22 08:15 Freq: Status: Active Protocol: Document 06/16/22 09:28 SAK (Rec: 06/16/22 09:56 SAK [id number]) Sensation Evaluation Gross Sensation Gross Sensation Right UE Impaired Sensation Description Numbness,Tingling Deep Tendon Reflex & Clonus Assessment Deep Tendon Reflex Right Tricep Deep Tendon Reflex 0 Absent PT-OP-J Posture/Palpation/Skin Start: 06/16/22 08:15 Freq: Status: Active Protocol: Document 06/16/22 09:28 SAK (Rec: 06/16/22 09:56 SAK [id number]) Posture Evaluation Position Sitting Head/C-Spine Posture Forward Head T-Spine Posture Increased Kyphosis Shoulder Posture (L) Rounded,(R) Rounded Scapula Posture (L) Protracted,(R) Protracted Arm Posture (L) Internally Rotated,(R) Internally Rotated PT-OP-K Range of Motion Start: 06/16/22 08:15 Freq: Status: Active Protocol: Document 06/16/22 09:28 SAK (Rec: 06/16/22 09:56 SAK [id number]) Shoulder Goniometric Range of Motion Shoulder Right Active Shoulder ROM WFL No Testing Position Sitting Flexion 80 Extension 25 Abduction 95 Horizontal Abduction 60 Horizontal Adduction 20 External Rotation at 45 degrees 50 Abduction External Rotation at 0 degrees Abduction 45 Internal Rotation Behind Back (text) lateral hip Left Active Shoulder ROM WFL Yes Shoulder ROM Limitations Shoulder ROM Limitations Soft Tissue Tightness,Muscle Weakness,Pain Elbow/Forearm Range of Motion Elbow/Forearm Right Active Supination (degrees) 65 Left Active Elbow/Forearm ROM WFL Yes Wrist Goniometric Range of Motion Wrist Right Flexion Active (degrees) 20 Flexion Passive (degrees) 60 Extension Active (degrees) 25 Extension Passive (degrees) 40 Ulnar Deviation Active (degrees) 35 Radial Deviation Active (degrees) 5 Left Wrist ROM WFL Yes ROM Limitations Wrist Limitations of Range of Motion Muscle Weakness PT-OP-M Strength Start: 06/16/22 08:15 Freq: Status: Active Protocol: Document 06/16/22 08:16 [facility] (Rec: 06/16/22 09:05 [facility] [id number]) Shoulder Strength Shoulder Manual Muscle Testing Right Flexion 2+ Poor+ Extension 4- Good- Abduction (C5) 2+ Poor+ External Rotation 4 Good Internal Rotation 4- Good- Elbow/Forearm Strength Elbow and Forearm Manual Muscle Testing Right Flexion (C6) 2+ Poor+ Extension (C7) 4 Good Pronation 4 Good Supination 3- Fair- Wrist Strength Wrist Manual Muscle Testing Right Flexion (C7) 3- Fair- Extension (C6) 4- Good- Ulnar Deviation 4 Good Radial Deviation 3- Fair- Left Flexion (C7) 5 Normal Extension (C6) 5 Normal Ulnar Deviation 5 Normal Radial Deviation 5 Normal Finger/Thumb Strength Finger Manual Muscle Testing Right Flexion (fingers C8) 3- Fair- Extension (thumb C8) 4- Good- Adduction 3+ Fair+ Abduction (fingers T1) 4- Good- Left Flexion (fingers C8) 5 Normal Extension (thumb C8) 5 Normal Adduction 5 Normal Abduction (fingers T1) 5 Normal Hand Cs Associate/Pinch Strength Hand Dominance Hand Dominance Left Hand Strength Left Cs Associate (lbs) 81 Tip Pinch (lbs) 26 Right Cs Associate (lbs) 19 Tip Pinch (lbs) 17 PT-OP-Q Treatments Start: 06/16/22 08:15 Freq: Status: Active Protocol: Document 07/05/22 14:30 DCW (Rec: 07/05/22 15:12 DCW [id number]) Cardio Equipment Upper Body Ergometer (UBE) Duration (Minutes) 5 RPM 60 Seat Position 15 Height 4 Other 2.5' fwd, 2.5' bkwd Therapeutic Exercises Supine Exercises PROM Supine Exercise Name Therapist-driven PROM - Elbow flexion, forearm pronation/ supination Side right Sitting Exercises Biceps curl Sitting Exercise Name Biceps curl Side right Resistance 2# T-Bar Sitting Exercise Name Bending, Twisting, Circles Side bilateral Resistance Red T-bar PROM Sitting Exercise Name Pulleys - Flexion, Abduction Standing Exercises UE PNF D1/D2 Standing Exercise Name UE PNF D1/D2 Flexion Side bilateral Resistance 3# Comments quickly fatigued External Rotation Standing Exercise Name ER Side right Resistance Green Rows Standing Exercise Name Rows Side bilateral Resistance Green Adduction Standing Exercise Name Shoulder Adduction Side bilateral Resistance Green Extension Standing Exercise Name Shoulder Extension Side bilateral Resistance Green Flexion Standing Exercise Name Shoulder Flexion Side bilateral Resistance 3# Comments VCs to limit compensation Abduction Standing Exercise Name Shoulder Abduction Side bilateral Resistance 3# Comments VCs to limit compensation PT-OP-T Assessment and Plan Start: 06/16/22 08:15 Freq: Status: Active Protocol: Document 07/05/22 14:30 DCW (Rec: 07/05/22 15:12 DCW [id number]) Physical Therapy Assessment Impairments Impairments Functional Activities,Pain,ROM ,Strength Goals Four Impairment swelling right UE Short Term Goal (STG) Instruct patient in all aspects of edema management to include self-massage, exercise, use of compression STG Duration 08/01/22 Paper Novelty Maker Goal (LTG) Decrease edema right UE to within 1 cm of left UE measurements for improved function right UE LTG Duration 09/16/22 Three Impairment pain right shoulder Impairment signs and symptoms of impingement with pain as high as 8/10 with elevation of arm Paper Novelty Maker Goal (LTG) Decrease pain and impingment symptoms right shoulder to allow him to return to full active use of right UE with pain no greater than 3/10 LTG Duration 09/16/22 Two Impairment weakness throughout right UE, decreased shoulder flexibility Short Term Goal (STG) instruct in HEP for purposes of right UE strengthening and flexibility STG Duration 08/01/22 Care Home Goal (LTG) Patient to be independent and compliant with HEP and demonstrate ROM WFL, and improve strength to within 1/2 grade of left and correctional probation officer and pinch strength within 10# of left LTG Duration 09/16/22 One Impairment impaired function right UE Impairment Quickdash disability index score 50% Short Term Goal (STG) Improve score to at least 70% STG Duration 08/01/22 Care Home Goal (LTG) Improve score to at least 85% as measure of improved functional use right UE with patient reporting ability to return to reaching all directions with his arm especially overhead and behind his back and return to gardening and wood turning. LTG Duration 09/16/22 Assessment Summary Assessment Pt improving function in shoulder and elbow, increasing resistance with biceps curls, still fatigues very quickly. Physical Therapy Plan Frequency and Duration Frequency of Treatment 2x/Week Duration of treatment (weeks) 12 Plan of Care Start Date 06/16/22 Plan of Care End Date 09/16/22 Therapeutic Interventions Therapeutic Interventions Home Exercise Program,Manual Therapy,Patient/Caregiver Education,Self-Care/Home Management,Soft Tissue Mobilization,Taping, Therapeutic Activities, Therapeutic Exercises Modalities Cold Pack/Ice Massage,Electric Stimulation,Hot Packs, Infrared Therapy,Iontophoresis ,Ultrasound Next Visit Focus/Plan Next Note Type Treatment Note Next Visit Plan Continue ther ex for postural correction, scap stab, right UE strengthening. Consider muscle stim to biceps, brachioradialis, kinesiotape for biceps activation.
--- NOTE | 2022-07-07 16:44 | PT.OTN ---
Current Diagnoses Polyneuropathy, unspecified (07/07/22) Abnormal posture (07/07/22) Weakness (07/07/22) Edema, unspecified (07/07/22) Physical Therapy Treatment Note PT-OP-A Visit Information Start: 06/16/22 08:15 Freq: Status: Active Protocol: Document 07/07/22 08:15 SAK (Rec: 07/07/22 09:01 [facility] [id number]) Out-Patient Physical Therapy Visit Information Visit Information Visit Type Treatment Note Visit Start Time 08:15 Visit Stop Time 09:00 Total Visit Minutes 45 Visit Number 7 Number of COMPUTER TESTER Visits 0 Evaluation Information Evaluation Date 06/16/22 Precautions Precautions s/p kidney transplant PT-OP-B Current Condition Start: 06/16/22 08:15 Freq: Status: Active Protocol: Document 06/16/22 08:16 SAK (Rec: 06/16/22 09:05 [facility] [id number]) Current Condition History of Current Condition Onset Date 06/21 History of Current Condition Had fistula put in right upper arm for dialysis 06/21/20, and had kidney transplant 07/23 . Had numbness in hand and wrist immediately after fistula put in, and patient decreased use of right UE due to the fistula so didn't really notice weakening of his right UE. Medications s/p kidney transplant caused shaking of body, worse in right UE so that also contributed to lack of use. Last November really started to notice how weak right arm was, when started trying to use arm more then started to experience pain in top of shoulder. Fistula removed 4 weeks ago, noticing warming of left hand and improved sensation, has been doing squeezing exercises with hand and wall slide ex in shower. When gets to arm into certain positions noting upper arm region arm starts shaking. Can 't use arm for eating, reaching behind back or across her body. Still some tingling in hand. 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 Fistula was removed per recommendation Future Testing and Treatments Planned EMG in 3 months after PT complete Developmental History Developmental History patient left handed Treatment Goals Patient/Caregiver Goals improve right UE funciton Prior Functional Status Baseline Function- ADL's Independent Baseline Function- Mobility Independent Baseline Function- Work/School retired Baseline Function- Recreation/Hobbies wood turning and gardening without difficulty Current Functional Impairments (Reported) Functional Limitations- ADL's minimal ability to use right UE Functional Limitations- Recreation/ unable to use right UE for Hobbies gardening, wood turning due to weakness and paoin PT-OP-C Subjective Start: 06/16/22 08:15 Freq: Status: Active Protocol: Document 07/07/22 08:15 [facility] (Rec: 07/07/22 09:01 [facility] [id number]) OP-PT Subjective Patient Comments Patient Comments States he is able to do more with his arm, still unable to feed himself, tried and dribbled. PT-OP-H Neuro Start: 06/16/22 08:15 Freq: Status: Active Protocol: Document 06/16/22 09:28 [facility] (Rec: 06/16/22 09:56 [facility] [id number]) Sensation Evaluation Gross Sensation Gross Sensation Right UE Impaired Sensation Description Numbness,Tingling Deep Tendon Reflex & Clonus Assessment Deep Tendon Reflex Right Tricep Deep Tendon Reflex 0 Absent PT-OP-J Posture/Palpation/Skin Start: 06/16/22 08:15 Freq: Status: Active Protocol: Document 06/16/22 09:28 [facility] (Rec: 06/16/22 09:56 [facility] [id number]) Posture Evaluation Position Sitting Head/C-Spine Posture Forward Head T-Spine Posture Increased Kyphosis Shoulder Posture (L) Rounded,(R) Rounded Scapula Posture (L) Protracted,(R) Protracted Arm Posture (L) Internally Rotated,(R) Internally Rotated PT-OP-K Range of Motion Start: 06/16/22 08:15 Freq: Status: Active Protocol: Document 06/16/22 09:28 [facility] (Rec: 06/16/22 09:56 [facility] [id number]) Shoulder Goniometric Range of Motion Shoulder Right Active Shoulder ROM WFL No Testing Position Sitting Flexion 80 Extension 25 Abduction 95 Horizontal Abduction 60 Horizontal Adduction 20 External Rotation at 45 degrees 50 Abduction External Rotation at 0 degrees Abduction 45 Internal Rotation Behind Back (text) lateral hip Left Active Shoulder ROM WFL Yes Shoulder ROM Limitations Shoulder ROM Limitations Soft Tissue Tightness,Muscle Weakness,Pain Elbow/Forearm Range of Motion Elbow/Forearm Right Active Supination (degrees) 65 Left Active Elbow/Forearm ROM WFL Yes Wrist Goniometric Range of Motion Wrist Right Flexion Active (degrees) 20 Flexion Passive (degrees) 60 Extension Active (degrees) 25 Extension Passive (degrees) 40 Ulnar Deviation Active (degrees) 35 Radial Deviation Active (degrees) 5 Left Wrist ROM WFL Yes ROM Limitations Wrist Limitations of Range of Motion Muscle Weakness PT-OP-M Strength Start: 06/16/22 08:15 Freq: Status: Active Protocol: Document 06/16/22 08:16 [facility] (Rec: 06/16/22 09:05 [facility] [id number]) Shoulder Strength Shoulder Manual Muscle Testing Right Flexion 2+ Poor+ Extension 4- Good- Abduction (C5) 2+ Poor+ External Rotation 4 Good Internal Rotation 4- Good- Elbow/Forearm Strength Elbow and Forearm Manual Muscle Testing Right Flexion (C6) 2+ Poor+ Extension (C7) 4 Good Pronation 4 Good Supination 3- Fair- Wrist Strength Wrist Manual Muscle Testing Right Flexion (C7) 3- Fair- Extension (C6) 4- Good- Ulnar Deviation 4 Good Radial Deviation 3- Fair- Left Flexion (C7) 5 Normal Extension (C6) 5 Normal Ulnar Deviation 5 Normal Radial Deviation 5 Normal Finger/Thumb Strength Finger Manual Muscle Testing Right Flexion (fingers C8) 3- Fair- Extension (thumb C8) 4- Good- Adduction 3+ Fair+ Abduction (fingers T1) 4- Good- Left Flexion (fingers C8) 5 Normal Extension (thumb C8) 5 Normal Adduction 5 Normal Abduction (fingers T1) 5 Normal Hand Lead Simulation Modeling Engineer/Pinch Strength Hand Dominance Hand Dominance Left Hand Strength Left Lead Simulation Modeling Engineer (lbs) 81 Tip Pinch (lbs) 26 Right Lead Simulation Modeling Engineer (lbs) 19 Tip Pinch (lbs) 17 PT-OP-Q Treatments Start: 06/16/22 08:15 Freq: Status: Active Protocol: Document 07/07/22 08:15 [facility] (Rec: 07/07/22 09:01 [facility] [id number]) Cardio Equipment Upper Body Ergometer (UBE) Duration (Minutes) 6 RPM 60 Seat Position 15 Height 4 Other 3 min fwd, 3 min backward Therapeutic Exercises Supine Exercises PROM Supine Exercise Name Therapist-driven PROM - Elbow flexion, forearm pronation/ supination, sh Side right Sitting Exercises Biceps curl Sitting Exercise Name Biceps curl Side right Comments AAROM concentric, AROM eccentric lowering T-Bar Sitting Exercise Name Bending, Twisting, Circles Side bilateral Resistance Red >blue T-bar Reps/Minutes 4 min PROM Sitting Exercise Name Pulleys - Flexion, Abduction Standing Exercises Eccentric bicep Reps/Minutes 10x Comments AAROM elbow flex, eccentric lowering. UE PNF D1/D2 Standing Exercise Name UE PNF D1/D2 Flexion Side bilateral Resistance 3# Comments quickly fatigued External Rotation Standing Exercise Name ER Side right Resistance Green Reps/Minutes 10x2 Rows Standing Exercise Name Rows Side bilateral Resistance Green, none Reps/Minutes 10x2, 10x2 Comments mirror for visual feedback without resistance to dec overact UT Adduction Standing Exercise Name Shoulder Adduction Side bilateral Resistance Green Extension Standing Exercise Name Shoulder Extension Side bilateral Resistance Green Reps/Minutes 10x2 Flexion Standing Exercise Name Shoulder Flexion Side bilateral Resistance 3# Comments VCs to limit compensation Manual Therapy Treatment Taping right shoulder Treatment Focus LT activation Type of Tape kinesiotape Skin Inspection intact Comments I strip T10 with 50% stretch to anterior shoulder PT-OP-T Assessment and Plan Start: 06/16/22 08:15 Freq: Status: Active Protocol: Document 07/07/22 08:15 [facility] (Rec: 07/07/22 09:01 [facility] [id number]) Physical Therapy Assessment Impairments Impairments Functional Activities,Pain,ROM ,Strength Goals Four Impairment swelling right UE Short Term Goal (STG) Instruct patient in all aspects of edema management to include self-massage, exercise, use of compression STG Duration 08/01/22 Senior Care Goal (LTG) Decrease edema right UE to within 1 cm of left UE measurements for improved function right UE LTG Duration 09/16/22 Three Impairment pain right shoulder Impairment signs and symptoms of impingement with pain as high as 8/10 with elevation of arm Composite Bond Worker Goal (LTG) Decrease pain and impingment symptoms right shoulder to allow him to return to full active use of right UE with pain no greater than 3/10 LTG Duration 09/16/22 Two Impairment weakness throughout right UE, decreased shoulder flexibility Short Term Goal (STG) instruct in HEP for purposes of right UE strengthening and flexibility STG Duration 08/01/22 Senior Care Goal (LTG) Patient to be independent and compliant with HEP and demonstrate ROM WFL, and improve strength to within 1/2 grade of left and seismic prospecting observer helper and pinch strength within 10# of left LTG Duration 09/16/22 One Impairment impaired function right UE Impairment Quickdash disability index score 50% Short Term Goal (STG) Improve score to at least 70% STG Duration 08/01/22 Composite Bond Worker Goal (LTG) Improve score to at least 85% as measure of improved functional use right UE with patient reporting ability to return to reaching all directions with his arm especially overhead and behind his back and return to gardening and wood turning. LTG Duration 09/16/22 Assessment Summary Assessment Patient demonstrates significant compensation with overactivation of right UT with right UE movements and ex , trial kinesiotape for LT activation. Good tolerance for ther ex, fatigues quickly. Physical Therapy Plan Frequency and Duration Frequency of Treatment 2x/Week Duration of treatment (weeks) 12 Plan of Care Start Date 06/16/22 Plan of Care End Date 09/16/22 Therapeutic Interventions Therapeutic Interventions Home Exercise Program,Manual Therapy,Patient/Caregiver Education,Self-Care/Home Management,Soft Tissue Mobilization,Taping, Therapeutic Activities, Therapeutic Exercises Modalities Cold Pack/Ice Massage,Electric Stimulation,Hot Packs, Infrared Therapy,Iontophoresis ,Ultrasound Next Visit Focus/Plan Next Note Type Treatment Note Next Visit Plan Evaluate response to kinesiotape right shoulder. Continue ther ex for postural correction, scap stab, right UE strengthening. Consider muscle stim to biceps, brachioradialis, kinesiotape for biceps activation.
--- NOTE | 2022-07-12 15:14 | PT.OTN ---
Current Diagnoses Polyneuropathy, unspecified (07/12/22) Abnormal posture (07/12/22) Weakness (07/12/22) Edema, unspecified (07/12/22) Physical Therapy Treatment Note PT-OP-A Visit Information Start: 06/16/22 08:15 Freq: Status: Active Protocol: Document 07/12/22 14:30 DCW (Rec: 07/12/22 15:14 DCW [id number]) Out-Patient Physical Therapy Visit Information Visit Information Visit Type Treatment Note Visit Start Time 14:30 Visit Stop Time 15:15 Total Visit Minutes 45 Visit Number 8 Number of CABLE ASSEMBLER AND SWAGER Visits 0 Evaluation Information Evaluation Date 06/16/22 Precautions Precautions s/p kidney transplant PT-OP-B Current Condition Start: 06/16/22 08:15 Freq: Status: Active Protocol: Document 06/16/22 08:16 SAK (Rec: 06/16/22 09:05 SAK [id number]) Current Condition History of Current Condition Onset Date 06/21 History of Current Condition Had fistula put in right upper arm for dialysis 06/21/20, and had kidney transplant 07/23 . Had numbness in hand and wrist immediately after fistula put in, and patient decreased use of right UE due to the fistula so didn't really notice weakening of his right UE. Medications s/p kidney transplant caused shaking of body, worse in right UE so that also contributed to lack of use. Last November really started to notice how weak right arm was, when started trying to use arm more then started to experience pain in top of shoulder. Fistula removed 4 weeks ago, noticing warming of left hand and improved sensation, has been doing squeezing exercises with hand and wall slide ex in shower. When gets to arm into certain positions noting upper arm region arm starts shaking. Can 't use arm for eating, reaching behind back or across her body. Still some tingling in hand. 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 Fistula was removed per recommendation Future Testing and Treatments Planned EMG in 3 months after PT complete Developmental History Developmental History patient left handed Treatment Goals Patient/Caregiver Goals improve right UE funciton Prior Functional Status Baseline Function- ADL's Independent Baseline Function- Mobility Independent Baseline Function- Work/School retired Baseline Function- Recreation/Hobbies wood turning and gardening without difficulty Current Functional Impairments (Reported) Functional Limitations- ADL's minimal ability to use right UE Functional Limitations- Recreation/ unable to use right UE for Hobbies gardening, wood turning due to weakness and paoin PT-OP-C Subjective Start: 06/16/22 08:15 Freq: Status: Active Protocol: Document 07/12/22 14:30 DCW (Rec: 07/12/22 15:14 DCW [id number]) OP-PT Subjective Patient Comments Patient Comments I have a lot more motion, I just don't have a lot of repetitions of those motions. PT-OP-H Neuro Start: 06/16/22 08:15 Freq: Status: Active Protocol: Document 06/16/22 09:28 SAK (Rec: 06/16/22 09:56 SAK [id number]) Sensation Evaluation Gross Sensation Gross Sensation Right UE Impaired Sensation Description Numbness,Tingling Deep Tendon Reflex & Clonus Assessment Deep Tendon Reflex Right Tricep Deep Tendon Reflex 0 Absent PT-OP-J Posture/Palpation/Skin Start: 06/16/22 08:15 Freq: Status: Active Protocol: Document 06/16/22 09:28 SAK (Rec: 06/16/22 09:56 SAK [id number]) Posture Evaluation Position Sitting Head/C-Spine Posture Forward Head T-Spine Posture Increased Kyphosis Shoulder Posture (L) Rounded,(R) Rounded Scapula Posture (L) Protracted,(R) Protracted Arm Posture (L) Internally Rotated,(R) Internally Rotated PT-OP-K Range of Motion Start: 06/16/22 08:15 Freq: Status: Active Protocol: Document 06/16/22 09:28 SAK (Rec: 06/16/22 09:56 SAK [id number]) Shoulder Goniometric Range of Motion Shoulder Right Active Shoulder ROM WFL No Testing Position Sitting Flexion 80 Extension 25 Abduction 95 Horizontal Abduction 60 Horizontal Adduction 20 External Rotation at 45 degrees 50 Abduction External Rotation at 0 degrees Abduction 45 Internal Rotation Behind Back (text) lateral hip Left Active Shoulder ROM WFL Yes Shoulder ROM Limitations Shoulder ROM Limitations Soft Tissue Tightness,Muscle Weakness,Pain Elbow/Forearm Range of Motion Elbow/Forearm Right Active Supination (degrees) 65 Left Active Elbow/Forearm ROM WFL Yes Wrist Goniometric Range of Motion Wrist Right Flexion Active (degrees) 20 Flexion Passive (degrees) 60 Extension Active (degrees) 25 Extension Passive (degrees) 40 Ulnar Deviation Active (degrees) 35 Radial Deviation Active (degrees) 5 Left Wrist ROM WFL Yes ROM Limitations Wrist Limitations of Range of Motion Muscle Weakness PT-OP-M Strength Start: 06/16/22 08:15 Freq: Status: Active Protocol: Document 06/16/22 08:16 [facility] (Rec: 06/16/22 09:05 [facility] [id number]) Shoulder Strength Shoulder Manual Muscle Testing Right Flexion 2+ Poor+ Extension 4- Good- Abduction (C5) 2+ Poor+ External Rotation 4 Good Internal Rotation 4- Good- Elbow/Forearm Strength Elbow and Forearm Manual Muscle Testing Right Flexion (C6) 2+ Poor+ Extension (C7) 4 Good Pronation 4 Good Supination 3- Fair- Wrist Strength Wrist Manual Muscle Testing Right Flexion (C7) 3- Fair- Extension (C6) 4- Good- Ulnar Deviation 4 Good Radial Deviation 3- Fair- Left Flexion (C7) 5 Normal Extension (C6) 5 Normal Ulnar Deviation 5 Normal Radial Deviation 5 Normal Finger/Thumb Strength Finger Manual Muscle Testing Right Flexion (fingers C8) 3- Fair- Extension (thumb C8) 4- Good- Adduction 3+ Fair+ Abduction (fingers T1) 4- Good- Left Flexion (fingers C8) 5 Normal Extension (thumb C8) 5 Normal Adduction 5 Normal Abduction (fingers T1) 5 Normal Hand Senior Environmental Scientist/Pinch Strength Hand Dominance Hand Dominance Left Hand Strength Left Senior Environmental Scientist (lbs) 81 Tip Pinch (lbs) 26 Right Senior Environmental Scientist (lbs) 19 Tip Pinch (lbs) 17 PT-OP-Q Treatments Start: 06/16/22 08:15 Freq: Status: Active Protocol: Document 07/12/22 14:30 DCW (Rec: 07/12/22 15:14 DCW [id number]) Cardio Equipment Upper Body Ergometer (UBE) Duration (Minutes) 6 RPM 60 Seat Position 15 Height 4 Other 3 min fwd, 3 min backward Therapeutic Exercises Supine Exercises PROM Supine Exercise Name Therapist-driven PROM - Elbow flexion, forearm pronation/ supination, sh Side right Sitting Exercises Biceps curl Sitting Exercise Name Biceps curl Side right Resistance 3# Comments AAROM concentric, AROM eccentric lowering T-Bar Sitting Exercise Name Bending, Twisting, Circles Side bilateral Resistance Blue T-bar PROM Sitting Exercise Name Pulleys - Flexion, Abduction Standing Exercises IR Standing Exercise Name IR stretch /c PVC behind back External Rotation Standing Exercise Name ER/IR Side right Resistance Green Rows Standing Exercise Name Rows Side bilateral Resistance Green Extension Standing Exercise Name Shoulder Extension Side bilateral Resistance Green Flexion Standing Exercise Name Shoulder Flexion Side bilateral Resistance 3# Abduction Standing Exercise Name Shoulder Abduction Side bilateral Resistance 3# PT-OP-T Assessment and Plan Start: 06/16/22 08:15 Freq: Status: Active Protocol: Document 07/12/22 14:30 DCW (Rec: 07/12/22 15:14 DCW [id number]) Physical Therapy Assessment Impairments Impairments Functional Activities,Pain,ROM ,Strength Goals Four Impairment swelling right UE Short Term Goal (STG) Instruct patient in all aspects of edema management to include self-massage, exercise, use of compression STG Duration 08/01/22 Penitentiary Goal (LTG) Decrease edema right UE to within 1 cm of left UE measurements for improved function right UE LTG Duration 09/16/22 Three Impairment pain right shoulder Impairment signs and symptoms of impingement with pain as high as 8/10 with elevation of arm Advertising Sales Associate Goal (LTG) Decrease pain and impingment symptoms right shoulder to allow him to return to full active use of right UE with pain no greater than 3/10 LTG Duration 09/16/22 Two Impairment weakness throughout right UE, decreased shoulder flexibility Short Term Goal (STG) instruct in HEP for purposes of right UE strengthening and flexibility STG Duration 08/01/22 Penitentiary Goal (LTG) Patient to be independent and compliant with HEP and demonstrate ROM WFL, and improve strength to within 1/2 grade of left and special delivery messenger and pinch strength within 10# of left LTG Duration 09/16/22 One Impairment impaired function right UE Impairment Quickdash disability index score 50% Short Term Goal (STG) Improve score to at least 70% STG Duration 08/01/22 Penitentiary Goal (LTG) Improve score to at least 85% as measure of improved functional use right UE with patient reporting ability to return to reaching all directions with his arm especially overhead and behind his back and return to gardening and wood turning. LTG Duration 09/16/22 Assessment Summary Assessment Patient continues to make slow but relatively steady progress with shoulder and elbow mobility and strength. Recovering well s/p removal of fistula. Improving self- limiting compensatory movements with UT. Physical Therapy Plan Frequency and Duration Frequency of Treatment 2x/Week Duration of treatment (weeks) 12 Plan of Care Start Date 06/16/22 Plan of Care End Date 09/16/22 Therapeutic Interventions Therapeutic Interventions Home Exercise Program,Manual Therapy,Patient/Caregiver Education,Self-Care/Home Management,Soft Tissue Mobilization,Taping, Therapeutic Activities, Therapeutic Exercises Modalities Cold Pack/Ice Massage,Electric Stimulation,Hot Packs, Infrared Therapy,Iontophoresis ,Ultrasound Next Visit Focus/Plan Next Note Type Treatment Note Next Visit Plan Evaluate response to kinesiotape right shoulder. Continue ther ex for postural correction, scap stab, right UE strengthening. Consider muscle stim to biceps, brachioradialis, kinesiotape for biceps activation.
--- NOTE | 2022-07-14 15:14 | PT.OTN ---
Current Diagnoses Polyneuropathy, unspecified (07/14/22) Abnormal posture (07/14/22) Weakness (07/14/22) Edema, unspecified (07/14/22) Physical Therapy Treatment Note PT-OP-A Visit Information Start: 06/16/22 08:15 Freq: Status: Active Protocol: Document 07/14/22 14:33 DCW (Rec: 07/14/22 15:14 DCW [id number]) Out-Patient Physical Therapy Visit Information Visit Information Visit Type Treatment Note Visit Start Time 14:33 Visit Stop Time 15:15 Total Visit Minutes 42 Visit Number 9 Number of EXCHANGE CLERK Visits 0 Evaluation Information Evaluation Date 06/16/22 Precautions Precautions s/p kidney transplant PT-OP-B Current Condition Start: 06/16/22 08:15 Freq: Status: Active Protocol: Document 06/16/22 08:16 SAK (Rec: 06/16/22 09:05 SAK [id number]) Current Condition History of Current Condition Onset Date 06/21 History of Current Condition Had fistula put in right upper arm for dialysis 06/21/20, and had kidney transplant 07/23 . Had numbness in hand and wrist immediately after fistula put in, and patient decreased use of right UE due to the fistula so didn't really notice weakening of his right UE. Medications s/p kidney transplant caused shaking of body, worse in right UE so that also contributed to lack of use. Last November really started to notice how weak right arm was, when started trying to use arm more then started to experience pain in top of shoulder. Fistula removed 4 weeks ago, noticing warming of left hand and improved sensation, has been doing squeezing exercises with hand and wall slide ex in shower. When gets to arm into certain positions noting upper arm region arm starts shaking. Can 't use arm for eating, reaching behind back or across her body. Still some tingling in hand. 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 Fistula was removed per recommendation Future Testing and Treatments Planned EMG in 3 months after PT complete Developmental History Developmental History patient left handed Treatment Goals Patient/Caregiver Goals improve right UE funciton Prior Functional Status Baseline Function- ADL's Independent Baseline Function- Mobility Independent Baseline Function- Work/School retired Baseline Function- Recreation/Hobbies wood turning and gardening without difficulty Current Functional Impairments (Reported) Functional Limitations- ADL's minimal ability to use right UE Functional Limitations- Recreation/ unable to use right UE for Hobbies gardening, wood turning due to weakness and paoin PT-OP-C Subjective Start: 06/16/22 08:15 Freq: Status: Active Protocol: Document 07/14/22 14:33 DCW (Rec: 07/14/22 15:14 DCW [id number]) OP-PT Subjective Patient Comments Patient Comments Pt reports he is partially recovered from his workout Jina, but admits he tired himself out yesterday work on his HEP. Does note he didn't feel the k-tape made much of a difference for him. PT-OP-H Neuro Start: 06/16/22 08:15 Freq: Status: Active Protocol: Document 06/16/22 09:28 [facility] (Rec: 06/16/22 09:56 [facility] [id number]) Sensation Evaluation Gross Sensation Gross Sensation Right UE Impaired Sensation Description Numbness,Tingling Deep Tendon Reflex & Clonus Assessment Deep Tendon Reflex Right Tricep Deep Tendon Reflex 0 Absent PT-OP-J Posture/Palpation/Skin Start: 06/16/22 08:15 Freq: Status: Active Protocol: Document 06/16/22 09:28 [facility] (Rec: 06/16/22 09:56 [facility] [id number]) Posture Evaluation Position Sitting Head/C-Spine Posture Forward Head T-Spine Posture Increased Kyphosis Shoulder Posture (L) Rounded,(R) Rounded Scapula Posture (L) Protracted,(R) Protracted Arm Posture (L) Internally Rotated,(R) Internally Rotated PT-OP-K Range of Motion Start: 06/16/22 08:15 Freq: Status: Active Protocol: Document 06/16/22 09:28 [facility] (Rec: 06/16/22 09:56 [facility] [id number]) Shoulder Goniometric Range of Motion Shoulder Right Active Shoulder ROM WFL No Testing Position Sitting Flexion 80 Extension 25 Abduction 95 Horizontal Abduction 60 Horizontal Adduction 20 External Rotation at 45 degrees 50 Abduction External Rotation at 0 degrees Abduction 45 Internal Rotation Behind Back (text) lateral hip Left Active Shoulder ROM WFL Yes Shoulder ROM Limitations Shoulder ROM Limitations Soft Tissue Tightness,Muscle Weakness,Pain Elbow/Forearm Range of Motion Elbow/Forearm Right Active Supination (degrees) 65 Left Active Elbow/Forearm ROM WFL Yes Wrist Goniometric Range of Motion Wrist Right Flexion Active (degrees) 20 Flexion Passive (degrees) 60 Extension Active (degrees) 25 Extension Passive (degrees) 40 Ulnar Deviation Active (degrees) 35 Radial Deviation Active (degrees) 5 Left Wrist ROM WFL Yes ROM Limitations Wrist Limitations of Range of Motion Muscle Weakness PT-OP-M Strength Start: 06/16/22 08:15 Freq: Status: Active Protocol: Document 06/16/22 08:16 SAK (Rec: 06/16/22 09:05 SAK [id number]) Shoulder Strength Shoulder Manual Muscle Testing Right Flexion 2+ Poor+ Extension 4- Good- Abduction (C5) 2+ Poor+ External Rotation 4 Good Internal Rotation 4- Good- Elbow/Forearm Strength Elbow and Forearm Manual Muscle Testing Right Flexion (C6) 2+ Poor+ Extension (C7) 4 Good Pronation 4 Good Supination 3- Fair- Wrist Strength Wrist Manual Muscle Testing Right Flexion (C7) 3- Fair- Extension (C6) 4- Good- Ulnar Deviation 4 Good Radial Deviation 3- Fair- Left Flexion (C7) 5 Normal Extension (C6) 5 Normal Ulnar Deviation 5 Normal Radial Deviation 5 Normal Finger/Thumb Strength Finger Manual Muscle Testing Right Flexion (fingers C8) 3- Fair- Extension (thumb C8) 4- Good- Adduction 3+ Fair+ Abduction (fingers T1) 4- Good- Left Flexion (fingers C8) 5 Normal Extension (thumb C8) 5 Normal Adduction 5 Normal Abduction (fingers T1) 5 Normal Hand Snuff Packing Machine Operator/Pinch Strength Hand Dominance Hand Dominance Left Hand Strength Left Snuff Packing Machine Operator (lbs) 81 Tip Pinch (lbs) 26 Right Snuff Packing Machine Operator (lbs) 19 Tip Pinch (lbs) 17 PT-OP-Q Treatments Start: 06/16/22 08:15 Freq: Status: Active Protocol: Document 07/14/22 14:33 DCW (Rec: 07/14/22 15:14 DCW [id number]) Cardio Equipment Upper Body Ergometer (UBE) Duration (Minutes) 6 RPM 60 Seat Position 15 Height 4 Other 3 min fwd, 3 min backward Therapeutic Exercises Supine Exercises PROM Supine Exercise Name Therapist-driven PROM - Elbow flexion, forearm pronation/ supination, sh Side right Sitting Exercises Snuff Packing Machine Operator strengthening Sitting Exercise Name Thera-putty: Full electronic plotting system operator, individual fingers, extension Side right Biceps curl Sitting Exercise Name Biceps curl Side right Resistance 3# Comments AAROM concentric, AROM eccentric lowering T-Bar Sitting Exercise Name Bending, Twisting, Circles Side bilateral Resistance Blue T-bar PROM Sitting Exercise Name Pulleys - Flexion, Abduction Standing Exercises External Rotation Standing Exercise Name ER/IR Side right Resistance Green Rows Standing Exercise Name Rows Side bilateral Resistance Green Extension Standing Exercise Name Shoulder Extension Side bilateral Resistance Green PT-OP-T Assessment and Plan Start: 06/16/22 08:15 Freq: Status: Active Protocol: Document 07/14/22 14:33 DCW (Rec: 07/14/22 15:14 DCW [id number]) Physical Therapy Assessment Impairments Impairments Functional Activities,Pain,ROM ,Strength Goals Four Impairment swelling right UE Short Term Goal (STG) Instruct patient in all aspects of edema management to include self-massage, exercise, use of compression STG Duration 08/01/22 Weaving Teacher Goal (LTG) Decrease edema right UE to within 1 cm of left UE measurements for improved function right UE LTG Duration 09/16/22 Three Impairment pain right shoulder Impairment signs and symptoms of impingement with pain as high as 8/10 with elevation of arm Longterm Goal (LTG) Decrease pain and impingment symptoms right shoulder to allow him to return to full active use of right UE with pain no greater than 3/10 LTG Duration 09/16/22 Two Impairment weakness throughout right UE, decreased shoulder flexibility Short Term Goal (STG) instruct in HEP for purposes of right UE strengthening and flexibility STG Duration 08/01/22 Weaving Teacher Goal (LTG) Patient to be independent and compliant with HEP and demonstrate ROM WFL, and improve strength to within 1/2 grade of left and electronic plotting system operator and pinch strength within 10# of left LTG Duration 09/16/22 One Impairment impaired function right UE Impairment Quickdash disability index score 50% Short Term Goal (STG) Improve score to at least 70% STG Duration 08/01/22 Longterm Goal (LTG) Improve score to at least 85% as measure of improved functional use right UE with patient reporting ability to return to reaching all directions with his arm especially overhead and behind his back and return to gardening and wood turning. LTG Duration 09/16/22 Assessment Summary Assessment Patient improving activity tolerance, able to perform more repetitions before tiring out. Physical Therapy Plan Frequency and Duration Frequency of Treatment 2x/Week Duration of treatment (weeks) 12 Plan of Care Start Date 06/16/22 Plan of Care End Date 09/16/22 Therapeutic Interventions Therapeutic Interventions Home Exercise Program,Manual Therapy,Patient/Caregiver Education,Self-Care/Home Management,Soft Tissue Mobilization,Taping, Therapeutic Activities, Therapeutic Exercises Modalities Cold Pack/Ice Massage,Electric Stimulation,Hot Packs, Infrared Therapy,Iontophoresis ,Ultrasound Next Visit Focus/Plan Next Note Type Treatment Note Next Visit Plan Continue ther ex for postural correction, scap stab, right UE strengthening. Consider muscle stim to biceps, brachioradialis, kinesiotape for biceps activation.
--- NOTE | 2022-07-18 16:46 | PT.OTN ---
Current Diagnoses Polyneuropathy, unspecified (07/18/22) Abnormal posture (07/18/22) Weakness (07/18/22) Edema, unspecified (07/18/22) Physical Therapy Treatment Note PT-OP-A Visit Information Start: 06/16/22 08:15 Freq: Status: Active Protocol: Document 07/18/22 08:17 SAK (Rec: 07/18/22 08:59 SAK [id number]) Out-Patient Physical Therapy Visit Information Visit Information Visit Type Treatment Note Visit Start Time 08:15 Visit Stop Time 08:59 Total Visit Minutes 44 Visit Number 10 Number of RADIO PROGRAM CHECKER Visits 0 Evaluation Information Evaluation Date 06/16/22 PT-OP-B Current Condition Start: 06/16/22 08:15 Freq: Status: Active Protocol: Document 06/16/22 08:16 SAK (Rec: 06/16/22 09:05 SAK [id number]) Current Condition History of Current Condition Onset Date 06/21 History of Current Condition Had fistula put in right upper arm for dialysis 06/21/20, and had kidney transplant 07/23 . Had numbness in hand and wrist immediately after fistula put in, and patient decreased use of right UE due to the fistula so didn't really notice weakening of his right UE. Medications s/p kidney transplant caused shaking of body, worse in right UE so that also contributed to lack of use. Last November really started to notice how weak right arm was, when started trying to use arm more then started to experience pain in top of shoulder. Fistula removed 4 weeks ago, noticing warming of left hand and improved sensation, has been doing squeezing exercises with hand and wall slide ex in shower. When gets to arm into certain positions noting upper arm region arm starts shaking. Can 't use arm for eating, reaching behind back or across her body. Still some tingling in hand. 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 Fistula was removed per recommendation Future Testing and Treatments Planned EMG in 3 months after PT complete Developmental History Developmental History patient left handed Treatment Goals Patient/Caregiver Goals improve right UE funciton Prior Functional Status Baseline Function- ADL's Independent Baseline Function- Mobility Independent Baseline Function- Work/School retired Baseline Function- Recreation/Hobbies wood turning and gardening without difficulty Current Functional Impairments (Reported) Functional Limitations- ADL's minimal ability to use right UE Functional Limitations- Recreation/ unable to use right UE for Hobbies gardening, wood turning due to weakness and paoin PT-OP-C Subjective Start: 06/16/22 08:15 Freq: Status: Active Protocol: Document 07/18/22 08:17 [facility] (Rec: 07/18/22 08:59 [facility] [id number]) OP-PT Subjective Patient Comments Patient Comments Feels he continues to improve, knows he compensates for weakness elbow bending. Forgot to wear compression sleeve today PT-OP-H Neuro Start: 06/16/22 08:15 Freq: Status: Active Protocol: Document 06/16/22 09:28 SAK (Rec: 06/16/22 09:56 [facility] [id number]) Sensation Evaluation Gross Sensation Gross Sensation Right UE Impaired Sensation Description Numbness,Tingling Deep Tendon Reflex & Clonus Assessment Deep Tendon Reflex Right Tricep Deep Tendon Reflex 0 Absent PT-OP-J Posture/Palpation/Skin Start: 06/16/22 08:15 Freq: Status: Active Protocol: Document 06/16/22 09:28 SAK (Rec: 06/16/22 09:56 [facility] [id number]) Posture Evaluation Position Sitting Head/C-Spine Posture Forward Head T-Spine Posture Increased Kyphosis Shoulder Posture (L) Rounded,(R) Rounded Scapula Posture (L) Protracted,(R) Protracted Arm Posture (L) Internally Rotated,(R) Internally Rotated PT-OP-K Range of Motion Start: 06/16/22 08:15 Freq: Status: Active Protocol: Document 06/16/22 09:28 SAK (Rec: 06/16/22 09:56 [facility] [id number]) Shoulder Goniometric Range of Motion Shoulder Right Active Shoulder ROM WFL No Testing Position Sitting Flexion 80 Extension 25 Abduction 95 Horizontal Abduction 60 Horizontal Adduction 20 External Rotation at 45 degrees 50 Abduction External Rotation at 0 degrees Abduction 45 Internal Rotation Behind Back (text) lateral hip Left Active Shoulder ROM WFL Yes Shoulder ROM Limitations Shoulder ROM Limitations Soft Tissue Tightness,Muscle Weakness,Pain Elbow/Forearm Range of Motion Elbow/Forearm Right Active Supination (degrees) 65 Left Active Elbow/Forearm ROM WFL Yes Wrist Goniometric Range of Motion Wrist Right Flexion Active (degrees) 20 Flexion Passive (degrees) 60 Extension Active (degrees) 25 Extension Passive (degrees) 40 Ulnar Deviation Active (degrees) 35 Radial Deviation Active (degrees) 5 Left Wrist ROM WFL Yes ROM Limitations Wrist Limitations of Range of Motion Muscle Weakness PT-OP-M Strength Start: 06/16/22 08:15 Freq: Status: Active Protocol: Document 07/18/22 08:17 [facility] (Rec: 07/18/22 08:59 [facility] [id number]) Shoulder Strength Shoulder Manual Muscle Testing Right Flexion 3+ Fair+ Extension 4- Good- Abduction (C5) 3+ Fair+ External Rotation 4 Good Internal Rotation 4 Good Elbow/Forearm Strength Elbow and Forearm Manual Muscle Testing Right Flexion (C6) 3+ Fair+ Extension (C7) 4+ Good+ Pronation 4+ Good+ Supination 3+ Fair+ Wrist Strength Wrist Manual Muscle Testing Right Flexion (C7) 3+ Fair+ Extension (C6) 4 Good Ulnar Deviation 4+ Good+ Radial Deviation 4- Good- Finger/Thumb Strength Finger Manual Muscle Testing Right Flexion (fingers C8) 4- Good- Extension (thumb C8) 4 Good Adduction 3+ Fair+ Abduction (fingers T1) 4- Good- Hand Tire Mold Engraver/Pinch Strength Hand Strength Right Tire Mold Engraver (lbs) 22 PT-OP-Q Treatments Start: 06/16/22 08:15 Freq: Status: Active Protocol: Document 07/18/22 08:17 [facility] (Rec: 07/18/22 08:59 [facility] [id number]) Cardio Equipment Upper Body Ergometer (UBE) Duration (Minutes) 6 RPM 60 Seat Position 15 Height 4 Other 3 min fwd, 3 min backward Therapeutic Exercises Supine Exercises PROM Supine Exercise Name Therapist-driven PROM - Elbow flexion, forearm pronation/ supination, sh Side right Sitting Exercises Biceps curl Sitting Exercise Name 3 way bicep curls Side right Resistance 3# Comments AAROM concentric, AROM eccentric lowering, cues for neutral shoulder T-Bar Sitting Exercise Name Bending, Twisting, Circles Side bilateral Resistance Blue T-bar PROM Sitting Exercise Name Pulleys - Flexion, Abduction Manual Therapy Treatment Soft Tissue Mobilization incision Mobilization Type Myofascial Release,Strumming Intensity/Depth Moderate Body Position Sitting bicep, brachiorad Mobilization Type Myofascial Release,Strumming Intensity/Depth Moderate Body Position Sitting Other Other Manual Treatments ROM and strength testing PT-OP-T Assessment and Plan Start: 06/16/22 08:15 Freq: Status: Active Protocol: Document 07/18/22 08:17 [facility] (Rec: 07/18/22 08:59 [facility] [id number]) Physical Therapy Assessment Impairments Impairments Functional Activities,Pain,ROM ,Strength Goals Four Impairment swelling right UE Short Term Goal (STG) Instruct patient in all aspects of edema management to include self-massage, exercise, use of compression STG Duration 08/01/22 Jail Goal (LTG) Decrease edema right UE to within 1 cm of left UE measurements for improved function right UE LTG Duration 09/16/22 Three Impairment pain right shoulder Impairment signs and symptoms of impingement with pain as high as 8/10 with elevation of arm Jail Goal (LTG) Decrease pain and impingment symptoms right shoulder to allow him to return to full active use of right UE with pain no greater than 3/10 LTG Duration 09/16/22 Two Impairment weakness throughout right UE, decreased shoulder flexibility Short Term Goal (STG) instruct in HEP for purposes of right UE strengthening and flexibility STG Duration 08/01/22 [place] Line Attendant Goal (LTG) Patient to be independent and compliant with HEP and demonstrate ROM WFL, and improve strength to within 1/2 grade of left and textile pin worker and pinch strength within 10# of left LTG Duration 09/16/22 One Impairment impaired function right UE Impairment Quickdash disability index score 50% Short Term Goal (STG) Improve score to no greater than 30% 07/18/22: decreased to 27% STG Duration 08/01/22 [place] Line Attendant Goal (LTG) Improve score to no greater than 15% as measure of improved functional use right UE with patient reporting ability to return to reaching all directions with his arm especially overhead and behind his back and return to gardening and wood turning. LTG Duration 09/16/22 Progress Towards Goals Progress Towards Goals Progressing Toward Goals Assessment Summary Assessment Good progress toward all goals ; see updated strength and ROM measurements today. Patient highly compliant to HEP. Pain has decreased to 2/10 right UE. Quickdash score decreased from 50% to 27%. Physical Therapy Plan Frequency and Duration Frequency of Treatment 2x/Week Duration of treatment (weeks) 12 Plan of Care Start Date 06/16/22 Plan of Care End Date 09/16/22 Therapeutic Interventions Therapeutic Interventions Home Exercise Program,Manual Therapy,Patient/Caregiver Education,Self-Care/Home Management,Soft Tissue Mobilization,Taping, Therapeutic Activities, Therapeutic Exercises Modalities Cold Pack/Ice Massage,Electric Stimulation,Hot Packs, Infrared Therapy,Iontophoresis ,Ultrasound Next Visit Focus/Plan Next Note Type Treatment Note Next Visit Plan Continue ther ex for postural correction, scap stab, right UE strengthening. Consider muscle stim to elbow flexors.
--- NOTE | 2022-07-21 17:32 | PT.OTN ---
Current Diagnoses Polyneuropathy, unspecified (07/21/22) Abnormal posture (07/21/22) Weakness (07/21/22) Edema, unspecified (07/21/22) Physical Therapy Treatment Note PT-OP-A Visit Information Start: 06/16/22 08:15 Freq: Status: Active Protocol: Document 07/21/22 08:15 SAK (Rec: 07/21/22 08:52 SAK [id number]) Out-Patient Physical Therapy Visit Information Visit Information Visit Type Treatment Note Visit Start Time 08:15 Visit Stop Time 08:59 Total Visit Minutes 44 Visit Number 10 Number of TASSEL MAKER Visits 0 Evaluation Information Evaluation Date 06/16/22 PT-OP-B Current Condition Start: 06/16/22 08:15 Freq: Status: Active Protocol: Document 06/16/22 08:16 SAK (Rec: 06/16/22 09:05 SAK [id number]) Current Condition History of Current Condition Onset Date 06/21 History of Current Condition Had fistula put in right upper arm for dialysis 06/21/20, and had kidney transplant 07/23 . Had numbness in hand and wrist immediately after fistula put in, and patient decreased use of right UE due to the fistula so didn't really notice weakening of his right UE. Medications s/p kidney transplant caused shaking of body, worse in right UE so that also contributed to lack of use. Last November really started to notice how weak right arm was, when started trying to use arm more then started to experience pain in top of shoulder. Fistula removed 4 weeks ago, noticing warming of left hand and improved sensation, has been doing squeezing exercises with hand and wall slide ex in shower. When gets to arm into certain positions noting upper arm region arm starts shaking. Can 't use arm for eating, reaching behind back or across her body. Still some tingling in hand. 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 Fistula was removed per recommendation Future Testing and Treatments Planned EMG in 3 months after PT complete Developmental History Developmental History patient left handed Treatment Goals Patient/Caregiver Goals improve right UE funciton Prior Functional Status Baseline Function- ADL's Independent Baseline Function- Mobility Independent Baseline Function- Work/School retired Baseline Function- Recreation/Hobbies wood turning and gardening without difficulty Current Functional Impairments (Reported) Functional Limitations- ADL's minimal ability to use right UE Functional Limitations- Recreation/ unable to use right UE for Hobbies gardening, wood turning due to weakness and paoin PT-OP-C Subjective Start: 06/16/22 08:15 Freq: Status: Active Protocol: Document 07/21/22 08:15 [facility] (Rec: 07/21/22 08:52 [facility] [id number]) OP-PT Subjective Patient Comments Patient Comments Was a bit sore after last session, but finding able to use right UE with bowl turning , and working to use it with fine motions. PT-OP-H Neuro Start: 06/16/22 08:15 Freq: Status: Active Protocol: Document 06/16/22 09:28 SAK (Rec: 06/16/22 09:56 [facility] [id number]) Sensation Evaluation Gross Sensation Gross Sensation Right UE Impaired Sensation Description Numbness,Tingling Deep Tendon Reflex & Clonus Assessment Deep Tendon Reflex Right Tricep Deep Tendon Reflex 0 Absent PT-OP-J Posture/Palpation/Skin Start: 06/16/22 08:15 Freq: Status: Active Protocol: Document 06/16/22 09:28 [facility] (Rec: 06/16/22 09:56 [facility] [id number]) Posture Evaluation Position Sitting Head/C-Spine Posture Forward Head T-Spine Posture Increased Kyphosis Shoulder Posture (L) Rounded,(R) Rounded Scapula Posture (L) Protracted,(R) Protracted Arm Posture (L) Internally Rotated,(R) Internally Rotated PT-OP-K Range of Motion Start: 06/16/22 08:15 Freq: Status: Active Protocol: Document 06/16/22 09:28 [facility] (Rec: 06/16/22 09:56 [facility] [id number]) Shoulder Goniometric Range of Motion Shoulder Right Active Shoulder ROM WFL No Testing Position Sitting Flexion 80 Extension 25 Abduction 95 Horizontal Abduction 60 Horizontal Adduction 20 External Rotation at 45 degrees 50 Abduction External Rotation at 0 degrees Abduction 45 Internal Rotation Behind Back (text) lateral hip Left Active Shoulder ROM WFL Yes Shoulder ROM Limitations Shoulder ROM Limitations Soft Tissue Tightness,Muscle Weakness,Pain Elbow/Forearm Range of Motion Elbow/Forearm Right Active Supination (degrees) 65 Left Active Elbow/Forearm ROM WFL Yes Wrist Goniometric Range of Motion Wrist Right Flexion Active (degrees) 20 Flexion Passive (degrees) 60 Extension Active (degrees) 25 Extension Passive (degrees) 40 Ulnar Deviation Active (degrees) 35 Radial Deviation Active (degrees) 5 Left Wrist ROM WFL Yes ROM Limitations Wrist Limitations of Range of Motion Muscle Weakness PT-OP-M Strength Start: 06/16/22 08:15 Freq: Status: Active Protocol: Document 07/18/22 08:17 [facility] (Rec: 07/18/22 08:59 [facility] [id number]) Shoulder Strength Shoulder Manual Muscle Testing Right Flexion 3+ Fair+ Extension 4- Good- Abduction (C5) 3+ Fair+ External Rotation 4 Good Internal Rotation 4 Good Elbow/Forearm Strength Elbow and Forearm Manual Muscle Testing Right Flexion (C6) 3+ Fair+ Extension (C7) 4+ Good+ Pronation 4+ Good+ Supination 3+ Fair+ Wrist Strength Wrist Manual Muscle Testing Right Flexion (C7) 3+ Fair+ Extension (C6) 4 Good Ulnar Deviation 4+ Good+ Radial Deviation 4- Good- Finger/Thumb Strength Finger Manual Muscle Testing Right Flexion (fingers C8) 4- Good- Extension (thumb C8) 4 Good Adduction 3+ Fair+ Abduction (fingers T1) 4- Good- Hand Roof Painter/Pinch Strength Hand Strength Right Roof Painter (lbs) 22 PT-OP-Q Treatments Start: 06/16/22 08:15 Freq: Status: Active Protocol: Document 07/21/22 08:15 [facility] (Rec: 07/21/22 08:52 [facility] [id number]) Cardio Equipment Upper Body Ergometer (UBE) Duration (Minutes) 6 RPM 60 Seat Position 15 Height 4 Other 3 min fwd, 3 min backward Therapeutic Exercises Supine Exercises pec stretch Reps/Minutes 30 sec x 2 Sitting Exercises ring tree Equipment Used small and large rings Biceps curl Sitting Exercise Name 3 way bicep curls Side right Resistance 3# Comments AAROM concentric, AROM eccentric lowering, cues for neutral shoulder T-Bar Sitting Exercise Name Bending, Twisting, Circles Side bilateral Resistance Blue T-bar PROM Sitting Exercise Name Pulleys - Flexion, Abduction Equipment Used green ball mid thoracic spine for thoracic extension Comments cues for thumbs up Manual Therapy Treatment Soft Tissue Mobilization incision Mobilization Type Myofascial Release,Strumming Intensity/Depth Moderate Body Position Sitting bicep, brachiorad Mobilization Type Myofascial Release,Strumming Intensity/Depth Moderate Body Position Sitting Joint Mobilizations shoulder Joint GH Direction post,inf Grade III Body Position Supine Comments with PROM elevation Self-Care/Home Management Treatment Education Other Education walk with thumbs forward, scap down and back for improved shoulder alignment PT-OP-T Assessment and Plan Start: 06/16/22 08:15 Freq: Status: Active Protocol: Document 07/21/22 08:15 [facility] (Rec: 07/21/22 08:52 [facility] [id number]) Physical Therapy Assessment Impairments Impairments Functional Activities,Pain,ROM ,Strength Goals Four Impairment swelling right UE Short Term Goal (STG) Instruct patient in all aspects of edema management to include self-massage, exercise, use of compression STG Duration 08/01/22 Supervisor Cytology Goal (LTG) Decrease edema right UE to within 1 cm of left UE measurements for improved function right UE LTG Duration 09/16/22 Three Impairment pain right shoulder Impairment signs and symptoms of impingement with pain as high as 8/10 with elevation of arm Jail Goal (LTG) Decrease pain and impingment symptoms right shoulder to allow him to return to full active use of right UE with pain no greater than 3/10 LTG Duration 09/16/22 Two Impairment weakness throughout right UE, decreased shoulder flexibility Short Term Goal (STG) instruct in HEP for purposes of right UE strengthening and flexibility STG Duration 08/01/22 Supervisor Cytology Goal (LTG) Patient to be independent and compliant with HEP and demonstrate ROM WFL, and improve strength to within 1/2 grade of left and psychosocial rehabilitation counselor and pinch strength within 10# of left LTG Duration 09/16/22 One Impairment impaired function right UE Impairment Quickdash disability index score 50% Short Term Goal (STG) Improve score to no greater than 30% 07/18/22: decreased to 27% STG Duration 08/01/22 Supervisor Cytology Goal (LTG) Improve score to no greater than 15% as measure of improved functional use right UE with patient reporting ability to return to reaching all directions with his arm especially overhead and behind his back and return to gardening and wood turning. LTG Duration 09/16/22 Progress Towards Goals Progress Towards Goals Progressing Toward Goals Assessment Summary Assessment Patient functional strength improving but fatigues quickly . Reported improved mobility after manual treatment. Goal progress continues Physical Therapy Plan Frequency and Duration Frequency of Treatment 2x/Week Duration of treatment (weeks) 12 Plan of Care Start Date 06/16/22 Plan of Care End Date 09/16/22 Therapeutic Interventions Therapeutic Interventions Home Exercise Program,Manual Therapy,Patient/Caregiver Education,Self-Care/Home Management,Soft Tissue Mobilization,Taping, Therapeutic Activities, Therapeutic Exercises Modalities Cold Pack/Ice Massage,Electric Stimulation,Hot Packs, Infrared Therapy,Iontophoresis ,Ultrasound Next Visit Focus/Plan Next Note Type Treatment Note Next Visit Plan Continue ther ex for postural correction, scap stab, right UE strengthening. Consider muscle stim to elbow flexors.
--- NOTE | 2022-07-26 09:48 | PT.OTN ---
Current Diagnoses Polyneuropathy, unspecified (07/26/22) Abnormal posture (07/26/22) Weakness (07/26/22) Edema, unspecified (07/26/22) Physical Therapy Treatment Note PT-OP-A Visit Information Start: 06/16/22 08:15 Freq: Status: Active Protocol: Document 07/26/22 09:02 [facility] (Rec: 07/26/22 09:48 [facility] [id number]) Out-Patient Physical Therapy Visit Information Visit Information Visit Type Treatment Note Visit Start Time 09:02 Visit Stop Time 09:43 Total Visit Minutes 41 Visit Number 11 Number of VICE PRESIDENT OF DEVELOPMENT Visits 0 PT-OP-B Current Condition Start: 06/16/22 08:15 Freq: Status: Active Protocol: Document 06/16/22 08:16 SAK (Rec: 06/16/22 09:05 SAK [id number]) Current Condition History of Current Condition Onset Date 06/21 History of Current Condition Had fistula put in right upper arm for dialysis 06/21/20, and had kidney transplant 07/23 . Had numbness in hand and wrist immediately after fistula put in, and patient decreased use of right UE due to the fistula so didn't really notice weakening of his right UE. Medications s/p kidney transplant caused shaking of body, worse in right UE so that also contributed to lack of use. Last November really started to notice how weak right arm was, when started trying to use arm more then started to experience pain in top of shoulder. Fistula removed 4 weeks ago, noticing warming of left hand and improved sensation, has been doing squeezing exercises with hand and wall slide ex in shower. When gets to arm into certain positions noting upper arm region arm starts shaking. Can 't use arm for eating, reaching behind back or across her body. Still some tingling in hand. 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 Fistula was removed per recommendation Future Testing and Treatments Planned EMG in 3 months after PT complete Developmental History Developmental History patient left handed Treatment Goals Patient/Caregiver Goals improve right UE funciton Prior Functional Status Baseline Function- ADL's Independent Baseline Function- Mobility Independent Baseline Function- Work/School retired Baseline Function- Recreation/Hobbies wood turning and gardening without difficulty Current Functional Impairments (Reported) Functional Limitations- ADL's minimal ability to use right UE Functional Limitations- Recreation/ unable to use right UE for Hobbies gardening, wood turning due to weakness and paoin PT-OP-C Subjective Start: 06/16/22 08:15 Freq: Status: Active Protocol: Document 07/26/22 09:02 [facility] (Rec: 07/26/22 09:48 [facility] [id number]) OP-PT Subjective Patient Comments Patient Comments Pt reports he has been working on using his arm a lot more. PT-OP-H Neuro Start: 06/16/22 08:15 Freq: Status: Active Protocol: Document 06/16/22 09:28 SAK (Rec: 06/16/22 09:56 SAK [id number]) Sensation Evaluation Gross Sensation Gross Sensation Right UE Impaired Sensation Description Numbness,Tingling Deep Tendon Reflex & Clonus Assessment Deep Tendon Reflex Right Tricep Deep Tendon Reflex 0 Absent PT-OP-J Posture/Palpation/Skin Start: 06/16/22 08:15 Freq: Status: Active Protocol: Document 06/16/22 09:28 SAK (Rec: 06/16/22 09:56 SAK [id number]) Posture Evaluation Position Sitting Head/C-Spine Posture Forward Head T-Spine Posture Increased Kyphosis Shoulder Posture (L) Rounded,(R) Rounded Scapula Posture (L) Protracted,(R) Protracted Arm Posture (L) Internally Rotated,(R) Internally Rotated PT-OP-K Range of Motion Start: 06/16/22 08:15 Freq: Status: Active Protocol: Document 06/16/22 09:28 SAK (Rec: 06/16/22 09:56 SAK [id number]) Shoulder Goniometric Range of Motion Shoulder Right Active Shoulder ROM WFL No Testing Position Sitting Flexion 80 Extension 25 Abduction 95 Horizontal Abduction 60 Horizontal Adduction 20 External Rotation at 45 degrees 50 Abduction External Rotation at 0 degrees Abduction 45 Internal Rotation Behind Back (text) lateral hip Left Active Shoulder ROM WFL Yes Shoulder ROM Limitations Shoulder ROM Limitations Soft Tissue Tightness,Muscle Weakness,Pain Elbow/Forearm Range of Motion Elbow/Forearm Right Active Supination (degrees) 65 Left Active Elbow/Forearm ROM WFL Yes Wrist Goniometric Range of Motion Wrist Right Flexion Active (degrees) 20 Flexion Passive (degrees) 60 Extension Active (degrees) 25 Extension Passive (degrees) 40 Ulnar Deviation Active (degrees) 35 Radial Deviation Active (degrees) 5 Left Wrist ROM WFL Yes ROM Limitations Wrist Limitations of Range of Motion Muscle Weakness PT-OP-M Strength Start: 06/16/22 08:15 Freq: Status: Active Protocol: Document 07/18/22 08:17 SAK (Rec: 07/18/22 08:59 [facility] [id number]) Shoulder Strength Shoulder Manual Muscle Testing Right Flexion 3+ Fair+ Extension 4- Good- Abduction (C5) 3+ Fair+ External Rotation 4 Good Internal Rotation 4 Good Elbow/Forearm Strength Elbow and Forearm Manual Muscle Testing Right Flexion (C6) 3+ Fair+ Extension (C7) 4+ Good+ Pronation 4+ Good+ Supination 3+ Fair+ Wrist Strength Wrist Manual Muscle Testing Right Flexion (C7) 3+ Fair+ Extension (C6) 4 Good Ulnar Deviation 4+ Good+ Radial Deviation 4- Good- Finger/Thumb Strength Finger Manual Muscle Testing Right Flexion (fingers C8) 4- Good- Extension (thumb C8) 4 Good Adduction 3+ Fair+ Abduction (fingers T1) 4- Good- Hand Chief Technical Officer/Pinch Strength Hand Strength Right Chief Technical Officer (lbs) 22 PT-OP-Q Treatments Start: 06/16/22 08:15 Freq: Status: Active Protocol: Document 07/26/22 09:02 [facility] (Rec: 07/26/22 09:48 [facility] [id number]) Cardio Equipment Upper Body Ergometer (UBE) Duration (Minutes) 6 RPM 60 Seat Position 15 Height 4 Other 3 min fwd, 3 min backward Therapeutic Exercises Sitting Exercises ring tree Equipment Used small, med, large rings Biceps curl Sitting Exercise Name 3 way bicep curls Side right Resistance 3# Reps/Minutes to fatigue Comments AAROM concentric, AROM eccentric lowering, cues for neutral shoulder T-Bar Sitting Exercise Name Bending, Twisting, Circles Side bilateral Resistance Blue T-bar PROM Sitting Exercise Name Pulleys - Flexion, Abduction Equipment Used green ball mid thoracic spine for thoracic extension Comments cues for thumbs up Standing Exercises stretches Standing Exercise Name 1. mod tara pose on treadmill back 2. long arm pec /biceps stretch Side right Reps/Minutes 30 sec ea body blade Side right Equipment Used yellow body blade Reps/Minutes 2x25 sec Manual Therapy Treatment Soft Tissue Mobilization post Body Location R lats, teres, subscap Mobilization Type Sustained Pressure Intensity/Depth Moderate Comments w/PROM flex and abd Fm Joint Mobilizations shoulder Comments 1. GH post & distraction & inf FM 2. AC scap post FM 3. SC inf FM PT-OP-T Assessment and Plan Start: 06/16/22 08:15 Freq: Status: Active Protocol: Document 07/26/22 09:02 [facility] (Rec: 07/26/22 09:48 [facility] [id number]) Physical Therapy Assessment Goals Four Impairment swelling right UE Short Term Goal (STG) Instruct patient in all aspects of edema management to include self-massage, exercise, use of compression STG Duration 08/01/22 Care Home Goal (LTG) Decrease edema right UE to within 1 cm of left UE measurements for improved function right UE LTG Duration 09/16/22 Three Impairment pain right shoulder Impairment signs and symptoms of impingement with pain as high as 8/10 with elevation of arm Care Home Goal (LTG) Decrease pain and impingment symptoms right shoulder to allow him to return to full active use of right UE with pain no greater than 3/10 LTG Duration 09/16/22 Two Impairment weakness throughout right UE, decreased shoulder flexibility Short Term Goal (STG) instruct in HEP for purposes of right UE strengthening and flexibility STG Duration 08/01/22 Marine Superintendent Goal (LTG) Patient to be independent and compliant with HEP and demonstrate ROM WFL, and improve strength to within 1/2 grade of left and internet marketing strategist and pinch strength within 10# of left LTG Duration 09/16/22 One Impairment impaired function right UE Impairment Quickdash disability index score 50% Short Term Goal (STG) Improve score to no greater than 30% 07/18/22: decreased to 27% STG Duration 08/01/22 Marine Superintendent Goal (LTG) Improve score to no greater than 15% as measure of improved functional use right UE with patient reporting ability to return to reaching all directions with his arm especially overhead and behind his back and return to gardening and wood turning. LTG Duration 09/16/22 Assessment Summary Assessment Pt did well with exercises and did most exercsies to fatigue . He does fatigue w/small rings espeically w/placement of rings on top bar. Improvd ROM after manual treatment Physical Therapy Plan Frequency and Duration Frequency of Treatment 2x/Week Duration of treatment (weeks) 12 Plan of Care Start Date 06/16/22 Plan of Care End Date 09/16/22 Next Visit Focus/Plan Next Note Type Treatment Note Next Visit Plan Continue ther ex for postural correction, scap stab, right UE strengthening. Consider muscle stim to elbow flexors.
--- NOTE | 2022-07-28 13:43 | PT.OTN ---
Current Diagnoses Polyneuropathy, unspecified (07/28/22) Abnormal posture (07/28/22) Weakness (07/28/22) Edema, unspecified (07/28/22) Physical Therapy Treatment Note PT-OP-A Visit Information Start: 06/16/22 08:15 Freq: Status: Active Protocol: Document 07/28/22 09:51 SAK (Rec: 07/28/22 10:30 SAK [id number]) Out-Patient Physical Therapy Visit Information Visit Information Visit Type Treatment Note Visit Start Time 09:02 Visit Stop Time 09:43 Total Visit Minutes 41 Visit Number 11 Number of TRIPLE VALVE TESTER Visits 0 PT-OP-B Current Condition Start: 06/16/22 08:15 Freq: Status: Active Protocol: Document 06/16/22 08:16 SAK (Rec: 06/16/22 09:05 SAK [id number]) Current Condition History of Current Condition Onset Date 06/21 History of Current Condition Had fistula put in right upper arm for dialysis 06/21/20, and had kidney transplant 07/23 . Had numbness in hand and wrist immediately after fistula put in, and patient decreased use of right UE due to the fistula so didn't really notice weakening of his right UE. Medications s/p kidney transplant caused shaking of body, worse in right UE so that also contributed to lack of use. Last November really started to notice how weak right arm was, when started trying to use arm more then started to experience pain in top of shoulder. Fistula removed 4 weeks ago, noticing warming of left hand and improved sensation, has been doing squeezing exercises with hand and wall slide ex in shower. When gets to arm into certain positions noting upper arm region arm starts shaking. Can 't use arm for eating, reaching behind back or across her body. Still some tingling in hand. 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 Fistula was removed per recommendation Future Testing and Treatments Planned EMG in 3 months after PT complete Developmental History Developmental History patient left handed Treatment Goals Patient/Caregiver Goals improve right UE funciton Prior Functional Status Baseline Function- ADL's Independent Baseline Function- Mobility Independent Baseline Function- Work/School retired Baseline Function- Recreation/Hobbies wood turning and gardening without difficulty Current Functional Impairments (Reported) Functional Limitations- ADL's minimal ability to use right UE Functional Limitations- Recreation/ unable to use right UE for Hobbies gardening, wood turning due to weakness and paoin PT-OP-C Subjective Start: 06/16/22 08:15 Freq: Status: Active Protocol: Document 07/28/22 09:51 SAK (Rec: 07/28/22 10:30 [facility] [id number]) OP-PT Subjective Patient Comments Patient Comments Shoulder sore after last session. Using right UE to take pills, drink water, spills water some still. Feeling stronger. Compliant to HEP. Fatigues quickly PT-OP-H Neuro Start: 06/16/22 08:15 Freq: Status: Active Protocol: Document 06/16/22 09:28 SAK (Rec: 06/16/22 09:56 [facility] [id number]) Sensation Evaluation Gross Sensation Gross Sensation Right UE Impaired Sensation Description Numbness,Tingling Deep Tendon Reflex & Clonus Assessment Deep Tendon Reflex Right Tricep Deep Tendon Reflex 0 Absent PT-OP-J Posture/Palpation/Skin Start: 06/16/22 08:15 Freq: Status: Active Protocol: Document 06/16/22 09:28 SAK (Rec: 06/16/22 09:56 [facility] [id number]) Posture Evaluation Position Sitting Head/C-Spine Posture Forward Head T-Spine Posture Increased Kyphosis Shoulder Posture (L) Rounded,(R) Rounded Scapula Posture (L) Protracted,(R) Protracted Arm Posture (L) Internally Rotated,(R) Internally Rotated PT-OP-K Range of Motion Start: 06/16/22 08:15 Freq: Status: Active Protocol: Document 06/16/22 09:28 SAK (Rec: 06/16/22 09:56 [facility] [id number]) Shoulder Goniometric Range of Motion Shoulder Right Active Shoulder ROM WFL No Testing Position Sitting Flexion 80 Extension 25 Abduction 95 Horizontal Abduction 60 Horizontal Adduction 20 External Rotation at 45 degrees 50 Abduction External Rotation at 0 degrees Abduction 45 Internal Rotation Behind Back (text) lateral hip Left Active Shoulder ROM WFL Yes Shoulder ROM Limitations Shoulder ROM Limitations Soft Tissue Tightness,Muscle Weakness,Pain Elbow/Forearm Range of Motion Elbow/Forearm Right Active Supination (degrees) 65 Left Active Elbow/Forearm ROM WFL Yes Wrist Goniometric Range of Motion Wrist Right Flexion Active (degrees) 20 Flexion Passive (degrees) 60 Extension Active (degrees) 25 Extension Passive (degrees) 40 Ulnar Deviation Active (degrees) 35 Radial Deviation Active (degrees) 5 Left Wrist ROM WFL Yes ROM Limitations Wrist Limitations of Range of Motion Muscle Weakness PT-OP-M Strength Start: 06/16/22 08:15 Freq: Status: Active Protocol: Document 07/18/22 08:17 [facility] (Rec: 07/18/22 08:59 [facility] [id number]) Shoulder Strength Shoulder Manual Muscle Testing Right Flexion 3+ Fair+ Extension 4- Good- Abduction (C5) 3+ Fair+ External Rotation 4 Good Internal Rotation 4 Good Elbow/Forearm Strength Elbow and Forearm Manual Muscle Testing Right Flexion (C6) 3+ Fair+ Extension (C7) 4+ Good+ Pronation 4+ Good+ Supination 3+ Fair+ Wrist Strength Wrist Manual Muscle Testing Right Flexion (C7) 3+ Fair+ Extension (C6) 4 Good Ulnar Deviation 4+ Good+ Radial Deviation 4- Good- Finger/Thumb Strength Finger Manual Muscle Testing Right Flexion (fingers C8) 4- Good- Extension (thumb C8) 4 Good Adduction 3+ Fair+ Abduction (fingers T1) 4- Good- Hand Business Banking Manager/Pinch Strength Hand Strength Right Business Banking Manager (lbs) 22 PT-OP-Q Treatments Start: 06/16/22 08:15 Freq: Status: Active Protocol: Document 07/28/22 09:51 [facility] (Rec: 07/28/22 10:30 [facility] [id number]) Cardio Equipment Upper Body Ergometer (UBE) Duration (Minutes) 6 RPM 60 Seat Position 15 Height 4 Other 3 min fwd, 3 min backward Therapeutic Exercises Supine Exercises PROM Supine Exercise Name shoulder elevation, IR, ER, Ab Side right Comments manual with inf glide during elevation Sidelying Exercises open book Reps/Minutes 10x External Rotation Sidelying Exercise Name ER Side right Reps/Minutes 10x Sitting Exercises ring tree Equipment Used small, med, large rings Biceps curl Sitting Exercise Name hands down Resistance 4# Equipment Used wand Reps/Minutes 10x3 T-Bar Sitting Exercise Name Bending, Twisting, Circles Side bilateral Resistance Blue T-bar PROM Sitting Exercise Name Pulleys - Flexion, Abduction Equipment Used green ball mid thoracic spine for thoracic extension Comments cues for thumbs up Standing Exercises body blade Side right Equipment Used yellow body blade Reps/Minutes 2x30 sec Comments unil arm at side, up/dwn,side, sina elb bent 90 deg Abduction Standing Exercise Name next session, band around UE's on wall Manual Therapy Treatment Soft Tissue Mobilization post Body Location R lats, teres, subscap Mobilization Type Sustained Pressure Intensity/Depth Moderate Comments w/PROM flex and abd incision Mobilization Type Instrument Assisted,Myofascial Release,Strumming Intensity/Depth Moderate Body Position Sitting bicep, brachiorad Mobilization Type Myofascial Release,Strumming Intensity/Depth Moderate Body Position Sitting Joint Mobilizations shoulder Joint GH Direction post,inf Grade III PT-OP-T Assessment and Plan Start: 06/16/22 08:15 Freq: Status: Active Protocol: Document 07/28/22 09:51 [facility] (Rec: 07/28/22 10:30 [facility] [id number]) Physical Therapy Assessment Impairments Impairments Functional Activities,Pain,ROM ,Strength Goals Four Impairment swelling right UE Short Term Goal (STG) Instruct patient in all aspects of edema management to include self-massage, exercise, use of compression STG Duration 08/01/22 Correction Warden Goal (LTG) Decrease edema right UE to within 1 cm of left UE measurements for improved function right UE LTG Duration 09/16/22 Three Impairment pain right shoulder Impairment signs and symptoms of impingement with pain as high as 8/10 with elevation of arm Correction Warden Goal (LTG) Decrease pain and impingment symptoms right shoulder to allow him to return to full active use of right UE with pain no greater than 3/10 LTG Duration 09/16/22 Two Impairment weakness throughout right UE, decreased shoulder flexibility Short Term Goal (STG) instruct in HEP for purposes of right UE strengthening and flexibility STG Duration 08/01/22 Correction Warden Goal (LTG) Patient to be independent and compliant with HEP and demonstrate ROM WFL, and improve strength to within 1/2 grade of left and railroad surveyor and pinch strength within 10# of left LTG Duration 09/16/22 One Impairment impaired function right UE Impairment Quickdash disability index score 50% Short Term Goal (STG) Improve score to no greater than 30% 07/18/22: decreased to 27% STG Duration 08/01/22 Correction Warden Goal (LTG) Improve score to no greater than 15% as measure of improved functional use right UE with patient reporting ability to return to reaching all directions with his arm especially overhead and behind his back and return to gardening and wood turning. LTG Duration 09/16/22 Assessment Summary Assessment Patient exhibiting some inpingement signs, educated on mechanics of shoulder, importance of not shrugging and need for strengthening and stability shoulder girdle. Physical Therapy Plan Frequency and Duration Frequency of Treatment 2x/Week Duration of treatment (weeks) 12 Plan of Care Start Date 06/16/22 Plan of Care End Date 09/16/22 Therapeutic Interventions Therapeutic Interventions Home Exercise Program,Manual Therapy,Patient/Caregiver Education,Self-Care/Home Management,Soft Tissue Mobilization,Taping, Therapeutic Activities, Therapeutic Exercises Modalities Cold Pack/Ice Massage,Electric Stimulation,Hot Packs, Infrared Therapy,Iontophoresis ,Ultrasound Next Visit Focus/Plan Next Note Type Treatment Note Next Visit Plan Continue ther ex for postural correction, scap stab, right UE strengthening. Consider muscle stim to elbow flexors.
--- NOTE | 2022-08-02 16:40 | PT.OTN ---
Current Diagnoses Polyneuropathy, unspecified (08/02/22) Abnormal posture (08/02/22) Weakness (08/02/22) Edema, unspecified (08/02/22) Physical Therapy Treatment Note PT-OP-A Visit Information Start: 06/16/22 08:15 Freq: Status: Active Protocol: Document 08/02/22 07:59 SAK (Rec: 08/02/22 08:47 SAK [id number]) Out-Patient Physical Therapy Visit Information Visit Information Visit Type Treatment Note Visit Start Time 07:59 Visit Stop Time 08:42 Total Visit Minutes 43 Visit Number 12 PT-OP-B Current Condition Start: 06/16/22 08:15 Freq: Status: Active Protocol: Document 08/02/22 07:59 SAK (Rec: 08/02/22 08:47 SAK [id number]) Current Condition History of Current Condition Onset Date 06/21 History of Current Condition Had fistula put in right upper arm for dialysis 06/21/20, and had kidney transplant 07/23 . Had numbness in hand and wrist immediately after fistula put in, and patient decreased use of right UE due to the fistula so didn't really notice weakening of his right UE. Medications s/p kidney transplant caused shaking of body, worse in right UE so that also contributed to lack of use. Last November really started to notice how weak right arm was, when started trying to use arm more then started to experience pain in top of shoulder. Fistula removed 4 weeks ago, noticing warming of left hand and improved sensation, has been doing squeezing exercises with hand and wall slide ex in shower. When gets to arm into certain positions noting upper arm region arm starts shaking. Can 't use arm for eating, reaching behind back or across her body. Still some tingling in hand. 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 Fistula was removed per recommendation Future Testing and Treatments Planned EMG in 3 months after PT complete PT-OP-C Subjective Start: 06/16/22 08:15 Freq: Status: Active Protocol: Document 08/02/22 07:59 SAK (Rec: 08/02/22 08:47 SAK [id number]) OP-PT Subjective Patient Comments Patient Comments Has been doing a lot out in the shop; shoulder sore. I know I'm probably compensating a lot. PT-OP-H Neuro Start: 06/16/22 08:15 Freq: Status: Active Protocol: Document 06/16/22 09:28 SAK (Rec: 06/16/22 09:56 [facility] [id number]) Sensation Evaluation Gross Sensation Gross Sensation Right UE Impaired Sensation Description Numbness,Tingling Deep Tendon Reflex & Clonus Assessment Deep Tendon Reflex Right Tricep Deep Tendon Reflex 0 Absent PT-OP-J Posture/Palpation/Skin Start: 06/16/22 08:15 Freq: Status: Active Protocol: Document 06/16/22 09:28 SAK (Rec: 06/16/22 09:56 [facility] [id number]) Posture Evaluation Position Sitting Head/C-Spine Posture Forward Head T-Spine Posture Increased Kyphosis Shoulder Posture (L) Rounded,(R) Rounded Scapula Posture (L) Protracted,(R) Protracted Arm Posture (L) Internally Rotated,(R) Internally Rotated PT-OP-K Range of Motion Start: 06/16/22 08:15 Freq: Status: Active Protocol: Document 06/16/22 09:28 SAK (Rec: 06/16/22 09:56 [facility] [id number]) Shoulder Goniometric Range of Motion Shoulder Right Active Shoulder ROM WFL No Testing Position Sitting Flexion 80 Extension 25 Abduction 95 Horizontal Abduction 60 Horizontal Adduction 20 External Rotation at 45 degrees 50 Abduction External Rotation at 0 degrees Abduction 45 Internal Rotation Behind Back (text) lateral hip Left Active Shoulder ROM WFL Yes Shoulder ROM Limitations Shoulder ROM Limitations Soft Tissue Tightness,Muscle Weakness,Pain Elbow/Forearm Range of Motion Elbow/Forearm Right Active Supination (degrees) 65 Left Active Elbow/Forearm ROM WFL Yes Wrist Goniometric Range of Motion Wrist Right Flexion Active (degrees) 20 Flexion Passive (degrees) 60 Extension Active (degrees) 25 Extension Passive (degrees) 40 Ulnar Deviation Active (degrees) 35 Radial Deviation Active (degrees) 5 Left Wrist ROM WFL Yes ROM Limitations Wrist Limitations of Range of Motion Muscle Weakness PT-OP-M Strength Start: 06/16/22 08:15 Freq: Status: Active Protocol: Document 07/18/22 08:17 SAK (Rec: 07/18/22 08:59 [facility] [id number]) Shoulder Strength Shoulder Manual Muscle Testing Right Flexion 3+ Fair+ Extension 4- Good- Abduction (C5) 3+ Fair+ External Rotation 4 Good Internal Rotation 4 Good Elbow/Forearm Strength Elbow and Forearm Manual Muscle Testing Right Flexion (C6) 3+ Fair+ Extension (C7) 4+ Good+ Pronation 4+ Good+ Supination 3+ Fair+ Wrist Strength Wrist Manual Muscle Testing Right Flexion (C7) 3+ Fair+ Extension (C6) 4 Good Ulnar Deviation 4+ Good+ Radial Deviation 4- Good- Finger/Thumb Strength Finger Manual Muscle Testing Right Flexion (fingers C8) 4- Good- Extension (thumb C8) 4 Good Adduction 3+ Fair+ Abduction (fingers T1) 4- Good- Hand Business Services Director/Pinch Strength Hand Strength Right Business Services Director (lbs) 22 PT-OP-Q Treatments Start: 06/16/22 08:15 Freq: Status: Active Protocol: Document 08/02/22 07:59 [facility] (Rec: 08/02/22 08:47 [facility] [id number]) Cardio Equipment Upper Body Ergometer (UBE) Duration (Minutes) 6 RPM 60 Seat Position 15 Height 4 Other 3 min fwd, 3 min backward Gym Equipment Cable Column (Body Solid) scap inf glide Resistance 10 Reps/Time 10x1 lat pull Resistance 10 Reps/Time 10x1 Therapeutic Exercises Supine Exercises PROM Supine Exercise Name shoulder elevation, IR, ER, Ab Side right Comments manual with inf glide during elevation Standing Exercises stretches Standing Exercise Name 1. long arm pec/biceps stretch 2. doorway stretch Side bilateral Reps/Minutes 30 sec x 2 ea body blade Side bilateral Equipment Used yellow body blade Reps/Minutes 2x30 sec Comments unil arm at side, up/dwn,side, sina elb bent 90 deg IR/ER Eccentric bicep Reps/Minutes 10x Comments AAROM elbow flex, eccentric lowering. Rows Standing Exercise Name Rows Side bilateral Resistance Green Comments cues for scapular activation, dec UT Extension Standing Exercise Name Shoulder Extension Side bilateral Resistance Green Comments cues for scapular activation, dec UT Abduction Standing Exercise Name next session, band around UE's on wall Manual Therapy Treatment Soft Tissue Mobilization incision Mobilization Type Instrument Assisted,Myofascial Release,Strumming Intensity/Depth Moderate Body Position Sitting bicep, brachiorad Mobilization Type Myofascial Release,Strumming Intensity/Depth Moderate Body Position Sitting Joint Mobilizations shoulder Joint GH Direction post,inf Grade III Self-Care/Home Management Treatment Education Patient Education Home Exercise Program,Joint Protection,Posture PT-OP-R Modalities Start: 06/16/22 08:15 Freq: Status: Active Protocol: Document 08/02/22 07:59 [facility] (Rec: 08/02/22 08:47 [facility] [id number]) Electric Stimulation Electric Stimulation Functional Electric Stimulation Body Location right bicep Duration (Minutes) 8 Intensity 27 Contraction Type Normal Ramp 1.0 Patient Position Sitting Comments PT assist, cues for eccentric lowering. No palpable contraction elicited PT-OP-T Assessment and Plan Start: 06/16/22 08:15 Freq: Status: Active Protocol: Document 08/02/22 07:59 [facility] (Rec: 08/02/22 08:47 [facility] [id number]) Physical Therapy Assessment Impairments Impairments Functional Activities,Pain,ROM ,Strength Goals Four Impairment swelling right UE Short Term Goal (STG) Instruct patient in all aspects of edema management to include self-massage, exercise, use of compression STG Duration 08/01/22 [facility] Goal (LTG) Decrease edema right UE to within 1 cm of left UE measurements for improved function right UE LTG Duration 09/16/22 Three Impairment pain right shoulder Impairment signs and symptoms of impingement with pain as high as 8/10 with elevation of arm [facility] Goal (LTG) Decrease pain and impingment symptoms right shoulder to allow him to return to full active use of right UE with pain no greater than 3/10 LTG Duration 09/16/22 Two Impairment weakness throughout right UE, decreased shoulder flexibility Short Term Goal (STG) instruct in HEP for purposes of right UE strengthening and flexibility STG Duration 08/01/22 Interior Design Faculty Member Goal (LTG) Patient to be independent and compliant with HEP and demonstrate ROM WFL, and improve strength to within 1/2 grade of left and tower loader operator and pinch strength within 10# of left LTG Duration 09/16/22 One Impairment impaired function right UE Impairment Quickdash disability index score 50% Short Term Goal (STG) Improve score to no greater than 30% 07/18/22: decreased to 27% STG Duration 08/01/22 Interior Design Faculty Member Goal (LTG) Improve score to no greater than 15% as measure of improved functional use right UE with patient reporting ability to return to reaching all directions with his arm especially overhead and behind his back and return to gardening and wood turning. LTG Duration 09/16/22 Assessment Summary Assessment mod cues for row with TB to inhibit UT overactivation and improve scapular activation. Improvement in elbow flex with Wallisian stim though fatigued quickly. Physical Therapy Plan Frequency and Duration Frequency of Treatment 2x/Week Duration of treatment (weeks) 12 Plan of Care Start Date 06/16/22 Plan of Care End Date 09/16/22 Therapeutic Interventions Therapeutic Interventions Home Exercise Program,Manual Therapy,Patient/Caregiver Education,Self-Care/Home Management,Soft Tissue Mobilization,Taping, Therapeutic Activities, Therapeutic Exercises Modalities Cold Pack/Ice Massage,Electric Stimulation,Hot Packs, Infrared Therapy,Iontophoresis ,Ultrasound Next Visit Focus/Plan Next Note Type Treatment Note Next Visit Plan Continue ther ex for postural correction, scap stab, right UE strengthening.
--- NOTE | 2022-08-05 09:36 | PT.OTN ---
Current Diagnoses Polyneuropathy, unspecified (08/05/22) Abnormal posture (08/05/22) Weakness (08/05/22) Edema, unspecified (08/05/22) Physical Therapy Treatment Note PT-OP-A Visit Information Start: 06/16/22 08:15 Freq: Status: Active Protocol: Document 08/05/22 08:45 DCW (Rec: 08/05/22 09:35 DCW [id number]) Out-Patient Physical Therapy Visit Information Visit Information Visit Type Treatment Note Visit Start Time 08:45 Visit Stop Time 09:30 Total Visit Minutes 45 Visit Number 13 Number of MAIL RIDER Visits 0 Evaluation Information Evaluation Date 06/16/22 PT-OP-B Current Condition Start: 06/16/22 08:15 Freq: Status: Active Protocol: Document 08/02/22 07:59 SAK (Rec: 08/02/22 08:47 SAK [id number]) Current Condition History of Current Condition Onset Date 06/21 History of Current Condition Had fistula put in right upper arm for dialysis 06/21/20, and had kidney transplant 07/23 . Had numbness in hand and wrist immediately after fistula put in, and patient decreased use of right UE due to the fistula so didn't really notice weakening of his right UE. Medications s/p kidney transplant caused shaking of body, worse in right UE so that also contributed to lack of use. Last November really started to notice how weak right arm was, when started trying to use arm more then started to experience pain in top of shoulder. Fistula removed 4 weeks ago, noticing warming of left hand and improved sensation, has been doing squeezing exercises with hand and wall slide ex in shower. When gets to arm into certain positions noting upper arm region arm starts shaking. Can 't use arm for eating, reaching behind back or across her body. Still some tingling in hand. 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 Fistula was removed per recommendation Future Testing and Treatments Planned EMG in 3 months after PT complete PT-OP-C Subjective Start: 06/16/22 08:15 Freq: Status: Active Protocol: Document 08/05/22 08:45 DCW (Rec: 08/05/22 09:35 DCW [id number]) OP-PT Subjective Patient Comments Patient Comments I've found out that if I am using both arms, I can kind of activate that (right biceps) muscle a little better. Additionally notes that they have recently discovered a mass on his old kidney, may need to go in for surgery to have it removed in the upcoming future, unsure as of this time. PT-OP-H Neuro Start: 06/16/22 08:15 Freq: Status: Active Protocol: Document 06/16/22 09:28 [facility] (Rec: 06/16/22 09:56 [facility] [id number]) Sensation Evaluation Gross Sensation Gross Sensation Right UE Impaired Sensation Description Numbness,Tingling Deep Tendon Reflex & Clonus Assessment Deep Tendon Reflex Right Tricep Deep Tendon Reflex 0 Absent PT-OP-J Posture/Palpation/Skin Start: 06/16/22 08:15 Freq: Status: Active Protocol: Document 06/16/22 09:28 [facility] (Rec: 06/16/22 09:56 [facility] [id number]) Posture Evaluation Position Sitting Head/C-Spine Posture Forward Head T-Spine Posture Increased Kyphosis Shoulder Posture (L) Rounded,(R) Rounded Scapula Posture (L) Protracted,(R) Protracted Arm Posture (L) Internally Rotated,(R) Internally Rotated PT-OP-K Range of Motion Start: 06/16/22 08:15 Freq: Status: Active Protocol: Document 06/16/22 09:28 [facility] (Rec: 06/16/22 09:56 [facility] [id number]) Shoulder Goniometric Range of Motion Shoulder Right Active Shoulder ROM WFL No Testing Position Sitting Flexion 80 Extension 25 Abduction 95 Horizontal Abduction 60 Horizontal Adduction 20 External Rotation at 45 degrees 50 Abduction External Rotation at 0 degrees Abduction 45 Internal Rotation Behind Back (text) lateral hip Left Active Shoulder ROM WFL Yes Shoulder ROM Limitations Shoulder ROM Limitations Soft Tissue Tightness,Muscle Weakness,Pain Elbow/Forearm Range of Motion Elbow/Forearm Right Active Supination (degrees) 65 Left Active Elbow/Forearm ROM WFL Yes Wrist Goniometric Range of Motion Wrist Right Flexion Active (degrees) 20 Flexion Passive (degrees) 60 Extension Active (degrees) 25 Extension Passive (degrees) 40 Ulnar Deviation Active (degrees) 35 Radial Deviation Active (degrees) 5 Left Wrist ROM WFL Yes ROM Limitations Wrist Limitations of Range of Motion Muscle Weakness PT-OP-M Strength Start: 06/16/22 08:15 Freq: Status: Active Protocol: Document 07/18/22 08:17 SAK (Rec: 07/18/22 08:59 SAK [id number]) Shoulder Strength Shoulder Manual Muscle Testing Right Flexion 3+ Fair+ Extension 4- Good- Abduction (C5) 3+ Fair+ External Rotation 4 Good Internal Rotation 4 Good Elbow/Forearm Strength Elbow and Forearm Manual Muscle Testing Right Flexion (C6) 3+ Fair+ Extension (C7) 4+ Good+ Pronation 4+ Good+ Supination 3+ Fair+ Wrist Strength Wrist Manual Muscle Testing Right Flexion (C7) 3+ Fair+ Extension (C6) 4 Good Ulnar Deviation 4+ Good+ Radial Deviation 4- Good- Finger/Thumb Strength Finger Manual Muscle Testing Right Flexion (fingers C8) 4- Good- Extension (thumb C8) 4 Good Adduction 3+ Fair+ Abduction (fingers T1) 4- Good- Hand Silk Worker/Pinch Strength Hand Strength Right Silk Worker (lbs) 22 PT-OP-Q Treatments Start: 06/16/22 08:15 Freq: Status: Active Protocol: Document 08/05/22 08:45 DCW (Rec: 08/05/22 09:35 DCW [id number]) Cardio Equipment Upper Body Ergometer (UBE) Duration (Minutes) 6 RPM 60 Seat Position 15 Height 4 Other 3 min fwd, 3 min backward Gym Equipment Cable Column (Body Solid) Rows Resistance 20# Reps/Time x20 lat pull Resistance 20# Reps/Time x20 Therapeutic Exercises Supine Exercises PROM Supine Exercise Name shoulder elevation, IR, ER, Ab Side right Comments manual with inf glide during elevation Sitting Exercises Biceps curl Sitting Exercise Name hands down Resistance 4# Equipment Used wand Reps/Minutes 10x3 T-Bar Sitting Exercise Name Bending, Twisting, Circles Side bilateral Resistance Blue T-bar PROM Sitting Exercise Name Pulleys - Flexion, Abduction Standing Exercises body blade Side bilateral Equipment Used yellow body blade Reps/Minutes 2x30 sec Comments unil arm at side, up/dwn,side, sina elb bent 90 deg IR/ER Eccentric bicep Resistance 1# Reps/Minutes 10x Comments AAROM elbow flex, eccentric lowering. Abduction Standing Exercise Name band around UE's on wall Resistance Yellow loop Manual Therapy Treatment Joint Mobilizations shoulder Joint GH Direction post,inf Grade III PT-OP-R Modalities Start: 06/16/22 08:15 Freq: Status: Active Protocol: Document 08/02/22 07:59 SAK (Rec: 08/02/22 08:47 SAK [id number]) Electric Stimulation Electric Stimulation Functional Electric Stimulation Body Location right bicep Duration (Minutes) 8 Intensity 27 Contraction Type Normal Ramp 1.0 Patient Position Sitting Comments PT assist, cues for eccentric lowering. No palpable contraction elicited PT-OP-T Assessment and Plan Start: 06/16/22 08:15 Freq: Status: Active Protocol: Document 08/05/22 08:45 DCW (Rec: 08/05/22 09:35 DCW [id number]) Physical Therapy Assessment Impairments Impairments Functional Activities,Pain,ROM ,Strength Goals Four Impairment swelling right UE Short Term Goal (STG) Instruct patient in all aspects of edema management to include self-massage, exercise, use of compression STG Duration 08/01/22 Senior Care Goal (LTG) Decrease edema right UE to within 1 cm of left UE measurements for improved function right UE LTG Duration 09/16/22 Three Impairment pain right shoulder Impairment signs and symptoms of impingement with pain as high as 8/10 with elevation of arm Senior Care Goal (LTG) Decrease pain and impingment symptoms right shoulder to allow him to return to full active use of right UE with pain no greater than 3/10 LTG Duration 09/16/22 Two Impairment weakness throughout right UE, decreased shoulder flexibility Short Term Goal (STG) instruct in HEP for purposes of right UE strengthening and flexibility STG Duration 08/01/22 Manager Solar Goal (LTG) Patient to be independent and compliant with HEP and demonstrate ROM WFL, and improve strength to within 1/2 grade of left and congregational care pastor and pinch strength within 10# of left LTG Duration 09/16/22 One Impairment impaired function right UE Impairment Quickdash disability index score 50% Short Term Goal (STG) Improve score to no greater than 30% 07/18/22: decreased to 27% STG Duration 08/01/22 Manager Solar Goal (LTG) Improve score to no greater than 15% as measure of improved functional use right UE with patient reporting ability to return to reaching all directions with his arm especially overhead and behind his back and return to gardening and wood turning. LTG Duration 09/16/22 Assessment Summary Assessment Showing overall improvement, still quite limited with right biceps function, likely a matter of allowing time for the nerve function to return. Pt will be leaving the state for a vacation soon, and is planning to afterward follow- up with his neurologist. Unsure at this time if PT will continue past his last scheduled visit next week. Physical Therapy Plan Frequency and Duration Frequency of Treatment 2x/Week Duration of treatment (weeks) 12 Plan of Care Start Date 06/16/22 Plan of Care End Date 09/16/22 Therapeutic Interventions Therapeutic Interventions Home Exercise Program,Manual Therapy,Patient/Caregiver Education,Self-Care/Home Management,Soft Tissue Mobilization,Taping, Therapeutic Activities, Therapeutic Exercises Modalities Cold Pack/Ice Massage,Electric Stimulation,Hot Packs, Infrared Therapy,Iontophoresis ,Ultrasound Next Visit Focus/Plan Next Note Type Treatment Note Next Visit Plan Continue ther ex for postural correction, scap stab, right UE strengthening.
--- NOTE | 2022-08-08 16:42 | PT.OTN ---
Current Diagnoses Polyneuropathy, unspecified (08/08/22) Abnormal posture (08/08/22) Weakness (08/08/22) Edema, unspecified (08/08/22) Physical Therapy Treatment Note PT-OP-A Visit Information Start: 06/16/22 08:15 Freq: Status: Active Protocol: Document 08/08/22 07:59 SAK (Rec: 08/08/22 08:49 SAK [id number]) Out-Patient Physical Therapy Visit Information Visit Information Visit Type Treatment Note Visit Start Time 07:59 Visit Stop Time 08:45 Total Visit Minutes 45 Visit Number 14 Evaluation Information Evaluation Date 06/16/22 PT-OP-B Current Condition Start: 06/16/22 08:15 Freq: Status: Active Protocol: Document 08/08/22 07:59 SAK (Rec: 08/08/22 08:49 SAK [id number]) Current Condition History of Current Condition Onset Date 06/21 History of Current Condition Had fistula put in right upper arm for dialysis 06/21/20, and had kidney transplant 07/23 . Had numbness in hand and wrist immediately after fistula put in, and patient decreased use of right UE due to the fistula so didn't really notice weakening of his right UE. Medications s/p kidney transplant caused shaking of body, worse in right UE so that also contributed to lack of use. Last November really started to notice how weak right arm was, when started trying to use arm more then started to experience pain in top of shoulder. Fistula removed 4 weeks ago, noticing warming of left hand and improved sensation, has been doing squeezing exercises with hand and wall slide ex in shower. When gets to arm into certain positions noting upper arm region arm starts shaking. Can 't use arm for eating, reaching behind back or across her body. Still some tingling in hand. 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 Fistula was removed per recommendation Future Testing and Treatments Planned EMG in 3 months after PT complete PT-OP-C Subjective Start: 06/16/22 08:15 Freq: Status: Active Protocol: Document 08/08/22 07:59 SAK (Rec: 08/08/22 08:49 [facility] [id number]) OP-PT Subjective Patient Comments Patient Comments Shoulder aching hurts first day after PT, then gets better . Does his exercises first thing in the am. PT-OP-H Neuro Start: 06/16/22 08:15 Freq: Status: Active Protocol: Document 06/16/22 09:28 SAK (Rec: 06/16/22 09:56 [facility] [id number]) Sensation Evaluation Gross Sensation Gross Sensation Right UE Impaired Sensation Description Numbness,Tingling Deep Tendon Reflex & Clonus Assessment Deep Tendon Reflex Right Tricep Deep Tendon Reflex 0 Absent PT-OP-J Posture/Palpation/Skin Start: 06/16/22 08:15 Freq: Status: Active Protocol: Document 06/16/22 09:28 SAK (Rec: 06/16/22 09:56 [facility] [id number]) Posture Evaluation Position Sitting Head/C-Spine Posture Forward Head T-Spine Posture Increased Kyphosis Shoulder Posture (L) Rounded,(R) Rounded Scapula Posture (L) Protracted,(R) Protracted Arm Posture (L) Internally Rotated,(R) Internally Rotated PT-OP-K Range of Motion Start: 06/16/22 08:15 Freq: Status: Active Protocol: Document 06/16/22 09:28 SAK (Rec: 06/16/22 09:56 [facility] [id number]) Shoulder Goniometric Range of Motion Shoulder Right Active Shoulder ROM WFL No Testing Position Sitting Flexion 80 Extension 25 Abduction 95 Horizontal Abduction 60 Horizontal Adduction 20 External Rotation at 45 degrees 50 Abduction External Rotation at 0 degrees Abduction 45 Internal Rotation Behind Back (text) lateral hip Left Active Shoulder ROM WFL Yes Shoulder ROM Limitations Shoulder ROM Limitations Soft Tissue Tightness,Muscle Weakness,Pain Elbow/Forearm Range of Motion Elbow/Forearm Right Active Supination (degrees) 65 Left Active Elbow/Forearm ROM WFL Yes Wrist Goniometric Range of Motion Wrist Right Flexion Active (degrees) 20 Flexion Passive (degrees) 60 Extension Active (degrees) 25 Extension Passive (degrees) 40 Ulnar Deviation Active (degrees) 35 Radial Deviation Active (degrees) 5 Left Wrist ROM WFL Yes ROM Limitations Wrist Limitations of Range of Motion Muscle Weakness PT-OP-M Strength Start: 06/16/22 08:15 Freq: Status: Active Protocol: Document 07/18/22 08:17 SAK (Rec: 07/18/22 08:59 [facility] [id number]) Shoulder Strength Shoulder Manual Muscle Testing Right Flexion 3+ Fair+ Extension 4- Good- Abduction (C5) 3+ Fair+ External Rotation 4 Good Internal Rotation 4 Good Elbow/Forearm Strength Elbow and Forearm Manual Muscle Testing Right Flexion (C6) 3+ Fair+ Extension (C7) 4+ Good+ Pronation 4+ Good+ Supination 3+ Fair+ Wrist Strength Wrist Manual Muscle Testing Right Flexion (C7) 3+ Fair+ Extension (C6) 4 Good Ulnar Deviation 4+ Good+ Radial Deviation 4- Good- Finger/Thumb Strength Finger Manual Muscle Testing Right Flexion (fingers C8) 4- Good- Extension (thumb C8) 4 Good Adduction 3+ Fair+ Abduction (fingers T1) 4- Good- Hand Material Control Clerk/Pinch Strength Hand Strength Right Material Control Clerk (lbs) 22 PT-OP-Q Treatments Start: 06/16/22 08:15 Freq: Status: Active Protocol: Document 08/08/22 07:59 [facility] (Rec: 08/08/22 08:49 [facility] [id number]) Cardio Equipment Upper Body Ergometer (UBE) Duration (Minutes) 8 RPM 60 Seat Position 15 Height 4 Other 3 min fwd, 3 min backward Gym Equipment Cable Column (Body Solid) Rows Resistance 30# Reps/Time 15x2 lat pull Resistance 30 Reps/Time 15x2 Therapeutic Exercises Supine Exercises PROM Supine Exercise Name shoulder elevation, IR, ER, Ab Side right Comments manual with inf glide during elevation Sitting Exercises Biceps curl Sitting Exercise Name hands down Resistance 4# Equipment Used wand Reps/Minutes 10x3 PROM Sitting Exercise Name Pulleys - Flexion, Abduction Standing Exercises beanbag toss Reps/Minutes 5 min Comments floor height, 24 in height target body blade Side bilateral Equipment Used yellow body blade Reps/Minutes 2x30 sec Comments unil arm at side, up/dwn,side, sina elb bent 90 deg IR/ER Eccentric bicep Resistance 2# Reps/Minutes 10x Comments AAROM elbow flex, eccentric lowering. Abduction Standing Exercise Name band around UE's on wall Resistance Yellow loop Manual Therapy Treatment Soft Tissue Mobilization incision Mobilization Type Instrument Assisted,Myofascial Release,Strumming Intensity/Depth Moderate Body Position Sitting bicep, brachiorad Mobilization Type Myofascial Release,Strumming Intensity/Depth Moderate Body Position Sitting Joint Mobilizations shoulder Joint GH Direction post,inf Grade III Self-Care/Home Management Treatment Education Patient Education Home Exercise Program,Joint Protection,Posture PT-OP-R Modalities Start: 06/16/22 08:15 Freq: Status: Active Protocol: Document 08/02/22 07:59 [facility] (Rec: 08/02/22 08:47 [facility] [id number]) Electric Stimulation Electric Stimulation Functional Electric Stimulation Body Location right bicep Duration (Minutes) 8 Intensity 27 Contraction Type Normal Ramp 1.0 Patient Position Sitting Comments PT assist, cues for eccentric lowering. No palpable contraction elicited PT-OP-T Assessment and Plan Start: 06/16/22 08:15 Freq: Status: Active Protocol: Document 08/08/22 07:59 [facility] (Rec: 08/08/22 08:49 [facility] [id number]) Physical Therapy Assessment Impairments Impairments Functional Activities,Pain,ROM ,Strength Goals Four Impairment swelling right UE Short Term Goal (STG) Instruct patient in all aspects of edema management to include self-massage, exercise, use of compression 08/08/22: goal met STG Duration goal met Footwear Production Machine Operator Goal (LTG) Decrease edema right UE to within 1 cm of left UE measurements for improved function right UE LTG Duration 09/16/22 Three Impairment pain right shoulder Impairment signs and symptoms of impingement with pain as high as 8/10 with elevation of arm Footwear Production Machine Operator Goal (LTG) Decrease pain and impingment symptoms right shoulder to allow him to return to full active use of right UE with pain no greater than 3/10 LTG Duration 09/16/22 Two Impairment weakness throughout right UE, decreased shoulder flexibility Short Term Goal (STG) instruct in HEP for purposes of right UE strengthening and flexibility STG Duration 08/01/22 Footwear Production Machine Operator Goal (LTG) Patient to be independent and compliant with HEP and demonstrate ROM WFL, and improve strength to within 1/2 grade of left and quality assurance nurse and pinch strength within 10# of left LTG Duration 09/16/22 One Impairment impaired function right UE Impairment Quickdash disability index score 50% Short Term Goal (STG) Improve score to no greater than 30% 07/18/22: decreased to 27% STG Duration 08/01/22 Footwear Production Machine Operator Goal (LTG) Improve score to no greater than 15% as measure of improved functional use right UE with patient reporting ability to return to reaching all directions with his arm especially overhead and behind his back and return to gardening and wood turning. LTG Duration 09/16/22 Progress Towards Goals Progress Towards Goals Progressing Toward Goals Assessment Summary Assessment Good compliance to HEP, cues to inhibit UT with verbal, tactile, and visual cues with patient demonstrating good understanding. Discussed use of fun activities (ie yard games) for part of rehab. Patient agreable to follow-up PT appointment in approx 1 month to reassess progress, determine need for further PT. Physical Therapy Plan Frequency and Duration Frequency of Treatment 2x/Week Duration of treatment (weeks) 12 Plan of Care Start Date 06/16/22 Plan of Care End Date 09/16/22 Therapeutic Interventions Therapeutic Interventions Home Exercise Program,Manual Therapy,Patient/Caregiver Education,Self-Care/Home Management,Soft Tissue Mobilization,Taping, Therapeutic Activities, Therapeutic Exercises Modalities Cold Pack/Ice Massage,Electric Stimulation,Hot Packs, Infrared Therapy,Iontophoresis ,Ultrasound Next Visit Focus/Plan Next Note Type Treatment Note Next Visit Plan Patient to continue with HEP while gone on vacation, return for follow-up in 1 month, determine need for further PT at that time.
--- NOTE | 2022-09-05 10:09 | PT.OTN ---
Current Diagnoses Polyneuropathy, unspecified (09/05/22) Abnormal posture (09/05/22) Weakness (09/05/22) Edema, unspecified (09/05/22) Physical Therapy Treatment Note PT-OP-A Visit Information Start: 06/16/22 08:15 Freq: Status: Active Protocol: Document 09/05/22 09:30 DCW (Rec: 09/05/22 10:09 DCW [id number]) Out-Patient Physical Therapy Visit Information Visit Information Visit Type Discharge Summary Visit Start Time 09:30 Visit Stop Time 10:00 Total Visit Minutes 30 Visit Number 15 Evaluation Information Evaluation Date 06/16/22 PT-OP-B Current Condition Start: 06/16/22 08:15 Freq: Status: Active Protocol: Document 08/08/22 07:59 SAK (Rec: 08/08/22 08:49 SAK [id number]) Current Condition History of Current Condition Onset Date 06/21 History of Current Condition Had fistula put in right upper arm for dialysis 06/21/20, and had kidney transplant 07/23 . Had numbness in hand and wrist immediately after fistula put in, and patient decreased use of right UE due to the fistula so didn't really notice weakening of his right UE. Medications s/p kidney transplant caused shaking of body, worse in right UE so that also contributed to lack of use. Last November really started to notice how weak right arm was, when started trying to use arm more then started to experience pain in top of shoulder. Fistula removed 4 weeks ago, noticing warming of left hand and improved sensation, has been doing squeezing exercises with hand and wall slide ex in shower. When gets to arm into certain positions noting upper arm region arm starts shaking. Can 't use arm for eating, reaching behind back or across her body. Still some tingling in hand. 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 Fistula was removed per recommendation Future Testing and Treatments Planned EMG in 3 months after PT complete PT-OP-C Subjective Start: 06/16/22 08:15 Freq: Status: Active Protocol: Document 09/05/22 09:30 DCW (Rec: 09/05/22 10:09 DCW [id number]) OP-PT Subjective Patient Comments Patient Comments Pt has been busy at home working on HEP, hos been doing well increasing resistance for himself. Feels elbow flexion is still his area that is most lacking in strength. PT-OP-H Neuro Start: 06/16/22 08:15 Freq: Status: Active Protocol: Document 09/05/22 09:30 DCW (Rec: 09/05/22 09:52 DCW [id number]) Sensation Evaluation Gross Sensation Gross Sensation Right UE Impaired Sensation Description Numbness,Tingling Comments Summary Comments I still have tingling in my fingertips. Deep Tendon Reflex & Clonus Assessment Deep Tendon Reflex Right Tricep Deep Tendon Reflex 1+ Diminished PT-OP-J Posture/Palpation/Skin Start: 06/16/22 08:15 Freq: Status: Active Protocol: Document 09/05/22 09:30 DCW (Rec: 09/05/22 09:52 DCW [id number]) Posture Evaluation Position Sitting Head/C-Spine Posture Forward Head T-Spine Posture Increased Kyphosis Shoulder Posture (L) Rounded,(R) Rounded Scapula Posture (L) Protracted,(R) Protracted Arm Posture (L) Internally Rotated,(R) Internally Rotated PT-OP-K Range of Motion Start: 06/16/22 08:15 Freq: Status: Active Protocol: Document 09/05/22 09:30 DCW (Rec: 09/05/22 09:52 DCW [id number]) Shoulder Goniometric Range of Motion Shoulder Right Active Shoulder ROM WFL No Testing Position Sitting Flexion 108 Extension 41 Abduction 112 Horizontal Abduction 88 Horizontal Adduction 20 External Rotation at 45 degrees 68 Abduction External Rotation at 0 degrees Abduction 52 Internal Rotation Behind Back (text) T10 Shoulder ROM Limitations Shoulder ROM Limitations Soft Tissue Tightness,Muscle Weakness Elbow/Forearm Range of Motion Elbow/Forearm Right Active ROM Testing Position Sitting Pronation (degrees) 89 Supination (degrees) 70 Wrist Goniometric Range of Motion Wrist Right Flexion Active (degrees) 60 Flexion Passive (degrees) 82 Extension Active (degrees) 60 Extension Passive (degrees) 75 Ulnar Deviation Active (degrees) 57 Radial Deviation Active (degrees) 12 PT-OP-M Strength Start: 06/16/22 08:15 Freq: Status: Active Protocol: Document 09/05/22 09:30 DCW (Rec: 09/05/22 09:52 DCW [id number]) Shoulder Strength Shoulder Manual Muscle Testing Right Flexion 4- Good- Extension 4+ Good+ Abduction (C5) 4 Good External Rotation 4+ Good+ Internal Rotation 4 Good Elbow/Forearm Strength Elbow and Forearm Manual Muscle Testing Right Flexion (C6) 3+ Fair+ Extension (C7) 4+ Good+ Pronation 4+ Good+ Supination 3+ Fair+ Wrist Strength Wrist Manual Muscle Testing Right Flexion (C7) 4- Good- Extension (C6) 4+ Good+ Ulnar Deviation 4+ Good+ Radial Deviation 4- Good- Finger/Thumb Strength Finger Manual Muscle Testing Right Flexion (fingers C8) 4+ Good+ Extension (thumb C8) 4+ Good+ Adduction 4- Good- Abduction (fingers T1) 4- Good- Hand Asbestos Remover/Pinch Strength Hand Strength Right Asbestos Remover (lbs) 21 PT-OP-Q Treatments Start: 06/16/22 08:15 Freq: Status: Active Protocol: Document 09/05/22 09:30 DCW (Rec: 09/05/22 10:09 DCW [id number]) Cardio Equipment Upper Body Ergometer (UBE) Duration (Minutes) 6 RPM 60 Seat Position 15 Height 4 Other 3 min fwd, 3 min backward PT-OP-R Modalities Start: 06/16/22 08:15 Freq: Status: Active Protocol: Document 08/02/22 07:59 SAK (Rec: 08/02/22 08:47 SAK [id number]) Electric Stimulation Electric Stimulation Functional Electric Stimulation Body Location right bicep Duration (Minutes) 8 Intensity 27 Contraction Type Normal Ramp 1.0 Patient Position Sitting Comments PT assist, cues for eccentric lowering. No palpable contraction elicited PT-OP-T Assessment and Plan Start: 06/16/22 08:15 Freq: Status: Active Protocol: Document 09/05/22 09:30 DCW (Rec: 09/05/22 10:09 DCW [id number]) Physical Therapy Assessment Impairments Impairments Functional Activities,Pain,ROM ,Strength Goals Four Impairment swelling right UE Short Term Goal (STG) Instruct patient in all aspects of edema management to include self-massage, exercise, use of compression 08/08/22: goal met STG Duration goal met Senior Living Goal (LTG) Decrease edema right UE to within 1 cm of left UE measurements for improved function right UE LTG Duration 09/16/22 Three Impairment pain right shoulder Impairment signs and symptoms of impingement with pain as high as 8/10 with elevation of arm Edge Polisher Goal (LTG) Decrease pain and impingment symptoms right shoulder to allow him to return to full active use of right UE with pain no greater than 3/10 LTG Duration 09/16/22 Two Impairment weakness throughout right UE, decreased shoulder flexibility Short Term Goal (STG) instruct in HEP for purposes of right UE strengthening and flexibility STG Duration 08/01/22 Senior Living Goal (LTG) Patient to be independent and compliant with HEP and demonstrate ROM WFL, and improve strength to within 1/2 grade of left and slip presser and pinch strength within 10# of left LTG Duration 09/16/22 One Impairment impaired function right UE Impairment Quickdash disability index score 50% Short Term Goal (STG) Improve score to no greater than 30% 07/18/22: decreased to 27% STG Duration 08/01/22 Edge Polisher Goal (LTG) Improve score to no greater than 15% as measure of improved functional use right UE with patient reporting ability to return to reaching all directions with his arm especially overhead and behind his back and return to gardening and wood turning. LTG Duration 09/16/22 Progress Towards Goals Progress Towards Goals Progressing Toward Goals Assessment Summary Assessment Pt showing good progress in all areas, good gains in strength and ROM. Pt increasing functional mobility in his right arm, increasing use during daily activities. Pt largely doing very well with his HEP, feels comfortable with continuing independent exercise. Largely just waiting to see how much nerve return occurs over the upcoming months. Appropriate for discharge at this time, pt will require a new referral in order to return to skilled PT at a later date. Physical Therapy Plan Frequency and Duration Frequency of Treatment 2x/Week Duration of treatment (weeks) 12 Plan of Care Start Date 06/16/22 Plan of Care End Date 09/16/22 Therapeutic Interventions Therapeutic Interventions Home Exercise Program,Manual Therapy,Patient/Caregiver Education,Self-Care/Home Management,Soft Tissue Mobilization,Taping, Therapeutic Activities, Therapeutic Exercises Modalities Cold Pack/Ice Massage,Electric Stimulation,Hot Packs, Infrared Therapy,Iontophoresis ,Ultrasound Discharge Physical Therapy Discharge Comments Discharge to independent [facility] Next Visit Focus/Plan Next Note Type Discharge Summary
== END 2022-09-06 12:01 | disposition home or self-care (01) ==
LOC: PHYS 09:30
PROVIDERS: Family Provider Family Medicine; PCP Family Medicine; Referring Provider Internal Medicine; Visit Provider Internal Medicine
DX: G62.9 Polyneuropathy, unspecified (principal); R53.1 Weakness; R29.3 Abnormal posture; R60.9 Edema, unspecified
CPT/HCPCS: 97110; 97140; 97163; 97530; 97535

== ENCOUNTER → 2022-10-12 06:33 | Outpatient (CLI) | payer MEDICARE, SELFPAY ==
[2022-10-12 07:49] LABS: Add Manual Diff / Slide Review NO; Appearance Urine UA CLEAR; Basophils Absolute Auto 0 /uL (0-100); Basophils Percent Auto 0.7 % (0-2); Bilirubin Urine UA NEGATIVE (NEGATIVE); Color Urine UA YELLOW; Eosinophils Absolute Auto 300 /uL (0-450); Glucose Urine UA NEGATIVE (Negative); Hematocrit 36.4 % (41-53); Hemoglobin 12.5 g/dL (13.5-17.5); Ketones Urine UA NEGATIVE (NEGATIVE); Leukocyte Esterase Urine UA TRACE (NEGATIVE); Lymphocytes Absolute Auto 900 /uL (1100-4500); Lymphocytes Percent Auto 15.6 % (25-40); Mean Corpuscular HGB Conc 34.3 % (30-36); Mean Corpuscular Hemoglobin 31.6 PG (26-34); Monocytes Absolute Auto 800 /uL (0-900); Monocytes Percent Auto 14.5 % (3-14); Neutrophils Absolute Auto 3500 /uL (1500-7000); Neutrophils Percent Auto 64.2 % (50-75); Nitrite Urine UA NEGATIVE (Negative); Occult Blood Urine UA NEGATIVE (Negative); Platelet Count 162 X10^3/uL (150-400); Protein Urine UA NEGATIVE (Negative); Red Blood Cell Count 3.96 X10^6/uL (4.5-5.9); Red Cell Distribution Width 14.2 % (11.6-14.8); Specific Gravity Urine UA 1.015 (1.000-1.035); Urobilinogen Urine UA 0.2 E.U./dL (0.2); White Blood Cell Count 5.5 X10^3/uL (4.5-11.0)
[2022-10-12 07:58] LABS: Bacteria Urine Occasional (0-1); RBC Urine None Seen (0-5/HPF); WBC Urine 5-10/HPF (0-5/HPF)
[2022-10-12 07:59] LABS: Culture Indicated Urine Specimen Cultured; Squamous Epithelial Cell Urine 0-1 /HPF (0-5/HPF)
[2022-10-12 08:16] LABS: Alanine Aminotransferase 36 IU/L (<50); Albumin 3.6 g/dL (3.5-5.0); Albumin Globulin Ratio 1.2 (1.0-2.8); Alkaline Phosphatase 167 U/L (38-126); Aspartate Aminotransferase 34 IU/L (17-59); BUN Creatinine Ratio 20.9 (6-22); Bilirubin Total 0.5 mg/dL (0.2-1.3); Blood Urea Nitrogen 23 mg/dL (9-20); Calcium 9.7 mg/dL (8.4-10.2); Carbon Dioxide 20 mmol/L (22-32); Chloride 106 mmol/L (98-107); Estimated Glomerular Filt Rate > 60 mL/min (>60); Globulin 2.9 g/dL (1.7-4.1); Glucose 109 mg/dL (80-110); HEMOLYSIS < 15 (0-50); Magnesium 1.7 mg/dL (1.6-2.3); Phosphorous 2.8 mg/dL (2.3-3.7); Potassium 4.3 mmol/L (3.4-5.1); Sodium 134 mmol/L (137-145); Total Protein 6.5 g/dL (6.3-8.2)
[2022-10-12 08:21] LABS: Creatinine Urine Random 91.1 mg/dL; Protein (Total) Urine Random 11 mg/dL (0-12)
[2022-10-24 10:01] LABS: Tacrolimus 4.4
== END ==
PROVIDERS: Family Provider Family Medicine; PCP Family Medicine; Referring Provider Specialist; Visit Provider Specialist
DX: Z94.0 Kidney transplant status (principal); D84.9 Immunodeficiency, unspecified
CPT/HCPCS: 36415; 80053; 80197; 81001; 82570; 83735; 84100; 84156; 85025; 87086; 87799

== ENCOUNTER → 2022-11-22 06:36 | Outpatient (CLI) | payer MEDICARE, SELFPAY ==
[2022-11-22 07:41] LABS: Add Manual Diff / Slide Review NO; Basophils Absolute Auto 0 /uL (0-100); Basophils Percent Auto 0.6 % (0-2); Eosinophils Absolute Auto 200 /uL (0-450); Hematocrit 40.5 % (41-53); Hemoglobin 13.8 g/dL (13.5-17.5); Lymphocytes Absolute Auto 1400 /uL (1100-4500); Lymphocytes Percent Auto 17.4 % (25-40); Mean Corpuscular Hemoglobin 31.4 PG (26-34); Mean Corpuscular Volume 92.2 fL (80-100); Monocytes Absolute Auto 600 /uL (0-900); Monocytes Percent Auto 8.1 % (3-14); Neutrophils Absolute Auto 5600 /uL (1500-7000); Neutrophils Percent Auto 71.9 % (50-75); Platelet Count 221 X10^3/uL (150-400); White Blood Cell Count 7.8 X10^3/uL (4.5-11.0)
[2022-11-22 07:56] LABS: Alanine Aminotransferase 32 IU/L (<50); Albumin 4.1 g/dL (3.5-5.0); Albumin Globulin Ratio 1.4 (1.0-2.8); Alkaline Phosphatase 164 U/L (38-126); Aspartate Aminotransferase 29 IU/L (17-59); BUN Creatinine Ratio 22.4 (6-22); Bilirubin Total 0.8 mg/dL (0.2-1.3); Blood Urea Nitrogen 26 mg/dL (9-20); Calcium 10.5 mg/dL (8.4-10.2); Carbon Dioxide 23 mmol/L (22-32); Chloride 104 mmol/L (98-107); Estimated Glomerular Filt Rate > 60 mL/min (>60); Globulin 2.9 g/dL (1.7-4.1); Glucose 107 mg/dL (80-110); HEMOLYSIS < 15 (0-50); Magnesium 1.9 mg/dL (1.6-2.3); Potassium 4.4 mmol/L (3.4-5.1); Sodium 134 mmol/L (137-145)
[2022-11-22 11:09] LABS: Appearance Urine UA CLEAR; Bilirubin Urine UA NEGATIVE (NEGATIVE); Color Urine UA YELLOW; Glucose Urine UA NEGATIVE (Negative); Ketones Urine UA NEGATIVE (NEGATIVE); Leukocyte Esterase Urine UA TRACE (NEGATIVE); Nitrite Urine UA NEGATIVE (Negative); Occult Blood Urine UA NEGATIVE (Negative); Protein Urine UA NEGATIVE (Negative); Specific Gravity Urine UA 1.015 (1.000-1.035); Urobilinogen Urine UA 0.2 E.U./dL (0.2)
[2022-11-22 11:23] LABS: Bacteria Urine Few (2-10); Culture Indicated Urine Specimen Cultured; RBC Urine 0-1/HPF (0-5/HPF); Squamous Epithelial Cell Urine 0-1 /HPF (0-5/HPF); WBC Urine 1-5/HPF (0-5/HPF)
[2022-11-24 16:18] LABS: Calcium 10.5 mg/dL (8.6-10.2); Parathyroid Hormone, Intact 88 pg/mL (15-65)
[2022-12-05 12:05] LABS: Tacrolimus 5.7
== END ==
PROVIDERS: Family Provider Family Medicine; PCP Family Medicine; Referring Provider Specialist; Visit Provider Specialist
DX: Z94.0 Kidney transplant status (principal); D84.9 Immunodeficiency, unspecified; E21.1 Secondary hyperparathyroidism, not elsewhere classified
CPT/HCPCS: 36415; 80053; 80197; 81001; 82310; 83735; 83970; 84100; 85025; 87086; 87799

== ENCOUNTER → 2023-01-04 06:34 | Outpatient (CLI) | payer MEDICARE, SELFPAY ==
[2023-01-04 07:39] LABS: Appearance Urine UA CLEAR; Bilirubin Urine UA NEGATIVE (NEGATIVE); Color Urine UA YELLOW; Glucose Urine UA NEGATIVE (Negative); Ketones Urine UA NEGATIVE (NEGATIVE); Leukocyte Esterase Urine UA TRACE (NEGATIVE); Nitrite Urine UA NEGATIVE (Negative); Occult Blood Urine UA NEGATIVE (Negative); Protein Urine UA NEGATIVE (Negative); Specific Gravity Urine UA <=1.005 (1.000-1.035); Urobilinogen Urine UA 0.2 E.U./dL (0.2)
[2023-01-04 08:13] LABS: Bacteria Urine None Seen; Culture Indicated Urine Specimen Cultured; RBC Urine None Seen (0-5/HPF); WBC Urine 0-1/HPF (0-5/HPF)
[2023-01-04 08:16] LABS: Add Manual Diff / Slide Review NO; Basophils Absolute Auto 0 /uL (0-100); Basophils Percent Auto 0.4 % (0-2); Eosinophils Absolute Auto 200 /uL (0-450); Eosinophils Percent Auto 2.3 % (2-4); Hematocrit 37.2 % (41-53); Hemoglobin 12.8 g/dL (13.5-17.5); Lymphocytes Absolute Auto 1200 /uL (1100-4500); Lymphocytes Percent Auto 16.4 % (25-40); Mean Corpuscular HGB Conc 34.5 % (30-36); Mean Corpuscular Hemoglobin 31.9 PG (26-34); Mean Corpuscular Volume 92.4 fL (80-100); Monocytes Absolute Auto 700 /uL (0-900); Neutrophils Absolute Auto 5400 /uL (1500-7000); Neutrophils Percent Auto 71.9 % (50-75); Platelet Count 185 X10^3/uL (150-400); Red Blood Cell Count 4.03 X10^6/uL (4.5-5.9); White Blood Cell Count 7.5 X10^3/uL (4.5-11.0)
[2023-01-04 08:47] LABS: Alanine Aminotransferase 81 IU/L (<50); Albumin 3.9 g/dL (3.5-5.0); Albumin Globulin Ratio 1.4 (1.0-2.8); Alkaline Phosphatase 172 U/L (38-126); Aspartate Aminotransferase 44 IU/L (17-59); BUN Creatinine Ratio 26.6 (6-22); Bilirubin Total 0.7 mg/dL (0.2-1.3); Blood Urea Nitrogen 29 mg/dL (9-20); Calcium 10.3 mg/dL (8.4-10.2); Carbon Dioxide 23 mmol/L (22-32); Chloride 103 mmol/L (98-107); Estimated Glomerular Filt Rate > 60 mL/min (>60); Globulin 2.8 g/dL (1.7-4.1); Glucose 99 mg/dL (80-110); HEMOLYSIS < 15 (0-50); Magnesium 1.6 mg/dL (1.6-2.3); Phosphorous 3.4 mg/dL (2.3-3.7); Potassium 4.3 mmol/L (3.4-5.1); Sodium 134 mmol/L (137-145); Total Protein 6.7 g/dL (6.3-8.2)
[2023-01-06 14:51] LABS: Parathyroid Hormone, Intact 73 pg/mL (15-65)
[2023-01-09 10:59] LABS: Tacrolimus 6.1
== END ==
PROVIDERS: Family Provider Family Medicine; PCP Family Medicine; Referring Provider Specialist; Visit Provider Specialist
DX: Z94.0 Kidney transplant status (principal); D84.9 Immunodeficiency, unspecified; E21.1 Secondary hyperparathyroidism, not elsewhere classified
CPT/HCPCS: 36415; 80053; 80197; 81001; 82310; 83735; 83970; 84100; 85025; 87086; 87799

== ENCOUNTER 2023-01-19 07:40 | Day surgery (SDC) | payer MEDICARE, SELFPAY ==
--- NOTE | 2023-01-19 | PATH_ITS ---
[facility] Accession Number: [id number] No. of containers..01 Tissue . 01 Material submitted: . colon - HEPATIC FLEXURE POLYP . 01 Diagnosis: COLON, HEPATIC FLEXURE, POLYP BIOPSY: - Tubular adenoma TXN 01/24/2023 1511 Local . 01 Electronically signed: . Sharri Bal MD, Pathologist NPI- [id number] . 01 Gross description: . HEPATIC FLEXURE POLYP: Received in formalin is 1 fragment(s) of agrawal, soft tissue measuring 0.7 x 0.6 x 0.4 cm submitted entirely in 1 cassette(s) /LUPE 01/20/2023 1852 Local . 01 Pathologist provided ICD-10: Z12.11, Z86.010 . 01 CPT . 991252 Specimen Comment: A courtesy copy of this report has been sent to [phone] Performed at: 01 [facility] [address] [place] [address] [id number] MD Elbert Gan MD Phone: [phone]
[2023-01-19 07:58] VITALS: BP 159/82; PULSE 82; RESP 16; TEMP 37.1; O2SAT 99; BMI 38.2
--- NOTE | 2023-01-19 08:16 | P.HP_ITS ---
History of Present Illness History of Present Illness Date Patient Seen: 01/19/23 Time Patient Seen: 08:16 Chief complaint: Screening Colonoscopy Narrative: Judd is a 72 year old man who is here for colonoscopy. He believes his last 1 was about 6 years ago. He has had polyps in the past. His mother had colon cancer but she was elderly when she was diagnosed. No family members diagnosed with colon cancer at a young age. He has had a renal transplant within the past few years. [facility] Medical History End-stage renal disease (ESRD) (~02/24/15) Anemia of chronic illness Peritoneal dialysis catheter in place Hypersomnia Weakness Skin tag History of diverticulitis (Unknown) CKD (chronic kidney disease) (Unknown) Plantar warts (~1994) Acne (~1961) Actinic keratosis (~1994) Allergic rhinitis (1979) Restless leg syndrome (1989) Gout (~1994) Chickenpox (~1959) Measles (~1959) Mumps (~1959) Anemia (2009) Retinal detachment (1970) Recurrent sinusitis (1959) History of recurrent ear infection (1959) Cataracts, bilateral (2011) Blindness (1970) Kidney disease (~2009) Colitis (1984) Colon polyps (2009) Hypertension (1979) Hyperlipemia (Unknown) Abdominal aortic aneurysm (2011) Skin cancer (~1987) Obstructive sleep apnea syndrome (2004) Chronic renal insufficiency, stage IV (severe) (02/24/15) Surgical History History of nephrectomy, left (~04/2020) Hx of surgical procedure (1951) History of skin surgery Hx of removal of testicle (1963) Family History Brother Age: 72 Skin cancer Hypertension Kidney disease Brother Age: 62 Hypertension Mother Hypertension Father No problems noted. Social History marital status: details: latia Morgan, lives in [place] household members: spouse lives independently: Yes caregiver/support person: No housing: house Smoking Status: Never smoker alcohol intake: never Meds Home Medications and Allergies Home Medications Medication Instructions Recorded Confirmed Type ASPIRIN (Aspir-Low) 81 mg PO QDAY ##0 04/05/11 01/19/23 History simvastatin 20 mg tablet 20 mg PO QPM 09/14/17 01/19/23 History carvedilol 12.5 mg tablet See Rx Instructions .Route .COMPLEX 07/12/18 01/19/23 History Resmed AirCurve 10 BIPAP #1 ea 08/16/18 01/19/23 History cinacalcet 30 mg tablet 30 mg PO DAILY Kidney transplant 01/19/22 01/19/23 History magnesium 200 mg tablet 400 mg PO DAILY Kidney transplant 01/19/22 01/19/23 H istory mycophenolate sodium 180 mg 720 mg PO BID Kidney transplant 01/19/22 01/19/23 History tablet,delayed release August 23, 2021 prednisolone 5 mg tablet 5 mg PO DAILY Kidney transplant 01/19/22 01/19/23 History sodium bicarbonate 325 mg tablet 650 mg PO BID Kidney transplant 01/19/22 01/19/23 History tacrolimus 1 mg capsule, See Rx Instructions .Route 01/19/22 01/19/23 History immediate-release .COMPLEX Kidney transplant Allergies Allergy/AdvReac Type Severity Reaction Status Date / Time Sulfa (Sulfonamide Allergy Mild TURNS RED Verified 01/19/23 07:51 Antibiotics) [SULFA (SULFONAMIDE ANTIBIOTICS)] spironolactone AdvReac Intermediate REDUCES Verified 01/19/23 07:51 [SPIRONOLACTONE] KIDNEY FUNCTION Exam Vital Signs (past 8 hours): - 01/19/23 07:58 Temperature 98.8 F Pulse Rate 82 Respiratory Rate 16 Blood Pressure 159/82 H Pulse Oximetry 99 Oxygen Delivery Method Room Air Oxygen Flow Rate 0 Oxygen Delivery Method Room Air Oxygen Flow Rate 0 Const General: No acute distress Orientation: alert and awake Resp Effort & Inspection: normal respiratory effort Assessment & Plan Assessment and plan (1) Colon cancer screening: Status: Acute Plan We reviewed the risks and benefits of colonoscopy for colon cancer screening and he would like to proceed.
[2023-01-19] MEDS: LACTATED RINGERS 1,000 ML 42 ML IV (09:36)
--- NOTE | 2023-01-19 10:42 | PM.OP.COLON ---
Operative Date/Time/Diagnoses Date of procedure: 01/19/23 Time of procedure: 10:42 Pre-op diagnosis: History of polyps Post-op diagnosis: same Procedure & Clinicians Study performed: Colonoscopy Same procedure as scheduled: Yes Surgeon: Hernando Cheng Procedure Notes Procedure in detail: Surgeon: Hernando Cheng MD Anesthesia: Tali Wagoner CRNA Procedure: The patient was brought to the endoscopy suite, placed in left lateral decubitus position. The patient was connected to monitoring devices. A time-out was performed. Sedation was administered. Once the patient was adequately sedated, a digital rectal exam was performed and was normal. The scope was then inserted and advanced to the cecum where the appendiceal orifice was identified and photographed. The scope was then slowly withdrawn over greater than 6 minutes. The mucosa was thoroughly inspected. There was a 7 mm polyp near the hepatic flexure removed with a cold snare. There was diverticulosis throughout the colon but greatest in the sigmoid. The scope was retroflexed in the rectum. No other abnormalities were seen. The scope was straightened and removed. The patient was awakened and brought to recovery. Scope withdrawal time: 7 minutes Sedation time: 15 minutes EBL: 5 mL Findings: 7 mm polyp near the hepatic flexure and diverticulosis Post-procedure Disposition: PACU
[2023-01-19 10:46] VITALS: BP 100/47; PULSE 66; RESP 14; TEMP 36.3; O2SAT 95
[2023-01-19 10:56] VITALS: BP 107/50; PULSE 66; RESP 16; O2SAT 99
[2023-01-19 11:00] VITALS: BP 97/48; PULSE 61; RESP 14; O2SAT 95
[2023-01-19 11:11] VITALS: BP 115/70; PULSE 62; RESP 18; O2SAT 97
== END 2023-01-19 11:18 | disposition home or self-care (01) ==
PROVIDERS: Family Provider Family Medicine; PCP Family Medicine; Referring Provider Surgery; Visit Provider Surgery
PROC: 0DJD8ZZ Inspection of Lower Intestinal Tract, Via Natural or Artificial Opening Endoscopic (ICD-10-PCS; CPT 45378; principal; 2023-01-19 08:45)
DX: Z86.010 Personal history of colon polyps (principal); Z12.11 Encounter for screening for malignant neoplasm of colon; K57.30 Diverticulosis of large intestine without perforation or abscess without bleeding; D12.3 Benign neoplasm of transverse colon
CPT/HCPCS: 45385; J2704

== ENCOUNTER → 2023-02-20 06:35 | Outpatient (CLI) | payer MEDICARE, SELFPAY ==
[2023-02-20 07:58] LABS: Add Manual Diff / Slide Review NO; Basophils Absolute Auto 100 /uL (0-100); Basophils Percent Auto 0.6 % (0-2); Eosinophils Absolute Auto 200 /uL (0-450); Eosinophils Percent Auto 1.6 % (2-4); Hematocrit 38.6 % (41-53); Hemoglobin 13.2 g/dL (13.5-17.5); Lymphocytes Absolute Auto 1400 /uL (1100-4500); Lymphocytes Percent Auto 14.3 % (25-40); Mean Corpuscular HGB Conc 34.3 % (30-36); Mean Corpuscular Hemoglobin 31.2 PG (26-34); Mean Corpuscular Volume 90.9 fL (80-100); Monocytes Absolute Auto 900 /uL (0-900); Monocytes Percent Auto 9.2 % (3-14); Neutrophils Absolute Auto 7400 /uL (1500-7000); Neutrophils Percent Auto 74.3 % (50-75); Platelet Count 222 X10^3/uL (150-400); Red Blood Cell Count 4.24 X10^6/uL (4.5-5.9); Red Cell Distribution Width 13.9 % (11.6-14.8); White Blood Cell Count 9.9 X10^3/uL (4.5-11.0)
[2023-02-20 08:27] LABS: Alanine Aminotransferase 38 IU/L (<50); Albumin 3.9 g/dL (3.5-5.0); Albumin Globulin Ratio 1.3 (1.0-2.8); Alkaline Phosphatase 155 U/L (38-126); Aspartate Aminotransferase 27 IU/L (17-59); BUN Creatinine Ratio 21.8 (6-22); Bilirubin Total 0.8 mg/dL (0.2-1.3); Blood Urea Nitrogen 26 mg/dL (9-20); Calcium 10.5 mg/dL (8.4-10.2); Carbon Dioxide 24 mmol/L (22-32); Chloride 101 mmol/L (98-107); Estimated Glomerular Filt Rate > 60 mL/min (>60); Glucose 115 mg/dL (80-110); HEMOLYSIS < 15 (0-50); Magnesium 1.5 mg/dL (1.6-2.3); Phosphorous 3.2 mg/dL (2.3-3.7); Potassium 4.4 mmol/L (3.4-5.1); Sodium 132 mmol/L (137-145); Total Protein 6.9 g/dL (6.3-8.2)
[2023-02-20 09:33] LABS: Appearance Urine UA CLEAR; Bilirubin Urine UA NEGATIVE (NEGATIVE); Color Urine UA YELLOW; Glucose Urine UA NEGATIVE (Negative); Ketones Urine UA NEGATIVE (NEGATIVE); Leukocyte Esterase Urine UA TRACE (NEGATIVE); Nitrite Urine UA NEGATIVE (Negative); Occult Blood Urine UA NEGATIVE (Negative); Protein Urine UA NEGATIVE (Negative); Specific Gravity Urine UA <=1.005 (1.000-1.035); Urobilinogen Urine UA 0.2 E.U./dL (0.2)
[2023-02-20 09:46] LABS: Bacteria Urine Occasional (0-1); RBC Urine None Seen (0-5/HPF); Squamous Epithelial Cell Urine 1-5 /HPF (0-5/HPF); WBC Urine 5-10/HPF (0-5/HPF)
[2023-02-22 11:59] LABS: Calcium 8.6 mg/dL (8.6-10.2); Parathyroid Hormone, Intact 68 pg/mL (15-65)
== END ==
PROVIDERS: Family Provider Family Medicine; PCP Family Medicine; Referring Provider Specialist; Visit Provider Specialist
DX: Z94.0 Kidney transplant status (principal); D84.9 Immunodeficiency, unspecified; E21.1 Secondary hyperparathyroidism, not elsewhere classified
CPT/HCPCS: 36415; 80053; 80197; 81001; 82310; 83735; 83970; 84100; 85025; 87799

== ENCOUNTER → 2023-03-20 06:32 | Outpatient (CLI) | payer MEDICARE, SELFPAY ==
[2023-03-20 09:12] LABS: Add Manual Diff / Slide Review NO; Basophils Absolute Auto 0 /uL (0-100); Basophils Percent Auto 0.5 % (0-2); Eosinophils Absolute Auto 200 /uL (0-450); Eosinophils Percent Auto 2.2 % (2-4); Hematocrit 39.2 % (41-53); Hemoglobin 13.2 g/dL (13.5-17.5); Lymphocytes Absolute Auto 1300 /uL (1100-4500); Lymphocytes Percent Auto 16.9 % (25-40); Mean Corpuscular HGB Conc 33.6 % (30-36); Mean Corpuscular Hemoglobin 31.1 PG (26-34); Mean Corpuscular Volume 92.5 fL (80-100); Monocytes Absolute Auto 700 /uL (0-900); Neutrophils Absolute Auto 5600 /uL (1500-7000); Neutrophils Percent Auto 71.4 % (50-75); Platelet Count 221 X10^3/uL (150-400); Red Blood Cell Count 4.24 X10^6/uL (4.5-5.9); Red Cell Distribution Width 14.1 % (11.6-14.8); White Blood Cell Count 7.8 X10^3/uL (4.5-11.0)
[2023-03-20 09:50] LABS: HEMOLYSIS < 15 (0-50); Potassium 4.3 mmol/L (3.4-5.1)
[2023-03-20 09:51] LABS: Alanine Aminotransferase 36 IU/L (<50); Albumin 4.1 g/dL (3.5-5.0); Albumin Globulin Ratio 1.3 (1.0-2.8); Alkaline Phosphatase 151 U/L (38-126); Appearance Urine UA CLEAR; Aspartate Aminotransferase 28 IU/L (17-59); BUN Creatinine Ratio 21.8 (6-22); Bilirubin Total 0.8 mg/dL (0.2-1.3); Bilirubin Urine UA NEGATIVE (NEGATIVE); Blood Urea Nitrogen 26 mg/dL (9-20); Calcium 10.5 mg/dL (8.4-10.2); Carbon Dioxide 24 mmol/L (22-32); Chloride 102 mmol/L (98-107); Color Urine UA YELLOW; Estimated Glomerular Filt Rate > 60 mL/min (>60); Globulin 3.1 g/dL (1.7-4.1); Glucose 104 mg/dL (80-110); Glucose Urine UA NEGATIVE (Negative); Ketones Urine UA NEGATIVE (NEGATIVE); Leukocyte Esterase Urine UA TRACE (NEGATIVE); Magnesium 1.7 mg/dL (1.6-2.3); Nitrite Urine UA NEGATIVE (Negative); Occult Blood Urine UA NEGATIVE (Negative); Protein Urine UA NEGATIVE (Negative); Sodium 134 mmol/L (137-145); Specific Gravity Urine UA 1.015 (1.000-1.035); Total Protein 7.2 g/dL (6.3-8.2); Urobilinogen Urine UA 0.2 E.U./dL (0.2); pH Urine UA 5.5 (4.5-8.0)
[2023-03-20 09:55] LABS: Bacteria Urine None Seen; Culture Indicated Urine Specimen Cultured; RBC Urine None Seen (0-5/HPF); Squamous Epithelial Cell Urine 0-1 /HPF (0-5/HPF); WBC Urine 1-5/HPF (0-5/HPF)
[2023-03-20 10:08] LABS: Creatinine Urine Random 104.6 mg/dL; Protein (Total) Urine Random 12 mg/dL (0-12); Protein Creatinine Ratio Urine 0.11 GRAM/24H
[2023-03-23 10:24] LABS: BK Virus, DNA, QN, PCR Negative
== END ==
PROVIDERS: Family Provider Family Medicine; PCP Family Medicine; Referring Provider Internal Medicine Nephrology; Visit Provider Internal Medicine Nephrology
DX: Z94.0 Kidney transplant status (principal); T86.19 Other complication of kidney transplant
CPT/HCPCS: 36415; 80053; 80197; 81001; 82570; 83735; 84100; 84156; 85025; 87086; 87799

== ENCOUNTER → 2023-04-24 06:37 | Outpatient (CLI) | payer MEDICARE, SELFPAY ==
[2023-04-24 07:11] LABS: Urine Volume 10mL (spun)
[2023-04-24 08:19] LABS: Add Manual Diff / Slide Review NO; Basophils Absolute Auto 100 /uL (0-100); Basophils Percent Auto 0.6 % (0-2); Eosinophils Absolute Auto 200 /uL (0-450); Eosinophils Percent Auto 2.6 % (2-4); Lymphocytes Absolute Auto 1500 /uL (1100-4500); Lymphocytes Percent Auto 18.1 % (25-40); Mean Corpuscular Hemoglobin 31.2 PG (26-34); Mean Corpuscular Volume 91.7 fL (80-100); Monocytes Absolute Auto 800 /uL (0-900); Monocytes Percent Auto 10.2 % (3-14); Neutrophils Absolute Auto 5700 /uL (1500-7000); Neutrophils Percent Auto 68.5 % (50-75); Platelet Count 190 X10^3/uL (150-400); Red Blood Cell Count 4.47 X10^6/uL (4.5-5.9); Red Cell Distribution Width 14.1 % (11.6-14.8); White Blood Cell Count 8.3 X10^3/uL (4.5-11.0)
[2023-04-24 08:32] LABS: Alanine Aminotransferase 34 IU/L (<50); Albumin 4.1 g/dL (3.5-5.0); Albumin Globulin Ratio 1.2 (1.0-2.8); Alkaline Phosphatase 141 U/L (38-126); Aspartate Aminotransferase 31 IU/L (17-59); BUN Creatinine Ratio 22.8 (6-22); Bilirubin Total 0.7 mg/dL (0.2-1.3); Blood Urea Nitrogen 23 mg/dL (9-20); Calcium 10.1 mg/dL (8.4-10.2); Carbon Dioxide 20 mmol/L (22-32); Chloride 105 mmol/L (98-107); Estimated Glomerular Filt Rate > 60 mL/min (>60); Globulin 3.3 g/dL (1.7-4.1); Glucose 105 mg/dL (80-110); HEMOLYSIS 38 (0-50); Magnesium 1.6 mg/dL (1.6-2.3); Phosphorous 2.9 mg/dL (2.3-3.7); Potassium 4.1 mmol/L (3.4-5.1); Sodium 133 mmol/L (137-145); Total Protein 7.4 g/dL (6.3-8.2)
[2023-04-24 08:34] LABS: Appearance Urine UA CLEAR; Bilirubin Urine UA NEGATIVE (NEGATIVE); Color Urine UA YELLOW; Glucose Urine UA NEGATIVE (Negative); Ketones Urine UA NEGATIVE (NEGATIVE); Leukocyte Esterase Urine UA 1+ (NEGATIVE); Nitrite Urine UA NEGATIVE (Negative); Occult Blood Urine UA TRACE-INTACT (Negative); Protein Urine UA NEGATIVE (Negative); Urobilinogen Urine UA 0.2 E.U./dL (0.2)
[2023-04-24 08:54] LABS: RBC Urine None Seen (0-5/HPF); WBC Urine 5-10/HPF (0-5/HPF)
[2023-04-24 08:55] LABS: Bacteria Urine None Seen; Culture Indicated Urine Cult Not Indicated; Squamous Epithelial Cell Urine 1-5 /HPF (0-5/HPF)
[2023-04-26 08:44] LABS: Calcium 9.9 mg/dL (8.6-10.2); Parathyroid Hormone, Intact 91 pg/mL (15-65)
[2023-04-30 14:16] LABS: Tacrolimus 5.4
== END ==
PROVIDERS: Family Provider Family Medicine; PCP Family Medicine; Referring Provider Specialist; Visit Provider Specialist
DX: Z94.0 Kidney transplant status (principal); D84.9 Immunodeficiency, unspecified; E21.1 Secondary hyperparathyroidism, not elsewhere classified
CPT/HCPCS: 36415; 80053; 80197; 81001; 82310; 83735; 83970; 84100; 85025; 87799

== ENCOUNTER → 2023-05-31 06:33 | Outpatient (CLI) | payer MEDICARE, SELFPAY ==
[2023-05-31 08:23] LABS: Add Manual Diff / Slide Review NO; Basophils Absolute Auto 0 /uL (0-100); Basophils Percent Auto 0.4 % (0-2); Eosinophils Absolute Auto 200 /uL (0-450); Eosinophils Percent Auto 2.4 % (2-4); Hematocrit 39.3 % (41-53); Hemoglobin 13.5 g/dL (13.5-17.5); Lymphocytes Absolute Auto 1200 /uL (1100-4500); Lymphocytes Percent Auto 16.1 % (25-40); Mean Corpuscular HGB Conc 34.4 % (30-36); Mean Corpuscular Hemoglobin 31.3 PG (26-34); Mean Corpuscular Volume 90.9 fL (80-100); Monocytes Absolute Auto 700 /uL (0-900); Monocytes Percent Auto 8.9 % (3-14); Neutrophils Absolute Auto 5600 /uL (1500-7000); Neutrophils Percent Auto 72.2 % (50-75); Platelet Count 218 X10^3/uL (150-400); Red Blood Cell Count 4.33 X10^6/uL (4.5-5.9); Red Cell Distribution Width 13.8 % (11.6-14.8); White Blood Cell Count 7.7 X10^3/uL (4.5-11.0)
[2023-05-31 08:43] LABS: Alanine Aminotransferase 40 IU/L (<50); Albumin Globulin Ratio 1.4 (1.0-2.8); Alkaline Phosphatase 143 U/L (38-126); Aspartate Aminotransferase 32 IU/L (17-59); BUN Creatinine Ratio 22.8 (6-22); Bilirubin Total 0.7 mg/dL (0.2-1.3); Blood Urea Nitrogen 26 mg/dL (9-20); Calcium 10.2 mg/dL (8.4-10.2); Carbon Dioxide 21 mmol/L (22-32); Chloride 107 mmol/L (98-107); Estimated Glomerular Filt Rate > 60 mL/min (>60); Globulin 2.9 g/dL (1.7-4.1); Glucose 108 mg/dL (80-110); HEMOLYSIS < 15 (0-50); Magnesium 1.7 mg/dL (1.6-2.3); Phosphorous 2.8 mg/dL (2.3-3.7); Potassium 4.5 mmol/L (3.4-5.1); Sodium 136 mmol/L (137-145); Total Protein 6.9 g/dL (6.3-8.2)
[2023-05-31 10:40] LABS: Appearance Urine UA CLEAR; Bilirubin Urine UA NEGATIVE (NEGATIVE); Color Urine UA YELLOW; Glucose Urine UA NEGATIVE (Negative); Ketones Urine UA NEGATIVE (NEGATIVE); Leukocyte Esterase Urine UA NEGATIVE (NEGATIVE); Nitrite Urine UA NEGATIVE (Negative); Occult Blood Urine UA NEGATIVE (Negative); Protein Urine UA NEGATIVE (Negative); Specific Gravity Urine UA 1.025 (1.000-1.035); Urobilinogen Urine UA 0.2 E.U./dL (0.2)
[2023-06-02 10:30] LABS: Calcium 7.4 mg/dL (8.6-10.2); Parathyroid Hormone, Intact 79 pg/mL (15-65)
== END ==
PROVIDERS: Family Provider Family Medicine; PCP Family Medicine; Referring Provider Specialist; Visit Provider Specialist
DX: Z94.0 Kidney transplant status (principal); D84.9 Immunodeficiency, unspecified; E21.1 Secondary hyperparathyroidism, not elsewhere classified
CPT/HCPCS: 36415; 80053; 80197; 81003; 82310; 83735; 83970; 84100; 85025; 87799

== ENCOUNTER → 2023-07-11 06:35 | Outpatient (CLI) | payer MEDICARE, SELFPAY ==
[2023-07-11 07:41] LABS: Add Manual Diff / Slide Review NO; Basophils Absolute Auto 0 /uL (0-100); Basophils Percent Auto 0.5 % (0-2); Eosinophils Absolute Auto 200 /uL (0-450); Eosinophils Percent Auto 2.7 % (2-4); Hematocrit 39.4 % (41-53); Hemoglobin 13.5 g/dL (13.5-17.5); Lymphocytes Absolute Auto 1500 /uL (1100-4500); Lymphocytes Percent Auto 17.6 % (25-40); Mean Corpuscular HGB Conc 34.3 % (30-36); Mean Corpuscular Hemoglobin 31.6 PG (26-34); Mean Corpuscular Volume 91.9 fL (80-100); Monocytes Absolute Auto 800 /uL (0-900); Monocytes Percent Auto 9.1 % (3-14); Neutrophils Absolute Auto 6100 /uL (1500-7000); Neutrophils Percent Auto 70.1 % (50-75); Platelet Count 201 X10^3/uL (150-400); Red Blood Cell Count 4.28 X10^6/uL (4.5-5.9); Red Cell Distribution Width 13.9 % (11.6-14.8); White Blood Cell Count 8.7 X10^3/uL (4.5-11.0)
[2023-07-11 08:19] LABS: Alanine Aminotransferase 33 IU/L (<50); Albumin 3.9 g/dL (3.5-5.0); Albumin Globulin Ratio 1.3 (1.0-2.8); Alkaline Phosphatase 144 U/L (38-126); Aspartate Aminotransferase 27 IU/L (17-59); BUN Creatinine Ratio 23.9 (6-22); Bilirubin Total 0.7 mg/dL (0.2-1.3); Blood Urea Nitrogen 27 mg/dL (9-20); Calcium 10.2 mg/dL (8.4-10.2); Carbon Dioxide 21 mmol/L (22-32); Chloride 105 mmol/L (98-107); Estimated Glomerular Filt Rate > 60 mL/min (>60); Globulin 3.1 g/dL (1.7-4.1); Glucose 113 mg/dL (80-110); HEMOLYSIS < 15 (0-50); Magnesium 1.7 mg/dL (1.6-2.3); Phosphorous 2.9 mg/dL (2.3-3.7); Potassium 4.2 mmol/L (3.4-5.1); Sodium 133 mmol/L (137-145)
[2023-07-11 10:38] LABS: Appearance Urine UA CLEAR; Bilirubin Urine UA NEGATIVE (NEGATIVE); Color Urine UA YELLOW; Glucose Urine UA NEGATIVE (Negative); Ketones Urine UA NEGATIVE (NEGATIVE); Leukocyte Esterase Urine UA 1+ (NEGATIVE); Nitrite Urine UA NEGATIVE (Negative); Occult Blood Urine UA NEGATIVE (Negative); Protein Urine UA NEGATIVE (Negative); Urobilinogen Urine UA 0.2 E.U./dL (0.2)
[2023-07-11 10:52] LABS: Bacteria Urine None Seen; Culture Indicated Urine Specimen Cultured; RBC Urine None Seen (0-5/HPF); Squamous Epithelial Cell Urine 1-5 /HPF (0-5/HPF); Urine Volume 10mL (spun); WBC Urine 1-5/HPF (0-5/HPF)
[2023-07-12 22:24] LABS: Calcium 10.1 mg/dL (8.6-10.2); Parathyroid Hormone, Intact 87 pg/mL (15-65)
[2023-07-14 08:05] LABS: Tacrolimus 6.2
== END ==
LOC: LAB 06:37
PROVIDERS: Family Provider Family Medicine; PCP Family Medicine; Referring Provider Specialist; Visit Provider Specialist
DX: Z94.0 Kidney transplant status (principal); D84.9 Immunodeficiency, unspecified; E21.1 Secondary hyperparathyroidism, not elsewhere classified
CPT/HCPCS: 36415; 80053; 80197; 81001; 82310; 83735; 83970; 84100; 85025; 87086; 87799

== ENCOUNTER → 2023-08-21 06:33 | Outpatient (CLI) | payer MEDICARE, SELFPAY ==
[2023-08-21 08:22] LABS: Add Manual Diff / Slide Review NO; Basophils Absolute Auto 0 /uL (0-100); Basophils Percent Auto 0.3 % (0-2); Eosinophils Absolute Auto 200 /uL (0-450); Eosinophils Percent Auto 2.4 % (2-4); Hematocrit 38.7 % (41-53); Hemoglobin 13.2 g/dL (13.5-17.5); Lymphocytes Absolute Auto 1300 /uL (1100-4500); Lymphocytes Percent Auto 15.5 % (25-40); Mean Corpuscular HGB Conc 34.2 % (30-36); Mean Corpuscular Hemoglobin 31.3 PG (26-34); Mean Corpuscular Volume 91.4 fL (80-100); Monocytes Absolute Auto 700 /uL (0-900); Monocytes Percent Auto 8.3 % (3-14); Neutrophils Absolute Auto 6000 /uL (1500-7000); Neutrophils Percent Auto 73.5 % (50-75); Platelet Count 199 X10^3/uL (150-400); Red Blood Cell Count 4.23 X10^6/uL (4.5-5.9); Red Cell Distribution Width 14.4 % (11.6-14.8); White Blood Cell Count 8.2 X10^3/uL (4.5-11.0)
[2023-08-21 08:31] LABS: Appearance Urine UA CLEAR; Bilirubin Urine UA NEGATIVE (NEGATIVE); Color Urine UA YELLOW; Glucose Urine UA NEGATIVE (Negative); Ketones Urine UA NEGATIVE (NEGATIVE); Leukocyte Esterase Urine UA TRACE (NEGATIVE); Nitrite Urine UA NEGATIVE (Negative); Occult Blood Urine UA NEGATIVE (Negative); Protein Urine UA NEGATIVE (Negative); Specific Gravity Urine UA <=1.005 (1.000-1.035); Urobilinogen Urine UA 0.2 E.U./dL (0.2); pH Urine UA 5.5 (4.5-8.0)
[2023-08-21 08:42] LABS: Bacteria Urine None Seen; Culture Indicated Urine Cult Not Indicated; RBC Urine None Seen (0-5/HPF); Squamous Epithelial Cell Urine 0-1 /HPF (0-5/HPF); Urine Volume 10mL (spun); WBC Urine 0-1/HPF (0-5/HPF)
[2023-08-21 12:32] LABS: Alanine Aminotransferase 39 IU/L (<50); Albumin 3.9 g/dL (3.5-5.0); Albumin Globulin Ratio 1.5 (1.0-2.8); Alkaline Phosphatase 146 U/L (38-126); Aspartate Aminotransferase 41 IU/L (17-59); BUN Creatinine Ratio 17.9 (6-22); Bilirubin Total 0.8 mg/dL (0.2-1.3); Blood Urea Nitrogen 19 mg/dL (9-20); Calcium 9.7 mg/dL (8.4-10.2); Carbon Dioxide 21 mmol/L (22-32); Chloride 107 mmol/L (98-107); Estimated Glomerular Filt Rate > 60 mL/min (>60); Globulin 2.6 g/dL (1.7-4.1); Glucose 110 mg/dL (80-110); HEMOLYSIS < 15 (0-50); Magnesium 1.8 mg/dL (1.6-2.3); Phosphorous 2.7 mg/dL (2.3-3.7); Potassium 4.5 mmol/L (3.4-5.1); Sodium 137 mmol/L (137-145); Total Protein 6.5 g/dL (6.3-8.2)
[2023-08-22 08:36] LABS: Tacrolimus 6.8 ng/mL (2.0-20.0)
[2023-08-22 14:39] LABS: Calcium 9.8 mg/dL (8.6-10.2); Parathyroid Hormone, Intact 106 pg/mL (15-65)
== END ==
PROVIDERS: Family Provider Family Medicine; PCP Family Medicine; Referring Provider Specialist; Visit Provider Specialist
DX: Z94.0 Kidney transplant status (principal); D84.9 Immunodeficiency, unspecified; E21.1 Secondary hyperparathyroidism, not elsewhere classified
CPT/HCPCS: 36415; 80053; 80197; 81001; 82310; 83735; 83970; 84100; 85025; 87799

== ENCOUNTER → 2023-12-26 06:39 | Outpatient (CLI) | payer MEDICARE, SELFPAY ==
[2023-12-26 08:25] LABS: Appearance Urine UA CLEAR; Bilirubin Urine UA NEGATIVE (NEGATIVE); Color Urine UA YELLOW; Glucose Urine UA NEGATIVE (Negative); Ketones Urine UA NEGATIVE (NEGATIVE); Leukocyte Esterase Urine UA TRACE (NEGATIVE); Nitrite Urine UA NEGATIVE (Negative); Occult Blood Urine UA NEGATIVE (Negative); Protein Urine UA NEGATIVE (Negative); Urobilinogen Urine UA 0.2 E.U./dL (0.2); pH Urine UA 5.5 (4.5-8.0)
[2023-12-26 08:41] LABS: Add Manual Diff / Slide Review NO; Basophils Absolute Auto 0 /uL (0-100); Basophils Percent Auto 0.4 % (0-2); Eosinophils Absolute Auto 200 /uL (0-450); Eosinophils Percent Auto 2.1 % (2-4); Hematocrit 38.9 % (41-53); Hemoglobin 13.4 g/dL (13.5-17.5); Lymphocytes Absolute Auto 1600 /uL (1100-4500); Mean Corpuscular HGB Conc 34.3 % (30-36); Mean Corpuscular Hemoglobin 31.4 PG (26-34); Mean Corpuscular Volume 91.7 fL (80-100); Monocytes Absolute Auto 600 /uL (0-900); Monocytes Percent Auto 7.1 % (3-14); Neutrophils Absolute Auto 5900 /uL (1500-7000); Neutrophils Percent Auto 71.4 % (50-75); Platelet Count 198 X10^3/uL (150-400); Red Blood Cell Count 4.25 X10^6/uL (4.5-5.9); Red Cell Distribution Width 14.1 % (11.6-14.8); White Blood Cell Count 8.3 X10^3/uL (4.5-11.0)
[2023-12-26 08:49] LABS: Alanine Aminotransferase 43 IU/L (<50); Albumin 3.9 g/dL (3.5-5.0); Albumin Globulin Ratio 1.4 (1.0-2.8); Alkaline Phosphatase 132 U/L (38-126); Aspartate Aminotransferase 26 IU/L (17-59); BUN Creatinine Ratio 26.1 (6-22); Bilirubin Total 0.8 mg/dL (0.2-1.3); Blood Urea Nitrogen 31 mg/dL (9-20); Calcium 10.3 mg/dL (8.4-10.2); Carbon Dioxide 21 mmol/L (22-32); Chloride 103 mmol/L (98-107); Estimated Glomerular Filt Rate > 60 mL/min (>60); Globulin 2.7 g/dL (1.7-4.1); Glucose 122 mg/dL (80-110); HEMOLYSIS < 15 (0-50); Magnesium 1.4 mg/dL (1.6-2.3); Phosphorous 2.8 mg/dL (2.3-3.7); Potassium 4.1 mmol/L (3.4-5.1); Sodium 133 mmol/L (137-145); Total Protein 6.6 g/dL (6.3-8.2)
[2023-12-26 08:56] LABS: Bacteria Urine None Seen; Culture Indicated Urine Specimen Cultured; RBC Urine None Seen (0-5/HPF); Squamous Epithelial Cell Urine 1-5 /HPF (0-5/HPF); Urine Volume 10mL (spun); WBC Urine 5-10/HPF (0-5/HPF)
[2023-12-27 07:36] LABS: Tacrolimus 8.3 ng/mL (2.0-20.0)
[2023-12-27 13:36] LABS: Calcium 10.1 mg/dL (8.6-10.2); Parathyroid Hormone, Intact 60 pg/mL (15-65)
== END ==
LOC: LAB 06:41
PROVIDERS: Family Provider Family Medicine; PCP Family Medicine; Referring Provider Internal Medicine Nephrology; Visit Provider Internal Medicine Nephrology
DX: Z94.0 Kidney transplant status (principal); D84.9 Immunodeficiency, unspecified
CPT/HCPCS: 36415; 80053; 80197; 81001; 82310; 83735; 83970; 84100; 85025; 87086; 87799

== ENCOUNTER → 2024-01-25 06:36 | Outpatient (CLI) | payer MEDICARE, SELFPAY ==
[2024-01-25 08:42] LABS: Cholesterol 182 mg/dL (140-199); HDL Cholesterol 41 mg/dL (40-60); LDL Cholesterol Calculated 82 mg/dL (<100); Triglycerides 296 mg/dL (35-150)
[2024-01-26 08:36] LABS: Tacrolimus 7.2 ng/mL (2.0-20.0)
== END ==
PROVIDERS: Family Provider Family Medicine; PCP Family Medicine; Referring Provider Internal Medicine Nephrology; Visit Provider Internal Medicine Nephrology
DX: D84.9 Immunodeficiency, unspecified (principal); E78.00 Pure hypercholesterolemia, unspecified; Z94.0 Kidney transplant status
CPT/HCPCS: 36415; 80061; 80197

== ENCOUNTER → 2024-02-06 09:50 | Outpatient (CLI) | payer MEDICARE, SELFPAY ==
--- NOTE | 2024-02-06 09:51 | DI.RAD.S_ITS ---
PROCEDURE: XR KNEE RT 3V INDICATIONS: medial anterior R knee pain x 1 mo, s/p twisted knee TECHNIQUE: 3 views of the knee were acquired. COMPARISON: None. FINDINGS: Bones: There are no osseous abnormalities. Joints: Mild degenerative change present the patellofemoral and medial tibial femoral joints.. Soft tissues: Normal IMPRESSION: Mild degeneration Dictated by: Mason Palacios M.D. on 02/07/2024 at 9:46 Approved by: Mason Palacios M.D. on 02/07/2024 at 9:47
--- NOTE | 2024-02-06 09:51 | DI.RAD.S_ITS ---
PROCEDURE: XR KNEE LT 3V INDICATIONS: medial anterior knee pain x 1.5 week TECHNIQUE: 3 views of the knee were acquired. COMPARISON: None. FINDINGS: Bones: There are no osseous abnormalities. Joints: Moderate patellofemoral and mild tibiofemoral degenerative change noted. Mild lateral patellar subluxation from the trochlear groove on the lateral view.. Soft tissues: Normal IMPRESSION: Moderate patellofemoral and mild tibiofemoral degenerative change. Slight lateral patellar subluxation suggesting suggesting patellar mistracking Dictated by: Mason Palacios M.D. on 02/07/2024 at 9:42 Approved by: Mason Palacios M.D. on 02/07/2024 at 9:43
[2024-02-06 11:43] LABS: Uric Acid 9.8 mg/dL (3.5-8.5)
== END ==
PROVIDERS: Family Provider Family Medicine; PCP Family Medicine; Referring Provider Physician Assistant; Visit Provider Physician Assistant
DX: M10.30 Gout due to renal impairment, unspecified site (principal); M25.561 Pain in right knee; M25.562 Pain in left knee
CPT/HCPCS: 36415; 73562; 84550

== ENCOUNTER → 2024-04-16 06:35 | Outpatient (CLI) | payer MEDICARE, SELFPAY ==
[2024-04-16 07:52] LABS: Add Manual Diff / Slide Review NO; Basophils Absolute Auto 100 /uL (0-100); Basophils Percent Auto 0.6 % (0-2); Eosinophils Absolute Auto 200 /uL (0-450); Eosinophils Percent Auto 2.3 % (2-4); Hematocrit 38.9 % (41-53); Hemoglobin 13.3 g/dL (13.5-17.5); Lymphocytes Absolute Auto 1600 /uL (1100-4500); Mean Corpuscular HGB Conc 34.1 % (30-36); Mean Corpuscular Hemoglobin 31.2 PG (26-34); Mean Corpuscular Volume 91.4 fL (80-100); Monocytes Absolute Auto 800 /uL (0-900); Monocytes Percent Auto 8.8 % (3-14); Neutrophils Absolute Auto 5900 /uL (1500-7000); Neutrophils Percent Auto 69.3 % (50-75); Platelet Count 214 X10^3/uL (150-400); Red Blood Cell Count 4.26 X10^6/uL (4.5-5.9); White Blood Cell Count 8.5 X10^3/uL (4.5-11.0)
[2024-04-16 07:54] LABS: Appearance Urine UA CLEAR; Bilirubin Urine UA NEGATIVE (NEGATIVE); Color Urine UA YELLOW; Glucose Urine UA NEGATIVE (Negative); Ketones Urine UA NEGATIVE (NEGATIVE); Leukocyte Esterase Urine UA 1+ (NEGATIVE); Nitrite Urine UA NEGATIVE (Negative); Occult Blood Urine UA TRACE-INTACT (Negative); Protein Urine UA NEGATIVE (Negative); Urobilinogen Urine UA 0.2 E.U./dL (0.2)
[2024-04-16 08:02] LABS: Culture Indicated Urine Cult Not Indicated
[2024-04-16 08:03] LABS: Bacteria Urine None Seen; RBC Urine None Seen (0-5/HPF); Squamous Epithelial Cell Urine 0-1 /HPF (0-5/HPF); Urine Volume 10mL (spun); WBC Urine 5-10/HPF (0-5/HPF)
[2024-04-16 08:45] LABS: Alanine Aminotransferase 35 IU/L (<50); Albumin 4.1 g/dL (3.5-5.0); Albumin Globulin Ratio 1.5 (1.0-2.8); Alkaline Phosphatase 108 U/L (38-126); Aspartate Aminotransferase 31 IU/L (17-59); BUN Creatinine Ratio 20.2 (6-22); Blood Urea Nitrogen 23 mg/dL (9-20); Calcium 10.3 mg/dL (8.4-10.2); Carbon Dioxide 22 mmol/L (22-32); Chloride 104 mmol/L (98-107); Estimated Glomerular Filt Rate > 60 mL/min (>60); Globulin 2.7 g/dL (1.7-4.1); Glucose 115 mg/dL (80-110); HEMOLYSIS 16 (0-50); Magnesium 1.5 mg/dL (1.6-2.3); Phosphorous 2.4 mg/dL (2.3-3.7); Sodium 134 mmol/L (137-145); Total Protein 6.8 g/dL (6.3-8.2)
[2024-04-17 09:08] LABS: Tacrolimus 6.5 ng/mL (2.0-20.0)
[2024-04-18 07:40] LABS: Calcium 9.9 mg/dL (8.6-10.2); Parathyroid Hormone, Intact 84 pg/mL (15-65)
== END ==
PROVIDERS: Family Provider Family Medicine; PCP Family Medicine; Referring Provider Internal Medicine Nephrology; Visit Provider Internal Medicine Nephrology
DX: Z94.0 Kidney transplant status (principal); D84.9 Immunodeficiency, unspecified
CPT/HCPCS: 36415; 80053; 80197; 81001; 82310; 83735; 83970; 84100; 85025; 87799

== ENCOUNTER → 2024-05-01 13:36 | Outpatient (CLI) | payer MEDICARE, SELFPAY ==
[2024-05-01 15:32] LABS: Uric Acid 8.4 mg/dL (3.5-8.5)
== END ==
PROVIDERS: Family Provider Family Medicine; PCP Family Medicine; Referring Provider Internal Medicine Nephrology; Visit Provider Internal Medicine Nephrology
DX: M1A.00X0 Idiopathic chronic gout, unspecified site, without tophus (tophi) (principal)
CPT/HCPCS: 36415; 84550

== ENCOUNTER → 2024-05-29 12:23 | Outpatient (CLI) | payer MEDICARE, SELFPAY ==
[2024-05-29 13:35] LABS: Uric Acid 6.7 mg/dL (3.5-8.5)
== END ==
PROVIDERS: Family Provider Family Medicine; PCP Family Medicine; Referring Provider Internal Medicine Nephrology; Visit Provider Internal Medicine Nephrology
DX: M1A.00X0 Idiopathic chronic gout, unspecified site, without tophus (tophi) (principal)
CPT/HCPCS: 36415; 84550

== ENCOUNTER → 2024-06-26 10:50 | Outpatient (CLI) | payer MEDICARE, SELFPAY ==
[2024-06-26 11:31] LABS: Uric Acid 6.7 mg/dL (3.5-8.5)
== END ==
LOC: LAB 10:52
PROVIDERS: Family Provider Family Medicine; PCP Family Medicine; Referring Provider Internal Medicine Nephrology; Visit Provider Internal Medicine Nephrology
DX: M1A.00X0 Idiopathic chronic gout, unspecified site, without tophus (tophi) (principal)
CPT/HCPCS: 36415; 84550

== ENCOUNTER → 2024-07-22 06:43 | Outpatient (CLI) | payer MEDICARE, SELFPAY ==
[2024-07-22 07:58] LABS: Add Manual Diff / Slide Review NO; Basophils Absolute Auto 0 /uL (0-100); Basophils Percent Auto 0.6 % (0-2); Eosinophils Absolute Auto 200 /uL (0-450); Eosinophils Percent Auto 3.3 % (2-4); Hematocrit 39.6 % (41-53); Hemoglobin 13.6 g/dL (13.5-17.5); Lymphocytes Absolute Auto 1400 /uL (1100-4500); Lymphocytes Percent Auto 19.5 % (25-40); Mean Corpuscular HGB Conc 34.3 % (30-36); Mean Corpuscular Hemoglobin 31.4 PG (26-34); Mean Corpuscular Volume 91.6 fL (80-100); Monocytes Absolute Auto 700 /uL (0-900); Monocytes Percent Auto 9.8 % (3-14); Neutrophils Absolute Auto 4700 /uL (1500-7000); Neutrophils Percent Auto 66.8 % (50-75); Platelet Count 201 X10^3/uL (150-400); Red Blood Cell Count 4.32 X10^6/uL (4.5-5.9); White Blood Cell Count 7.1 X10^3/uL (4.5-11.0)
[2024-07-22 08:10] LABS: Appearance Urine UA CLEAR; Bilirubin Urine UA NEGATIVE (NEGATIVE); Color Urine UA YELLOW; Glucose Urine UA NEGATIVE (Negative); Ketones Urine UA NEGATIVE (NEGATIVE); Leukocyte Esterase Urine UA 1+ (NEGATIVE); Nitrite Urine UA NEGATIVE (Negative); Occult Blood Urine UA NEGATIVE (Negative); Protein Urine UA NEGATIVE (Negative); Specific Gravity Urine UA <=1.005 (1.000-1.035); Urobilinogen Urine UA 0.2 E.U./dL (0.2)
[2024-07-22 08:13] LABS: Urine Volume 10mL (spun)
[2024-07-22 08:14] LABS: Bacteria Urine None Seen; Culture Indicated Urine Specimen Cultured; RBC Urine None Seen (0-5/HPF); Squamous Epithelial Cell Urine None Seen (0-5/HPF); WBC Urine 1-5/HPF (0-5/HPF)
[2024-07-22 08:21] LABS: Alanine Aminotransferase 60 IU/L (<50); Albumin 4.1 g/dL (3.5-5.0); Albumin Globulin Ratio 1.6 (1.0-2.8); Alkaline Phosphatase 150 U/L (38-126); Aspartate Aminotransferase 39 IU/L (17-59); Bilirubin Total 0.9 mg/dL (0.2-1.3); Blood Urea Nitrogen 24 mg/dL (9-20); Calcium 10.2 mg/dL (8.4-10.2); Carbon Dioxide 20 mmol/L (22-32); Chloride 103 mmol/L (98-107); Estimated Glomerular Filt Rate > 60 mL/min (>60); Globulin 2.5 g/dL (1.7-4.1); Glucose 139 mg/dL (80-110); HEMOLYSIS < 15 (0-50); Magnesium 1.4 mg/dL (1.6-2.3); Phosphorous 2.7 mg/dL (2.3-3.7); Potassium 4.2 mmol/L (3.4-5.1); Sodium 133 mmol/L (137-145); Total Protein 6.6 g/dL (6.3-8.2); Uric Acid 7.3 mg/dL (3.5-8.5)
[2024-07-23 07:36] LABS: Tacrolimus 5.9 ng/mL (5.0-20.0)
[2024-07-23 20:11] LABS: Calcium 10.2 mg/dL (8.6-10.2); Parathyroid Hormone, Intact 85 pg/mL (15-65)
== END ==
PROVIDERS: Family Provider Family Medicine; PCP Family Medicine; Referring Provider Internal Medicine Nephrology; Visit Provider Internal Medicine Nephrology
DX: Z94.0 Kidney transplant status (principal); D84.9 Immunodeficiency, unspecified
CPT/HCPCS: 36415; 80053; 80197; 81001; 82310; 83735; 83970; 84100; 84550; 85025; 87077; 87086; 87186; 87799

== ENCOUNTER → 2024-09-10 14:07 | Outpatient (CLI) | payer MEDICARE, SELFPAY ==
[2024-09-10 15:17] LABS: Uric Acid 6.1 mg/dL (3.5-8.5)
== END ==
PROVIDERS: Family Provider Family Medicine; PCP Family Medicine; Referring Provider Family Medicine; Visit Provider Internal Medicine Nephrology
DX: M1A.00X0 Idiopathic chronic gout, unspecified site, without tophus (tophi) (principal)
CPT/HCPCS: 36415; 84550

== ENCOUNTER → 2025-02-05 06:27 | Outpatient (CLI) | payer MEDICARE, SELFPAY ==
[2025-02-05 08:12] LABS: Appearance Urine UA CLEAR; Bilirubin Urine UA NEGATIVE (NEGATIVE); Color Urine UA YELLOW; Glucose Urine UA NEGATIVE (Negative); Ketones Urine UA NEGATIVE (NEGATIVE); Leukocyte Esterase Urine UA TRACE (NEGATIVE); Nitrite Urine UA NEGATIVE (Negative); Occult Blood Urine UA NEGATIVE (Negative); Protein Urine UA NEGATIVE (Negative); Specific Gravity Urine UA <=1.005 (1.000-1.035); Urobilinogen Urine UA 0.2 E.U./dL (0.2); pH Urine UA 5.5 (4.5-8.0)
[2025-02-05 08:18] LABS: Culture Indicated Urine Specimen Cultured
[2025-02-05 08:20] LABS: Hemoglobin A1C% w Est Avg Glu 7.2 % (4.0-6.0)
[2025-02-05 08:30] LABS: Protein (Total) Urine Random 18 mg/dL (0-12); Protein Creatinine Ratio Urine 1.02 GRAM/24H
[2025-02-05 08:34] LABS: Microalbumi Creatinin Ratio Ur 136.0 ug/mg CR (<30)
[2025-02-05 08:36] LABS: Alanine Aminotransferase 63 IU/L (<50); Albumin 4.0 g/dL (3.5-5.0); Albumin Globulin Ratio 1.4 (1.0-2.8); Alkaline Phosphatase 147 U/L (38-126); Blood Urea Nitrogen 27 mg/dL (9-20); Calcium 10.2 mg/dL (8.4-10.2); Carbon Dioxide 21 mmol/L (22-32); Chloride 101 mmol/L (98-107); Cholesterol 188 mg/dL (140-199); Estimated Glomerular Filt Rate > 60 mL/min (>60); Globulin 2.8 g/dL (1.7-4.1); Glucose 160 mg/dL (70-99); HDL Cholesterol 42 mg/dL (40-60); HEMOLYSIS < 15 (0-50); Magnesium 1.5 mg/dL (1.6-2.3); Phosphorous 2.7 mg/dL (2.3-3.7); Potassium 4.2 mmol/L (3.4-5.1); Sodium 131 mmol/L (137-145); Total Protein 6.8 g/dL (6.3-8.2); Triglycerides 390 mg/dL (35-150); Uric Acid 6.0 mg/dL (3.5-8.5)
== END ==
PROVIDERS: Family Provider Family Medicine; PCP Family Medicine; Referring Provider Internal Medicine Nephrology; Visit Provider Internal Medicine Nephrology
DX: D84.9 Immunodeficiency, unspecified (principal); E21.1 Secondary hyperparathyroidism, not elsewhere classified; E78.00 Pure hypercholesterolemia, unspecified; M1A.00X0 Idiopathic chronic gout, unspecified site, without tophus (tophi); Z94.0 Kidney transplant status
CPT/HCPCS: 36415; 80053; 80061; 81001; 82043; 82310; 82570; 83036; 83735; 83970; 84100; 84156; 84550; 87077; 87086; 87799

== ENCOUNTER → 2025-02-18 13:03 | Outpatient (CLI) | payer MEDICARE, SELFPAY | LOC: WC 13:06 | PROVIDERS: Family Provider Family Medicine; PCP Family Medicine; Referring Provider Internal Medicine Nephrology; Visit Provider Surgery | DX: L89.893 Pressure ulcer of other site, stage 3 (principal); D84.821 Immunodeficiency due to drugs | CPT/HCPCS: 11042; 87070; 87075; 87205; 99203; 99213 ==

== ENCOUNTER → 2025-02-25 10:42 | Outpatient (CLI) | payer MEDICARE, SELFPAY | LOC: WC 10:42 | PROVIDERS: Family Provider Family Medicine; PCP Family Medicine; Referring Provider Family Medicine; Visit Provider Surgery | DX: L89.893 Pressure ulcer of other site, stage 3 (principal); D84.821 Immunodeficiency due to drugs | CPT/HCPCS: 11042 ==

== ENCOUNTER → 2025-03-04 09:53 | Outpatient (CLI) | payer MEDICARE, SELFPAY | LOC: WC 09:54 | PROVIDERS: Family Provider Family Medicine; PCP Family Medicine; Referring Provider Family Medicine; Visit Provider Surgery | DX: L89.893 Pressure ulcer of other site, stage 3 (principal); D84.821 Immunodeficiency due to drugs | CPT/HCPCS: 97602; 99213 ==

== ENCOUNTER → 2025-03-11 09:13 | Outpatient (CLI) | payer MEDICARE, SELFPAY | LOC: WC 09:13 | PROVIDERS: Family Provider Family Medicine; PCP Family Medicine; Referring Provider Family Medicine; Visit Provider Surgery | DX: L89.893 Pressure ulcer of other site, stage 3 (principal); L02.211 Cutaneous abscess of abdominal wall | CPT/HCPCS: 11042; 99213 ==

== ENCOUNTER → 2025-03-18 09:35 | Outpatient (CLI) | payer MEDICARE, SELFPAY | LOC: WC 09:36 | PROVIDERS: Family Provider Family Medicine; PCP Family Medicine; Referring Provider Family Medicine; Visit Provider Surgery | DX: L89.893 Pressure ulcer of other site, stage 3 (principal); L02.211 Cutaneous abscess of abdominal wall; D84.821 Immunodeficiency due to drugs | CPT/HCPCS: 11042; 97597 ==

== ENCOUNTER → 2025-03-25 08:41 | Outpatient (CLI) | payer MEDICARE, SELFPAY | LOC: WC 08:42 | PROVIDERS: Family Provider Family Medicine; PCP Family Medicine; Referring Provider Family Medicine; Visit Provider Surgery | DX: L89.893 Pressure ulcer of other site, stage 3 (principal); L02.211 Cutaneous abscess of abdominal wall; D84.821 Immunodeficiency due to drugs | CPT/HCPCS: 99212; 99213 ==